=== PATIENT | female | born 1940 | race Caucasian/White ===

== ENCOUNTER 2017-02-07 13:08 | Inpatient (IN) | payer MEDICARE, OTHER ==
[~2017-02-07] VITALS: Ht 152.4 cm; Wt 85.4 kg
[2017-02-07] VITALS (7 sets, daily range): BP systolic 104–148; BP diastolic 60–86; PULSE 58–61; RESP 17–18; TEMP 96.9–98; O2SAT 98–100
[~2017-02-07 13:08] MED LIST: ABIL5TAB6 PO; ALPR.25 PO; BENZ100C4 PO; CARB25TA PO; CARV12.5 PO; CYMB60CA PO; FOLITAB6 PO; FURO1TAB93 PO; LAMO200T PO; MECL25 PO; MEMA10 PO; PHEN100 PO; POTA25TA2 PO; PREG75 PO; PROT40TA PO; RIVA9.5T TD; ROSU10 PO; TEMA15 PO; ZOFR8TAB PO
[2017-02-07] MEDS ORDERED: SODIUM CHLOR 0.9% 1000 ML INJ 1,000 ML IV ONE (13:19)
--- NOTE | 2017-02-07 13:38 | PD ---
HPI Chief Complaint: stroke alert Time Seen by Provider: 13:18 Travel History International Travel<30 days: No Contact w/Intl Traveler<30days: No Traveled to known affect area: No History of Present Illness HPI This patient is brought in as a stroke alert declared by paramedics in the field. Symptom onset 1245. This patient was in the bathroom and had a syncopal episode. Woke up ground and was having some speech slurring and subtle facial droop and some left arm weakness. Duration 45 minutes. Symptoms severity is moderate. No alleviating factors. She denies presyncopal symptoms. She's had a history of multiple TIAs but no residual neurologic deficit. PFSH Past Medical History Arthritis: Yes Asthma: Yes Bipolar Disorder: Yes Anxiety: Yes Depression: Yes Cancer: No Cardiovascular Problems: Yes (HTN/ AAA) High Cholesterol: Yes Congestive Heart Failure: Yes COPD: Yes Cerebrovascular Accident: Yes Coronary Artery Disease: Yes Dementia: Yes Diabetes: No Diminished Hearing: No Endocrine: No Gastrointestinal Disorders: Yes GERD: Yes Genitourinary: No Hypertension: Yes Immune Disorder: No Implanted Vascular Access Dvce: Yes Musculoskeletal: Yes Neurologic: Yes (parkinson) Parkinson's Disease: Yes Psychiatric: Yes (BIPOLAR) Reproductive: No Respiratory: No Seizures: Yes Past Surgical History Abdominal Aneurysm Repair: Yes Abdominal Surgery: Yes (HERNIA REPAIR x 4; AAA REPAIR; CHOLECYSTECTOMY; APPENDECTOMY) Appendectomy: Yes Cholecystectomy: Yes Gynecologic Surgery: Yes (HYSTERECTOMY) Hysterectomy: Yes (PARTIAL) Joint Replacement: Yes (LEFT HIP REPLACEMENT WITH REVISION) Oral Surgery: Yes (TONSILLECTOMY) Pacemaker: No Tonsillectomy: Yes Other Surgery: Yes Social History Alcohol Use: No Tobacco Use: No Substance Use: No Allergies-Medications (Allergen,Severity, Reaction): Coded Allergies: Paxil (Verified Allergy, Severe, CAN NOT REMEMBER , 02/21/16) Lactose (Verified Allergy, Unknown, GI UPSET, 02/21/16) Reported Meds & Prescriptions Reported Meds & Active Scripts Active Reported Cymbalta DR (Duloxetine HCl) 60 Mg Capdr 60 Mg PO DAILY Abilify (Aripiprazole) 2 Mg Tab 2 Mg PO HS Sinemet (Carbidopa-Levodopa) 25-100 Mg Tab 1 Tab PO QID Carvedilol 12.5 Mg Tab 12.5 Mg PO BID Folate (Folic Acid) 1 Mg Tab 2 Mg PO DAILY Lamictal (Lamotrigine) 200 Mg Tab 200 Mg PO HS Meclizine 25 (Meclizine HCl) 25 Mg Tab 25 Mg PO Q8HR PRN Lasix (Furosemide) 20 Mg Tab 20 Mg PO DAILY Namenda (Memantine) 10 Mg Tab 10 Mg PO BID Zofran (Ondansetron HCl) 4 Mg Tab 4 Mg PO DAILY PRN Pantoprazole (Pantoprazole Sodium) 40 Mg Tab 40 Mg PO DAILY Klor-Con M20 (Potassium Chloride Microencaps) 20 Meq Tab 20 Meq PO DAILY Lyrica (Pregabalin) 100 Mg Cap 100 Mg PO TID Exelon Patch (Rivastigmine) 9.5 mg/24 hr Patch 1 Patch T-DERMAL DAILY Advair Diskus Inh (Fluticasone-Salmeterol Inh) 250-50 Mcg/Blist Aer 1 Puff INH BID Rinse mouth after use. Crestor (Rosuvastatin Calcium) 10 Mg Tab 10 Mg PO HS Rozerem (Ramelteon) 8 Mg Tab 8 Mg PO HS Amitiza (Lubiprostone) 8 Mcg Cap 8 Mg PO BID Plavix (Clopidogrel Bisulfate) 75 Mg Tab 75 Mg PO DAILY Alprazolam 0.25 Mg Tab 0.25 Mg PO DAILY PRN Alprazolam 0.25 Mg Tab 0.25 Mg PO BID Review of Systems General / Constitutional: No: Fever Eyes: No: Visual changes HENT: No: Headaches Cardiovascular: No: Chest Pain or Discomfort Respiratory: No: Shortness of Breath Gastrointestinal: No: Abdominal Pain Genitourinary: No: Dysuria Musculoskeletal: Positive: Weakness, No: Pain Skin: No Rash Neurologic: Positive: Weakness, Slurred Speech Psychiatric: No: Depression Endocrine: No: Polydipsia Hematologic/Lymphatic: No: Easy Bruising Physical Exam Narrative GENERAL: Well-nourished, well-developed patient in no apparent distress. SKIN: Focused skin assessment reveals no rash and nodules. Skin is Warm and dry. HEAD: Atraumatic. Normocephalic. EYES: Pupils equal and round. No scleral icterus. No injection or drainage. ENT: No nasal bleeding or discharge. Mucous membranes pink and moist. NECK: Trachea midline. No JVD. No midline tenderness CARDIOVASCULAR: Regular rate and rhythm. No murmur appreciated. RESPIRATORY: No accessory muscle use. Clear to auscultation. Breath sounds equal bilaterally. GASTROINTESTINAL: Abdomen soft, non-tender, nondistended. Hepatic and splenic margins not palpable. MUSCULOSKELETAL: No obvious deformities. No clubbing. No cyanosis. No edema. NEUROLOGICAL: Awake and alert. Has a slight and subtle right sided facial droop. Motor exam reveals that there is some mild left hand and arm weakness compared to the right. Slight slurring of speech. Sensation seems intact throughout. Awake and alert and oriented. PSYCHIATRIC: Appropriate mood and affect; insight and judgment reasonable Data Data Last Documented VS Vital Signs Date Time Temp Pulse Resp B/P Pulse Ox O2 Delivery O2 Flow Rate FiO2 02/07/17 13:10 98.0 60 18 104/86 98 Nasal Cannula 2 Orders Diet Npo (02/07/17 Lunch) Activity Bed Rest (02/07/17 ) Electrocardiogram (02/07/17 ) I-Stat Creatinine (02/07/17 13:19) I-Stat Profile (02/07/17 13:19) Prothrombin Time / Inr (Pt) (02/07/17 13:19) Act Partial Throm Time (Ptt) (02/07/17 13:19) Complete Blood Count With Diff (02/07/17 13:19) Fibrinogen (02/07/17 13:19) Ct Brain W/O Iv Contrast(Rout) (02/07/17 ) Consult Neurology (02/07/17 ) Ecg Monitoring (02/07/17 13:19) Neuro Checks Q2HX12,Q4H (02/07/17 13:19) Nursing Bedside Swallow Assess .ONCE (02/07/17 13:19) Iv Access Insert/Monitor (02/07/17 13:19) NPO (02/07/17 13:19) Oximetry (02/07/17 13:19) Oxygen Administration (02/07/17 13:19) Sodium Chlor 0.9% 1000 Ml Inj (Ns 1000 M (02/07/17 13:19) Resp Oxygen Rui C Titrat 1-4 L (02/07/17 13:19) (Hub Use Only)Inp Phy Cons/Ref (02/07/17 ) Aspirin (Aspirin) (02/07/17 14:15) Admit Order (Ed Use Only) (02/07/17 15:54) Labs Laboratory Tests Test 02/07/17 13:36 White Blood Count 4.3 TH/MM3 Red Blood Count 4.39 MIL/MM3 Hemoglobin 12.5 GM/DL Bedside Hemoglobin 12.2 G/DL Hematocrit 38.0 % Bedside Hematocrit 36.0 % Mean Corpuscular Volume 86.5 FL Mean Corpuscular Hemoglobin 28.5 PG Mean Corpuscular Hemoglobin 32.9 % Concent Red Cell Distribution Width 14.1 % Platelet Count 66 TH/MM3 Mean Platelet Volume 11.7 FL Neutrophils (%) (Auto) 54.8 % Lymphocytes (%) (Auto) 31.3 % Monocytes (%) (Auto) 9.5 % Eosinophils (%) (Auto) 3.8 % Basophils (%) (Auto) 0.6 % Neutrophils # (Auto) 2.4 TH/MM3 Lymphocytes # (Auto) 1.3 TH/MM3 Monocytes # (Auto) 0.4 TH/MM3 Eosinophils # (Auto) 0.2 TH/MM3 Basophils # (Auto) 0.0 TH/MM3 CBC Comment AUTO DIFF Differential Comment AUTO DIFF CONFIRMED Platelet Estimate Platelet Morphology Comment ENLARGED Prothrombin Time 11.0 SEC Prothromb Time International 1.0 RATIO Ratio Activated Partial 25.7 SEC Thromboplast Time Fibrinogen 332 mg/dL Bedside Sodium 144 MMOL/L Bedside Potassium 4.4 MMOL/L Bedside Chloride 104 MMOL/L Bedside Blood Urea Nitrogen 33 MG/DL Bedside Creatinine 1.2 MG/DL Bedside Glucose 92 MG/DL [facility] Medical Screen Exam Complete: Yes Emergency Medical Condition: Yes Medical Record Reviewed: Yes Differential Diagnosis Ischemic CVA, hemorrhagic CVA, TIA Narrative Course I have reviewed the patient's electronic medical record. Patient arrives critically ill with acute stroke alert. Does have some deficits that would be consistent with acute stroke. Stroke alert protocol has been activated. I called his cellphone out of her personal neurologist Dr. Draper but he did not warp picker and so we have contacted the on-call neurologist given we cannot wait. I reviewed in detail with Dr. Vega. Patient has been sent to the CT scanner CT scan of the brain I reviewed with the radiologist. There is no hemorrhage. Shows an old CVA. CBC shows thrombocytopenia Metabolic profile is reasonably normal Coagulation studies are normal The patient came back from the scanner is in mentation. She has some deficits but they are fairly minor and neurologist does not recommend TPA based on the deficits being mild and I concur. We don't feel it is worth the risk of hemorrhage. I reviewed this in detail with the daughter. Patient will be admitted to the hospitalist and I have discussed with him Critical Care Narrative Aggregate critical care time was 40 minutes. Time to perform other separately billable procedures was not included in the critical care time. My time did not include minutes spent treating any other patients simultaneously or on activities that did not directly contribute to the patient's treatment. The services I provided to this patient were to treat and/or prevent clinically significant deterioration that could result in: Permanent neurologic deficit, intracranial hemorrhage, brain stem herniation I provided critical care services requiring my management, as noted below: Chart data review, documentation time, medication orders and management, vital sign assessments/reviewing monitor data, ordering and reviewing lab tests, ordering and interpreting/reviewing x-rays and diagnostic studies, care of the patient and discussion of the patient with the admitting physicians. Stroke Alert NIHSS NIH Stroke Scale Result: 3 NIHSS Time Completed: 13:25 Thrombolytic Contraindications Contraindications Comment: Deficits are mild and not worth the risk of bleeding Diagnosis Diagnosis: Primary Impression: Acute ischemic right MCA stroke Admitting Physician Requests: Admit Jersey Giraldo MD Feb 07, 2017 13:38
[2017-02-07 13:55] LABS: AUTOMATED NEUTROPHIL # 2.4 TH/MM3 (1.8-7.7); BASOPHIL % 0.6 % (0.0-2.0); EOSINOPHIL # 0.2 TH/MM3 (0-0.4); EOSINOPHIL % 3.8 % (0.0-4.0); I-STAT POTASSIUM 4.4 MMOL/L (3.5-4.9); LYMPH % 31.3 % (9.0-44.0); LYMPHOCYTE # 1.3 TH/MM3 (1.0-4.8); MEAN CELL VOLUME 86.5 FL (80.0-100.0); MEAN CORPUSCULAR HEMOGLOBIN 28.5 PG (27.0-34.0); MEAN CORPUSCULAR HGB CONC 32.9 % (32.0-36.0); MONO % 9.5 % (0.0-8.0); NEUT % 54.8 % (16.0-70.0); PLATELET COUNT 66 TH/MM3 (150-450); RED BLOOD COUNT 4.39 MIL/MM3 (4.00-5.30); RED CELL DISTRIBUTION WIDTH 14.1 % (11.6-17.2); WHITE BLOOD COUNT 4.3 TH/MM3 (4.0-11.0)
[2017-02-07 14:05] LABS: APTT (PATIENT) 25.7 SEC (24.3-30.1)
[2017-02-07 14:07] LABS: HEMO FLAGS AUTO DIFF
--- NOTE | 2017-02-07 14:10 | RADRPT ---
EXAM DATE/TIME: 02/07/2017 13:24 [facility] COMPARISON: MRI BRAIN W/O CONTRAST, July 17, 2016, 11:27. CT BRAIN W/O CONTRAST, July 16, 2016, 22:36. INDICATIONS : Left arm weakness, slurred speech RADIATION DOSE: 38.09 CTDIvol (mGy) This report was called by Gloria to Maximus at 1404 MEDICAL HISTORY : Hypertension. Dementia. SURGICAL HISTORY : None. ENCOUNTER: Initial ACUITY: 1 day PAIN SCALE: Non-responsive LOCATION: cranial TECHNIQUE: Multiple contiguous axial images were obtained of the head. Using automated exposure control and adj ustment of the mA and/or kV according to patient size, radiation dose was kept as low as reasonably a chievable to obtain optimal diagnostic quality images. FINDINGS: There is mild symmetric cortical atrophic change. Patchy mild diminished attenuation deep white matte r, likely microvascular ischemic in etiology there is no evidence of hemorrhage or mass. There is not john to suggest acute infarction. The extracranial structures are benign and intact. CONCLUSION: No acute intracranial findings. Study reviewed with Dr. Vega and report called to Dr. Stroud as abo ve. Sivakumar Castro MD on February 07, 2017 at 14:04 Board Certified Radiologist. This report was verified electronically.
[2017-02-07] MEDS ORDERED: ASPIRIN 325 MG TAB PO ONE (14:15)
[2017-02-07 14:25] LABS: PLATELET MORPHOLOGY ENLARGED (NORMAL); SCAN/DIFF AUTO DIFF CONFIRMED
[2017-02-07] MEDS ORDERED: ALPR0.25 PO ×2 (15:50)
[2017-02-07] MEDS ORDERED: ROZE8TAB8 PO (15:50)
[2017-02-07] MEDS ORDERED: PANT40TA3 PO (15:50)
[2017-02-07] MEDS ORDERED: AMIT8CAP6 PO (15:50)
[2017-02-07] MEDS ORDERED: FURO1TAB62 PO (15:50)
[2017-02-07] MEDS ORDERED: ROSU10 PO (15:50)
[2017-02-07] MEDS ORDERED: RIVA9.5T T-DERMAL (15:50)
[2017-02-07] MEDS ORDERED: PLAV75TA29 PO (15:50)
[2017-02-07] MEDS ORDERED: LYRI100C PO (15:50)
[2017-02-07] MEDS ORDERED: MECL1TAB42 PO (15:50)
[2017-02-07] MEDS ORDERED: NAME10TA PO (15:50)
[2017-02-07] MEDS ORDERED: ADVA250A INH (15:50)
[2017-02-07] MEDS ORDERED: POTA-245 PO (15:50)
[2017-02-07] MEDS ORDERED: ZOFR4TAB PO (15:50)
[2017-02-07] MEDS ORDERED: FOLI1TAB4 PO (15:51)
[2017-02-07] MEDS ORDERED: LAMI200T PO (15:51)
[2017-02-07] MEDS ORDERED: SINE25TA PO (15:51)
[2017-02-07] MEDS ORDERED: CARV12.52 PO (15:51)
[2017-02-07] MEDS ORDERED: ABIL2TAB2 PO (15:51)
[2017-02-07] MEDS ORDERED: CYMB60CA PO (15:59)
[2017-02-07] MEDS ORDERED: SODIUM CHLOR 0.9% 1000 ML INJ 1,000 ML IV SCH (17:19)
[2017-02-07] MEDS ORDERED: ENALAPRILAT 1.25 MG/ML VIAL IV PRN (17:30)
[2017-02-07] MEDS ORDERED: GLUCAGON 1 MG/ML VIAL IM/SQ PRN (17:30)
[2017-02-07] MEDS ORDERED: LABETALOL HCL 100 MG/20 ML VIAL IV PRN (17:30)
[2017-02-07] MEDS ORDERED: DEXTROSE 50% IN WATER 50 ML VIAL(D50) IV PUSH PRN (17:30)
[2017-02-07] MEDS ORDERED: MECLIZINE HCL 25 MG TAB PO PRN (18:45)
--- NOTE | 2017-02-07 18:46 | HHI.HP ---
[facility] Service [place] [facility] Primary Care Physician Khadijah Levin MD Admission Diagnosis acute ischemic CVA Diagnoses: Travel History International Travel<30 Days: No Contact w/Intl Traveler <30 Da: No Traveled to Known Affected Are: No History of Present Illness 76 years old female with history of asthma bipolar disease anxiety depression hypertension seizure abdominal aortic aneurysm dyslipidemia CHF COPD and TIA in the past and dementia, presented to the ED today by the manager [employer] as a stroke alert at 1245 patient fail down in the bathroom but it wasn't sure if it was syncopal episode with losing consciousness since the weakness was her who already has advanced dementia as I was told by the daughter. Neurology was consulted in ED Dr. Zapata assess the patient he decided no need for TPA since the symptoms are very minimal. He placed her on aspirin on top of the Plavix, patient recently had an MRI so decision on doing another MRI was deferred to neurology. I saw the patient in her room with her daughter was at the bedside. She is pleasant resting comfortably in bed she told me she failed dizzy prior to filling down, she stated she hit the edge of the bathtub Denied short of breath, chest pain, blurry vision prior to the episode she wasn' t sure if she lost consciousness she does feel weakness in her left arm and leg she don't remember if she had problem with speech or jerking movement. No abdominal pain diarrhea or constipation no dysuria urgency or frequency. CT scan of the brain in ED did not showed hemorrhage or all CVA, CBC showed thrombocytopenia, coag panel was within normal limits Patient told me she follow up with her net c developer who wanted to adjust her anticoagulation and she has implanted loop recorder Past Family Social History Past Medical History bipolar disorder Anxiety depression hypertension Abdominal aortic aneurysm dyslipidemia Congestive heart failure COPD Seizures CVA Dementia GERD Past Surgical History Abdominal aortic aneurysm repair and a cholecystectomy Appendectomy Hysterectomy Left hip replacement next and tonsillectomy Allergies: Coded Allergies: Paxil (Verified Allergy, Severe, CAN NOT REMEMBER , 02/21/16) Lactose (Verified Allergy, Unknown, GI UPSET, 02/21/16) Family History Reviewed with the patient and her daughter, positive history of CVA in her family Social History Denied tobacco alcohol or illicit drug abuse Physical Exam Vital Signs Vital Signs Date Time Temp Pulse Resp B/P Pulse Ox O2 Delivery O2 Flow Rate FiO2 02/07/17 16:00 60 18 148/70 98 Nasal Cannula 2 02/07/17 15:00 60 18 136/60 99 Nasal Cannula 2 02/07/17 14:00 60 18 130/63 99 Nasal Cannula 2 02/07/17 13:30 61 18 129/69 99 Nasal Cannula 2 02/07/17 13:10 98.0 60 18 104/86 98 Nasal Cannula 2 02/07/17 13:10 98.0 60 18 104/86 98 02/07/17 13:10 98 Nasal Cannula 2.00 02/07/17 13:10 98 Nasal Cannula 2 02/07/17 13:10 98 2.00 02/07/17 13:10 98 Nasal Cannula 2 02/07/17 13:10 60 18 98 Nasal Cannula 2 Physical Exam GENERAL: This is a well-nourished, elderly 76 years old female well-developed patient, in no apparent distress. SKIN: No rashes, warm and dry HEAD: Atraumatic. Normocephalic. EYES: Pupils equal round and reactive. Extraocular motions intact. No scleral icterus. ENT: Nose without bleeding, or drainage, Airway patent. NECK: Trachea midline. Supple CARDIOVASCULAR: Regular rate and rhythm without murmurs, gallops, or rubs. RESPIRATORY: Fair air entry bilaterally. No wheezes, rales, or rhonchi. GASTROINTESTINAL: Abdomen soft, non-tender, nondistended. Positive bowel sounds MUSCULOSKELETAL: Extremities without clubbing, cyanosis, or edema. Pedal pulses appreciated NEUROLOGICAL: Awake and alert. Cranial nerves II-12 intact, LUE 3 out of 5 minimal drift against gravity, RUE 4 out of 5, lower extremity LLE 3 out of 5, RLE 4 out of 5, Normal speech. Laboratory Laboratory Tests Test 02/07/17 13:36 White Blood Count 4.3 Red Blood Count 4.39 Hemoglobin 12.5 Bedside Hemoglobin 12.2 Hematocrit 38.0 Bedside Hematocrit 36.0 Mean Corpuscular Volume 86.5 Mean Corpuscular Hemoglobin 28.5 Mean Corpuscular Hemoglobin 32.9 Concent Red Cell Distribution Width 14.1 Platelet Count 66 Mean Platelet Volume 11.7 Neutrophils (%) (Auto) 54.8 Lymphocytes (%) (Auto) 31.3 Monocytes (%) (Auto) 9.5 Eosinophils (%) (Auto) 3.8 Basophils (%) (Auto) 0.6 Neutrophils # (Auto) 2.4 Lymphocytes # (Auto) 1.3 Monocytes # (Auto) 0.4 Eosinophils # (Auto) 0.2 Basophils # (Auto) 0.0 CBC Comment AUTO DIFF Differential Comment AUTO DIFF CONFIRMED Platelet Estimate Platelet Morphology Comment ENLARGED Prothrombin Time 11.0 Prothromb Time International 1.0 Ratio Activated Partial 25.7 Thromboplast Time Fibrinogen 332 Bedside Sodium 144 Bedside Potassium 4.4 Bedside Chloride 104 Bedside Blood Urea Nitrogen 33 Bedside Creatinine 1.2 Bedside Glucose 92 Result Diagram: 02/07/17 1336 Imaging Last Impressions Head CT 02/07/17 0000 Signed Impressions: Service Date/Time: Tuesday, February 07, 2017 13:24 - CONCLUSION: No acute intracranial findings. Study reviewed with Dr. Vega and report called to Dr. Stroud as above. Sivakumar Castro MD Assessment and Plan Assessment and Plan 76 years old female with extensive past medical history presented with neuro symptom with Stroke alert, sudden fall and left upper and lower extremity weakness CT head reviewed personally by me no hemorrhage or old stroke Neurology consulted and recommended against TPA due to minimal neuro symptom , recommended aspirin with Plavix Will apply stroke protocol with flat bed, permissive hypertension Enalapril labetalol with a stroke parameter as needed SCD and heparin for DVT prophylaxis Nothing by mouth until doing swallow eval Check lipid profile Check A1c Mild azotemia with BUN/creatinine over creatinine 33 over 1.2 Monitor BMP Will give 1 L of normal saline iv fluid cautiously Thrombocytopenia chronic Count at 66, monitor CBC, no signs of bleeding History of CHF: We'll check 2-D echo part of the workup, assess EF, recent 2-D echo in 2011 showed 55-60% H/O COPD O2, DuoNeb as needed History of seizure: EEG deferred for neurology Rest of the medical problem >> will resume her home medication per med rec Anxiety depression and bipolar disorder Hypertension History of abdominal aortic aneurysm Hyperlipidemia History of TIA History of dementia Discussed Condition With Patient, ED physician and patient's daughter Physician Certification 2 Midnight Certification Type: Admission for Inpatient Services Order for Inpatient Services The services are ordered in accordance with Medicare regulations or non- Medicare payer requirements, as applicable. In the case of services not specified as inpatient-only, they are appropriately provided as inpatient services in accordance with the 2-midnight benchmark. Estimated LOS (days): 2 days is the estimated time the patient will need to remain in the hospital, assuming treatment plan goals are met and no additional complications. Post-Hospital Plan: Not yet determined Munir Fenton MD Feb 07, 2017 18:46
[2017-02-07] MEDS ORDERED: BUDESONIDE-FORMOTEROL 160/4.5 MCG INHALER INH SCH (21:00)
[2017-02-07 22:05] LABS: HEMOGLOBIN A1b 1.7 %; HEMOGLOBIN Ao 84.4 %; HEMOGLOBIN LA1C 2.1 %
[2017-02-07] MEDS: INSULIN ASPART SUPPLEMENTAL SCALE SQ SCH (22:30)
[2017-02-07] MEDS: lamoTRIgine 100 MG TAB PO SCH (22:33)
[2017-02-07] MEDS: HEPARIN SODIUM - SQ 10,000 UNITS/ML VIAL SQ SCH (22:33)
[2017-02-07] MEDS: PATIENT OWN MEDICATION PO SCH (22:33)
[2017-02-07] MEDS: LUBIPROSTONE 8 MG PO SCH (22:33)
[2017-02-07] MEDS: CARVEDILOL 12.5 MG TAB PO SCH (22:34)
[2017-02-07] MEDS: MEMANTINE HCL 10 MG TAB PO SCH (22:34)
[2017-02-07] MEDS: ATORVASTATIN 20 MG TAB PO SCH (22:34)
[2017-02-07] MEDS: ATORVASTATIN 10 MG TAB PO SCH (22:34)
[2017-02-07] MEDS: CARBIDOPA/LEVODOPA 25 MG/100 MG TAB PO SCH (22:34)
[2017-02-07] MEDS: ARIPiprazole 2 MG TAB PO SCH (22:35)
[2017-02-08] VITALS (9 sets, daily range): BP systolic 96–127; BP diastolic 50–77; PULSE 54–138; RESP 16–20; TEMP 95.9–98.1; O2SAT 98–100
[2017-02-08] MEDS: INSULIN ASPART SUPPLEMENTAL SCALE SQ SCH ×4 (05:55→21:47)
[2017-02-08] MEDS: HEPARIN SODIUM - SQ 10,000 UNITS/ML VIAL SQ SCH ×3 (06:29→21:37)
--- NOTE | 2017-02-08 06:44 | MB ---
cc: MAXX PERDOMO M.D. DATE OF CONSULTATION 02/07/2017 REASON FOR CONSULTATION This is a 76-year-old woman seen in neurological consultation. She came in as a stroke alert. This was at about 12:45 when she was noted to have the onset of symptoms. Apparently she fell in the bathroom, may have had a syncopal episode, although not quite clear. She was noted to have some left-sided weakness. She has a history of multiple medical problems taking multiple medications including antidepressants, Sinemet, antihypertensive medications, Namenda, Lamictal, Lyrica, Exelon, Crestor, Plavix, etc. She has had TIAs in the past and apparently recovered well from them. Currently the patient appears to have a loop recorder to Dr. Vogel because of her recurrent TIAs. I spoke to the daughter at bedside. The patient was awake, but not back herself mentally. The patient followed commands, was responding appropriately to simple matters, recognizing environment. She has a slight left facial weakness and there is some very subtle left hemiparesis. She raised the arms and raises the leg, but on there is some difficulty doing these using the left sided limbs. The sports equipment racker is slightly weaker on the left. The reflexes were diminished throughout. Plantar responses probably flexor bilaterally. ASSESSMENT Left hemiparetic syndrome with an NIHSS of 3. I initially considered the possibility of tPA and discussed this with the daughter, although considering the patient's findings being rather minor and the risks, the daughter was not encouraged about this. I saw the CT scan which was negative. So we decided not to proceed with tPA and as I looked in more details, the platelet count is also initially 66 which is another contraindication for tPA therefore she would not have been a candidate for this anyway. I understand she has had some MRI studies which were negative a few months ago. She follows with my associate Dr. Draper. We will monitor the neurological course, IV fluids and supportive medical care. Continue her antiplatelet agent, cardiac monitoring. Aspirin was added and I discussed this with Dr. Giraldo in the emergency room. Statin. We will check lipid profile. She already has what appears to be a loop recorder looking for underlying atrial fibrillation which might determine the need for anticoagulation. Thrombocytopenia. Medical evaluation/care. I will follow the neurological course. Thank you for asking us to assist in her care. MD HONORIO Moreno/MYRON /5:56 PM /6:33 AM
[2017-02-08 08:26] LABS: BASOPHIL % 0.8 % (0.0-2.0); EOSINOPHIL # 0.2 TH/MM3 (0-0.4); EOSINOPHIL % 4.2 % (0.0-4.0); HEMATOCRIT 35.2 % (35.0-46.0); LYMPH % 41.7 % (9.0-44.0); LYMPHOCYTE # 1.9 TH/MM3 (1.0-4.8); MEAN CELL VOLUME 86.3 FL (80.0-100.0); MEAN CORPUSCULAR HEMOGLOBIN 28.8 PG (27.0-34.0); MEAN CORPUSCULAR HGB CONC 33.4 % (32.0-36.0); NEUT % 43.3 % (16.0-70.0); PLATELET COUNT 63 TH/MM3 (150-450); RED BLOOD COUNT 4.07 MIL/MM3 (4.00-5.30); RED CELL DISTRIBUTION WIDTH 14.3 % (11.6-17.2); WHITE BLOOD COUNT 4.5 TH/MM3 (4.0-11.0)
[2017-02-08 08:39] LABS: HEMO FLAGS AUTO DIFF
[2017-02-08 08:42] LABS: BICARBONATE 27.4 MEQ/L (21.0-32.0)
[2017-02-08 08:44] LABS: HDL CHOLESTEROL 60.8 MG/DL (40.0-60.0)
[2017-02-08] MEDS: LUBIPROSTONE 8 MG PO SCH (09:00)
[2017-02-08] MEDS: RIVASTIGMINE 9.5 MG/24 HOUR PATCH T-DERMAL SCH (09:00)
--- NOTE | 2017-02-08 09:16 | HHI.PR ---
Review/Management Daily Summary 02/08 looks better this am, more alert and responsive silght left facial weakness eeg pt for gait mri brain, carotid us Subjective Subjective Comments No acute events reported No headache No chest pain No dyspnea Active Medications Current Medications Medications (Trade) Dose Ordered Sig/Dolores Route Start Time Stop Time Status Last Admin (Vasotec Inj) 1.25 mg Q4H PRN IV 02/07/17 17:30 (Trandate Inj) 10 mg Q2H PRN IV 02/07/17 17:30 (Aspirin) 325 mg DAILY PO 02/08/17 09:00 (Lipitor) 10 mg HS PO 02/07/17 21:00 02/07/17 22:34 (Plavix) 75 mg DAILY PO 02/08/17 09:00 (D50w (Vial) Inj) 25 ml UNSCH PRN IV PUSH 02/07/17 17:30 (Glucagon Inj) 1 mg UNSCH PRN IM/SQ 02/07/17 17:30 (Heparin Inj) 5,000 units Q8H SQ 02/07/17 22:00 02/08/17 06:29 (Abilify) 2 mg HS PO 02/07/17 21:00 02/07/17 22:35 (Sinemet 25-100 Mg) 1 tab QID PO 02/07/17 21:00 02/07/17 22:34 (Coreg) 12.5 mg BID PO 02/07/17 21:00 02/07/17 22:34 (Cymbalta Dr) 60 mg DAILY PO 02/08/17 09:00 (Folate) 2 mg DAILY PO 02/08/17 09:00 (LaMICtal) 200 mg HS PO 02/07/17 21:00 02/07/17 22:33 (Antivert) 25 mg Q8HR PRN PO 02/07/17 18:45 (Namenda) 10 mg BID PO 02/07/17 21:00 02/07/17 22:34 (Protonix) 40 mg DAILY PO 02/08/17 09:00 (Lyrica) 100 mg TID PO 02/08/17 09:00 (Exelon 9.5 Mg Patch.24hr) 1 patch DAILY T-DERMAL 02/08/17 09:00 (Symbicort 160-4.5 Inh) 2 puff BID INH 02/07/17 21:00 Patient Own Medication PT OWN MED: Lubiprostone (Amitiza... BID PO 02/07/17 21:00 Patient Own Medication 8 ea HS PO 02/07/17 21:00 (Lipitor) 20 mg HS PO 02/07/17 21:00 02/07/17 22:34 Allergies Allergies Coded Allergies Paxil (Verified Allergy, Severe, CAN NOT REMEMBER , 02/21/16) Lactose (Verified Allergy, Unknown, GI UPSET, 02/21/16) Exam I&O / VS 02/07/17 02/07/17 02/08/17 15:00 23:00 07:00 Output Total 20 ml Balance -20 ml Output Urine Total 20 ml # Bowel Movements 0 Vital Signs Date Time Temp Pulse Resp B/P Pulse Ox O2 Delivery O2 Flow Rate FiO2 02/08/17 08:00 98.1 138 16 105/56 100 02/08/17 05:30 96.5 62 18 108/56 98 02/08/17 01:51 96.3 58 20 96/50 98 02/07/17 20:53 96.9 58 17 147/80 100 02/07/17 19:01 60 18 134/86 98 Nasal Cannula 2 02/07/17 16:00 60 18 148/70 98 Nasal Cannula 2 02/07/17 15:00 60 18 136/60 99 Nasal Cannula 2 02/07/17 14:00 60 18 130/63 99 Nasal Cannula 2 02/07/17 13:30 61 18 129/69 99 Nasal Cannula 2 02/07/17 13:10 98.0 60 18 104/86 98 Nasal Cannula 2 02/07/17 13:10 98.0 60 18 104/86 98 02/07/17 13:10 98 Nasal Cannula 2.00 02/07/17 13:10 98 Nasal Cannula 2 02/07/17 13:10 98 2.00 02/07/17 13:10 98 Nasal Cannula 2 02/07/17 13:10 60 18 98 Nasal Cannula 2 Objective Radiology Results Last [address] 02/07/17 0000 Signed Impressions: Service Date/Time: Tuesday, February 07, 2017 13:24 - CONCLUSION: No acute intracranial findings. Study reviewed with Dr. Vega and report called to Dr. Stroud as above. Sivakumar Castro MD Micro and Labs Laboratory Tests Test 02/07/17 02/08/17 13:36 07:52 White Blood Count 4.3 4.5 Red Blood Count 4.39 4.07 Hemoglobin 12.5 11.7 Bedside Hemoglobin 12.2 Hematocrit 38.0 35.2 Bedside Hematocrit 36.0 Mean Corpuscular Volume 86.5 86.3 Mean Corpuscular Hemoglobin 28.5 28.8 Mean Corpuscular Hemoglobin 32.9 33.4 Concent Red Cell Distribution Width 14.1 14.3 Platelet Count 66 63 Mean Platelet Volume 11.7 12.1 Neutrophils (%) (Auto) 54.8 43.3 Lymphocytes (%) (Auto) 31.3 41.7 Monocytes (%) (Auto) 9.5 10.0 Eosinophils (%) (Auto) 3.8 4.2 Basophils (%) (Auto) 0.6 0.8 Neutrophils # (Auto) 2.4 2.0 Lymphocytes # (Auto) 1.3 1.9 Monocytes # (Auto) 0.4 0.5 Eosinophils # (Auto) 0.2 0.2 Basophils # (Auto) 0.0 0.0 CBC Comment AUTO DIFF AUTO DIFF Differential Comment AUTO DIFF CONFIRMED Platelet Estimate Platelet Morphology Comment ENLARGED Prothrombin Time 11.0 Prothromb Time International 1.0 Ratio Activated Partial 25.7 Thromboplast Time Fibrinogen 332 Bedside Sodium 144 Bedside Potassium 4.4 Bedside Chloride 104 Bedside Blood Urea Nitrogen 33 Bedside Creatinine 1.2 Bedside Glucose 92 Hemoglobin A1c 5.8 Hematology Comments Sodium Level 144 Potassium Level 4.0 Chloride Level 109 Carbon Dioxide Level 27.4 Anion Gap 8 Blood Urea Nitrogen 24 Creatinine 1.04 Estimat Glomerular Filtration 51 Rate Random Glucose 85 Calcium Level 7.9 Triglycerides Level 74 Cholesterol Level 117 LDL Cholesterol 41 HDL Cholesterol 60.8 Cholesterol/HDL Ratio 1.92 Roe Vega MD Feb 08, 2017 09:16
[2017-02-08 09:17] LABS: PLATELET MORPHOLOGY ENLARGED (NORMAL); SCAN/DIFF AUTO DIFF CONFIRMED
[2017-02-08] MEDS: ASPIRIN 325 MG TAB PO SCH ×2 (10:00→12:35)
[2017-02-08] MEDS: PREGABALIN 100 MG CAP PO SCH ×3 (10:00→17:33)
[2017-02-08] MEDS: CLOPIDOGREL 75 MG TAB PO SCH (10:00)
[2017-02-08] MEDS: PANTOPRAZOLE SOD 40 MG DELAYED RELEASE TAB PO SCH (10:00)
[2017-02-08] MEDS: CARBIDOPA/LEVODOPA 25 MG/100 MG TAB PO SCH ×4 (10:01→21:37)
[2017-02-08] MEDS: FOLIC ACID 1 MG TAB PO SCH (10:01)
[2017-02-08] MEDS: MEMANTINE HCL 10 MG TAB PO SCH ×2 (10:01→21:37)
[2017-02-08] MEDS: CARVEDILOL 12.5 MG TAB PO SCH ×2 (10:01→21:38)
[2017-02-08] MEDS: DULoxetine HCl DR 60 MG CAP PO SCH (10:01)
--- NOTE | 2017-02-08 10:19 | RADRPT ---
EXAM DATE/TIME: 02/08/2017 09:19 [facility] COMPARISON: No previous studies available for comparison. EXTERNAL COMPARISON : [facility], US CAROTID ARTERIES April 08, 2016 INDICATIONS : Transient ischemic attack. MEDICAL HISTORY : Hypercholesterolemia. Congestive heart failure. Chronic obstructive pulmonary disease. Parkinson. Cer ebrovascular accident. Dementia. Seizures. Abdominal aortic aneurysm. Coronary aortic diesase. Hypert ension. Anticoagulant therapy. Asthma. GERD. Bipolar. SURGICAL HISTORY : Tonsillectomy. Appendectomy. Cholecystectomy. Hernia repair. Hysterectomy. Total left hip replacement . Right ankle surgery. ENCOUNTER: Subsequent ACUITY: 1 day PAIN SCORE: 0/10 LOCATION: Bilateral neck PEAK SYSTOLIC VELOCITIES (cm/sec): ICA/CCA RATIO: Right: 1.0 Left: 1.2 ICA: Right: 77 Left: 91 CCA: Right: 76 Left: 76 ECA: Right: 92 Left: 65 VERTEBRAL: Right: 65 antegrade Left: 85 antegrade Elevated flow velocities and ICA/CCA ratios have been found to correlate with increased degrees of vessel stenosis, calculated as percentage of diameter relative to a normal segment of distal ICA/CCA FINDINGS: RIGHT CAROTID: No significant stenosis is visualized. The waveforms are within normal limits. LEFT CAROTID: No significant stenosis is visualized. The waveforms are within normal limits. VERTEBRAL ARTERIES: Antegrade flow is seen in both vertebral arteries. MISCELLANEOUS: None. CONCLUSION: No evidence of flow-limiting carotid stenosis. Sivakumar Castro MD on February 08, 2017 at 10:16 Board Certified Radiologist. This report was verified electronically.
--- NOTE | 2017-02-08 10:49 | EKG ---
Date Performed: 02/07/2017 Time Performed: 13:42:57 PTAGE: 76 years EKG: SINUS BRADYCARDIA BORDERLINE ECG Compared to prior tracing no significant change PREVIOUS TRACING DOCTOR: Devika Coley Interpretating Date/Time 02/08/2017 10:41:41
--- NOTE | 2017-02-08 11:43 | EC ---
Study Study Date:02/08/2017 STUDY CONCLUSIONS SUMMARY - Left ventricle: The cavity size was normal. Wall thickness was normal. Systolic function was normal. The estimated ejection fraction was in the range of 55% to 60%. Wall motion was normal; there were no regional wall motion abnormalities. - Aortic valve: Valve area: 2.53cm^2 (Vmax). - Mitral valve: Mild regurgitation. If LV function is below 40, please consider prescribing an ACEI or ARB or document rationale for non-use. PROCEDURE DATA STUDY STATUS: Elective. Procedure: Transthoracic echocardiography. Image quality was good. Scanning was performed from the parasternal, apical, and subcostal acoustic windows. Study completion: The patient tolerated the procedure well. Transthoracic echocardiography. M-mode, complete 2D, complete spectral Doppler, and color Doppler. Height: Height: 60in. Weight: Weight: 181.6lb. Body mass index: BMI: 35.5kg/m^2. Body surface area: BSA: 1.79m^2. Patient status: Inpatient. CARDIAC ANATOMY LEFT VENTRICLE: The cavity size was normal. Wall thickness was normal. Systolic function was normal. The estimated ejection fraction was in the range of 55% to 60%. Wall motion was normal; there were no regional wall motion abnormalities. AORTIC VALVE: Trileaflet; normal thickness leaflets. Doppler: Transvalvular velocity was within the normal range. There was no stenosis. No regurgitation. Valve area: 2.53cm^2 (Vmax). Indexed valve area: 1.41cm^2/m^2 (Vmax). AORTA: Aortic root: The aortic root was normal in size. MITRAL VALVE: Structurally normal valve. Doppler: Transvalvular velocity was within the normal range. There was no evidence for stenosis. Mild regurgitation. Peak gradient: 4mm Hg (D). LEFT ATRIUM: The atrium was normal in size. RIGHT VENTRICLE: The cavity size was normal. Wall thickness was normal. PULMONIC VALVE: Doppler: Transvalvular velocity was within the normal range. There was no evidence for stenosis. No regurgitation. TRICUSPID VALVE: Structurally normal valve. Doppler: Transvalvular velocity was within the normal range. No regurgitation. PULMONARY ARTERY: The main pulmonary artery was normal-sized. Systolic pressure was within the normal range. RIGHT ATRIUM: The atrium was normal in size. PERICARDIUM: There was no pericardial effusion. SYSTEMIC VEINS: Inferior vena cava: The vessel was normal in size. Patient weight: 181.6lb _Ejection fraction:_ 65-75% _Fractional shortening:_ 32% up to 5Kg 5-11.5Kg 11.6-22.9Kg 23-45Kg 45-57Kg Aortic Root 7-13 <17 13-22 17-27 17-27 LA diam 6-13 <23 24-38 33-47 37-40 RVID 10-17 7-15 7-15 7-18 8-17 LVIDd 12-22 <32 24-38 33-47 37-40 LVPW 2-4 3-6 5-7 6-8 7-8 IVS 2-4 3-6 5-7 6-8 7-8 BASIC MEASUREMENTS ADULT NORMAL Left ventricle LV internal dimension, ED, chordal *39.6 mm 43-52 level, PLAX LV internal dimension, ES, chordal 29.1 mm 23-38 level, PLAX Fractional shortening, chordal level, *27 % >29 PLAX LV posterior wall thickness, ED 7.83 mm IVS/LVPW ratio, ED 1.01 <1.3 Ventricular septum Septal thickness, ED 7.9 mm Aortic valve Leaflet separation 16 mm 15-26 Right ventricle RV internal dimension, ED, PLAX 21.1 mm 19-38 BASIC MEASUREMENTS ADULT NORMAL Aortic valve Leaflet separation 16 mm 15-26 Aorta Root diameter, ED 26 mm 20-37 Left atrium Anterior-posterior dimension, ES 29 mm 19-40 Anterior-posterior dimension index, ES 1.62 cm/m^2 <2.2 LA/aortic root ratio 1.12 DOPPLER MEASUREMENTS ADULT NORMAL Main pulmonary artery Pressure, S 29 mm Hg =30 Aortic valve Peak velocity, S 145 cm/s Valve area, Vmax 2.53 cm^2 Valve area index, Vmax 1.41 cm^2/m^2 Mitral valve Peak E-wave velocity 96.3 cm/s Peak A-wave velocity 100 cm/s Deceleration time *232 ms 150-230 Peak gradient, D 4 mm Hg Peak E/A ratio 1 Maximal regurgitant velocity 384 cm/s Tricuspid valve Regurgitant peak velocity 248 cm/s Peak RV-RA gradient, S 25 mm Hg Maximal regurgitant velocity 248 cm/s Systemic veins Estimated CVP 10 mm Hg Right ventricle RV pressure, S *35 mm Hg <30 Pulmonic valve Peak velocity, S 121 cm/s LEGEND: Mean values are shown as u=mean value. Asterisk (*) richard values outside specified normal range. Prepared and signed by Eric Brothers [id number]
--- NOTE | 2017-02-08 12:42 | HHI.PR ---
Subjective Remarks Patient sitting on the chair, she did not really remember seeing me yesterday, little confused, I can see a little more of the very mild left facial droop, and left upper extremity weakness No headache or blurry vision but in general she's poor historian Seen by neurology plan for ultrasound of the carotid and MRI of the brain Objective Vitals Vital Signs Date Time Temp Pulse Resp B/P Pulse Ox O2 Delivery O2 Flow Rate FiO2 02/08/17 12:00 97.9 108 18 96/64 99 02/08/17 08:00 98.1 138 16 105/56 100 02/08/17 05:30 96.5 62 18 108/56 98 02/08/17 01:51 96.3 58 20 96/50 98 02/07/17 20:53 96.9 58 17 147/80 100 02/07/17 19:01 60 18 134/86 98 Nasal Cannula 2 02/07/17 16:00 60 18 148/70 98 Nasal Cannula 2 02/07/17 15:00 60 18 136/60 99 Nasal Cannula 2 02/07/17 14:00 60 18 130/63 99 Nasal Cannula 2 02/07/17 13:30 61 18 129/69 99 Nasal Cannula 2 02/07/17 13:10 98.0 60 18 104/86 98 Nasal Cannula 2 02/07/17 13:10 98.0 60 18 104/86 98 02/07/17 13:10 98 Nasal Cannula 2.00 02/07/17 13:10 98 Nasal Cannula 2 02/07/17 13:10 98 2.00 02/07/17 13:10 98 Nasal Cannula 2 02/07/17 13:10 60 18 98 Nasal Cannula 2 I/O 02/07/17 02/07/17 02/07/17 02/08/17 02/08/17 02/08/17 07:00 15:00 23:00 07:00 15:00 23:00 Output Total 20 ml Balance -20 ml Output Urine Total 20 ml # Bowel Movements 0 Result Diagram: 02/08/17 0752 02/08/17 0752 Imaging Last Impressions Carotid Artery Ultrasound 02/08/17 0000 Signed Impressions: Service Date/Time: Wednesday, February 08, 2017 09:19 - CONCLUSION: No evidence of flow-limiting carotid stenosis. Sivakumar Castro MD Head CT 02/07/17 0000 Signed Impressions: Service Date/Time: Tuesday, February 07, 2017 13:24 - CONCLUSION: No acute intracranial findings. Study reviewed with Dr. Vega and report called to Dr. Stroud as above. Sivakumar Castro MD Objective Remarks GENERAL: This is a well-nourished, elderly 76 years old female well-developed patient, in no apparent distress. SKIN: No rashes, warm and dry HEAD: Atraumatic. Normocephalic. EYES: Pupils equal round and reactive. Extraocular motions intact. No scleral icterus. ENT: Nose without bleeding, or drainage, Airway patent. NECK: Trachea midline. Supple CARDIOVASCULAR: Regular rate and rhythm without murmurs, gallops, or rubs. RESPIRATORY: Fair air entry bilaterally. No wheezes, rales, or rhonchi. GASTROINTESTINAL: Abdomen soft, non-tender, nondistended. Positive bowel sounds MUSCULOSKELETAL: Extremities without clubbing, cyanosis, or edema. Pedal pulses appreciated NEUROLOGICAL: Awake and alert. Cranial nerves II-12 intact, LUE 3 out of 5 minimal drift against gravity, RUE 4 out of 5, lower extremity LLE 3 out of 5, RLE 4 out of 5, Normal speech. A/P Assessment and Plan 76 years old female with extensive past medical history presented with neuro symptom with Stroke alert, sudden fall and left upper and lower extremity weakness CT head reviewed personally by me no hemorrhage or old stroke Neurology consulted and recommended against TPA due to minimal neuro symptom , recommended aspirin with Plavix Applied stroke protocol with flat bed, permissive hypertension Enalapril labetalol with a stroke parameter as needed SCD and heparin for DVT prophylaxis Nothing by mouth until doing swallow eval lipid profile personally reviewed by me>Cholesterol 117 LDL 41 HDL 60.8 A1c 5.8 Neurology ordered an MRI of the brain, and a Doppler of the carotid which came back negative Mild azotemia with BUN/creatinine over creatinine 33 over 1.2 improved Status post 1 L of normal saline iv fluid cautiously Monitor BMP cr 1.2-1.04 Thrombocytopenia chronic 66>63, monitor CBC, no signs of bleeding History of CHF: We'll check 2-D echo part of the workup, assess EF, recent 2-D echo in 2011 showed 55-60% H/O COPD O2, DuoNeb as needed History of seizure: EEG deferred for neurology Rest of the medical problem >> will resume her home medication per med rec Anxiety depression and bipolar disorder Hypertension History of abdominal aortic aneurysm Hyperlipidemia History of TIA History of dementia Munir Fenton MD Feb 08, 2017 12:42
[2017-02-08] MEDS ORDERED: ALPRAZolam 0.25 MG TAB PO PRN (13:30)
[2017-02-08] MEDS ORDERED: GADODIAMIDE PF 287 MG/ML 20 ML VIAL (for RAD MRI) IV ONE (19:40)
--- NOTE | 2017-02-08 20:53 | RADRPT ---
EXAM DATE/TIME: 02/08/2017 19:23 [facility] COMPARISON: MRI BRAIN W & W/O CONTRAST, November 15, 2015, 10:51. INDICATIONS : Dizziness. Frequent falls. CONTRAST: 16 cc Omniscan (gadodiamide) IV MEDICAL HISTORY : Hypertension. Congestive heart failure. Gastroesophageal reflux disease. TIA. Seizures. SURGICAL HISTORY : Cholecystectomy. Appendectomy. Hysterectomy. Tonsillectomy. AAA repair. Left hip replacement. ENCOUNTER: Subsequent ACUITY: 2 day PAIN SCORE: 0/10 LOCATION: head. TECHNIQUE: Multiplanar, multisequence MRI of the brain was performed both prior to and following the administrat ion of paramagnetic contrast. FINDINGS: CEREBRUM: The ventricles, sulci, and basal cisterns are prominent, characteristic of on its severity central co rtical atrophy. The degree of atrophy is similar in severity compared to November 2015.. No evidence of midline shift, mass lesion, hemorrhage or acute infarction. No extraaxial fluid collections are seen. The pituitary gland and suprasellar cistern are normal in configuration. WHITE MATTER: Scattered and partially confluent areas of T2 prolongation in the supratentorial white matter is yina lar in appearance to prior MR November 2015. POSTERIOR FOSSA: The cerebellum and brainstem are intact. The 4th ventricle is midline. The cerebellopontine angle is unremarkable. The cerebellar tonsils are normal in position. DIFFUSION IMAGING: No focal areas of restricted diffusion are seen. No evidence of acute infarction. EXTRACRANIAL: The visualized portions of the orbits and paranasal sinuses are unremarkable. POST-CONTRAST: No abnormal areas of parenchymal or dural enhancement. No evidence of blood-brain barrier breakdown. CONCLUSION: Chronic moderately severe atrophy. No acute findings. John Lam MD on February 08, 2017 at 20:44 Board Certified Radiologist. This report was verified electronically.
[2017-02-08] MEDS: PATIENT OWN MEDICATION PO SCH (21:00)
[2017-02-08] MEDS: ARIPiprazole 2 MG TAB PO SCH (21:37)
[2017-02-08] MEDS: ATORVASTATIN 20 MG TAB PO SCH (21:38)
[2017-02-08] MEDS: ATORVASTATIN 10 MG TAB PO SCH (21:40)
[2017-02-08] MEDS: lamoTRIgine 100 MG TAB PO SCH (21:41)
[2017-02-09] VITALS: BP 115/60; PULSE 55; RESP 18; TEMP 96; O2SAT 100
[2017-02-09 04:00] VITALS: BP 110/60; PULSE 60; RESP 18; TEMP 96.7; O2SAT 100
[2017-02-09] MEDS: HEPARIN SODIUM - SQ 10,000 UNITS/ML VIAL SQ SCH ×2 (05:12→15:34)
[2017-02-09] MEDS: INSULIN ASPART SUPPLEMENTAL SCALE SQ SCH ×2 (05:12→10:56)
[2017-02-09] MEDS: PREGABALIN 100 MG CAP PO SCH ×2 (08:21→13:17)
[2017-02-09] MEDS: DULoxetine HCl DR 60 MG CAP PO SCH (08:21)
[2017-02-09] MEDS: CLOPIDOGREL 75 MG TAB PO SCH (08:22)
[2017-02-09] MEDS: MEMANTINE HCL 10 MG TAB PO SCH (08:22)
[2017-02-09] MEDS: CARBIDOPA/LEVODOPA 25 MG/100 MG TAB PO SCH ×2 (08:23→13:17)
[2017-02-09] MEDS: FOLIC ACID 1 MG TAB PO SCH (08:23)
[2017-02-09] MEDS: CARVEDILOL 12.5 MG TAB PO SCH (08:23)
[2017-02-09] MEDS: PANTOPRAZOLE SOD 40 MG DELAYED RELEASE TAB PO SCH (08:24)
[2017-02-09] MEDS: RIVASTIGMINE 9.5 MG/24 HOUR PATCH T-DERMAL SCH (08:32)
[2017-02-09 08:33] LABS: AUTOMATED NEUTROPHIL # 2.4 TH/MM3 (1.8-7.7); BASOPHIL % 0.4 % (0.0-2.0); EOSINOPHIL # 0.1 TH/MM3 (0-0.4); HEMATOCRIT 32.2 % (35.0-46.0); LYMPH % 35.6 % (9.0-44.0); LYMPHOCYTE # 1.6 TH/MM3 (1.0-4.8); MEAN CELL VOLUME 87.1 FL (80.0-100.0); MEAN CORPUSCULAR HEMOGLOBIN 28.8 PG (27.0-34.0); MEAN CORPUSCULAR HGB CONC 33.1 % (32.0-36.0); PLATELET COUNT 58 TH/MM3 (150-450); RED BLOOD COUNT 3.69 MIL/MM3 (4.00-5.30); RED CELL DISTRIBUTION WIDTH 14.4 % (11.6-17.2); WHITE BLOOD COUNT 4.5 TH/MM3 (4.0-11.0)
[2017-02-09] MEDS: LUBIPROSTONE 8 MG PO SCH (08:33)
[2017-02-09 08:35] LABS: HEMO FLAGS AUTO DIFF
[2017-02-09 08:44] VITALS: O2SAT 94
[2017-02-09 08:52] VITALS: BP 121/62; PULSE 58; RESP 12; TEMP 96.2; O2SAT 100
[2017-02-09 09:06] LABS: PLATELET ESTIMATE SMEAR LOW (NORMAL); PLATELET MORPHOLOGY ENLARGED (NORMAL); SCAN/DIFF AUTO DIFF CONFIRMED
[2017-02-09] MEDS ORDERED: ASPI325T PO (10:13)
--- NOTE | 2017-02-09 10:21 | HHI.DS ---
Discharge Summary Admission Date Feb 07, 2017 at 15:57 Discharge Date: Feb 09, 2017 Admitting Diagnosis acute ischemic CVA (1) Neurological symptoms ICD Code: R29.90 (2) TIA (transient ischemic attack) ICD Code: G45.9 Procedures none Brief History - From Admission 76 years old female with history of asthma bipolar disease anxiety depression hypertension seizure abdominal aortic aneurysm dyslipidemia CHF COPD and TIA in the past and dementia, presented to the ED today by the [place]an[place] support worker as a stroke alert at 1245 patient fail down in the bathroom but it wasn't sure if it was syncopal episode with losing consciousness since the weakness was her who already has advanced dementia as I was told by the daughter. Neurology was consulted in ED Dr. Zapata assess the patient he decided no need for TPA since the symptoms are very minimal. He placed her on aspirin on top of the Plavix, patient recently had an MRI so decision on doing another MRI was deferred to neurology. I saw the patient in her room with her daughter was at the bedside. She is pleasant resting comfortably in bed she told me she failed dizzy prior to filling down, she stated she hit the edge of the bathtub Denied short of breath, chest pain, blurry vision prior to the episode she wasn' t sure if she lost consciousness she does feel weakness in her left arm and leg she don't remember if she had problem with speech or jerking movement. No abdominal pain diarrhea or constipation no dysuria urgency or frequency. CT scan of the brain in ED did not showed hemorrhage or all CVA, CBC showed thrombocytopenia, coag panel was within normal limits Patient told me she follow up with her manager culinary who wanted to adjust her anticoagulation and she has implanted loop recorder CBC/BMP: 02/09/17 0759 02/08/17 0752 Significant Findings Laboratory Tests Test 02/07/17 02/08/17 02/09/17 13:36 07:52 07:59 Bedside Hematocrit 36.0 % (38.0-51.0) Platelet Count 66 TH/MM3 63 TH/MM3 58 TH/MM3 (150-450) (150-450) (150-450) Mean Platelet Volume 11.7 FL 12.1 FL 13.1 FL (7.0-11.0) (7.0-11.0) (7.0-11.0) Monocytes (%) (Auto) 9.5 % (0.0-8.0) 10.0 % 10.0 % (0.0-8.0) (0.0-8.0) Platelet Morphology Comment ENLARGED ENLARGED ENLARGED (NORMAL) (NORMAL) (NORMAL) Bedside Blood Urea Nitrogen 33 MG/DL (8-26) Bedside Creatinine 1.2 MG/DL (0.6-1.0) Eosinophils (%) (Auto) 4.2 % (0.0-4.0) Chloride Level 109 MEQ/L (98-107) Blood Urea Nitrogen 24 MG/DL (7-18) Creatinine 1.04 MG/DL (0.50-1.00) Estimat Glomerular Filtration 51 ML/MIN (>89) Rate Calcium Level 7.9 MG/DL (8.5-10.1) Cholesterol Level 117 MG/DL (120-200) HDL Cholesterol 60.8 MG/DL (40.0-60.0) Red Blood Count 3.69 MIL/MM3 (4.00-5.30) Hemoglobin 10.6 GM/DL (11.6-15.3) Hematocrit 32.2 % (35.0-46.0) Platelet Estimate LOW (NORMAL) PE at Discharge GENERAL: This is a well-nourished, elderly 76 years old female well-developed patient, in no apparent distress. SKIN: No rashes, warm and dry HEAD: Atraumatic. Normocephalic. EYES: Pupils equal round and reactive. Extraocular motions intact. No scleral icterus. ENT: Nose without bleeding, or drainage, Airway patent. NECK: Trachea midline. Supple CARDIOVASCULAR: Regular rate and rhythm without murmurs, gallops, or rubs. RESPIRATORY: Fair air entry bilaterally. No wheezes, rales, or rhonchi. GASTROINTESTINAL: Abdomen soft, non-tender, nondistended. Positive bowel sounds MUSCULOSKELETAL: Extremities without clubbing, cyanosis, or edema. Pedal pulses appreciated NEUROLOGICAL: Awake and alert. Cranial nerves II-12 intact, LUE 3 out of 5 minimal drift against gravity, RUE 4 out of 5, lower extremity LLE 3 out of 5, RLE 4 out of 5, Normal speech. Hospital Course 76 years old female with extensive past medical history presented with neuro symptom as above brought by evac with Stroke alert, sudden fall and left upper and lower extremity weakness, CT head reviewed personally by me no hemorrhage or old stroke Neurology consulted and recommended against TPA due to minimal neuro symptom , recommended aspirin with Plavix,Applied stroke protocol with flat bed, permissive hypertension Enalapril labetalol with a stroke parameter as needed,SCD and heparin for DVT prophylaxis,lipid profile personally reviewed by me>Cholesterol 117 LDL 41 HDL 60.8,A1c 5.8 Neurology ordered an MRI of the brain, and a Doppler of the carotid which came back negative, PT recommended rehabilitation, human services case manager consulted for placement. I discussed with the physical therapist and with the rehabilitation medicine nurse from [place] who came and assessed the patient they recommend eligibility for short-term acute rehabilitation to help the patient improve functionality while following up with neurology on her weakness. [id number] encounter performed with the patient on discharge day, as well as physical exam, summary of hospitalization course and postdischarge plan has been D/W the patient. D/W nurse D/W human services case manager. Discussed with PT D/W rehabilitation medicine nurse from [place] Discharge medications reviewed and printed and signed, post discharge follow up visit with PCP and other specialist as well as Brief hospital course and discharge summary has been placed. Pt Condition on Discharge: Fair Discharge Disposition: Rehab Inpatient Discharge Time: > 30 minutes Discharge Instructions DIET: Follow Instructions for: Heart Healthy Diet, Diabetic Diet Activities you can perform: See Additionl Instruction Other Activity Instructions: Per PT recommendation Follow up Referrals: Neurology - 1 Week with Roe Vega MD New Medications: Aspirin (Aspirin) 325 Mg Tab 325 MG PO DAILY tia proph #30 TAB Continued Medications: Alprazolam (Alprazolam) 0.25 Mg Tab 0.25 MG PO DAILY PRN ANXIETY Ref 0 TAB Aripiprazole (Abilify) 2 Mg Tab 2 MG PO HS #30 Ref 0 TAB Carbidopa-Levodopa (Sinemet) 25-100 Mg Tab 1 TAB PO QID Parkinson Disease Mgmt #90 Ref 0 TAB Carvedilol (Carvedilol) 12.5 Mg Tab 12.5 MG PO BID #60 Ref 0 TAB Clopidogrel (Plavix) 75 Mg Tab 75 MG PO DAILY Blood Clot Prevention #[address] Ref [address] (Cymbalta DR) 60 Mg Capdr 60 MG PO DAILY #30 Ref 0 CAP Fluticasone-Salmeterol Inh (Advair Diskus Inh) 250-50 Mcg/Blist Aer 1 PUFF INH BID Rinse mouth after use. #1 Ref 0 INHALER Folic Acid (Folate) 1 Mg Tab 2 MG PO DAILY Nutritional Supplement Ref 0 TAB Furosemide (Lasix) 20 Mg Tab 20 MG PO DAILY #30 Ref 0 TAB Lamotrigine (Lamictal) 200 Mg Tab 200 MG PO HS Control Seizures #60 Ref 0 TAB Lubiprostone (Amitiza) 8 Mcg Cap 8 MG PO BID Constipation Ref 0 CAP Meclizine HCl (Meclizine 25) 25 Mg Tab 25 MG PO Q8HR PRN DIZZINESS Memantine (Namenda) 10 Mg Tab 10 MG PO BID Alzheimer Disease #30 Ref 0 TAB Ondansetron (Zofran) 4 Mg Tab 4 MG PO DAILY PRN NAUSEA OR VOMITING Ref 0 TAB Pantoprazole (Pantoprazole) 40 Mg Tab 40 MG PO DAILY Reflux #30 Ref 0 TAB Potassium Chloride Microencaps (Klor-Con M20) 20 Meq Tab 20 MEQ PO DAILY Electrolyte Replacement #30 Ref 0 TAB Pregabalin (Lyrica) 100 Mg Cap 100 MG PO TID #90 Ref 0 CAP Ramelteon (Rozerem) 8 Mg Tab 8 MG PO HS TAB Rivastigmine Patch (Exelon Patch) 9.5 mg/24 hr Patch 1 PATCH T-DERMAL DAILY Dementia #30 Ref 0 PATCH Rosuvastatin (Crestor) 10 Mg Tab 10 MG PO HS Cholesterol Management #30 Ref 0 TAB Munir Fenton MD Feb 09, 2017 10:21
--- NOTE | 2017-02-09 10:22 | HHI.PR ---
Subjective Remarks doing well issue stable for discharge Objective Vitals Vital Signs Date Time Temp Pulse Resp B/P Pulse Ox O2 Delivery O2 Flow Rate FiO2 02/09/17 08:52 96.2 58 12 121/62 100 02/09/17 08:44 94 21 02/09/17 04:00 96.7 60 18 110/60 100 02/09/17 00:00 96.0 55 18 115/60 100 02/08/17 21:00 57 02/08/17 20:00 95.9 62 18 119/61 100 02/08/17 18:22 Nasal Cannula 2.00 02/08/17 18:17 Nasal Cannula 2.00 02/08/17 16:00 97.1 54 16 127/77 100 02/08/17 12:00 97.9 108 18 96/64 99 I/O 02/08/17 02/08/17 02/08/17 02/09/17 02/09/17 02/09/17 07:00 15:00 23:00 07:00 15:00 23:00 Intake Total 300 ml 200 ml Balance 300 ml 200 ml Intake Oral 300 ml 200 ml # Voids 1 4 # Bowel Movements 1 3 Result Diagram: 02/09/17 0759 02/08/17 0752 Objective Remarks GENERAL: This is a well-nourished, elderly 76 years old female well-developed patient, in no apparent distress. SKIN: No rashes, warm and dry HEAD: Atraumatic. Normocephalic. EYES: Pupils equal round and reactive. Extraocular motions intact. No scleral icterus. ENT: Nose without bleeding, or drainage, Airway patent. NECK: Trachea midline. Supple CARDIOVASCULAR: Regular rate and rhythm without murmurs, gallops, or rubs. RESPIRATORY: Fair air entry bilaterally. No wheezes, rales, or rhonchi. GASTROINTESTINAL: Abdomen soft, non-tender, nondistended. Positive bowel sounds MUSCULOSKELETAL: Extremities without clubbing, cyanosis, or edema. Pedal pulses appreciated NEUROLOGICAL: Awake and alert. Cranial nerves II-12 intact, LUE 3 out of 5 minimal drift against gravity, RUE 4 out of 5, lower extremity LLE 3 out of 5, RLE 4 out of 5, Normal speech. Procedures none A/P Problem List: (1) Neurological symptoms ICD Code: R29.90 Status: Acute (2) TIA (transient ischemic attack) ICD Code: G45.9 Status: Acute Assessment and Plan 76 years old female with extensive past medical history presented with neuro symptom with Stroke alert, sudden fall and left upper and lower extremity weakness CT head reviewed personally by me no hemorrhage or old stroke Neurology consulted and recommended against TPA due to minimal neuro symptom , recommended aspirin with Plavix Applied stroke protocol with flat bed, permissive hypertension Enalapril labetalol with a stroke parameter as needed SCD and heparin for DVT prophylaxis Nothing by mouth until doing swallow eval lipid profile personally reviewed by me>Cholesterol 117 LDL 41 HDL 60.8 A1c 5.8 Neurology ordered an MRI of the brain, and a Doppler of the carotid which came back negative, further recommendation per neurology discharge when cleared Mild azotemia with BUN/creatinine over creatinine 33 over 1.2 improved Status post 1 L of normal saline iv fluid cautiously Monitor BMP cr 1.2-1.04 Thrombocytopenia chronic 66>63, monitor CBC, no signs of bleeding History of CHF: We'll check 2-D echo part of the workup, assess EF, recent 2-D echo in 2011 showed 55-60% H/O COPD O2, DuoNeb as needed History of seizure: EEG deferred for neurology Rest of the medical problem >> will resume her home medication per med rec Anxiety depression and bipolar disorder Hypertension History of abdominal aortic aneurysm Hyperlipidemia History of TIA History of dementia Discharge Planning Discharge when cleared by neurology Munir Fenton MD Feb 09, 2017 10:22
--- NOTE | 2017-02-10 08:59 | MG ---
cc: JORJE COLON M.D. Lab No: [id number] Date: 02/10/2017 Age: 76 Sex: F Race: __ REFERRING PHYSICIAN Dr. Vega DATE OF 1940 TECHNIQUE Photic stimulation and awake. EEG 11/17/2015 normal. MRI shows chronic moderate severe atrophy, no acute findings. INDICATIONS A 76-year-old woman as a stroke alert, fell and hit her head, possible syncope, left-sided weakness, history of Parkinson's disease, stroke in the past, dementia, seizures, headaches, hyperlipidemia on anticoagulation therapy, history of COPD. MEDICATIONS 1. Aspirins 2. Plavix 3. Cymbalta 4. Rivastigmine 5. Sinemet 6. Coreg 7. Namenda 8. Lyrica DESCRIPTION OF RECORD There is some mild slowing 6 Hz, 20-40 microvolts seen. Subtle eye movement, talking and muscle artifact. EKG actually is difficult to interpret for a sinus rhythm. There is some mouth movement felt to be due to tremor. No findings to suggest any seizure focus. Hyperventilation was not performed. Photic stimulation does elicit a driving response. IMPRESSION Mild background slowing consistent with what appears to be a mild encephalopathic process without any epileptiform features. Clinical correlation. MD LUAN Pack/MYRON 8:40 AM 8:52 AM
[2017-02-21] MEDS ORDERED: GETGO ROLLING W1 MI1 (06:50)
[2017-02-24] MEDS ORDERED: VITA100018 PO (08:30)
[2017-02-24] MEDS ORDERED: ASPI325T PO (08:30)
[2017-02-24] MEDS ORDERED: NAME10TA PO (08:30)
[2017-02-24] MEDS ORDERED: SINE25TA PO (08:30)
[2017-02-24] MEDS ORDERED: ABIL2TAB2 PO (08:30)
[2017-02-24] MEDS ORDERED: RIVA9.5T T-DERMAL (08:30)
[2017-02-24] MEDS ORDERED: PLAV75TA29 PO (08:30)
[2017-02-24] MEDS ORDERED: ADVA250A INH (08:30)
[2017-02-24] MEDS ORDERED: MUCI600T PO (08:30)
[2017-02-24] MEDS ORDERED: FOLI1TAB4 PO (08:30)
[2017-02-24] MEDS ORDERED: CALC500C16 CHEW (08:30)
[2017-02-24] MEDS ORDERED: OYST500T11 PO (08:30)
[2017-02-24] MEDS ORDERED: CARV12.52 PO (08:30)
[2017-02-24] MEDS ORDERED: CYMB60CA PO (08:30)
[2017-02-24] MEDS ORDERED: ROSU10 PO (08:30)
[2017-02-24] MEDS ORDERED: LAMI200T PO (08:30)
[2017-02-24] MEDS ORDERED: ROZE8TAB8 PO (08:30)
[2017-02-24] MEDS ORDERED: SENN1TAB PO (08:30)
[2017-02-24] MEDS ORDERED: PANT40TA3 PO (08:30)
[2017-02-24] MEDS ORDERED: LYRI100C PO ×2 (08:30→09:11)
[2017-02-24] MEDS ORDERED: AMIT8CAP6 PO (08:30)
[2017-02-24] MEDS ORDERED: ALPR.25 PO (09:11)
[2017-02-24] MEDS ORDERED: HYDR-3516 PO (09:11)
[2017-04-08] MEDS ORDERED: ALPR.25 PO (17:31)
[2017-04-08] MEDS ORDERED: FURO1TAB62 PO (17:31)
[2017-04-08] MEDS ORDERED: POTA-163 PO (17:31)
== END 2017-02-09 15:49 | DRG 65 ==
LOC: NEPA 13:08 → NEDA 15:57 → N05A 20:32
PROVIDERS: ADMIT Hospitalist; ATTEND Hospitalist
DX: I63.511 Cerebral infarction due to unspecified occlusion or stenosis of right middle cerebral artery (principal); I69.354 Hemiplegia and hemiparesis following cerebral infarction affecting left non-dominant side; D69.6 Thrombocytopenia, unspecified; I50.9 Heart failure, unspecified; I11.0 Hypertensive heart disease with heart failure; F03.90 Unspecified dementia, unspecified severity, without behavioral disturbance, psychotic disturbance, mood disturbance, and anxiety; G20 Parkinson's disease; R29.703 NIHSS score 3; J44.9 Chronic obstructive pulmonary disease, unspecified; W19.XXXA Unspecified fall, initial encounter; E78.00 Pure hypercholesterolemia, unspecified; J45.909 Unspecified asthma, uncomplicated; E78.5 Hyperlipidemia, unspecified; Y92.002 Bathroom of unspecified non-institutional (private) residence as the place of occurrence of the external cause; K21.9 Gastro-esophageal reflux disease without esophagitis; I25.10 Atherosclerotic heart disease of native coronary artery without angina pectoris; F41.8 Other specified anxiety disorders; Z96.642 Presence of left artificial hip joint; Z86.79 Personal history of other diseases of the circulatory system; I71.4 Abdominal aortic aneurysm, without rupture; R56.9 Unspecified convulsions; F31.9 Bipolar disorder, unspecified
CPT/HCPCS: 70450; 70553; 80048; 80061; 82435; 82565; 82947; 82948; 83036; 84132; 84295; 84520; 85025; 85384; 85610; 85730; 93005; 93306; 93880; 95819; 96360; 96361; A9579; J1644; J7030

== ENCOUNTER 2017-07-28 13:25 | Observation (INO) | payer MEDICARE, OTHER ==
[2017-07-28] VITALS (9 sets, daily range): BP systolic 97–156; BP diastolic 54–70; PULSE 54–78; RESP 12–17; TEMP 97.6–98.2; O2SAT 94–100
[~2017-07-28] VITALS: Ht 152.4 cm; Wt 91.0 kg
[~2017-07-28 13:25] MED LIST changes: +ABIL2TAB2 PO; -ABIL5TAB6 PO; +ADVA250A INH; +AMIT8CAP6 PO; +ASPI325T PO; -BENZ100C4 PO; +CALC500C16 CHEW; -CARB25TA PO; -CARV12.5 PO; +CARV12.52 PO; +FOLI1TAB4 PO; -FOLITAB6 PO; +FURO1TAB62 PO; -FURO1TAB93 PO; +GETGO ROLLING W1 MI1; +LAMI200T PO; -LAMO200T PO; +LYRI100C PO; -MECL25 PO; -MEMA10 PO; +NAME10TA PO; +PANT40TA3 PO; -PHEN100 PO; +PLAV75TA29 PO; +POTA-163 PO; -POTA25TA2 PO; -PREG75 PO; -PROT40TA PO; +RIVA9.5T T-DERMAL; -RIVA9.5T TD; +ROZE8TAB8 PO; +SENN1TAB PO; +SINE25TA PO; -TEMA15 PO; +VITA100018 PO; -ZOFR8TAB PO
[2017-07-28] MEDS ORDERED: SODIUM CHLOR 0.9% 1000 ML INJ 1,000 ML IV ONE (13:29)
[2017-07-28 13:47] LABS: AUTOMATED NEUTROPHIL # 3.4 TH/MM3 (1.8-7.7); BASOPHIL % 0.7 % (0.0-2.0); EOSINOPHIL # 0.2 TH/MM3 (0-0.4); EOSINOPHIL % 3.7 % (0.0-4.0); HEMATOCRIT 34.2 % (35.0-46.0); LYMPH % 25.2 % (9.0-44.0); LYMPHOCYTE # 1.4 TH/MM3 (1.0-4.8); MEAN CELL VOLUME 86.3 FL (80.0-100.0); MEAN CORPUSCULAR HEMOGLOBIN 27.6 PG (27.0-34.0); MONO % 10.4 % (0.0-8.0); PLATELET COUNT 75 TH/MM3 (150-450); RED BLOOD COUNT 3.97 MIL/MM3 (4.00-5.30); WHITE BLOOD COUNT 5.7 TH/MM3 (4.0-11.0)
[2017-07-28 13:48] LABS: I-STAT POTASSIUM 3.8 MMOL/L (3.5-4.9); I-STAT SODIUM 143 MMOL/L (138-146)
[2017-07-28 13:51] LABS: HEMO FLAGS AUTO DIFF
[2017-07-28] MEDS ORDERED: IOHEXOL 350 MG/ML 10 ML VIAL (for RAD DIAG) IVCONTRAST ONE (13:53)
--- NOTE | 2017-07-28 13:54 | RADRPT ---
EXAM DATE/TIME: 07/28/2017 13:32 [facility] COMPARISON: CT BRAIN W/O CONTRAST, February 07, 2017, 13:24. INDICATIONS : Stroke alert, left sided weakness RADIATION DOSE: 56.35 CTDIvol (mGy) MEDICAL HISTORY : Non-responsive. SURGICAL HISTORY : Non-responsive. ENCOUNTER: Initial ACUITY: 1 day PAIN SCALE: Non-responsive LOCATION: cranial TECHNIQUE: Multiple contiguous axial images were obtained of the head. Using automated exposure control and adj ustment of the mA and/or kV according to patient size, radiation dose was kept as low as reasonably a chievable to obtain optimal diagnostic quality images. DICOM format image data is available electro nically for review and comparison. FINDINGS: CEREBRUM: The ventricles are mildly dilated. There is cortical atrophy. There is mild microvascular ischemic de myelinative change. No acute intracranial hemorrhage is seen. No mass lesion is identified. The exam is stable compared to previous dated 02/07/17. POSTERIOR FOSSA: The cerebellum and brainstem are intact. The 4th ventricle is midline. The cerebellopontine angle i s unremarkable. EXTRACRANIAL: The visualized portion of the orbits is intact. SKULL: The calvaria is intact. No evidence of skull fracture. CONCLUSION: 1. Cortical atrophy and microvascular ischemic demyelinative change. No acute abnormality. 2. Results called to ED at 1340 Joe Wilcox MD on July 28, 2017 at 13:48 Board Certified Radiologist. This report was verified electronically.
[2017-07-28 13:58] LABS: INTERNATIONAL NORMALIZED RATIO 1.1 RATIO; PROTHROMBIN TIME - PATIENT 11.9 SEC (9.8-11.6)
--- NOTE | 2017-07-28 14:21 | RADRPT ---
EXAM DATE/TIME: 07/28/2017 13:32 [facility] COMPARISON: CT BRAIN W/O CONTRAST, February 07, 2017, 13:24. INDICATIONS : Stroke alert, left sided weakness IV CONTRAST: 75 cc Omnipaque 350 (iohexol) IV RADIATION DOSE: 16.49 CTDIvol (mGy) MEDICAL HISTORY : Non-responsive. SURGICAL HISTORY : Non-responsive. ENCOUNTER: Initial ACUITY: 1 day PAIN SCALE: Non-responsive LOCATION: cranial TECHNIQUE: Volumetric scanning was performed using a multi-row detector CT scanner. The data was post processed with a variety of visualization algorithms including full volume maximum intensity projection, multi -planar sliding thin slab reformation, curved planar reformation, and surface rendering techniques. Using automated exposure control and adjustment of the mA and/or kV according to patient size, radiat ion dose was kept as low as reasonably achievable to obtain optimal diagnostic quality images. DICO M format image data is available electronically for review and comparison. FINDINGS: There is excellent visualization of the major intracranial arteries out to the second-order branch ve ssels. There is no evidence for aneurysm, vessel truncation or stenosis, and no evidence for vascula r malformation. CONCLUSION: 1. No large or central vessel occlusion identified. No aneurysm seen. Results were called directly to the knee. Joe Wilcox MD on July 28, 2017 at 14:12 Board Certified Radiologist. This report was verified electronically.
[2017-07-28 14:27] LABS: BETA HCG QUANT 8 MIU/ML (0-5); CREATINE KINASE 50 U/L (26-192)
[2017-07-28 14:34] LABS: BLOOD, URINE NEG (NEG); GLUCOSE,URINE NEG (NEG); HYALINE CAST, URINE 3 /lpf (RARE); KETONE, URINE NEG (NEG); MUCUS URINE FEW /lpf (OCC); NITRITE,URINE NEG (NEG); URINE COLOR YELLOW (YELLW/STRAW)
--- NOTE | 2017-07-28 14:37 | PD ---
HPI Chief Complaint: Stroke Alert Time Seen by Provider: 13:29 Travel History International Travel<30 days: No Contact w/Intl Traveler<30days: No Traveled to known affect area: No History of Present Illness HPI 77-year-old female came to the emergency room brought by EMS as a stroke alert. Upon arrival patient was slurred speech and altered mental status and was not in a condition to give meaningful history. History was mostly obtained from EMS. As per them patient noticed that she had slurred speech at midnight today she called 911 for this in the morning. When they arrived patient was sitting at the doorstep. She lives with her who has significant dementia. Patient gave her own history and was acting appropriately and moving all 4 extremities as per EMS when they took her into the ambulance. However en route they noticed that she suddenly developed left sided significant deficits with a left facial droop, left upper arm and lower extremity weakness. Based on this they called stroke alert. When patient arrived here she was confused and not giving a good history. She did have a significant facial droop and some weakness of her upper and lower extremity on the left side. Vital signs were stable. As per EMS her blood sugar was 76 and she was normal sinus rhythm. She said that she is on a blood thinner but patient doesn't know which one. [facility] Past Medical History Narrative Medical List of her past medical, surgical, social and family history is reviewed from the nursing note. Hx Anticoagulant Therapy: Yes (PLAVIX) AAA: Yes Arthritis: Yes Asthma: Yes Bipolar Disorder: Yes Anxiety: Yes Depression: Yes Heart Rhythm Problems: No Cancer: No Cardiovascular Problems: Yes (HTN/ AAA) High Cholesterol: Yes Chemotherapy: No Congestive Heart Failure: Yes COPD: Yes Cerebrovascular Accident: Yes Coronary Artery Disease: Yes Dementia: Yes Diabetes: No Diminished Hearing: No Endocrine: No Gastrointestinal Disorders: Yes (dilatation) GERD: Yes Genitourinary: No Headaches: Yes Hiatal Hernia: No Hypertension: Yes Immune Disorder: No Implanted Vascular Access Dvce: Yes Kidney Stones: No Musculoskeletal: Yes Neurologic: Yes (parkinsons) Parkinson's Disease: Yes Psychiatric: Yes (BIPOLAR) Reproductive: No Respiratory: No Migraines: Yes Radiation Therapy: No Renal Failure: No Seizures: No Sickle Cell Disease: No Sleep Apnea: Yes Ulcer: No ?: Unknown Past Surgical History Surgical History: Unable to Obtain Abdominal Aneurysm Repair: Yes Abdominal Surgery: Yes (HERNIA REPAIR) AICD: No Appendectomy: Yes Arteriovenous Shunt: No Cardiac Surgery: No Cholecystectomy: Yes Ear Surgery: No Eye Surgery: Yes (cataracts) Genitourinary Surgery: No Gynecologic Surgery: Yes (HYSTERECTOMY) Hysterectomy: Yes Insulin Pump: No Joint Replacement: Yes (LEFT HIP REPLACEMENT WITH REVISION) Oral Surgery: Yes (TONSILLECTOMY) Pacemaker: No Thoracic Surgery: Yes (triple A repair) Tonsillectomy: Yes Other Surgery: Yes (tonsilectomy, appendectomy, triple A repair.) Social History Alcohol Use: No Tobacco Use: No Substance Use: No Allergies-Medications (Allergen,Severity, Reaction): Coded Allergies: paroxetine (Unverified Allergy, Severe, CAN NOT REMEMBER , 06/22/17) lactose (Unverified Allergy, Unknown, GI UPSET, 06/22/17) Comments List of her allergies reviewed from the nursing note. Reported Meds & Prescriptions Reported Meds & Active Scripts Active Lyrica (Pregabalin) 100 Mg Cap 100 Mg PO Q8HR Cymbalta DR (Duloxetine HCl) 60 Mg Capdr 60 Mg PO DAILY Sinemet (Carbidopa-Levodopa) 25-100 Mg Tab 1 Tab PO QID Carvedilol 12.5 Mg Tab 12.5 Mg PO BID Lamictal (Lamotrigine) 200 Mg Tab 200 Mg PO HS Namenda (Memantine) 10 Mg Tab 10 Mg PO BID Pantoprazole (Pantoprazole Sodium) 40 Mg Tab 40 Mg PO DAILY Exelon Patch (Rivastigmine) 9.5 mg/24 hr Patch 1 Patch T-DERMAL DAILY Advair Diskus Inh (Fluticasone-Salmeterol Inh) 250-50 Mcg/Blist Aer 1 Puff INH BID Rinse mouth after use. Crestor (Rosuvastatin Calcium) 10 Mg Tab 10 Mg PO HS Amitiza (Lubiprostone) 8 Mcg Cap 8 Mg PO BID 30 Days Reported Carafate (Sucralfate) 1 Gram Tab 1 Gm PO TID 30 MINUTES BEFORE MEALS Folic Acid 1 Mg Tablet 2 Mg PO DAILY Calcium 600+D3 (Calcium Carbonate-Cholecalciferol) 600-200 Mg-Unit Tab 1 Tab PO DAILY Potassium Chloride ER (Potassium Chloride) 20 Meq Tab 20 Meq PO DAILY Lasix (Furosemide) 20 Mg Tab 20 Mg PO DAILY Narrative Medication List of her home medications reviewed from the nursing note. Review of Systems Except as stated in HPI: all other systems reviewed are Neg Physical Exam Narrative GENERAL: Altered mental status, elderly, frail, confused, slurred speech SKIN: Focused skin assessment warm/dry. HEAD: Atraumatic. Normocephalic. EYES: Pupils equal and round. No scleral icterus. No injection or drainage. ENT: No nasal bleeding or discharge. Mucous membranes pink and moist. Left facial droop NECK: Trachea midline. No JVD. CARDIOVASCULAR: Regular rate and rhythm. No murmur appreciated. RESPIRATORY: No accessory muscle use. Clear to auscultation. Breath sounds equal bilaterally. GASTROINTESTINAL: Abdomen soft, non-tender, nondistended. Hepatic and splenic margins not palpable. MUSCULOSKELETAL: No obvious deformities. No clubbing. No cyanosis. No edema. NEUROLOGICAL: Confused, GCS of 13. Left facial droop. Left upper extremity strength was 3 out of 5 and lower extremity was 2 out of 5. Slurred speech. PSYCHIATRIC: Appropriate mood and affect; insight and judgment normal. Data Data Last Documented VS Vital Signs Date Time Temp Pulse Resp B/P (MAP) Pulse Ox O2 Delivery O2 Flow Rate FiO2 07/28/17 14:20 62 17 139/66 (90) 100 Nasal Cannula 2.00 07/28/17 13:25 97.6 Orders Orders Diet Npo (07/28/17 Lunch) Activity Bed Rest (07/28/17 ) Electrocardiogram (07/28/17 ) I-Stat Creatinine (07/28/17 13:29) I-Stat Profile (07/28/17 13:29) Prothrombin Time / Inr (Pt) (07/28/17 13:29) Act Partial Throm Time (Ptt) (07/28/17 13:29) Complete Blood Count With Diff (07/28/17 13:29) Fibrinogen (07/28/17 13:29) Creatine Kinase (Cpk) (07/28/17 13:29) Troponin I (07/28/17 13:29) Ua Includes Microscopic (07/28/17 13:29) Drug Screen, Random Urine (07/28/17 13:29) Type And Screen (07/28/17 13:29) Ct Brain W/O Iv Contrast(Rout) (07/28/17 ) Beta Hcg (Quant/Titer) (07/28/17 13:29) Consult Neurology (07/28/17 ) Blood Glucose (07/28/17 13:29) Ecg Monitoring (07/28/17 13:29) Neuro Checks Q2HX12,Q4H (07/28/17 13:29) Nursing Bedside Swallow Assess .ONCE (07/28/17 13:29) Iv Access Insert/Monitor (07/28/17 13:29) NPO (07/28/17 13:29) Oximetry (07/28/17 13:29) Oxygen Administration (07/28/17 13:29) Sodium Chlor 0.9% 1000 Ml Inj (Ns 1000 M (07/28/17 13:29) Resp Oxygen Rui C Titrat 1-4 L (07/28/17 13:29) Cath For Specimen (07/28/17 13:29) Cta Brain W Iv Contrast W 3d (07/28/17 ) Cta Neck W Iv Contrast W 3d (07/28/17 ) Iohexol 350 Inj (Omnipaque 350 Inj) (07/28/17 13:53) (Hub Use Only)Inp Phy Cons/Ref (07/28/17 14:08) Westergren Sedimentation Rate (07/28/17 14:41) Rapid Plasma Regin (Rpr) W Ttr (07/28/17 14:41) Kellen Screen (07/28/17 14:41) Thyroid Stimulating Hormone (07/28/17 14:41) Vitamin B1 (Thiamine) (07/28/17 14:41) Vitamin B12 (07/28/17 14:41) Vitamin B6 (07/28/17 14:41) C-Reactive Protein (Crp) (07/28/17 14:41) Mri Brain W&W/O Contrast (07/28/17 14:41) Eeg Study (07/28/17 14:41) Holter Monitor Recording (07/28/17 14:41) Licensed Insurance Agent / Telemetry APOLLO.Q8H (07/28/17 14:41) ^ Seizure Precautions (07/28/17 14:41) Sodium Chlor 0.9% 1000 Ml Inj (Ns 1000 M (07/28/17 17:00) Orthostatic Blood Pressure (07/28/17 14:41) Folate, Serum (07/28/17 14:41) Consult Pt Eval & Treat (07/28/17 14:41) Arterial Blood Gas (Abg) (07/28/17 14:41) Scd&Teds Bilateral/Knee High APOLLO.QSHIFT (07/28/17 14:41) Activity Oob With Assistance (07/28/17 14:41) Warfarin (Coumadin) (07/28/17 17:00) Prothrombin Time / Inr (Pt) (07/29/17 05:00) Prothrombin Time / Inr (Pt) (07/30/17 05:00) Heparin Inj (Heparin Inj) (07/28/17 17:00) Admit Order (Ed Use Only) (07/28/17 15:23) Labs Laboratory Tests Test 07/28/17 13:30 07/28/17 14:14 07/28/17 15:10 White Blood Count 5.7 TH/MM3 Red Blood Count 3.97 MIL/MM3 Hemoglobin 11.0 GM/DL Bedside Hemoglobin 11.2 G/DL Hematocrit 34.2 % Bedside Hematocrit 33.0 % Mean Corpuscular Volume 86.3 FL Mean Corpuscular Hemoglobin 27.6 PG Mean Corpuscular Hemoglobin Concent 32.0 % Red Cell Distribution Width 14.0 % Platelet Count 75 TH/MM3 Mean Platelet Volume 12.1 FL Neutrophils (%) (Auto) 60.0 % Lymphocytes (%) (Auto) 25.2 % Monocytes (%) (Auto) 10.4 % Eosinophils (%) (Auto) 3.7 % Basophils (%) (Auto) 0.7 % Neutrophils # (Auto) 3.4 TH/MM3 Lymphocytes # (Auto) 1.4 TH/MM3 Monocytes # (Auto) 0.6 TH/MM3 Eosinophils # (Auto) 0.2 TH/MM3 Basophils # (Auto) 0.0 TH/MM3 CBC Comment AUTO DIFF Differential Comment AUTO DIFF CONFIRMED Platelet Estimate LOW Platelet Morphology Comment ENLARGED Prothrombin Time 11.9 SEC Prothromb Time International Ratio 1.1 RATIO Activated Partial Thromboplast Time 26.0 SEC Fibrinogen 402 mg/dL Bedside Sodium 143 MMOL/L Bedside Potassium 3.8 MMOL/L Bedside Chloride 102 MMOL/L Bedside Blood Urea Nitrogen 16 MG/DL Bedside Creatinine 1.5 MG/DL Bedside Glucose 99 MG/DL Total Creatine Kinase 50 U/L Troponin I LESS THAN 0.02 NG/ML C-Reactive Protein 0.33 MG/DL Vitamin B12 Level 456 PG/ML Folate GREATER THAN 20.0 NG/ML Thyroid Stimulating Hormone 3rd Gen 2.260 uIU/ML Human Chorionic Gonadotropin, Quant 8 MIU/ML Urine Color YELLOW Urine Turbidity CLEAR Urine pH 7.0 Urine Specific Hannah GREATER THAN 1.050 Urine Protein TRACE mg/dL Urine Glucose (UA) NEG mg/dL Urine Ketones NEG mg/dL Urine Occult Blood NEG Urine Nitrite NEG Urine Bilirubin NEG Urine Urobilinogen LESS THAN 2.0 MG/DL Urine Leukocyte Esterase NEG Urine RBC 3 /hpf Urine WBC 2 /hpf Urine Hyaline Casts 3 /lpf Urine Mucus FEW /lpf Urine Opiates Screen NEG Urine Barbiturates Screen NEG Urine Amphetamines Screen NEG Urine Benzodiazepines Screen POS Urine Cocaine Screen NEG Urine Cannabinoids Screen NEG Blood Gas Puncture Site LT RADIAL Blood Gas Patient Temperature 98.6 Blood Gas HCO3 29 mmol/L Blood Gas Base Excess 3.9 mmol/L Blood Gas Oxygen Saturation 97 % Arterial Blood pH 7.38 Arterial Blood Partial Pressure CO2 50 mmHg Arterial Blood Partial Pressure O2 107 mmHG Arterial Blood Oxygen Content 14.7 Vol % Arterial Blood Carboxyhemoglobin 1.0 % Arterial Blood Methemoglobin 0.5 % Blood Gas Hemoglobin 10.6 G/DL Blood Gas Liter Flow 2 L/M MDM Medical Decision Making Medical Screen Exam Complete: Yes Emergency Medical Condition: Yes Medical Record Reviewed: Yes Interpretation(s) Twelve-lead EKG was reviewed by me. Normal sinus rhythm, normal axis, nonspecific ST-T wave changes. Heart rate of 62 bpm. Differential Diagnosis CVA, intracranial bleed, TIA Narrative Course 2:[address] scan was negative for any intracranial bleed. CT angiogram of the brain was negative for blockage. Discussed the case with Dr. Luna given the stroke alert. The agreement was not to give the patient TPA since the window sounded longer than 4.5 hours. He is here to see the patient currently. Patient's symptoms have completely improved. She has been given IV fluids 300 cc bolus and the head end of the bed is flat. Patient will need to be admitted at least for observation for TIA currently. Procedures EKG Prior to Arrival: Yes Physician Communication Physician Communication Dr. Luna, Dr. Wilcox Diagnosis Primary Impression: TIA (transient ischemic attack) Qualified Codes: G45.9 - Transient cerebral ischemic attack, unspecified Admitting Information Admitting Physician Requests: Observation Scripts Warfarin (Coumadin) 3 Mg Tab 3 MG PO DAILY for Prevent Blood Clot, #30 TAB 0 Refills Hold dose 07/30.Start Coumadin 07/31.Hold and discuss with neurology if platelet count drops below 50. Prov: Shakir Interiano DO 07/30/17 Aripiprazole (Abilify) 2 Mg Tab 1 MG PO HS for Mood, #30 TAB Prov: Shakir Interiano DO 07/30/17 Alexandria Garland MD Jul 28, 2017 14:37
[2017-07-28 14:41] LABS: PLATELET ESTIMATE SMEAR LOW (NORMAL); PLATELET MORPHOLOGY ENLARGED (NORMAL); SCAN/DIFF AUTO DIFF CONFIRMED
[2017-07-28] MEDS ORDERED: CARA1TAB6 PO (14:47)
[2017-07-28] MEDS ORDERED: CALC-197 PO (14:47)
[2017-07-28] MEDS ORDERED: FOLI1TAB6 PO (14:47)
--- NOTE | 2017-07-28 15:01 | RADRPT ---
EXAM DATE/TIME: 07/28/2017 13:44 [facility] COMPARISON: No previous studies available for comparison. INDICATIONS : Stroke alert, left sided weakness IV CONTRAST: 75 cc Omnipaque 350 (iohexol) IV RADIATION DOSE: 16.49 CTDIvol (mGy) MEDICAL HISTORY : Non-responsive. SURGICAL HISTORY : Non-responsive. ENCOUNTER: Initial ACUITY: 1 day PAIN SCALE: Non-responsive LOCATION: cranial Elevated flow velocities and ICA/CCA ratios have been found to correlate with increased degrees of vessel stenosis, calculated as percentage of diameter relative to a normal segment of distal ICA/CCA. TECHNIQUE: Volumetric scanning was performed using a multirow detector CT scanner. The data was post processed with a variety of visualization algorithms including full-volume maximum intensity projection, multip lanar sliding thin-slab reformation, curved-planar reformation, and surface-rendering techniques. Us ing automated exposure control and adjustment of the mA and/or kV according to patient size, radiatio n dose was kept as low as reasonably achievable to obtain optimal diagnostic quality images. DICOM f ormat image data is available electronically for review and comparison. FINDINGS: AORTIC ARCH: Bovine arch. Arch vessels are patent. The aortic arch subjacent to the left subclavian is aneurysmal at 3.4 cm a. RIGHT CAROTID: Right carotid system is quite tortuous. The common carotid artery is intact. The carotid bulb has a n ormal configuration without ulceration or narrowing. The internal carotid artery lumen is smooth with out stenosis. The internal does swing medially in the upper cervical spine and is positioned directly behind the oropharynx. The external carotid artery is intact. LEFT CAROTID: Left carotid system is quite tortuous. The common carotid artery is intact. The carotid bulb has a n ormal configuration without ulceration or narrowing. The internal carotid artery lumen is smooth wit hout stenosis. The external carotid artery is intact. VERTEBRALS: Patient is right vertebral dominant. Both vertebrals are patent. CONCLUSION: 1. Bovine arch. The distal arch subjacent to the left subclavian artery is aneurysmal at 3.4 cm. 2. Both carotids are patent but quite tortuous. The right internal carotid swings far medially in the upper cervical spine passing directly posteriorly to the oropharynx. 3. Vertebrals are patent. Patient is right vertebral dominant. Baron Calle MD on July 28, 2017 at 14:52 Board Certified Radiologist. This report was verified electronically.
[2017-07-28 15:21] LABS: BLOOD GAS BASE EXCESS 3.9 mmol/L (-2-2); BLOOD GAS HCO3 29 mmol/L (22-26); BLOOD GAS METHEMOGLOBIN 0.5 % (0-2); BLOOD GAS O2 HGB SATURATION 97 % (90-100); BLOOD GAS OXYGEN CONTENT 14.7 Vol % (12.0-20.0); BLOOD GAS PCO2 50 mmHg (38-42); BLOOD GAS PO2 107 mmHG (61-120); BLOOD GAS TOTAL HGB 10.6 G/DL (12.0-16.0); CRITICAL VALUE NO; DRAW SITE LT RADIAL; LITER FLOW 2 L/M; NUMBER OF ARTERIAL PUNCTURES 1; STAT YES; TEMP CORR TO 98.6
[2017-07-28] MEDS ORDERED: GADOBENATE DIM PF 529 MG/ML 20ML VIAL (for RAD MRI) IV ONE (15:25)
--- NOTE | 2017-07-28 15:45 | MB ---
cc: KARLIE FAIR DATE OF CONSULTATION: 07/28/2017 DATE OF : 1940 HISTORY: The patient is a 75-year-old woman with a history of hypertension, hypercholesterolemia, abdominal aortic aneurysm repair, bipolar, Parkinson's disease, sees Dr. Draper. She was actually seen by Dr. Weber in November of this year, brought in as a code blue with asthma, shortness of breath, cyanotic was not breathing, was intubated. At that time she was on Namenda, Lyrica, Lamictal, Sinemet, , Exelon, Cymbalta, carvedilol. She had a history of asthma, bipolar dementia, anxiety, heart disease, reflux, hypertension, according to her note and Parkinson's disease for which she follows Dr. Draper. She was seen by Dr. Vega in February of this year came as a stroke alert, fell in the bathroom, possible syncope was noted to have some left-sided weakness but at that time she had a slight left facial weakness very subtle left hemiparesis according to Dr. Vega, maybe some difficulty on the left slightly weak on the left with decreased lead assistant manager. She did not get TPA as a result. An MRI of the brain in February did not show any acute stroke, a carotid ultrasound then was normal. She had a neck MRA in July 2016 which was normal by report, an MRA of the [place] was normal at that time. She also had a brain MRI at that time showed atrophy but no acute stroke. She was seen in the emergency room at that time and not by neurologist for dizziness for 1 week, room spinning. She was on Dilantin then, folic acid. She was on Plavix evidently when she saw Dr. Vega and he recommended adding an aspirin a day. Which she is taking now Plavix and aspirin. I talked with her daughter and she was seen to sit down at home as if she was weak all over she did not appear to be weak on the left side more so, she was a little pale but not greatly. The ship design teacher came and the patient had been saying that she was not talking right since midnight last night. She thus came into the emergency room, she was noted by the emergency room physician to be a little bit weak on the left. A CTA of the neck and [place] preliminary negative as was CT of the brain. She was initially called a stroke alert but considering her symptoms had been going on since midnight and it was recommended that she not get TPA by my myself, at least IV TPA and most over something seen with a clot occluded with artery occlusion that could consider extracting it, interventionally but nothing was seen. Nevertheless, the patient has recovered fully and his NIH stroke scale of zero at this time except I could not tell if she could feel pinprick is she did not feel at all over her body. She was noted to be in sinus rhythm in ER. REVIEW OF SYSTEMS According to her daughter. No diabetes, SC, stent angioplasty A fib, Coumadin coronary artery bypass graft, renal panel pulmonary disease, thyroid disease lupus, ulcer cancer seizure. SOCIAL HISTORY Not a smoker or drinker lives with her who has some dementia also. FAMILY HISTORY Negative for cancer, seizure or stroke. MEDICATIONS Current meds only do not have her list of meds home which 1. She is taking aspirin. 2. Plavix 3. In February of this year she was on Cymbalta 60 a day. 4. Abilify. 5. Sinemet 25/100, one q.i.d. 6. Carvedilol. 7. Folate. 8. Lamictal 200 at bedtime. 9. Meclizine. 10. Lasix. 11. Namenda. 12. Zofran. 13. Lyrica 100 t.i.d. 14. Exelon patch 15. Crestor 16. . 17. Ami tease. 18. Plavix. 19. Xanax several times a day. PHYSICAL EXAMINATION: VITAL SIGNS: On exam afebrile 68, 16, 122/57. NECK: There are no carotid bruits. HEART: Regular rhythm I did not detect a murmur. She is somewhat obese. HEAD, EYES, EARS, NOSE, AND THROAT: The pupils are equal. Visual simmons are full. Extraocular intact without nystagmus. Face is symmetric. Tongue was midline. NEUROLOGIC: She moved all her extremities symmetrically and normal strength in bilateral upper and lower extremities. Toes are downgoing bilaterally. DTRs are slightly hyperreflexic on the right knee compared to the left pinprick and could not really tell throughout. She said that did not feel sharp anywhere including bilateral face and arms and legs. She is not ataxic. She gave a fair history. She could name my glasses well. She is not aphasic. LABORATORY DATA Her hematocrits 34, platelet counts only 75, and she has had a low platelet count since February 2016. Urine drug screen is pending. She had Dilantin level in 2015 of 29. Urinalysis is pending. Basic metabolic profile creatinine 1.5. She was 1.2 in February, BUN 16, CPK and troponin pending. LDL cholesterol was 41 in February. TSH was normal at that time. Troponin was negative, then albumin was 3.3. LFTs were normal then. UA in February was negative. Coags normal here. CT of the brain shows diffuse atrophy. CTA results are pending. Echocardiogram was done in February which was normal, left atrial size was normal. Mitral valve was normal. She had an EEG done in February, mild slowing only. Electroencephalogram done in November 2015 that was normal. IMPRESSION Possible TIA. We checked some orthostatic blood pressures. I will check an MRI. She has been on aspirin and Plavix now on the surface of it, if she did have weakness on the left side it has resolved this is the second time this has been noticed in the last several months and what we could do is switch her to Coumadin. I have a feeling however, she is on a lot of medications, she has a history of Parkinson's disease and some of this may be a general deconditioning and possibly some hypotension. Consideration should be preparing her medications back To her. She has been not thriving well at home according to the daughter and the daughter feels that she needs to go into rehabilitation. I will be following with you in the hospital but her symptoms have resolved at this point. A atypical seizure could also be considered with a and see any seizure activity. We will do Holter monitor. MD JAS Mckeon/chuck /2:24 PM /3:07 PM
--- NOTE | 2017-07-28 16:28 | HHI.HP ---
HPI Service [facility] Primary Care Physician Khadijah Levin MD Admission Diagnosis TIA Diagnoses: Chief Complaint: slurred speech with left sided weakness Travel History International Travel<30 Days: No Contact w/Intl Traveler <30 Da: No Traveled to Known Affected Are: No History of Present Illness Written by Emily Aaron, acting as scribe for Dr. Interiano on 07/28/17 at 16:13. This is a 77 years old female with history of asthma bipolar, anxiety, depression, hypertension, seizure, abdominal aortic aneurysm, dyslipidemia, CHF , COPD, TIA and Parkinson's dementia. Patient seen with daughter present at bedside. Patient is a poor historian able to give limited information reports she is tired. Patient's daughter picked her up today to take her to a outpatient appointment with Dr. Hughes. Patient's daughter noted slurring of words and left sided weakness causing inability to walk. EMS was called. Patient also reports left sided chest pain which feels "like a bunch of tomatoes are hitting me". Unable to elaborate on length of time this pain has been present, exacerbated or relieving factors. Patient endorses constipation and poor appetite. Per the patient's daughter, the patient has been very inactive of late. She states that the patient would do better to go to a rehabilitation facility prior to going home. Review of Systems Except as stated in HPI: all other systems reviewed are Neg Past Family Social History Past Medical History bipolar disorder Anxiety depression hypertension Abdominal aortic aneurysm dyslipidemia Congestive heart failure COPD Seizures CVA Dementia GERD Past Surgical History Abdominal aortic aneurysm repair and a cholecystectomy Appendectomy Hysterectomy Left hip replacement next and tonsillectomy Reported Medications Lyrica (Pregabalin) 100 Mg Cap 100 Mg PO Q8HR Aspirin 325 Mg Tab 325 Mg PO DAILY Cymbalta DR (Duloxetine HCl) 60 Mg Capdr 60 Mg PO DAILY Abilify (Aripiprazole) 2 Mg Tab 2 Mg PO HS Sinemet (Carbidopa-Levodopa) 25-100 Mg Tab 1 Tab PO QID Carvedilol 12.5 Mg Tab 12.5 Mg PO BID Lamictal (Lamotrigine) 200 Mg Tab 200 Mg PO HS Namenda (Memantine) 10 Mg Tab 10 Mg PO BID Pantoprazole (Pantoprazole Sodium) 40 Mg Tab 40 Mg PO DAILY Exelon Patch (Rivastigmine) 9.5 mg/24 hr Patch 1 Patch T-DERMAL DAILY Advair Diskus Inh (Fluticasone-Salmeterol Inh) 250-50 Mcg/Blist Aer 1 Puff INH BID Rinse mouth after use. Crestor (Rosuvastatin Calcium) 10 Mg Tab 10 Mg PO HS Amitiza (Lubiprostone) 8 Mcg Cap 8 Mg PO BID 30 Days Plavix (Clopidogrel Bisulfate) 75 Mg Tab 75 Mg PO DAILY Carafate (Sucralfate) 1 Gram Tab 1 Gm PO TID 30 MINUTES BEFORE MEALS Folic Acid 1 Mg Tablet 2 Mg PO DAILY Calcium 600+D3 (Calcium Carbonate-Cholecalciferol) 600-200 Mg-Unit Tab 1 Tab PO DAILY Potassium Chloride ER (Potassium Chloride) 20 Meq Tab 20 Meq PO DAILY Lasix (Furosemide) 20 Mg Tab 20 Mg PO DAILY Allergies: Coded Allergies: paroxetine (Unverified Allergy, Severe, CAN NOT REMEMBER , 06/22/17) lactose (Unverified Allergy, Unknown, GI UPSET, 06/22/17) Active Ordered Medications Current Medications Medications (Trade) Dose Ordered Sig/Dolores Route Start Time Stop Time Status Last Admin Sodium Chloride 1,000 ml @ 70 mls/hr [id number] ONCE IV 07/28/17 13:29 07/29/17 03:46 07/28/17 14:20 Sodium Chloride 1,000 ml @ 75 mls/hr [id number] IV 07/28/17 14:41 UNV (Coumadin) 5 mg DAILY@1600 PO 07/28/17 16:00 UNV (Heparin Inj) 5,000 units Q12HR SQ 07/28/17 15:00 UNV Family History father had heart disease also brothers had heart disease Social History Denied tobacco alcohol or illicit drug abuse Physical Exam Vital Signs Vital Signs Date Time Temp Pulse Resp B/P (MAP) Pulse Ox O2 Delivery O2 Flow Rate FiO2 07/28/17 15:30 60 12 143/59 (87) 99 Room Air 07/28/17 14:20 62 17 139/66 (90) 100 Nasal Cannula 2.00 07/28/17 13:25 100 Room Air 07/28/17 13:25 100 Nasal Cannula 2.00 07/28/17 13:25 16 95 Room Air 07/28/17 13:25 97.6 68 16 122/57 (78) 95 Physical Exam GENERAL: This is a well-nourished, well-developed patient, appears fatigued and slow to respond SKIN: No rashes, ecchymoses or lesions. Cool and dry. HEAD: Atraumatic. Normocephalic. No temporal or scalp tenderness. EYES: Extraocular motions intact. No scleral icterus. No injection or drainage. CARDIOVASCULAR: Bradycardic RESPIRATORY: Clear to auscultation. Breath sounds equal bilaterally. No wheezes , rales, or rhonchi. GASTROINTESTINAL: Abdomen soft, non-tender, nondistended. No hepato-splenomegaly , or palpable masses. No guarding. MUSCULOSKELETAL: Extremities without clubbing, cyanosis, or edema. No joint tenderness, effusion, or edema noted. No calf tenderness. Negative Homans sign bilaterally. Distal lower extremities 3/5 left. RLE 4/5. LUE extremity 3/5, RUE 4/5 NEUROLOGICAL: Awake and alert. Difficult to follow directions. Motor and sensory grossly within normal limits. Distal lower extremities 3/5 left. RLE 4/ 5. LUE extremity 3/5, RUE 4/5. Left sided facial droop. Slow to respond verbally. PSYCH: Calm. Laboratory Laboratory Tests Test 07/28/17 13:30 07/28/17 14:14 07/28/17 15:10 White Blood Count 5.7 Red Blood Count 3.97 Hemoglobin 11.0 Bedside Hemoglobin 11.2 Hematocrit 34.2 Bedside Hematocrit 33.0 Mean Corpuscular Volume 86.3 Mean Corpuscular Hemoglobin 27.6 Mean Corpuscular Hemoglobin Concent 32.0 Red Cell Distribution Width 14.0 Platelet Count 75 Mean Platelet Volume 12.1 Neutrophils (%) (Auto) 60.0 Lymphocytes (%) (Auto) 25.2 Monocytes (%) (Auto) 10.4 Eosinophils (%) (Auto) 3.7 Basophils (%) (Auto) 0.7 Neutrophils # (Auto) 3.4 Lymphocytes # (Auto) 1.4 Monocytes # (Auto) 0.6 Eosinophils # (Auto) 0.2 Basophils # (Auto) 0.0 CBC Comment AUTO DIFF Differential Comment AUTO DIFF CONFIRMED Platelet Estimate LOW Platelet Morphology Comment ENLARGED Prothrombin Time 11.9 Prothromb Time International Ratio 1.1 Activated Partial Thromboplast Time 26.0 Fibrinogen 402 Bedside Sodium 143 Bedside Potassium 3.8 Bedside Chloride 102 Bedside Blood Urea Nitrogen 16 Bedside Creatinine 1.5 Bedside Glucose 99 Total Creatine Kinase 50 Troponin I LESS THAN 0.02 Human Chorionic Gonadotropin, Quant 8 Urine Color YELLOW Urine Turbidity CLEAR Urine pH 7.0 Urine Specific [place] GREATER THAN 1.050 Urine Protein TRACE Urine Glucose (UA) NEG Urine Ketones NEG Urine Occult Blood NEG Urine Nitrite NEG Urine Bilirubin NEG Urine Urobilinogen LESS THAN 2.0 Urine Leukocyte Esterase NEG Urine RBC 3 Urine WBC 2 Urine Hyaline Casts 3 Urine Mucus FEW Urine Opiates Screen NEG Urine Barbiturates Screen NEG Urine Amphetamines Screen NEG Urine Benzodiazepines Screen POS Urine Cocaine Screen NEG Urine Cannabinoids Screen NEG Blood Gas Puncture Site LT RADIAL Blood Gas Patient Temperature 98.6 Blood Gas HCO3 29 Blood Gas Base Excess 3.9 Blood Gas Oxygen Saturation 97 Arterial Blood pH 7.38 Arterial Blood Partial Pressure CO2 50 Arterial Blood Partial Pressure O2 107 Arterial Blood Oxygen Content 14.7 Arterial Blood Carboxyhemoglobin 1.0 Arterial Blood Methemoglobin 0.5 Blood Gas Hemoglobin 10.6 Blood Gas Liter Flow 2 Result Diagram: 07/28/17 1330 Imaging Last Impressions Neck CTA 07/28/17 0000 Signed Impressions: Service Date/Time: July 13:44 - CONCLUSION: 1. Bovine arch. The distal arch subjacent to the left subclavian artery is aneurysmal at 3.4 cm. 2. Both carotids are patent but quite tortuous. The right internal carotid swings far medially in the upper cervical spine passing directly posteriorly to the oropharynx. 3. Vertebrals are patent. Patient is right vertebral dominant. Baron Calle MD Head CTA 07/28/17 0000 Signed Impressions: Service Date/Time: July 13:32 - CONCLUSION: 1. No large or central vessel occlusion identified. No aneurysm seen. Results were called directly to the knee. Joe Wilcox MD Head CT 07/28/17 0000 Signed Impressions: Service Date/Time: July 13:32 - CONCLUSION: 1. Cortical atrophy and microvascular ischemic demyelinative change. No acute abnormality. 2. Results called to ED at 1340 Joe T. Miles, MD Caprini VTE Risk Assessment Caprini VTE Risk Assessment: Mod/High Risk (score >= 2) Caprini Risk Assessment Model Point Value = 1 Point Value = 2 Point Value = 3 Point Value = 5 Age 41-60 Minor surgery BMI > 25 kg/m2 Swollen legs Varicose veins or History of unexplained or recurrent spontaneous Oral contraceptives or hormone replacement Sepsis (< 1 month) Serious lung disease, including pneumonia (< 1 month) Abnormal pulmonary function Acute myocardial infarction Congestive heart failure (< 1 month) History of inflammatory bowel disease Medical patient at bed rest Age 61-74 Arthroscopic surgery Major open surgery (> 45 min) Laparoscopic surgery (> 45 min) Malignancy Confined to bed (> 72 hours) Immobilizing plaster cast Central venous access Age >= 75 History of VTE Family history of VTE Factor V Leiden Prothrombin [id number] Lupus anticoagulant Anticardiolipin antibodies Elevated serum homocysteine Heparin-induced thrombocytopenia Other congenital or acquired thrombophilia Stroke (< 1 month) Elective arthroplasty Hip, pelvis, or leg fracture Acute spinal cord injury (< 1 month) Prophylaxis Regimen Total Risk Factor Score Risk Level Prophylaxis Regimen 0-1 Low Early ambulation 2 Moderate Order ONE of the following: *Sequential Compression Device (SCD) *Heparin 5000 units SQ BID 3-4 Higher Order ONE of the following medications: *Heparin 5000 units SQ TID *Enoxaparin/Lovenox 40 mg SQ daily (WT < 150 kg, CrCl > 30 mL/min) *Enoxaparin/Lovenox 30 mg SQ daily (WT < 150 kg, CrCl > 10-29 mL/min) *Enoxaparin/Lovenox 30 mg SQ BID (WT < 150 kg, CrCl > 30 mL/min) AND/OR *Sequential Compression Device (SCD) 5 or more Highest Order ONE of the following medications: *Heparin 5000 units SQ TID (Preferred with Epidurals) *Enoxaparin/Lovenox 40 mg SQ daily (WT < 150 kg, CrCl > 30 mL/min) *Enoxaparin/Lovenox 30 mg SQ daily (WT < 150 kg, CrCl > 10-29 mL/min) *Enoxaparin/Lovenox 30 mg SQ BID (WT < 150 kg, CrCl > 30 mL/min) AND *Sequential Compression Device (SCD) Assessment and Plan Assessment and Plan 77 year old female with a past medical history which includes asthma bipolar, anxiety, depression, hypertension, seizure, abdominal aortic aneurysm, dyslipidemia, CHF, COPD, TIA and Parkinson's dementia who presents to the ER today for evaluation of slurred speech and left sided weakness TIA vs CVS Neurology consult appreciated. Currently taking aspirin 325 mg by mouth daily and Plavix 75 mg by mouth daily as well as Crestor 10 mg by mouth daily at bedtime HOB flat CT reviewed and reviewed and reveals cortical atrophy and microvascular ischemic demyelination changes. No acute abnormality. Head CTA reviewed and reveals: No large or central vessel occlusion identified. No aneurysm seen Neck CTA bovine arch. The distal arch subjacent to the left subclavicular artery is aneurysm at 3.4 cm. Both carotids are patent but quite tortuous. MRI ordered Follow up with neurology Chest pain- reproducible with palpation Patient currently on aspirin 325 mg daily by mouth, Plavix 75 mg by mouth daily and Rosuvastatin 10 mg daily - trend troponins and EKGs. - telemetry. Acute kidney injury- current in 1.5 on admission baseline creatinine 1.1 IV hydration and recheck in a.m. - hold Lasix. Bipolar Continue home medications Seizure disorder Continue home medications Parkinson's dementia Continue home medications Asthma/COPD does not seem to be in acute exacerbation DVT prophylaxis heparin SQ and SCDs Code Status DNR Discussed Condition With Pt, pt's daughter, Dr. Garland Attending Statement This note was transcribed by govind Aaron. I, Dr. Shakir Interiano personally performed the history, physical exam, and medical decision making; and confirmed the accuracy of the information in the transcribed note. Authenticated by Dr. Shakir Interiano on 07/28/17 at 18:02. Emily Aaron Jul 28, 2017 16:28 Shakir Interiano DO Jul 28, 2017 18:02
[2017-07-28] MEDS ORDERED: SODIUM CHLORIDE 0.9% FLUSH 10 ML FLUSH IV FLUSH PRN (16:45)
[2017-07-28] MEDS ORDERED: ACETAMINOPHEN 325 MG TAB PO PRN ×2 (16:45)
[2017-07-28] MEDS ORDERED: NALOXONE HCL 0.4 MG/ML AMP IV PUSH PRN (16:45)
[2017-07-28] MEDS: SODIUM CHLOR 0.9% 1000 ML INJ 1,000 ML IV SCH (17:00)
--- NOTE | 2017-07-28 17:37 | RADRPT ---
EXAM DATE/TIME: 07/28/2017 16:47 [facility] COMPARISON: MRI BRAIN W & W/O CONTRAST, February 08, 2017, 19:23. INDICATIONS : CVA. Slurred speech and weakness on left side. CONTRAST: 18 cc Multihance (gadobenate) IV MEDICAL HISTORY : Hypertension. Parkinson's. Aneurysm, abdominal. SURGICAL HISTORY : Hysterectomy. Cholecystectomy. Abdominal aortic aneurysm repair. Loop recorder. ENCOUNTER: Initial ACUITY: 1 day PAIN SCORE: 0/10 LOCATION: Head. TECHNIQUE: Multiplanar, multisequence MRI of the brain was performed both prior to and following the administrat ion of paramagnetic contrast. FINDINGS: Moderate white matter ischemic changes relatively stable since February. Cortical volume loss. No mass, hemorrhage or shift. No hydrocephalus. No recent infarction. No abnormal enhancing lesions postcontra st. CONCLUSION: 1. No acute findings. Moderate white matter ischemic changes and cortical volume loss, stable. Gregory Ayala MD on July 28, 2017 at 17:29 Board Certified Radiologist. This report was verified electronically.
[2017-07-28] MEDS: SUCRALFATE 1 GM TAB PO SCH (18:00)
[2017-07-28] MEDS: WARFARIN SOD 5 MG TAB PO SCH (18:51)
[2017-07-28] MEDS: CARBIDOPA/LEVODOPA 25 MG/100 MG TAB PO SCH ×2 (18:51→21:39)
[2017-07-28] MEDS: HEPARIN SODIUM - SQ 10,000 UNITS/ML VIAL SQ SCH (18:51)
--- NOTE | 2017-07-28 19:05 | MG ---
cc: MAXX VEGA MD Lab No: Date: 07/28/17 Age: 77 Sex: F Race: REQUESTING PHYSICIAN Dr. Luna EEG was obtained on this 77-year-old patient being evaluated as a stroke alert. MEDICATIONS Xanax Lyrica Lamictal. Namenda Abilitete Rosaren Plavix. Crestor. The EEG shows a lot of artifact. There are some intermixed mixture of rhythms. There appears to be brain origin beta activity posteriorly and there are theta and delta rhythms. Overall, there is a lack of alpha rhythms. Photic stimulation disclosed no significant change. INTERPRETATION Limited EEG study although showing significant abnormality characterized by bilateral slowing, lack of alpha rhythms. There was a lot of artifact. Overall the findings suggest a diffuse disturbance of cerebral function, probably moderately severe. No paroxysmal/epileptiform discharges could be distinguished, although the study is limited because of the excessive artifact. Maxx Vega MD [facility]/[place] /6:23 PM /6:52 PM
[2017-07-28] MEDS ORDERED: [UNRECOGNIZED DRUG - OTHER] PO SCH (21:00)
[2017-07-28] MEDS ORDERED: LUBIPROSTONE PO SCH (21:00)
[2017-07-28] MEDS: CARVEDILOL 12.5 MG TAB PO SCH (21:00)
[2017-07-28] MEDS ORDERED: ARIPiprazole 2 MG TAB PO SCH (21:00)
[2017-07-28] MEDS: lamoTRIgine 100 MG TAB PO SCH (21:38)
[2017-07-28] MEDS: MEMANTINE HCL 10 MG TAB PO SCH (21:38)
[2017-07-28] MEDS: PREGABALIN 100 MG CAP PO SCH (21:38)
[2017-07-28] MEDS: DOCUSATE SODIUM 50 MG/SENNA 8.6 MG TAB PO SCH (21:39)
[2017-07-28] MEDS: ATORVASTATIN 20 MG TAB PO SCH (21:39)
[2017-07-28] MEDS: SODIUM CHLORIDE 0.9% FLUSH 10 ML FLUSH IV FLUSH SCH (21:39)
[2017-07-28] MEDS: BUDESONIDE-FORMOTEROL 160/4.5 MCG INHALER INH SCH (21:39)
[2017-07-29] VITALS (11 sets, daily range): BP systolic 105–162; BP diastolic 56–98; PULSE 54–66; RESP 16–18; TEMP 97–98.4; O2SAT 94–100
[2017-07-29 04:15] LABS: AUTOMATED NEUTROPHIL # 2.9 TH/MM3 (1.8-7.7); BASOPHIL % 0.8 % (0.0-2.0); EOSINOPHIL # 0.2 TH/MM3 (0-0.4); EOSINOPHIL % 3.6 % (0.0-4.0); HEMATOCRIT 35.9 % (35.0-46.0); LYMPH % 31.1 % (9.0-44.0); LYMPHOCYTE # 1.7 TH/MM3 (1.0-4.8); MEAN CELL VOLUME 86.5 FL (80.0-100.0); MEAN CORPUSCULAR HEMOGLOBIN 27.6 PG (27.0-34.0); MEAN CORPUSCULAR HGB CONC 31.9 % (32.0-36.0); NEUT % 54.5 % (16.0-70.0); PLATELET COUNT 105 TH/MM3 (150-450); RED BLOOD COUNT 4.14 MIL/MM3 (4.00-5.30); RED CELL DISTRIBUTION WIDTH 14.2 % (11.6-17.2); WHITE BLOOD COUNT 5.4 TH/MM3 (4.0-11.0)
[2017-07-29 04:16] LABS: HEMO FLAGS AUTO DIFF
[2017-07-29 04:25] LABS: ALT (GPT) LESS THAN 6 U/L (10-53); ANION GAP 8 MEQ/L (5-15); AST (GOT) 17 U/L (15-37); BICARBONATE 26.8 MEQ/L (21.0-32.0); CHLORIDE 105 MEQ/L (98-107); GLOMERULAR FILTRATION RATE 37 ML/MIN (>89); SODIUM (NA) 140 MEQ/L (136-145)
[2017-07-29 04:28] LABS: ALKALINE PHOSPHATASE 89 U/L (45-117); TOTAL BILIRUBIN ADULT 0.5 MG/DL (0.2-1.0)
[2017-07-29 04:31] LABS: BLOOD UREA NITROGEN 17 MG/DL (7-18)
[2017-07-29 04:50] LABS: PLATELET ESTIMATE SMEAR LOW (NORMAL); PLATELET MORPHOLOGY ENLARGED (NORMAL); SCAN/DIFF AUTO DIFF CONFIRMED
[2017-07-29] MEDS: HEPARIN SODIUM - SQ 10,000 UNITS/ML VIAL SQ SCH ×2 (05:20→17:06)
[2017-07-29] MEDS: PREGABALIN 100 MG CAP PO SCH ×3 (05:20→21:29)
[2017-07-29] MEDS: SODIUM CHLOR 0.9% 1000 ML INJ 1,000 ML IV SCH ×2 (05:20→19:40)
[2017-07-29 05:33] LABS: INTERNATIONAL NORMALIZED RATIO 1.1 RATIO
--- NOTE | 2017-07-29 07:41 | HHI.PR ---
Subjective Remarks sr Objective Vital Signs Date Time Temp Pulse Resp B/P (MAP) Pulse Ox O2 Delivery O2 Flow Rate FiO2 07/29/17 07:18 97.0 61 18 115/60 (78) 99 137/85 (102) 162/98 (119) 07/29/17 06:30 18 07/29/17 04:06 97.5 56 18 105/58 (74) 100 07/29/17 03:57 66 07/29/17 01:01 98.4 58 18 137/68 (91) 100 07/29/17 00:07 54 07/28/17 21:55 56 07/28/17 21:30 54 120/64 (82) 07/28/17 19:50 97 Nasal Cannula 3.00 07/28/17 19:49 97.8 78 16 97/54 (68) 94 07/28/17 17:50 98 Nasal Cannula 3.00 07/28/17 17:32 98.2 61 15 156/70 (98) 100 07/28/17 17:17 07/28/17 15:30 60 12 143/59 (87) 99 Room Air 07/28/17 14:20 62 17 139/66 (90) 100 Nasal Cannula 2.00 07/28/17 13:25 100 Room Air 07/28/17 13:25 100 Nasal Cannula 2.00 07/28/17 13:25 16 95 Room Air 07/28/17 13:25 97.6 68 16 122/57 (78) 95 I/O 07/28/17 07/28/17 07/28/17 07/29/17 07/29/17 07/29/17 07:00 15:00 23:00 07:00 15:00 23:00 Intake Total 1000 ml Output Total 50 ml Balance 950 ml Intake IV Total 1000 ml Output Urine Total 50 ml Result Diagram: 07/29/1734107/29/17341 Objective Remarks awake alert b4 meds tremor and very bradykinetic a little worse on left and her cogwheel bilat mild left droop Assessment and Plan Assessment and Plan imp mri neg and ctax2 nl labs ok so far eeg neg bp standing ok too high actually ok to rx bp to 120-140 i started her on coumadin and should get loop recorder done at some point i have a suspicion however that these are not tia just decompensated PD spells but cannot say for sure so coumadin for now and ok to dc to rehab check holter 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
[2017-07-29] MEDS: CARVEDILOL 12.5 MG TAB PO SCH ×3 (09:00→21:31)
[2017-07-29] MEDS: DOCUSATE SODIUM 50 MG/SENNA 8.6 MG TAB PO SCH ×2 (09:00→21:29)
[2017-07-29] MEDS ORDERED: ASPIRIN 325 MG TAB PO SCH (09:00)
[2017-07-29] MEDS ORDERED: CLOPIDOGREL 75 MG TAB PO SCH (09:00)
[2017-07-29] MEDS ORDERED: PILL SPLITTER OTHER PRN (09:15)
[2017-07-29] MEDS: MEMANTINE HCL 10 MG TAB PO SCH ×2 (09:27→21:28)
[2017-07-29] MEDS: DULoxetine HCl DR 60 MG CAP PO SCH (09:27)
[2017-07-29] MEDS: BUDESONIDE-FORMOTEROL 160/4.5 MCG INHALER INH SCH ×2 (09:27→21:32)
[2017-07-29] MEDS: PANTOPRAZOLE SOD 40 MG DELAYED RELEASE TAB PO SCH (09:28)
[2017-07-29] MEDS: SUCRALFATE 1 GM TAB PO SCH ×3 (09:28→17:06)
[2017-07-29] MEDS: CARBIDOPA/LEVODOPA 25 MG/100 MG TAB PO SCH ×4 (09:28→21:31)
[2017-07-29] MEDS: SODIUM CHLORIDE 0.9% FLUSH 10 ML FLUSH IV FLUSH SCH ×2 (09:30→21:00)
--- NOTE | 2017-07-29 09:59 | HHI.PR ---
Subjective Remarks The patient was sitting up in a chair and trying to eat breakfast. She said she was no longer hungry. She said that she does not want to go to rehabilitation and would like to go home after the hospital. She had no acute complaints. Discussed with nursing. Objective Vitals Vital Signs Date Time Temp Pulse Resp B/P (MAP) Pulse Ox O2 Delivery O2 Flow Rate FiO2 07/29/17 07:18 97.0 61 18 115/60 (78) 99 137/85 (102) 162/98 (119) 07/29/17 06:30 18 07/29/17 04:06 97.5 56 18 105/58 (74) 100 07/29/17 03:57 66 07/29/17 01:01 98.4 58 18 137/68 (91) 100 07/29/17 00:07 54 07/28/17 21:55 56 07/28/17 21:30 54 120/64 (82) 07/28/17 19:50 97 Nasal Cannula 3.00 07/28/17 19:49 97.8 78 16 97/54 (68) 94 07/28/17 17:50 98 Nasal Cannula 3.00 07/28/17 17:32 98.2 61 15 156/70 (98) 100 07/28/17 17:17 07/28/17 15:30 60 12 143/59 (87) 99 Room Air 07/28/17 14:20 62 17 139/66 (90) 100 Nasal Cannula 2.00 07/28/17 13:25 100 Room Air 07/28/17 13:25 100 Nasal Cannula 2.00 07/28/17 13:25 16 95 Room Air 07/28/17 13:25 97.6 68 16 122/57 (78) 95 I/O 07/28/17 07/28/17 07/28/17 07/29/17 07/29/17 07/29/17 07:00 15:00 23:00 07:00 15:00 23:00 Intake Total 1000 ml Output Total 50 ml Balance 950 ml Intake IV Total 1000 ml Output Urine Total 50 ml Result Diagram: 07/29/17 0342 07/29/17 0342 Imaging Last Impressions Brain MRI 07/28/17 1441 Signed Impressions: Service Date/Time: July 16:47 - CONCLUSION: 1. No acute findings. Moderate white matter ischemic changes and cortical volume loss , stable. Gregory Ayala MD Neck CTA 07/28/17 0000 Signed Impressions: Service Date/Time: July 13:44 - CONCLUSION: 1. Bovine arch. The distal arch subjacent to the left subclavian artery is aneurysmal at 3.4 cm. 2. Both carotids are patent but quite tortuous. The right internal carotid swings far medially in the upper cervical spine passing directly posteriorly to the oropharynx. 3. Vertebrals are patent. Patient is right vertebral dominant. Baron Calle MD Head CTA 07/28/17 0000 Signed Impressions: Service Date/Time: , July 28, 2017 13:32 - CONCLUSION: 1. No large or central vessel occlusion identified. No aneurysm seen. Results were called directly to the knee. Joe Wilcox MD Head CT 07/28/17 0000 Signed Impressions: Service Date/Time: July 13:32 - CONCLUSION: 1. Cortical atrophy and microvascular ischemic demyelinative change. No acute abnormality. 2. Results called to ED at 1340 Joe Wilcox MD Objective Remarks GENERAL: This is a well-nourished, well-developed patient, in no apparent distress. SKIN: No rashes, ecchymoses or lesions. Cool and dry. HEAD: Atraumatic. Normocephalic. No temporal or scalp tenderness. EYES: Extraocular motions intact. No scleral icterus. No injection or drainage. CARDIOVASCULAR: Bradycardic. No murmur appreciated. RESPIRATORY: Clear to auscultation. Breath sounds equal bilaterally. No wheezes , rales, or rhonchi. GASTROINTESTINAL: Abdomen soft, non-tender, nondistended. No hepato-splenomegaly , or palpable masses. No guarding. MUSCULOSKELETAL: Extremities without clubbing, cyanosis, or edema. No joint tenderness, effusion, or edema noted. NEUROLOGICAL: Awake and alert. Distal lower extremities 3/5 left. RLE 4/5. LUE extremity 3/5, RUE 4/5. Left sided facial droop seems to be resolved. PSYCH: Mood and affect appropriate. Medications and IVs Current Medications Medications (Trade) Dose Ordered Sig/Dolores Route Start Time Stop Time Status Last Admin Sodium Chloride 1,000 ml @ 75 mls/hr [id number] IV 07/28/17 17:00 07/29/17 05:20 (Coumadin) 5 mg DAILY@1600 PO 07/28/17 17:00 07/28/17 18:51 (Heparin Inj) 5,000 units Q12H SQ 07/28/17 17:00 07/29/17 05:20 (Sinemet 25-100 Mg) 1 tab QID PO 07/28/17 18:00 07/29/17 09:28 (Coreg) 12.5 mg BID PO 07/28/17 21:00 07/29/17 09:30 (Cymbalta Dr) 60 mg DAILY PO 07/29/17 09:00 07/29/17 09:27 (LaMICtal) 200 mg HS PO 07/28/17 21:00 07/28/17 21:38 (Namenda) 10 mg BID PO 07/28/17 21:00 07/29/17 09:27 (Protonix) 40 mg DAILY PO 07/29/17 09:00 07/29/17 09:28 (Lyrica) 100 mg Q8HR PO 07/28/17 22:00 07/29/17 05:20 (Carafate) 1 gm TID PO 07/28/17 18:00 07/29/17 09:28 (Symbicort 160-4.5 Inh) 2 puff BID INH 07/28/17 21:00 07/29/17 09:27 Patient Own Medication PT OWN MED: AMITIZA (LUBIPROSTO... BID PO 07/28/17 21:00 Future Hold (Lipitor) 20 mg HS PO 07/28/17 21:00 07/28/17 21:39 (NS Flush) 2 ml UNSCH PRN IV FLUSH 07/28/17 16:45 (NS Flush) 2 ml BID IV FLUSH 07/28/17 21:00 07/29/17 09:30 (Tylenol) 650 mg Q4H PRN PO 07/28/17 16:45 (Tylenol) 650 mg Q6H PRN PO 07/28/17 16:45 07/29/17 09:28 (Narcan Inj) 0.4 mg UNSCH PRN IV PUSH 07/28/17 16:45 (Светлана-Colace) 1 tab BID PO 07/28/17 21:00 07/29/17 09:00 Pharmacy Profile Note 0 ml @ 0 mls/hr UNSCH OTHER 07/29/17 09:00 (Abilify) 1 mg HS PO 07/29/17 21:00 (Pill Splitter) 1 ea UNSCH PRN OTHER 07/29/17 09:15 A/P Assessment and Plan 77 year old female with a past medical history which includes asthma bipolar, anxiety, depression, hypertension, seizure, abdominal aortic aneurysm, dyslipidemia, CHF, COPD, TIA and Parkinson's dementia who presents to the ER today for evaluation of slurred speech and left sided weakness TIA Neurology consult appreciated. CT reviewed and reviewed and reveals cortical atrophy and microvascular ischemic demyelination changes. No acute abnormality. MRI with no acute process. - Currently taking aspirin 325 mg by mouth daily and Plavix 75 mg by mouth daily as well as Crestor 10 mg by mouth daily at bedtime. - HOB flat. - PT/ OT/ ST. - Coumadin per neurology. Chest pain Reproducible with palpation. Trops negative. - Patient currently on aspirin 325 mg daily by mouth, Plavix 75 mg by mouth daily and Rosuvastatin 10 mg daily - telemetry. Acute kidney injury Creatinine 1.5 on admission. Improved with IVFs. - IV hydration. - hold Lasix. - follow BMP. Bipolar/ Seizure disorder On multiple medications. - wean Abilify and continue home regimen. Parkinson's dementia On multiple medications. - Continue home medications. DVT prophylaxis heparin SQ and SCDs Discharge Planning Would benefit from SNF but currently under observation. Follow up with case management for disposition Shakir Interiano DO Jul 29, 2017 09:59
[2017-07-29] MEDS: REMOVE OLD PATCH T-DERMAL SCH (10:00)
[2017-07-29] MEDS: RIVASTIGMINE 9.5 MG/24 HOUR PATCH T-DERMAL SCH (12:01)
[2017-07-29 13:39] LABS: ANA SCREEN NEG (NEG)
[2017-07-29] MEDS: WARFARIN SOD 5 MG TAB PO SCH (15:34)
--- NOTE | 2017-07-29 16:30 | EKG ---
Date Performed: 07/29/2017 Time Performed: 00:58:26 PTAGE: 77 years EKG: SINUS BRADYCARDIA WITH SINUS ARRHYTHMIA BORDERLINE ECG Since PREVIOUS TRACING , no significant change noted PREVIOUS TRACIN07/28/2017 18.44 DOCTOR: Devika Coley Interpretating Date/Time 07/29/2017 16:30:16
--- NOTE | 2017-07-29 16:36 | EKG ---
Date Performed: 07/28/2017 Time Performed: 18:44:03 PTAGE: 77 years EKG: Sinus rhythm NORMAL ECG Since PREVIOUS TRACING , no significant change noted PREVIOUS TRACIN07/28/2017 14.17 DOCTOR: Devika Coley Interpretating Date/Time 07/29/2017 16:36:07
--- NOTE | 2017-07-29 16:59 | EKG ---
Date Performed: 07/28/2017 Time Performed: 14:17:23 PTAGE: 77 years EKG: Sinus rhythm NORMAL ECG Since PREVIOUS TRACING , no significant change noted PREVIOUS TRACIN02/07/2017 13.42 DOCTOR: Devika Coley Interpretating Date/Time 07/29/2017 16:58:56
--- NOTE | 2017-07-29 17:49 | HHI.PR ---
Subjective Remarks SOME AORTIC ARCH DILATION DEFER TO MED TEAM Objective Vital Signs Date Time Temp Pulse Resp B/P (MAP) Pulse Ox O2 Delivery O2 Flow Rate FiO2 07/29/17 17:00 16 07/29/17 15:55 97.6 65 16 116/57 (76) 97 07/29/17 13:43 94 07/29/17 11:43 97.5 62 16 117/56 (76) 98 07/29/17 10:45 19 07/29/17 07:18 97.0 61 18 115/60 (78) 99 137/85 (102) 162/98 (119) 07/29/17 04:06 97.5 56 18 105/58 (74) 100 07/29/17 03:57 66 07/29/17 01:01 98.4 58 18 137/68 (91) 100 07/29/17 00:07 54 07/28/17 21:55 56 07/28/17 21:30 54 120/64 (82) 07/28/17 19:50 97 Nasal Cannula 3.00 07/28/17 19:49 97.8 78 16 97/54 (68) 94 07/28/17 17:50 98 Nasal Cannula 3.00 I/O 07/28/17 07/28/17 07/28/17 07/29/17 07/29/17 07/29/17 07:00 15:00 23:00 07:00 15:00 23:00 Intake Total 1000 ml Output Total 50 ml Balance 950 ml Intake IV Total 1000 ml Output Urine Total 50 ml Result Diagram: 07/29/1734107/29/17 034 Objective Remarks awake alert b4 meds tremor and very bradykinetic a little worse on left and her cogwheel bilat mild left droop Assessment and Plan Assessment and Plan imp mri neg and ctax2 nl labs ok so far eeg neg bp standing ok too high actually ok to rx bp to 120-140 i started her on coumadin and should get loop recorder done at some point i have a suspicion however that these are not tia just decompensated PD spells but cannot say for sure so coumadin for now and ok to dc to rehab check holter 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
[2017-07-29] MEDS ORDERED: ARIPiprazole 2 MG TAB PO SCH (21:00)
[2017-07-29] MEDS: ATORVASTATIN 20 MG TAB PO SCH (21:28)
[2017-07-29] MEDS: lamoTRIgine 100 MG TAB PO SCH (21:30)
[2017-07-30 03:31] VITALS: BP_SYST 106; BP_SYST 110; BP_DIAS 53; PULSE 63; RESP 16; TEMP 98; TEMP 98.9; O2SAT 94
[2017-07-30] MEDS: PREGABALIN 100 MG CAP PO SCH (05:55)
[2017-07-30] MEDS: HEPARIN SODIUM - SQ 10,000 UNITS/ML VIAL SQ SCH (05:55)
[2017-07-30 07:23] VITALS: O2SAT 93
[2017-07-30 07:37] VITALS: PULSE 64
[2017-07-30 08:20] LABS: HEMATOCRIT 31.5 % (35.0-46.0); MEAN CORPUSCULAR HEMOGLOBIN 27.9 PG (27.0-34.0); MEAN CORPUSCULAR HGB CONC 32.1 % (32.0-36.0); PLATELET COUNT 61 TH/MM3 (150-450); RED BLOOD COUNT 3.62 MIL/MM3 (4.00-5.30); RED CELL DISTRIBUTION WIDTH 14.3 % (11.6-17.2); WHITE BLOOD COUNT 4.7 TH/MM3 (4.0-11.0)
[2017-07-30 08:26] LABS: INTERNATIONAL NORMALIZED RATIO 1.7 RATIO; PROTHROMBIN TIME - PATIENT 18.7 SEC (9.8-11.6)
[2017-07-30 08:31] VITALS: BP 120/60; PULSE 62; RESP 18; TEMP 97.9; O2SAT 97
[2017-07-30 08:44] LABS: BICARBONATE 29.5 MEQ/L (21.0-32.0); MAGNESIUM 2.3 MG/DL (1.5-2.5); POTASSIUM 4.3 MEQ/L (3.5-5.1)
[2017-07-30 08:58] LABS: REVIEW FLAG AUTO DIFF
[2017-07-30] MEDS: RIVASTIGMINE 9.5 MG/24 HOUR PATCH T-DERMAL SCH (09:00)
[2017-07-30] MEDS: BUDESONIDE-FORMOTEROL 160/4.5 MCG INHALER INH SCH (09:00)
[2017-07-30] MEDS: MEMANTINE HCL 10 MG TAB PO SCH (09:20)
[2017-07-30] MEDS: CARBIDOPA/LEVODOPA 25 MG/100 MG TAB PO SCH (09:20)
[2017-07-30] MEDS: DOCUSATE SODIUM 50 MG/SENNA 8.6 MG TAB PO SCH (09:20)
[2017-07-30] MEDS: DULoxetine HCl DR 60 MG CAP PO SCH (09:20)
[2017-07-30] MEDS: SODIUM CHLORIDE 0.9% FLUSH 10 ML FLUSH IV FLUSH SCH (09:20)
[2017-07-30] MEDS: SUCRALFATE 1 GM TAB PO SCH (09:20)
[2017-07-30] MEDS: CARVEDILOL 12.5 MG TAB PO SCH (09:20)
[2017-07-30] MEDS: PANTOPRAZOLE SOD 40 MG DELAYED RELEASE TAB PO SCH (09:20)
[2017-07-30] MEDS: SODIUM CHLOR 0.9% 1000 ML INJ 1,000 ML IV SCH (09:22)
[2017-07-30] MEDS: REMOVE OLD PATCH T-DERMAL SCH (09:22)
[2017-07-30] MEDS ORDERED: ABIL2TAB2 PO (09:36)
--- NOTE | 2017-07-30 09:37 | HHI.DCPOC ---
Discharge Care Plan Diagnosis: (1) TIA (transient ischemic attack) (2) Impaired mobility and activities of daily living (3) Parkinsonism (4) Neurological symptoms Goals to Promote Your Health * To prevent worsening of your condition and complications * To maintain your health at the optimal level Directions to Meet Your Goals Take your medications as prescribed Follow your dietary instruction Follow activity as directed Keep your appointments as scheduled Take your immunizations and boosters as scheduled If your symptoms worsen call your PCP, if no PCP go to Urgent Care Center or Emergency Room Smoking is Dangerous to Your Health. Avoid second hand smoke Call the 24-hour hour crisis hotline for domestic abuse at Shakir Interiano DO Jul 30, 2017 09:37
--- NOTE | 2017-07-30 09:50 | HHI.PR ---
Subjective Remarks The patient was resting comfortably in bed. She said that she was feeling like a 6 out of 10. She said that she was looking forward to going to rehabilitation. She said yesterday evening she was told by the nurses that her face was red. She denied any symptoms. Discussed with nursing at the bedside. Objective Vitals Vital Signs Date Time Temp Pulse Resp B/P (MAP) Pulse Ox O2 Delivery O2 Flow Rate FiO2 07/30/17 08:31 97.9 62 18 120/60 (80) 97 07/30/17 07:23 93 21 07/30/17 07:10 16 07/30/17 03:31 98.9 63 16 110/53 (72) 94 07/29/17 23:50 95 07/29/17 23:27 97.9 63 18 115/56 (75) 95 07/29/17 20:36 98.1 64 18 118/59 (78) 94 141/69 (93) 115/60 (78) 07/29/17 15:55 97.6 65 16 116/57 (76) 97 07/29/17 13:43 94 07/29/17 11:43 97.5 62 16 117/56 (76) 98 07/29/17 10:45 19 I/O 07/29/17 07/29/17 07/29/17 07/30/17 07/30/17 07/30/17 07:00 15:00 23:00 07:00 15:00 23:00 Output Total 1 ml Balance -1 ml Output Urine Total 1 ml Result Diagram: 07/30/17 0720 07/30/17 0720 Imaging Last Impressions Brain MRI 07/28/17 1441 Signed Impressions: Service Date/Time: July 16:47 - CONCLUSION: 1. No acute findings. Moderate white matter ischemic changes and cortical volume loss , stable. Gregory Ayala MD Neck CTA 07/28/17 0000 Signed Impressions: Service Date/Time: July 13:44 - CONCLUSION: 1. Bovine arch. The distal arch subjacent to the left subclavian artery is aneurysmal at 3.4 cm. 2. Both carotids are patent but quite tortuous. The right internal carotid swings far medially in the upper cervical spine passing directly posteriorly to the oropharynx. 3. Vertebrals are patent. Patient is right vertebral dominant. Baron Calle MD Head CTA 07/28/17 0000 Signed Impressions: Service Date/Time: July 13:32 - CONCLUSION: 1. No large or central vessel occlusion identified. No aneurysm seen. Results were called directly to the knee. Joe Wilcox MD Head CT 07/28/17 0000 Signed Impressions: Service Date/Time: July 13:32 - CONCLUSION: 1. Cortical atrophy and microvascular ischemic demyelinative change. No acute abnormality. 2. Results called to ED at 1340 Joe Wilcox MD Objective Remarks GENERAL: This is a well-nourished, well-developed patient, in no apparent distress. SKIN: No rashes, ecchymoses or lesions. Cool and dry. HEAD: Atraumatic. Normocephalic. No temporal or scalp tenderness. EYES: Extraocular motions intact. No scleral icterus. No injection or drainage. CARDIOVASCULAR: Bradycardic. No murmur appreciated. RESPIRATORY: Clear to auscultation. Breath sounds equal bilaterally. No wheezes , rales, or rhonchi. GASTROINTESTINAL: Abdomen soft, non-tender, nondistended. No hepato-splenomegaly , or palpable masses. No guarding. MUSCULOSKELETAL: Extremities without clubbing, cyanosis, or edema. No joint tenderness, effusion, or edema noted. NEUROLOGICAL: Awake and alert. Distal lower extremities 3/5 left. RLE 4/5. LUE extremity 3/5, RUE 4/5. Left sided facial droop seems to be resolved. PSYCH: Mood and affect appropriate. Medications and IVs Current Medications Medications (Trade) Dose Ordered Sig/Dolores Route Start Time Stop Time Status Last Admin Sodium Chloride 1,000 ml @ 75 mls/hr [id number] IV 07/28/17 17:00 07/30/17 09:22 (Coumadin) 5 mg DAILY@1600 PO 07/28/17 17:00 07/29/17 15:34 (Heparin Inj) 5,000 units Q12H SQ 07/28/17 17:00 07/30/17 05:55 (Sinemet 25-100 Mg) 1 tab QID PO 07/28/17 18:00 07/30/17 09:20 (Coreg) 12.5 mg BID PO 07/28/17 21:00 07/30/17 09:20 (Cymbalta Dr) 60 mg DAILY PO 07/29/17 09:00 07/30/17 09:20 (LaMICtal) 200 mg HS PO 07/28/17 21:00 07/29/17 21:30 (Namenda) 10 mg BID PO 07/28/17 21:00 07/30/17 09:20 (Protonix) 40 mg DAILY PO 07/29/17 09:00 07/30/17 09:20 (Lyrica) 100 mg Q8HR PO 07/28/17 22:00 07/30/17 05:55 (Carafate) 1 gm TID PO 07/28/17 18:00 07/30/17 09:20 (Symbicort 160-4.5 Inh) 2 puff BID INH 07/28/17 21:00 07/30/17 09:00 Patient Own Medication PT OWN MED: AMITIZA (LUBIPROSTO... BID PO 07/28/17 21:00 Future Hold (Lipitor) 20 mg HS PO 07/28/17 21:00 07/29/17 21:28 (NS Flush) 2 ml UNSCH PRN IV FLUSH 07/28/17 16:45 (NS Flush) 2 ml BID IV FLUSH 07/28/17 21:00 07/30/17 09:20 (Tylenol) 650 mg Q4H PRN PO 07/28/17 16:45 (Tylenol) 650 mg Q6H PRN PO 07/28/17 16:45 07/29/17 09:28 (Narcan Inj) 0.4 mg UNSCH PRN IV PUSH 07/28/17 16:45 (Светлана-Colace) 1 tab BID PO 07/28/17 21:00 07/30/17 09:20 Pharmacy Profile Note 0 ml @ 0 mls/hr UNSCH OTHER 07/29/17 09:00 (Abilify) 1 mg HS PO 07/29/17 21:00 07/29/17 21:31 (Pill Splitter) 1 ea UNSCH PRN OTHER 07/29/17 09:15 (Exelon 9.5 Mg Patch.24hr) 1 patch DAILY T-DERMAL 07/29/17 11:00 07/30/17 09:00 Miscellaneous Information 1 Q24H T-DERMAL 07/29/17 10:00 07/30/17 09:22 A/P Assessment and Plan 77 year old female with a past medical history which includes asthma bipolar, anxiety, depression, hypertension, seizure, abdominal aortic aneurysm, dyslipidemia, CHF, COPD, TIA and Parkinson's dementia who presents to the ER today for evaluation of slurred speech and left sided weakness TIA Neurology consult appreciated. CT reviewed and reviewed and reveals cortical atrophy and microvascular ischemic demyelination changes. No acute abnormality. MRI with no acute process. - PT/ OT/ ST. - ASA and Plavix switched to Coumadin per neurology. Will decrease dose to 3 mg daily. Will need to follow daily INRs and adjust Coumadin dose accordingly while at rehab. If platelet count continues to decrease will need to d/c Coumadin and discuss alternatives with neurology. - continue statin. Chest pain Reproducible with palpation. Trops negative. Seems resolved. - telemetry. - continue statin. Acute kidney injury Creatinine 1.5 on admission. Improved with IVFs. - IV hydration. - resume Lasix as pt does have lower extremity edema. - follow BMP. Bipolar/ Seizure disorder On multiple medications. - reduce Abilify and continue home regimen. Parkinson's dementia On multiple medications. - Continue home medications. - follow up with neurology. May need to increase dose of Sinemet as an outpt. Thrombocytopenia Chronic. - Continue to monitor CBC while on Coumadin. If platelet count continues to decrease will need to discuss alternatives with neurology. DVT prophylaxis heparin SQ and Coumadin Discharge Planning D/c to rehab Shakir Interiano DO Jul 30, 2017 09:50
[2017-07-30] MEDS ORDERED: COUM3TAB PO (10:08)
[2017-07-30 12:13] VITALS: BP 106/60; PULSE 67; RESP 18; TEMP 97.8; O2SAT 93
--- NOTE | 2017-07-31 14:12 | HM ---
Date Performed: 07/29/2017 Time Performed: 11:38:00 HOOKUP DATE: 07/29/17 11:38:00 AM Fri ANALYSIS START TIME: 07/29/2017 11:43:00 AM ANALYSIS END TIME: 07/30/2017 11:47:00 AM PATIENT AGE: 77 PATIENT HEIGHT PATIENT WEIGHT DRUG LIST PATIENT DIAGNOSIS TEST NARRATIVE: The patient's average heart rate was 64 BPM. No episodes of tachycardia wer e noted. No episodes of bradycardia were noted. No pauses exceeding 2.0 seconds were noted. No ventricular ectopics were noted. 20 supraventricular ectopics, which represented < 1% of the t otal beat count, were noted. The highest supraventricular ectopic frequency occurred from 11:00 PM t o 12:00 AM Sat. During this time 6 SVE(s) occurred. No episodes of ST depression (defined as -1. 0 mm or more) were noted in channel 1. No episodes of ST depression (defined as -1.0 mm or more) wer e noted in channel 2. No episodes of ST depression (defined as -1.0 mm or more) were noted in channe l 3. NO SYMPTOMS REPORTED IN THE PATIENT DIARY. TEST INTERPRETATION: There are rare episodes of 3-4 beats of PACs, generally with a HR of 110-12 0 that all self-terminate. 3 episodes are seen and there are very rare couplets of PACs as well. No p rolonged pauses or heart block is seen. No ventricular arrhythmia is seen. No patient diary informati on. Overall, a rather benign appearing holter monitor with only rare PACs with some are couplets and triplets. Signed by : Mayank black
[2017-08-05 17:51] LABS: VITAMIN B6 LESS THAN 2.0 ng/mL (2.1-21.7)
[2017-08-12] MEDS ORDERED: RIVA9.5T T-DERMAL (10:33)
[2017-08-12] MEDS ORDERED: AMLO5 PO (10:34)
[2017-08-12] MEDS ORDERED: DULO1CAP2 PO (10:34)
[2017-08-12] MEDS ORDERED: NAME10TA PO (10:34)
[2017-08-12] MEDS ORDERED: CARV12.5 PO (10:34)
[2017-08-12] MEDS ORDERED: APIX5TAB PO (10:34)
[2017-08-12] MEDS ORDERED: ATOR20TA15 PO (10:34)
[2017-08-12] MEDS ORDERED: FOLI1TAB6 PO (10:34)
[2017-08-12] MEDS ORDERED: CALC250 PO (10:34)
[2017-08-12] MEDS ORDERED: ACET1TAB86 PO (10:34)
[2017-08-12] MEDS ORDERED: CARA1TAB6 PO (10:34)
[2017-08-12] MEDS ORDERED: CARB25TA9 PO (10:34)
[2017-08-12] MEDS ORDERED: PANT40TA3 PO (10:34)
[2017-08-12] MEDS ORDERED: LAMO100 PO (10:34)
[2017-08-12] MEDS ORDERED: SYMB160A INH (10:34)
[2017-08-12] MEDS ORDERED: LYRI100C PO (13:51)
[2017-08-12] MEDS ORDERED: CLON.5 PO (13:51)
== END 2017-07-30 13:37 ==
LOC: NEPE 13:25 → NEDA 15:24 → NEPGCP 16:55
PROVIDERS: ADMIT Hospitalist; ATTEND Hospitalist
DX: G45.9 Transient cerebral ischemic attack, unspecified (principal); R41.82 Altered mental status, unspecified; R26.9 Unspecified abnormalities of gait and mobility; G20 Parkinson's disease; I10 Essential (primary) hypertension; J45.909 Unspecified asthma, uncomplicated; R53.1 Weakness; N17.9 Acute kidney failure, unspecified; G40.909 Epilepsy, unspecified, not intractable, without status epilepticus; F02.80 Dementia in other diseases classified elsewhere, unspecified severity, without behavioral disturbance, psychotic disturbance, mood disturbance, and anxiety; I11.0 Hypertensive heart disease with heart failure; D69.6 Thrombocytopenia, unspecified; I50.9 Heart failure, unspecified; E78.00 Pure hypercholesterolemia, unspecified; J44.9 Chronic obstructive pulmonary disease, unspecified; K21.9 Gastro-esophageal reflux disease without esophagitis; I25.10 Atherosclerotic heart disease of native coronary artery without angina pectoris; G43.909 Migraine, unspecified, not intractable, without status migrainosus; G47.30 Sleep apnea, unspecified; K59.00 Constipation, unspecified; R63.0 Anorexia; E78.5 Hyperlipidemia, unspecified; R94.31 Abnormal electrocardiogram [ECG] [EKG]; Z96.642 Presence of left artificial hip joint; Z79.899 Other long term (current) drug therapy; Z79.82 Long term (current) use of aspirin
CPT/HCPCS: 36600; 70450; 70496; 70498; 70553; 80307; 81001; 82435; 82550; 82565; 82607; 82746; 82805; 82947; 82948; 84132; 84207; 84295; 84425; 84443; 84484; 84520; 84702; 85025; 85384; 85610; 85652; 85730; 86038; 86140; 86592; 86850; 86900; 86901; 93005; 93225; 93226; 95819; 96360; 96361; 96372; 99285; A9577; G0378; J1644; J7030; P9612; Q9967; 80048; 80053; 83735; 83921; 85027; G8987-GO; G8987-GP; G8988-GO; G8988-GP; G8996-GN; G8997-GN; G8998-GN

== ENCOUNTER 2017-10-26 09:35 | Emergency (ER) | payer MEDICARE, OTHER ==
[~2017-10-26] VITALS: Ht 152.4 cm; Wt 87.0 kg
[~2017-10-26 09:35] MED LIST changes: -ABIL2TAB2 PO; +ACET325T15 PO; -ALPR.25 PO; +AMLO5 PO; +APIX5TAB PO; -ASPI325T PO; +ATOR20TA15 PO; +CALC-197 PO; +CALC250 PO; -CALC500C16 CHEW; +CARA1TAB6 PO; +CARB25TA9 PO; +CARV12.5 PO; -CARV12.52 PO; +CLON.5 PO; -FOLI1TAB4 PO; +FOLI1TAB6 PO; -GETGO ROLLING W1 MI1; -LAMI200T PO; +LAMO100 PO; -PLAV75TA29 PO; -ROZE8TAB8 PO; -SENN1TAB PO; -SINE25TA PO; +SYMB160A INH; -VITA100018 PO
[2017-10-26 09:39] VITALS: BP 140/68; PULSE 61; RESP 16; TEMP 98; O2SAT 96
--- NOTE | 2017-10-26 09:57 | PD ---
HPI Chief Complaint: Fall Time Seen by Provider: 09:49 Travel History International Travel<30 days: No Contact w/Intl Traveler<30days: No Traveled to known affect area: No History of Present Illness HPI 77-year-old female complains of headache, left upper arm pain, right knee pain. Patient felt this morning. Patient states that she had a moment of loss of consciousness. Patient complains of severe headache on the back of the head. Patient states that she had nausea and vomiting after the fall. Patient denies any visual change. Patient denies any neck pain. Patient denies any chest pain or shortness of breath. Patient denies abdominal pain. Patient denies any focal weakness or numbness of extremity. Patient complained of sharp pain localized to left upper arm and the right knee. Patient denies any pain radiation. On a scale of 1-10 the pain is a 9. Patient has history of CVA and on blood thinner. Patient does not know the name of the blood thinner. Patient has history of hypertension, CVA, abdominal aortic aneurysm, anxiety, COPD, bipolar disorder, CAD, dementia, GERD, CHF, Parkinson disease, sleep apnea. Patient on Eliquis PFSH Past Medical History Hx Anticoagulant Therapy: Yes (PLAVIX) AAA: Yes Arthritis: Yes Asthma: Yes Autoimmune Disease: No Bipolar Disorder: Yes Anxiety: Yes Depression: Yes Heart Rhythm Problems: No Cancer: No Cardiovascular Problems: Yes (HTN/ AAA) High Cholesterol: Yes Chemotherapy: No Chest Pain: No Congestive Heart Failure: Yes COPD: Yes Cerebrovascular Accident: Yes Coronary Artery Disease: Yes Dementia: Yes Diabetes: No Patient Takes Glucophage: No Diminished Hearing: No Endocrine: No Gastrointestinal Disorders: Yes (dilatation) GERD: Yes Genitourinary: No Headaches: Yes Hiatal Hernia: No Heparin Induced Thrombocytopen: No Hypertension: Yes Immune Disorder: No Implanted Vascular Access Dvce: Yes Kidney Stones: No Musculoskeletal: Yes Neurologic: Yes (parkinsons) Parkinson's Disease: Yes Psychiatric: Yes (BIPOLAR) Reproductive: No Respiratory: No Migraines: Yes Radiation Therapy: No Renal Failure: No Seizures: No Sickle Cell Disease: No Sleep Apnea: Yes Ulcer: No Tetanus Vaccination: Unknown ?: Not Past Surgical History Abdominal Aneurysm Repair: Yes Abdominal Surgery: Yes (HERNIA REPAIR) AICD: No Appendectomy: Yes Arteriovenous Shunt: No Cardiac Surgery: No Cholecystectomy: Yes Ear Surgery: No Eye Surgery: Yes (cataracts) Genitourinary Surgery: No Gynecologic Surgery: Yes (HYSTERECTOMY) Hysterectomy: Yes Insulin Pump: No Joint Replacement: Yes (LEFT HIP REPLACEMENT WITH REVISION) Oral Surgery: Yes (TONSILLECTOMY) Pacemaker: No Thoracic Surgery: Yes (triple A repair) Tonsillectomy: Yes Other Surgery: Yes (tonsilectomy, appendectomy, triple A repair. GALLBADDER ) Social History Alcohol Use: No Tobacco Use: No Substance Use: No Allergies-Medications (Allergen,Severity, Reaction): Coded Allergies: paroxetine (Unverified Allergy, Severe, CAN NOT REMEMBER , 10/26/17) lactose (Unverified Allergy, Unknown, GI UPSET, 10/26/17) Reported Meds & Prescriptions Reported Meds & Active Scripts Active Klonopin (Clonazepam) 0.5 Mg Tab 0.25 Mg PO Q12HR Eliquis (Apixaban) 5 Mg Tab 5 Mg PO BID 30 Days Lyrica (Pregabalin) 100 Mg Cap 100 Mg PO Q8HR Pantoprazole (Pantoprazole Sodium) 40 Mg Tab 40 Mg PO DAILY 30 Days Symbicort Inh (Budesonide/Formoterol Fumarate) 160-4.5 Mcg/Act Aero 2 Puff INH BID 30 Days Oyster Shell 250 mg + Vit D Tb (Calcium/Vitamin D) 250 Mg Calcium (625 Mg)-125 Unit Tablet 500 Mg PO DAILY 30 Days Namenda (Memantine) 10 Mg Tab 10 Mg PO BID 30 Days Carbidopa-Levodopa 25-100 Mg Tab 1.5 Tab PO QID 30 Days Lamictal (Lamotrigine) 100 Mg Tab 200 Mg PO HS 30 Days Eq Acetaminophen (Acetaminophen) 325 Mg Tab 650 Mg PO Q4H PRN 30 Days Coreg (Carvedilol) 12.5 Mg Tab 12.5 Mg PO BID 30 Days Exelon Patch (Rivastigmine) 9.5 mg/24 hr Patch 1 Patch T-DERMAL DAILY [address] (Duloxetine HCl) 60 Mg Capdr 60 Mg PO DAILY Advair Diskus Inh (Fluticasone-Salmeterol Inh) 250-50 Mcg/Blist Aer 1 Puff INH BID Rinse mouth after use. Crestor (Rosuvastatin Calcium) 10 Mg Tab 10 Mg PO HS Amitiza (Lubiprostone) 8 Mcg Cap 8 Mg PO BID 30 Days Reported Carafate (Sucralfate) 1 Gram Tab 1 Gm PO TID 30 MINUTES BEFORE MEALS Folic Acid 1 Mg Tablet 2 Mg PO DAILY Calcium 600+D3 (Calcium Carbonate-Cholecalciferol) 600-200 Mg-Unit Tab 1 Tab PO DAILY Potassium Chloride ER (Potassium Chloride) 20 Meq Tab 20 Meq PO DAILY Lasix (Furosemide) 20 Mg Tab 20 Mg PO DAILY Review of Systems General / Constitutional: No: Fever Eyes: No: Visual changes HENT: Positive: Headaches Cardiovascular: No: Chest Pain or Discomfort Respiratory: No: Shortness of Breath Gastrointestinal: No: Abdominal Pain Genitourinary: No: Dysuria Musculoskeletal: Positive: Pain Skin: No Rash Neurologic: No: Weakness Psychiatric: No: Depression Endocrine: No: Polydipsia Hematologic/Lymphatic: No: Easy Bruising Physical Exam Narrative GENERAL: Well-nourished, well-developed patient. SKIN: Focused skin assessment warm/dry. HEAD: Normocephalic. Soft tissue swelling tenderness occipital area of the scalp. EYES: No scleral icterus. No injection or drainage. Pupils 1 mm equal reactive. NECK: Supple, trachea midline. No JVD or lymphadenopathy. CARDIOVASCULAR: Regular rate and rhythm without murmurs, gallops, or rubs. RESPIRATORY: Breath sounds equal bilaterally. No accessory muscle use. GASTROINTESTINAL: Abdomen soft, non-tender, nondistended. MUSCULOSKELETAL: No cyanosis, or edema. BACK: Nontender without obvious deformity. No CVA tenderness. Mild tenderness on palpation left upper arm. Full range of motion of the shoulder and the elbow. Mild diffuse tenderness over the right knee joint. Full range of motion the right knee joint. The joints stable. No effusion noted. Neurologic exam: Patient's awake and alert oriented 3. Patient moves all extremities well. No obvious focal neurological deficit. Data Data Last Documented VS Vital Signs Date Time Temp Pulse Resp B/P (MAP) Pulse Ox O2 Delivery O2 Flow Rate FiO2 10/26/17 09:44 16 96 Room Air 10/26/17 09:39 98.0 61 140/68 (92) Orders Orders Ct Brain W/O Iv Contrast(Rout) (10/26/17 09:50) Ct Cerv Spine W/O Contrast (10/26/17 09:50) Humerus (Min 2vws) (10/26/17 09:50) Knee, Ltd (1 Or 2vws) (10/26/17 09:50) Ed Discharge Order (10/26/17 11:18) Acetaminophen (Tylenol) (10/26/17 11:30) MDM Medical Decision Making Medical Screen Exam Complete: Yes Emergency Medical Condition: Yes Interpretation(s) Last Impressions Knee X-Ray 10/26/17949 Signed Impressions: Service Date/Time: Thursday, October 26, 2017 10:00 - CONCLUSION: Degenerative changes, negative for fracture. Clayton Wilcox MD FACR Humerus X-Ray 10/26/17949 Signed Impressions: Service Date/Time: Tuesday, October 26, 2017 10:00 - CONCLUSION: Negative for fracture or dislocation. Follow up in 7-10 days is suggested if symptoms persist.. Clayton Wilcox MD FACR Head CT 10/26/17949 Signed Impressions: Service Date/Time: Tuesday, October 26, 2017 10:28 - CONCLUSION: Atrophy otherwise negative Clayton Wilcox MD FACR Differential Diagnosis Differential diagnosis including head injury, extremity injury. Narrative Course 77-year-old female with head injury, left upper arm injury, right knee injury. Status post fall this morning. Diagnosis Primary Impression: Closed head injury Qualified Codes: S09.90XA - Unspecified injury of head, initial encounter Additional Impressions: Contusion of left arm Qualified Codes: S40.022A - Contusion of left upper arm, initial encounter Contusion of right knee Qualified Codes: S80.01XA - Contusion of right knee, initial encounter Patient Instructions: General Instructions Additional Instructions: Tylenol for headache and pain. Continue all other medications. Follow-up with personal physician. Return if worse. Head trauma instructions given. Med/Other Pt SpecificInfo: No Change to Meds Disposition: 01 DISCHARGE HOME Condition: Stable Kirt Levy MD Oct 26, 2017 09:57
--- NOTE | 2017-10-26 10:35 | RADRPT ---
EXAM DATE/TIME: 10/26/2017 10:00 [facility] COMPARISON: KNEE RIGHT LTD (1 OR 2 VWS), May 02, 2015, 13:20. INDICATIONS : Right knee pain post fall. MEDICAL HISTORY : Hypertension. Parkinson's. Aneurysm, abdominal. SURGICAL HISTORY : Hysterectomy. Cholecystectomy. Abdominal aortic aneurysm repair. Loop recorder. ENCOUNTER: Initial ACUITY: 1 day PAIN SCORE: 6/10 LOCATION: Right knee FINDINGS: There are degenerative changes in the patellofemoral compartment in both the mediolateral compartment s. There is no joint effusion. Patella intact. CONCLUSION: Degenerative changes, negative for fracture. Clayton Wilcox MD FACR on October 26, 2017 at 10:31 Board Certified Radiologist. This report was verified electronically.
--- NOTE | 2017-10-26 10:43 | RADRPT ---
EXAM DATE/TIME: 10/26/2017 10:00 [facility] COMPARISON: No previous studies available for comparison. INDICATIONS : Left humerus. MEDICAL HISTORY : Venous insufficiency. Hypertension. Parkinson's. Aneurysm, abdominal. SURGICAL HISTORY : Hysterectomy. Cholecystectomy. Abdominal aortic aneurysm repair. Loop recorder. ENCOUNTER: Initial ACUITY: 1 day PAIN SCORE: 6/10 LOCATION: Left humerus FINDINGS: Two view examination of the left humerus demonstrates no evidence of fracture or dislocation. Bony m ineralization is normal. The soft tissue structures are intact. The degenerative changes about the elbow. CONCLUSION: Negative for fracture or dislocation. Follow up in 7-10 days is suggested if symptoms persist.. Clayton Wilcox MD FACR on October 26, 2017 at 10:40 Board Certified Radiologist. This report was verified electronically.
--- NOTE | 2017-10-26 10:54 | RADRPT ---
EXAM DATE/TIME: 10/26/2017 10:28 [facility] COMPARISON: CT BRAIN W/O CONTRAST, July 28, 2017, 13:32. INDICATIONS : Trauma. Fell and hit back of head. Head and right neck pain. RADIATION DOSE: 61.24 CTDIvol (mGy) MEDICAL HISTORY : Chronic obstructive pulmonary disease. Cerebrovascular disease. Congestive heart failure.Parkinsons. Dementia. Hypertension. SURGICAL HISTORY : Abdominal aortic aneurysm repair. Cholecystectomy.Appendectomy.Hysterectomy. ENCOUNTER: Initial ACUITY: 1 day PAIN SCALE: 8/10 LOCATION: cranial TECHNIQUE: Multiple contiguous axial images were obtained of the head. Using automated exposure control and adj ustment of the mA and/or kV according to patient size, radiation dose was kept as low as reasonably a chievable to obtain optimal diagnostic quality images. DICOM format image data is available electro nically for review and comparison. FINDINGS: There is marked central and cortical atrophy with dilatation of ventricular and sulcal spaces. There is no parenchymal hemorrhage, acute infarction or mass lesion identified. There are no extra-a xial fluid collections appreciated. The posterior fossa is unremarkable with midline fourth ventricl e. The portion of the orbits and paranasal sinuses visualized are unremarkable. CONCLUSION: Atrophy otherwise negative Clayton Wilcox MD FACR on October 26, 2017 at 10:44 Board Certified Radiologist. This report was verified electronically.
--- NOTE | 2017-10-26 11:13 | RADRPT ---
EXAM DATE/TIME: 10/26/2017 10:28 [facility] COMPARISON: CT CERVICAL SPINE W/O CONTRAST, May 02, 2015, 13:43. INDICATIONS : Trauma. Fell and hit back of head. Head and right neck pain. RADIATION DOSE: 26.19 CTDIvol (mGy) MEDICAL HISTORY : Chronic obstructive pulmonary disease. Cerebrovascular disease. Congestive heart failure.Hypertensio n. Parkinsons. Dementia. SURGICAL HISTORY : Abdominal aortic aneurysm repair. Appendectomy.Cholecystectomy.Hysterectomy. ENCOUNTER: Initial ACUITY: 1 day PAIN SCALE: 7/10 LOCATION: Right neck TECHNIQUE: Volumetric scanning of the cervical spine was performed. Multiplanar reconstructions in the sagittal, coronal and oblique axial planes were performed. Using automated exposure control and adjustment o f the mA and/or kV according to patient size, radiation dose was kept as low as reasonably achievable to obtain optimal diagnostic quality images. DICOM format image data is available electronically f or review and comparison. FINDINGS: There is reversal of the normal cervical lordosis with extensive degenerative changes evident. \ C2-C3: The bony spinal canal is normal in size. No evidence of disc bulge or herniation. The neural forami na are bilaterally patent. C3-C4: Moderate facet disease evident. Minimal bilateral neural foramina encroachment. Minimal anterolisth esis of C3 on C4 by 4 mm. C4-C5: Moderate uncinate ridging with bilateral neural foramina encroachment and mild spinal stenosis. C5-C6: Moderate uncinate ridging is present bilateral neural foramen encroachment. C6-C7: The bony spinal canal is normal in size. No evidence of disc bulge or herniation. The neural forami na are bilaterally patent. C7-T1: The bony spinal canal is normal in size. No evidence of disc bulge or herniation. The neural forami na are bilaterally patent. CONCLUSION: Extensive degenerative changes as described above with reversal of normal cervical or doses. There i s no radiographically significant spinal stenosis. Fracture not appreciated. There is moderate bilat eral neural foramen encroachment. Stable from comparison study. Controlled flexion extension films could be used to ensure stability. Clayton Wilcox MD FACR on October 26, 2017 at 11:09 Board Certified Radiologist. This report was verified electronically.
[2017-10-26] MEDS ORDERED: ACETAMINOPHEN 325 MG TAB PO ONE (11:30)
[2017-10-26 11:34] VITALS: BP 158/78
== END 2017-10-26 11:50 | disposition home or self-care (01) ==
LOC: PHEFT 09:35
DX: S09.90XA Unspecified injury of head, initial encounter (principal); S40.022A Contusion of left upper arm, initial encounter; S80.01XA Contusion of right knee, initial encounter; I71.4 Abdominal aortic aneurysm, without rupture; I11.0 Hypertensive heart disease with heart failure; I50.9 Heart failure, unspecified; E78.00 Pure hypercholesterolemia, unspecified; J44.9 Chronic obstructive pulmonary disease, unspecified; I25.10 Atherosclerotic heart disease of native coronary artery without angina pectoris; F31.9 Bipolar disorder, unspecified; G20 Parkinson's disease; W19.XXXA Unspecified fall, initial encounter; Z79.01 Long term (current) use of anticoagulants; Z86.73 Personal history of transient ischemic attack (TIA), and cerebral infarction without residual deficits
CPT/HCPCS: 70450; 72125; 73060; 73560

== ENCOUNTER 2017-10-28 21:02 | Inpatient (IN) | payer MEDICARE, OTHER ==
[~2017-10-28] VITALS: Ht 152.4 cm; Wt 81.0 kg
[~2017-10-28 21:02] MED LIST changes: -AMLO5 PO; -ATOR20TA15 PO
[2017-10-28 21:07] VITALS: BP 187/93; PULSE 66; RESP 16; TEMP 97.6; O2SAT 97
[2017-10-28] MEDS ORDERED: ACETAMINOPHEN 500 MG CPLT PO ONE (22:00)
[2017-10-28 22:30] VITALS: BP 160/74; PULSE 61; RESP 16; O2SAT 98
--- NOTE | 2017-10-28 22:45 | PD ---
HPI Chief Complaint: Fall Time Seen by Provider: 21:24 Travel History International Travel<30 days: No Contact w/Intl Traveler<30days: No Traveled to known affect area: No History of Present Illness HPI 77-year-old female with PMH of AAA, asthma, depression, bipolar, HLD, CHF, COPD , CVA, CAD, dementia, or concerns on Plavix presents to the ED for evaluation of hip and back pain after fall today. Pain is rated 8/10, described as constant, exacerbated by certain movements. No alleviating factors reported. The patient states that she's been dizzy for the last 3 days. She suffered 2 falls in that time. She was evaluated at [facility] for her previous fall. Today she states that she got up to go to the bathroom, lost her balance and fell to the ground. She denies hitting her head or loss of consciousness. She has not been ambulatory since the accident. She endorses frontal headache that radiates into the back of her head. She endorses mild nausea. She denies vision changes, chest pain, shortness of breath, cough, abdominal pain, dysuria , weakness of the extremities. She states that she is normally ambulatory with a walker. Daughter is at bedside and helps to provide the history. PFSH Past Medical History Hx Anticoagulant Therapy: Yes (PLAVIX) AAA: Yes Arthritis: Yes Asthma: Yes Autoimmune Disease: No Bipolar Disorder: Yes Anxiety: Yes Depression: Yes Heart Rhythm Problems: No Cancer: No Cardiovascular Problems: Yes (HTN/ AAA) High Cholesterol: Yes Chemotherapy: No Chest Pain: No Congestive Heart Failure: Yes COPD: Yes Cerebrovascular Accident: Yes Coronary Artery Disease: Yes Dementia: Yes Diabetes: No Diminished Hearing: No Endocrine: No Gastrointestinal Disorders: Yes (dilatation) GERD: Yes Genitourinary: No Headaches: Yes Hiatal Hernia: No Heparin Induced Thrombocytopen: No Hypertension: Yes Immune Disorder: No Implanted Vascular Access Dvce: Yes Kidney Stones: No Musculoskeletal: Yes Neurologic: Yes (parkinsons) Parkinson's Disease: Yes Psychiatric: Yes (BIPOLAR) Reproductive: No Respiratory: No Migraines: Yes Radiation Therapy: No Renal Failure: No Seizures: No Sickle Cell Disease: No Sleep Apnea: Yes Ulcer: No Past Surgical History Abdominal Aneurysm Repair: Yes Abdominal Surgery: Yes (HERNIA REPAIR) AICD: No Appendectomy: Yes Arteriovenous Shunt: No Cardiac Surgery: No Cholecystectomy: Yes Ear Surgery: No Eye Surgery: Yes (cataracts) Genitourinary Surgery: No Gynecologic Surgery: Yes (HYSTERECTOMY) Hysterectomy: Yes Insulin Pump: No Joint Replacement: Yes (LEFT HIP REPLACEMENT WITH REVISION) Oral Surgery: Yes (TONSILLECTOMY) Pacemaker: No Thoracic Surgery: Yes (triple A repair) Tonsillectomy: Yes Other Surgery: Yes (tonsilectomy, appendectomy, triple A repair. GALLBADDER ) Social History Alcohol Use: No Tobacco Use: No Substance Use: No Allergies-Medications (Allergen,Severity, Reaction): Coded Allergies: paroxetine (Unverified Allergy, Severe, CAN NOT REMEMBER , 10/28/17) lactose (Unverified Allergy, Unknown, GI UPSET, 10/26/17) Reported Meds & Prescriptions Reported Meds & Active Scripts Active Klonopin (Clonazepam) 0.5 Mg Tab 0.25 Mg PO Q12HR Eliquis (Apixaban) 5 Mg Tab 5 Mg PO BID 30 Days Lyrica (Pregabalin) 100 Mg Cap 100 Mg PO Q8HR Pantoprazole (Pantoprazole Sodium) 40 Mg Tab 40 Mg PO DAILY 30 Days Symbicort Inh (Budesonide/Formoterol Fumarate) 160-4.5 Mcg/Act Aero 2 Puff INH BID 30 Days Oyster Shell 250 mg + Vit D Tb (Calcium/Vitamin D) 250 Mg Calcium (625 Mg)-125 Unit Tablet 500 Mg PO DAILY 30 Days Namenda (Memantine) 10 Mg Tab 10 Mg PO BID 30 Days Carbidopa-Levodopa 25-100 Mg Tab 1.5 Tab PO QID 30 Days Lamictal (Lamotrigine) 100 Mg Tab 200 Mg PO HS 30 Days Eq Acetaminophen (Acetaminophen) 325 Mg Tab 650 Mg PO Q4H PRN 30 Days Coreg (Carvedilol) 12.5 Mg Tab 12.5 Mg PO BID 30 Days Exelon Patch (Rivastigmine) 9.5 mg/24 hr Patch 1 Patch T-DERMAL DAILY [address] (Duloxetine HCl) 60 Mg Capdr 60 Mg PO DAILY Advair Diskus Inh (Fluticasone-Salmeterol Inh) 250-50 Mcg/Blist Aer 1 Puff INH BID Rinse mouth after use. Crestor (Rosuvastatin Calcium) 10 Mg Tab 10 Mg PO HS Amitiza (Lubiprostone) 8 Mcg Cap 8 Mg PO BID 30 Days Reported Carafate (Sucralfate) 1 Gram Tab 1 Gm PO TID 30 MINUTES BEFORE MEALS Folic Acid 1 Mg Tablet 2 Mg PO DAILY Calcium 600+D3 (Calcium Carbonate-Cholecalciferol) 600-200 Mg-Unit Tab 1 Tab PO DAILY Potassium Chloride ER (Potassium Chloride) 20 Meq Tab 20 Meq PO DAILY Lasix (Furosemide) 20 Mg Tab 20 Mg PO DAILY Review of Systems Except as stated in HPI: all other systems reviewed are Neg Physical Exam Narrative GENERAL: Well-nourished, well-developed female in no acute distress.. SKIN: Warm and dry. Patient has a ecchymosis on the posterior scalp. Thorough evaluation reveals no edema, ecchymosis, abrasion, or laceration of the skin. HEAD: Normocephalic. Atraumatic. No raccoon eyes or bang sign. No tenderness to palpation of the skull. No bony step-offs. No malocclusion of the teeth. EYES: No scleral icterus. No injection or drainage. PERRLA. EOMI. ENT: Pearly kearney tympanic membranes bilaterally. Nasal mucosa is moist. Oropharynx without erythema, edema or exudate. NECK: Supple, trachea midline. No JVD or lymphadenopathy. No midline tenderness to palpation. Patient retains full, active, painless range of motion of the neck. CARDIOVASCULAR: Regular rate and rhythm without murmurs, gallops, or rubs. 2+ DP and radial pulses bilaterally. RESPIRATORY: Breath sounds clear and equal bilaterally. No accessory muscle use. GASTROINTESTINAL: Abdomen soft, non-tender, nondistended. + Bowel sounds MUSCULOSKELETAL: No cyanosis, or edema. No pain elicited with pelvic rocking. Tender to palpation of the anterior aspect of the right knee. No tenderness to palpation or limitations to range of motion of the joints of the upper and lower extremities bilaterally. NEUROLOGICAL: Awake and alert. Cranial nerves II through XII intact. Motor and sensory grossly within normal limits. 5/5 muscle strength in all muscle groups. Normal speech. BACK: No obvious deformity. No CVA tenderness. + midline tenderness in the lumbar spine. Data Data Last Documented VS Vital Signs Date Time Temp Pulse Resp B/P (MAP) Pulse Ox O2 Delivery O2 Flow Rate FiO2 10/28/17 21:13 66 16 96 Room Air 10/28/17 21:07 97.6 187/93 (124) Orders Orders Iv Access Insert/Monitor (10/28/17 21:50) Complete Blood Count With Diff (10/28/17 21:50) Comprehensive Metabolic Panel (10/28/17 21:50) Urinalysis - C+S If Indicated (10/28/17 21:50) Cath For Specimen (10/28/17 21:50) Acetaminophen (Tylenol) (10/28/17 22:00) Knee, Complete (4vws) (10/28/17 22:19) Ice/Cold Pack (10/28/17 22:19) Ct Lumb Spine W/O Contrast (10/28/17 22:20) Electrocardiogram (10/28/17 ) Urine Culture (10/28/17 22:04) Labs Laboratory Tests Test 10/28/17 22:04 Urine Color YELLOW Urine Turbidity CLEAR Urine pH 5.5 Urine Specific [place] 1.012 Urine Protein NEG mg/dL Urine Glucose (UA) NEG mg/dL Urine Ketones NEG mg/dL Urine Occult Blood NEG Urine Nitrite NEG Urine Bilirubin NEG Urine Urobilinogen LESS THAN 2.0 MG/DL Urine Leukocyte Esterase MOD Urine RBC 1 /hpf Urine WBC 9 /hpf Urine Bacteria RARE /hpf Microscopic Urinalysis Comment CULTURE INDICATED MDM Medical Decision Making Medical Screen Exam Complete: Yes Emergency Medical Condition: Yes Differential Diagnosis Musculoskeletal pain versus fracture versus dislocation versus subluxation versus UTI versus electrolyte abnormality versus other Narrative Course 77-year-old female with PMH of AAA, asthma, depression, bipolar, HLD, CHF, COPD , CVA, CAD, dementia, or concerns on Plavix presents to the ED for evaluation of hip and back pain after fall today. Patient endorses dizziness for the last 3 days. She fell 2 days ago and was evaluated H&H by mouth at that time. Today she states that she got up to go to the bathroom, lost her balance and fell to the ground striking her head or losing consciousness.She endorses frontal headache that radiates into the back of her head. She endorses mild nausea. She is normally ambulatory with a walker. Vitals reviewed. Physical exam reveals an alert female in no acute distress. There is a ecchymosis on the posterior aspect of the scalp which the patient's daughter states is from her previous fall. She has some tenderness to palpation of the right knee and midline tenderness in the lumbar area of the back but the exam is otherwise reassuring. She was administered 500 mg Tylenol by mouth. EKG, lab work, radiological studies ordered and pending at this time. The patient signed out to Dr. Sousa at end of shift. Please see her note for disposition. Jade Vega Oct 28, 2017 22:45
[2017-10-28 22:46] LABS: BACTERIA, URINE RARE /hpf; BILIRUBIN, URINE NEG (NEG); BLOOD, URINE NEG (NEG); GLUCOSE,URINE NEG (NEG); KETONE, URINE NEG (NEG); NITRITE,URINE NEG (NEG); PH, URINE 5.5 (5.0-8.5); URINE COLOR YELLOW (YELLW/STRAW); URINE LEUKOCYTE ESTERASE MOD (NEG)
--- NOTE | 2017-10-28 22:52 | RADRPT ---
EXAM DATE/TIME: 10/28/2017 22:36 [facility] COMPARISON: No previous studies available for comparison. INDICATIONS : Pain from fall. MEDICAL HISTORY : None. SURGICAL HISTORY : None. ENCOUNTER: Initial ACUITY: 1 day PAIN SCORE: 5/10 LOCATION: Right knee. FINDINGS: 4 view examination of the knee demonstrates diffuse osteopenia. There is some mild flattening of the medial tibial plateau without discernible fracture. Small osteophyte present. No significant joint space narrowing in the medial or lateral compartment. There is a oval ossification adjacent to the superior patella measuring 8 mm. Suprapatellar soft tissues are normal in thickness. No distention of the suprapatellar bursa. Vascular calcification in the posterior thigh. CONCLUSION: No evidence of recent bony injury. Oval ossification adjacent to the superior patella is of uncertai n significance and could represent an intra-articular loose body. John Lam MD on October 28, 2017 at 22:49 Board Certified Radiologist. This report was verified electronically.
[2017-10-28 22:58] LABS: ALBUMIN 3.3 GM/DL (3.4-5.0); ALT (GPT) 7 U/L (10-53); AST (GOT) 14 U/L (15-37); BICARBONATE 28.3 MEQ/L (21.0-32.0); BLOOD UREA NITROGEN 23 MG/DL (7-18); CALCIUM 8.6 MG/DL (8.5-10.1); CHLORIDE 103 MEQ/L (98-107); CREATININE 1.47 MG/DL (0.50-1.00); GLOMERULAR FILTRATION RATE 34 ML/MIN (>89); GLUCOSE,RANDOM 90 MG/DL (74-106); SODIUM (NA) 139 MEQ/L (136-145)
[2017-10-28 23:00] LABS: ALKALINE PHOSPHATASE 102 U/L (45-117); AUTOMATED NEUTROPHIL # 2.9 TH/MM3 (1.8-7.7); BASOPHIL % 0.7 % (0.0-2.0); EOSINOPHIL # 0.2 TH/MM3 (0-0.4); HEMATOCRIT 33.6 % (35.0-46.0); HEMOGLOBIN 10.7 GM/DL (11.6-15.3); LYMPH % 35.2 % (9.0-44.0); MEAN CELL VOLUME 83.3 FL (80.0-100.0); MEAN CORPUSCULAR HEMOGLOBIN 26.4 PG (27.0-34.0); MEAN CORPUSCULAR HGB CONC 31.7 % (32.0-36.0); MEAN PLATELET VOLUME 12.6 FL (7.0-11.0); MONO % 10.1 % (0.0-8.0); MONOCYTE # 0.6 TH/MM3 (0-0.9); PLATELET COUNT 71 TH/MM3 (150-450); RED BLOOD COUNT 4.04 MIL/MM3 (4.00-5.30); RED CELL DISTRIBUTION WIDTH 15.8 % (11.6-17.2); TOTAL BILIRUBIN ADULT 0.3 MG/DL (0.2-1.0); TOTAL PROTEIN 7.1 GM/DL (6.4-8.2); WHITE BLOOD COUNT 5.6 TH/MM3 (4.0-11.0)
[2017-10-29] VITALS (10 sets, daily range): BP systolic 105–164; BP diastolic 57–94; PULSE 61–78; RESP 16–20; TEMP 96–98.5; O2SAT 91–98
--- NOTE | 2017-10-29 01:28 | PD ---
Physical Exam Narrative I, Dr. Sousa, have reviewed the advance practice practitioner's documentation and am in agreement, met with the patient face to face, made the diagnosis, and the medical decision making was done by me. *My assessment and Findings: Fracture vs. contusion 77yo F here with knee and back pain s/p fall today. Denies any head trauma or LOC. Labs reviewed, no leukocytosis. H/H low at 10.7/33.6 but is at baseline. BUN/creatine mildly elevated which is at baseline. UA showed moderate leukocyte. WBC 9. Culture indicated. Pt given ceftriaxone 1gm IV. Pt given acetaminophen for pain but still with pain so toradol given. Pt evaluated at bedside and said she did hit her head and also has been having a few days of abdominal pain and abdomen is mildly tender. CT brain negative. CT a/p negative. Pt given morphine for pain. Pt reevaluated at bedside and still cannot ambulate. Nurse attempted to ambulate but she is not able to. Discussed with Dr. Rich and accepted to her service. Data Data Last Documented VS Vital Signs Date Time Temp Pulse Resp B/P (MAP) Pulse Ox O2 Delivery O2 Flow Rate FiO2 10/29/17 04:30 64 16 158/94 (115) 98 Room Air 10/28/17 21:07 97.6 Orders Orders Iv Access Insert/Monitor (10/28/17 21:50) Complete Blood Count With Diff (10/28/17 21:50) Comprehensive Metabolic Panel (10/28/17 21:50) Urinalysis - C+S If Indicated (10/28/17 21:50) Cath For Specimen (10/28/17 21:50) Acetaminophen (Tylenol) (10/28/17 22:00) Knee, Complete (4vws) (10/28/17 22:19) Ice/Cold Pack (10/28/17 22:19) Ct Lumb Spine W/O Contrast (10/28/17 22:20) Electrocardiogram (10/28/17 ) Urine Culture (10/28/17 22:04) Ketorolac Inj (Toradol Inj) (10/29/17 01:30) Ct Brain W/O Iv Contrast(Rout) (10/29/17 ) Ceftriaxone Inj (Rocephin Inj) (10/29/17 01:45) Ct Abd/Pel W/O Iv Contrast (10/29/17 ) Morphine Inj (Morphine Inj) (10/29/17 02:30) Admit Order (Ed Use Only) (10/29/17 04:53) Labs Laboratory Tests Test 10/28/17 22:04 White Blood Count 5.6 TH/MM3 Red Blood Count 4.04 MIL/MM3 Hemoglobin 10.7 GM/DL Hematocrit 33.6 % Mean Corpuscular Volume 83.3 FL Mean Corpuscular Hemoglobin 26.4 PG Mean Corpuscular Hemoglobin Concent 31.7 % Red Cell Distribution Width 15.8 % Platelet Count 71 TH/MM3 Mean Platelet Volume 12.6 FL Neutrophils (%) (Auto) 51.0 % Lymphocytes (%) (Auto) 35.2 % Monocytes (%) (Auto) 10.1 % Eosinophils (%) (Auto) 3.0 % Basophils (%) (Auto) 0.7 % Neutrophils # (Auto) 2.9 TH/MM3 Lymphocytes # (Auto) 2.0 TH/MM3 Monocytes # (Auto) 0.6 TH/MM3 Eosinophils # (Auto) 0.2 TH/MM3 Basophils # (Auto) 0.0 TH/MM3 CBC Comment AUTO DIFF Differential Comment AUTO DIFF CONFIRMED Platelet Estimate LOW Platelet Morphology Comment ENLARGED Urine Color YELLOW Urine Turbidity CLEAR Urine pH 5.5 Urine Specific [place] 1.012 Urine Protein NEG mg/dL Urine Glucose (UA) NEG mg/dL Urine Ketones NEG mg/dL Urine Occult Blood NEG Urine Nitrite NEG Urine Bilirubin NEG Urine Urobilinogen LESS THAN 2.0 MG/DL Urine Leukocyte Esterase MOD Urine RBC 1 /hpf Urine WBC 9 /hpf Urine Bacteria RARE /hpf Microscopic Urinalysis Comment CULTURE INDICATED Blood Urea Nitrogen 23 MG/DL Creatinine 1.47 MG/DL Random Glucose 90 MG/DL Total Protein 7.1 GM/DL Albumin 3.3 GM/DL Calcium Level 8.6 MG/DL Alkaline Phosphatase 102 U/L Aspartate Amino Transf (AST/SGOT) 14 U/L Alanine Aminotransferase (ALT/SGPT) 7 U/L Total Bilirubin 0.3 MG/DL Sodium Level 139 MEQ/L Potassium Level 4.0 MEQ/L Chloride Level 103 MEQ/L Carbon Dioxide Level 28.3 MEQ/L Anion Gap 8 MEQ/L Estimat Glomerular Filtration Rate 34 ML/MIN [facility] Supervised Visit with KIYA: Yes Interpretation(s) EKG: Sinus bradycardia at 59bpm. Normal axis. No ST segment elevation or depression. Diagnosis Primary Impression: UTI (urinary tract infection) Qualified Codes: N39.0 - Urinary tract infection, site not specified Admitting Information Admitting Physician Requests: Yoko Carranza DO Oct 29, 2017 01:28
[2017-10-29] MEDS ORDERED: KETOROLAC TROMETHAMINE 30 MG/ML (IVP) VIAL IV PUSH ONE (01:30)
[2017-10-29] MEDS ORDERED: cefTRIAXone INJ 1,000 MG in SODIUM CHLORIDE 0.9% INJ 100 ML IV ONE (01:45)
--- NOTE | 2017-10-29 01:59 | RADRPT ---
EXAM DATE/TIME: 10/28/2017 22:54 [facility] COMPARISON: CT LUMBAR SPINE W/O CONTRAST W 3D RECON, November 02, 2012, 10:27. SPINE LUMBAR LTD (AP & LAT), Apri l 2016, 13:33. INDICATIONS : Trauma; fall. Low back pain. RADIATION DOSE: 35.86 CTDIvol (mGy) MEDICAL HISTORY : Cardiovascular disease. SURGICAL HISTORY : Abdominal aortic aneurysm repair. ENCOUNTER: Initial ACUITY: 1 day PAIN SCALE: 7/10 LOCATION: lower back TECHNIQUE: Volumetric scanning of the lumbar spine was performed. Multiplanar reconstructions in the sagittal, coronal and oblique axial planes were performed. Using automated exposure control and adjustment of the mA and/or kV according to patient size, radiation dose was kept as low as reasonably achievable t o obtain optimal diagnostic quality images. DICOM format image data is available electronically for review and comparison. FINDINGS: Alignment is stable. No spondylolisthesis. There are compressive injuries at multiple levels, most se verely effecting L3, however also present in the superior endplate region of L1, the inferior endplat e region of L4 and the superior endplate region of L5. These injuries were all present previously. Th ere is no evidence of bony retropulsion. There is degenerative change with significant concentric can al stenosis at L4-5 which appears to progressed slightly from the previous examination. There is teddy re posterior facet arthropathy most significantly at L4-5 and L5-S1. There is no evidence of paraspin al hematoma. CONCLUSION: No acute process in the lumbosacral spine. Sivakumar Castro MD on October 29, 2017 at 1:52 Board Certified Radiologist. This report was verified electronically.
[2017-10-29] MEDS ORDERED: MORPHINE SULFATE 2 MG/ML INJ IV PUSH ONE (02:30)
--- NOTE | 2017-10-29 04:10 | RADRPT ---
EXAM DATE/TIME: 10/29/2017 03:52 [facility] COMPARISON: CT BRAIN W/O CONTRAST, October 26, 2017, 10:28. INDICATIONS : Trauma, multiple falls. RADIATION DOSE: 46.65 CTDIvol (mGy) ; Tabletop CT Head MEDICAL HISTORY : None SURGICAL HISTORY : None. ENCOUNTER: Initial ACUITY: 2 days PAIN SCALE: 5/10 LOCATION: cranial TECHNIQUE: Multiple contiguous axial images were obtained of the head. Using automated exposure control and adj ustment of the mA and/or kV according to patient size, radiation dose was kept as low as reasonably a chievable to obtain optimal diagnostic quality images. DICOM format image data is available electro nically for review and comparison. FINDINGS: There is symmetric cortical atrophy. No evidence of mass or hemorrhage. Nothing to suggest acute infa rction. Scalp swelling in the right paramedian occipital region. No underlying skull fracture. Extrac ranial structures grossly benign and intact. CONCLUSION: Stable brain appearance with no acute findings. Sivakumar Castro MD on October 29, 2017 at 4:05 Board Certified Radiologist. This report was verified electronically.
--- NOTE | 2017-10-29 04:13 | RADRPT ---
EXAM DATE/TIME: 10/29/2017 03:55 [facility] COMPARISON: No previous studies available for comparison. INDICATIONS : Trauma, multiple falls. Abdomen pain. ORAL CONTRAST: No oral contrast ingested. RADIATION DOSE: 16.12 CTDIvol (mGy) MEDICAL HISTORY : Aneurysm, abdominal. SURGICAL HISTORY : Abdominal aortic aneurysm repair. Left hip replacement ENCOUNTER: Initial ACUITY: 2 days PAIN SCALE: 4/10 LOCATION: abdomen TECHNIQUE: Volumetric scanning of the abdomen and pelvis was performed. Using automated exposure control and ad justment of the mA and/or kV according to patient size, radiation dose was kept as low as reasonably achievable to obtain optimal diagnostic quality images. DICOM format image data is available electro nically for review and comparison. FINDINGS: LOWER LUNGS: The visualized lower lungs are clear. LIVER: Homogeneous density without lesion. There is no dilation of the biliary tree. Gallbladder surgically absent.. SPLEEN: Normal size without lesion. PANCREAS: Within normal limits. KIDNEYS: Normal in size and shape. There is no mass, stone, or hydronephrosis. ADRENAL GLANDS: Within normal limits. VASCULAR: Previous aortic graft repair BOWEL/MESENTERY: Distal colonic diverticulosis. No abnormal dilatation, wall thickening or focal inflammatory changes. ABDOMINAL WALL: Previous ventral mesh hernia repair RETROPERITONEUM: There is no lymphadenopathy. BLADDER: No wall thickening or mass. REPRODUCTIVE: Uterus surgically absent. No evidence of pelvic mass or free fluid. INGUINAL: There is no lymphadenopathy or hernia. MUSCULOSKELETAL: Left total hip arthroplasty. Prominent degenerative changes in the spine. Buttock granulomas. CONCLUSION: No acute traumatic injury in the abdomen or pelvis. No acute findings. Sivakumar Castro MD on October 29, 2017 at 4:07 Board Certified Radiologist. This report was verified electronically.
[2017-10-29] MEDS ORDERED: SODIUM CHLORIDE 0.9% FLUSH 10 ML FLUSH IV FLUSH PRN (05:00)
[2017-10-29] MEDS ORDERED: LACTULOSE SYRUP 20 GM/30 ML CUP PO PRN (05:00)
[2017-10-29] MEDS ORDERED: ONDANSETRON HCL 4 MG/2 ML VIAL IVP PRN (05:00)
[2017-10-29] MEDS ORDERED: BISACODYL 10 MG SUPP RECTAL PRN (05:00)
[2017-10-29] MEDS ORDERED: MAGNESIUM HYDROXIDE SUSP 30 ML CUP PO PRN (05:00)
[2017-10-29] MEDS ORDERED: ACETAMINOPHEN 325 MG TAB PO PRN (05:00)
[2017-10-29] MEDS ORDERED: SENNOSIDES 8.6 MG TAB PO PRN (05:00)
[2017-10-29] MEDS ORDERED: MORPHINE SULFATE 2 MG/ML INJ IV PUSH PRN (05:00)
[2017-10-29] MEDS ORDERED: methylPREDNISolone SOD SUCC 125 MG/2 ML VIAL IV PUSH ONE (05:15)
[2017-10-29] MEDS ORDERED: DIAZEPAM 5 MG TAB PO ONE (05:15)
[2017-10-29] MEDS ORDERED: DIAZEPAM 5 MG TAB PO PRN (05:15)
--- NOTE | 2017-10-29 05:26 | HHI.HP ---
HPI Service [facility] Hospitalists Primary Care Physician Khadijah Levin MD Admission Diagnosis UTI, intractable back pain Diagnoses: (1) Fall Diagnosis: Principal (2) Intractable pain Diagnosis: Principal (3) Dizziness Diagnosis: Principal (4) UTI (urinary tract infection) Diagnosis: Principal (5) Thrombocytopenia Diagnosis: Principal (6) Parkinson disease Diagnosis: Principal Travel History International Travel<30 Days: No Contact w/Intl Traveler <30 Da: No Traveled to Known Affected Are: No History of Present Illness This is a 77-year-old female with a PMH of HTN, Hyperlipidemia, AAA, Anxiety, Depression, Bipolar Disorder, COPD, CAD on Eliquis, CVA, Depression and CHF ( Echo 02/08/17 w/ EF 55-60%) who was brought to the ER by EMS secondary to fall. Per Daughter, pt had fall few days ago on 10/26/17, was seen at [facility] at that time, imaging unremarkable and pt d/c'd home. Today, pt had recurrent fall , no reported LOC, Daughter reports +head trauma. On arrival, BP 187/93, HR 66 , O2 sat 97% on RA, Afebrile. CBC essentially baseline. Platelets 71, previously 94 on 08/11/17. Creatinine 1.47, previously 1.36 on 08/11/17. UA positive for UTI. Knee X-ray negative. CT L-spine negative. CT Head with no acute findings. CT Abd/Pelvis negative. S/p analgesics in ER, however pt w/ persistent complaints of severe pain in addition to dizziness, unsafe d/c home. Review of Systems Except as stated in HPI: all other systems reviewed are Neg ROS: 14 point review of systems otherwise negative. Past Family Social History Past Medical History PMH: HTN, Hyperlipidemia, AAA, Anxiety, Depression, Bipolar Disorder, COPD, CAD on Eliquis, CVA, Depression and CHF (Echo 02/08/17 w/ EF 55-60%) Past Surgical History PAST SURGICAL HISTORY: Hernia Repair, AAA Repair, Appendectomy, Cholecystectomy , Cataract Surgery, Hysterectomy, Left Hip Replacement, Tonsillectomy Allergies: Coded Allergies: paroxetine (Unverified Allergy, Severe, CAN NOT REMEMBER , 10/28/17) lactose (Unverified Allergy, Unknown, GI UPSET, 10/26/17) Family History PAST FAMILY HISTORY: Reviewed. No h/o DM or CAD Social History PAST SOCIAL HISTORY: Negative for alcohol, tobacco or drugs. Physical Exam Vital Signs Vital Signs Date Time Temp Pulse Resp B/P (MAP) Pulse Ox O2 Delivery O2 Flow Rate FiO2 10/29/17 03:00 63 16 145/70 (95) 96 Room Air 10/29/17 01:19 70 16 164/73 (103) 97 Room Air 10/29/17 00:19 64 16 150/69 (96) 96 Room Air 10/28/17 22:30 61 16 160/74 (102) 98 Room Air 10/28/17 21:13 66 16 96 Room Air 10/28/17 21:07 97.6 66 16 187/93 (124) 97 Physical Exam PE: GENERAL: Extremely pleasant elderly female in no acute distress. Daughter at bedside. HEENT: PERRLA, EOMI. No scleral icterus or conjunctival pallor. No lid lag or facial droop. CARDIOVASCULAR: Regular rate and rhythm. No obvious murmurs to auscultation. No chest tenderness to palpation. RESPIRATORY: No obvious rhonchi or wheezing. Clear to auscultation. Breath sounds equal bilaterally. GASTROINTESTINAL: Abdomen soft, non-tender, nondistended. BS normal. MUSCULOSKELETAL: Extremities without clubbing, cyanosis, or edema. No obvious deformities. NEUROLOGICAL: Awake, alert and oriented x4. No focal neurologic deficits. Moving both upper and lower extremities spontaneously. Laboratory Laboratory Tests Test 10/28/17 22:04 White Blood Count 5.6 Red Blood Count 4.04 Hemoglobin 10.7 Hematocrit 33.6 Mean Corpuscular Volume 83.3 Mean Corpuscular Hemoglobin 26.4 Mean Corpuscular Hemoglobin Concent 31.7 Red Cell Distribution Width 15.8 Platelet Count 71 Mean Platelet Volume 12.6 Neutrophils (%) (Auto) 51.0 Lymphocytes (%) (Auto) 35.2 Monocytes (%) (Auto) 10.1 Eosinophils (%) (Auto) 3.0 Basophils (%) (Auto) 0.7 Neutrophils # (Auto) 2.9 Lymphocytes # (Auto) 2.0 Monocytes # (Auto) 0.6 Eosinophils # (Auto) 0.2 Basophils # (Auto) 0.0 CBC Comment AUTO DIFF Differential Comment AUTO DIFF CONFIRMED Platelet Estimate LOW Platelet Morphology Comment ENLARGED Urine Color YELLOW Urine Turbidity CLEAR Urine pH 5.5 Urine Specific [place] 1.012 Urine Protein NEG Urine Glucose (UA) NEG Urine Ketones NEG Urine Occult Blood NEG Urine Nitrite NEG Urine Bilirubin NEG Urine Urobilinogen LESS THAN 2.0 Urine Leukocyte Esterase MOD Urine RBC 1 Urine WBC 9 Urine Bacteria RARE Microscopic Urinalysis Comment CULTURE INDICATED Blood Urea Nitrogen 23 Creatinine 1.47 Random Glucose 90 Total Protein 7.1 Albumin 3.3 Calcium Level 8.6 Alkaline Phosphatase 102 Aspartate Amino Transf (AST/SGOT) 14 Alanine Aminotransferase (ALT/SGPT) 7 Total Bilirubin 0.3 Sodium Level 139 Potassium Level 4.0 Chloride Level 103 Carbon Dioxide Level 28.3 Anion Gap 8 Estimat Glomerular Filtration Rate 34 Date/Time Source Procedure Growth Status 10/28/17 22:04 Urine Clean Catch Urine Culture Pending Received Result Diagram: 10/28/17220310/28/172203 Caprini VTE Risk Assessment Caprini VTE Risk Assessment: Mod/High Risk (score >= 2) Caprini Risk Assessment Model Point Value = 1 Point Value = 2 Point Value = 3 Point Value = 5 Age 41-60 Minor surgery BMI > 25 kg/m2 Swollen legs Varicose veins or History of unexplained or recurrent spontaneous Oral contraceptives or hormone replacement Sepsis (< 1 month) Serious lung disease, including pneumonia (< 1 month) Abnormal pulmonary function Acute myocardial infarction Congestive heart failure (< 1 month) History of inflammatory bowel disease Medical patient at bed rest Age 61-74 Arthroscopic surgery Major open surgery (> 45 min) Laparoscopic surgery (> 45 min) Malignancy Confined to bed (> 72 hours) Immobilizing plaster cast Central venous access Age >= 75 History of VTE Family history of VTE Factor V Leiden Prothrombin [id number] Lupus anticoagulant Anticardiolipin antibodies Elevated serum homocysteine Heparin-induced thrombocytopenia Other congenital or acquired thrombophilia Stroke (< 1 month) Elective arthroplasty Hip, pelvis, or leg fracture Acute spinal cord injury (< 1 month) Prophylaxis Regimen Total Risk Factor Score Risk Level Prophylaxis Regimen 0-1 Low Early ambulation 2 Moderate Order ONE of the following: *Sequential Compression Device (SCD) *Heparin 5000 units SQ BID 3-4 Higher Order ONE of the following medications: *Heparin 5000 units SQ TID *Enoxaparin/Lovenox 40 mg SQ daily (WT < 150 kg, CrCl > 30 mL/min) *Enoxaparin/Lovenox 30 mg SQ daily (WT < 150 kg, CrCl > 10-29 mL/min) *Enoxaparin/Lovenox 30 mg SQ BID (WT < 150 kg, CrCl > 30 mL/min) AND/OR *Sequential Compression Device (SCD) 5 or more Highest Order ONE of the following medications: *Heparin 5000 units SQ TID (Preferred with Epidurals) *Enoxaparin/Lovenox 40 mg SQ daily (WT < 150 kg, CrCl > 30 mL/min) *Enoxaparin/Lovenox 30 mg SQ daily (WT < 150 kg, CrCl > 10-29 mL/min) *Enoxaparin/Lovenox 30 mg SQ BID (WT < 150 kg, CrCl > 30 mL/min) AND *Sequential Compression Device (SCD) Assessment and Plan Problem List: (1) Fall ICD Code: W19.XXXA - Unspecified fall, initial encounter (2) UTI (urinary tract infection) ICD Code: N39.0 - Urinary tract infection, site not specified Status: Acute (3) Intractable pain ICD Code: R52 - Pain, unspecified (4) Dizziness ICD Code: R42 - Dizziness and giddiness (5) Parkinson disease ICD Code: G20 - Parkinson's disease Status: Chronic (6) Thrombocytopenia ICD Code: D69.6 - Thrombocytopenia, unspecified Assessment and Plan A/P: 1. Fall: Recurrent, s/p mechanical slip and fall 10/26/17, seen at [facility] w/ negative imaging, now w/ recurrent fall at home, +head trauma, no LOC. CT Head w/ no acute findings, CT L-Spine negative, Knee X-ray also negative, images reviewed by me. Reports fall triggered by dizziness/gait instability. IVF for hydration, PT for eval/tx. 2. Intractable Pain: secondary to multiple falls, imaging negative for acute fractures. Analgesics as needed, Valium prn for muscle spasm, Solu-Medrol x1 for inflammation. PT for eval/tx as above. 3. UTI: U/a w/ UTI, s/p Rocephin IV in ER, continue w/ IV Abx, follow up urine cultures. 4. Dizziness: likely secondary to UTI/dehydration, unable to obtain orthostatics secondary to significant symptoms. IVF for hydration. CT Head negative for infarct. 5. Thrombocytopenia: Platelets 71, previously 94 on 08/11/17, monitor closely in light of head trauma and anticoagulation w/ Eliquis. CT Head negative for bleed as above. 6. Parkinson's Disease: Stable. Resume home medications-medication list provided by pt's Daughter, in chart. 7. DVT Prophylaxis: on Eliquis 8. Social work for d/c planning as needed. 9. Case discussed w/ ER physician at length. Problem Qualifiers (1) UTI (urinary tract infection): Qualified Codes: N39.0 - Urinary tract infection, site not specified Anjana Rich MD Oct 29, 2017 05:26
[2017-10-29] MEDS ORDERED: PILL SPLITTER OTHER PRN (05:30)
[2017-10-29] MEDS: SODIUM CHLOR 0.9% 1000 ML INJ 1,000 ML IV SCH ×2 (05:36→14:56)
[2017-10-29] MEDS: PREGABALIN 100 MG CAP PO SCH ×3 (06:00→21:29)
[2017-10-29] MEDS ORDERED: LUBIPROSTONE 8 MG PO SCH (09:00)
[2017-10-29] MEDS ORDERED: BUDESONIDE-FORMOTEROL 160/4.5 MCG INHALER INH SCH (09:00)
[2017-10-29] MEDS: SODIUM CHLORIDE 0.9% FLUSH 10 ML FLUSH IV FLUSH SCH ×2 (09:00→21:28)
[2017-10-29] MEDS: APIXABAN 5 MG TABLET PO SCH ×2 (10:21→21:29)
[2017-10-29] MEDS: SUCRALFATE 1 GM TAB PO SCH ×3 (10:21→17:02)
[2017-10-29] MEDS: DOCUSATE SODIUM 50 MG/SENNA 8.6 MG TAB PO SCH ×2 (10:22→21:30)
[2017-10-29] MEDS: FOLIC ACID 1 MG TAB PO SCH (10:22)
[2017-10-29] MEDS: CARBIDOPA/LEVODOPA 25 MG/100 MG TAB PO SCH ×4 (10:22→21:30)
[2017-10-29] MEDS: MEMANTINE HCL 10 MG TAB PO SCH ×2 (10:22→21:29)
[2017-10-29] MEDS: PANTOPRAZOLE SOD 40 MG DELAYED RELEASE TAB PO SCH (10:22)
[2017-10-29] MEDS: clonazePAM 0.5 MG TAB PO SCH ×2 (10:22→21:40)
[2017-10-29] MEDS: DULoxetine HCl DR 60 MG CAP PO SCH (10:23)
[2017-10-29] MEDS: CARVEDILOL 12.5 MG TAB PO SCH ×2 (10:23→21:30)
[2017-10-29] MEDS: BUDESONIDE-FORMOTEROL 160/4.5 MCG INHALER INH SCH ×2 (10:25→21:00)
[2017-10-29] MEDS: RIVASTIGMINE 9.5 MG/24 HOUR PATCH T-DERMAL SCH (10:25)
[2017-10-29] MEDS: ACETAMINOPHEN/HYDROcodone 325 MG/5 MG TAB PO PRN ×2 (10:37→21:29)
--- NOTE | 2017-10-29 10:53 | HHI.PR ---
Subjective Remarks Follow-up for multiple falls secondary to dizziness and UTI Patient stated that she has dysuria. She stated that dizziness is more like the room is spinning. She stated that this is her first episode of recurrence thus started a couple of weeks ago. She does have associated nausea with the symptoms. Denies chest pain or shortness of breathing. Objective Vitals Vital Signs Date Time Temp Pulse Resp B/P (MAP) Pulse Ox O2 Delivery O2 Flow Rate FiO2 10/29/17 08:00 97.0 61 20 105/57 (73) 94 10/29/17 06:34 10/29/17 06:31 67 16 117/67 (84) 95 10/29/17 05:41 16 10/29/17 04:30 64 16 158/94 (115) 98 Room Air 10/29/17 03:00 63 16 145/70 (95) 96 Room Air 10/29/17 01:19 70 16 164/73 (103) 97 Room Air 10/29/17 00:19 64 16 150/69 (96) 96 Room Air 10/28/17 22:30 61 16 160/74 (102) 98 Room Air 10/28/17 21:13 66 16 96 Room Air 10/28/17 21:07 97.6 66 16 187/93 (124) 97 I/O 10/28/17 10/28/17 10/28/17 10/29/17 10/29/17 10/29/17 07:00 15:00 23:00 07:00 15:00 23:00 Intake Total 100 ml Balance 100 ml Intake IV Total 100 ml Result Diagram: 10/28/17220310/28/172203 Imaging Last Impressions Head CT 10/29/17 0000 Signed Impressions: Service Date/Time: Sunday, October 29, 2017 03:52 - CONCLUSION: Stable brain appearance with no acute findings. Sivakumar Castro MD Abdomen/Pelvis CT 10/29/17 0000 Signed Impressions: Service Date/Time: Sunday, October 29, 2017 03:55 - CONCLUSION: No acute traumatic injury in the abdomen or pelvis. No acute findings. Sivakumar Castro MD Lumbar Spine CT 10/28/170 Signed Impressions: Service Date/Time: Saturday, October 28, 2017 22:54 - CONCLUSION: No acute process in the lumbosacral spine. Sivakumar Castro MD Knee X-Ray 10/28/178 Signed Impressions: Service Date/Time: Saturday, October 28, 2017 22:36 - CONCLUSION: No evidence of recent bony injury. Oval ossification adjacent to the superior patella is of uncertain significance and could represent an intra-articular loose body. John Lam MD Objective Remarks GENERAL: in NAD SKIN: Warm and dry. HEAD: Normocephalic. EYES: No scleral icterus. No injection or drainage. NECK: Supple, trachea midline. No JVD or lymphadenopathy. CARDIOVASCULAR: Regular rate and rhythm without murmurs, gallops, or rubs. RESPIRATORY: Breath sounds equal bilaterally. No accessory muscle use. GASTROINTESTINAL: Abdomen soft, non-tender, nondistended. NEURO: AAO X 4. CN 2-12 intact. Sensation and strength grossly intact. Medications and IVs Current Medications Acetaminophen (Tylenol) 500 mg ONCE ONCE PO Last administered on 10/28/17 22 :08; Start 10/28/17 at 22:00; Stop 10/28/17 at 22:01; Status DC Ketorolac Tromethamine (Toradol Inj) 30 mg ONCE ONCE IV PUSH ; Start 10/29/17 at 01:30; Stop 10/29/17 at 01:39; Status DC Ceftriaxone Sodium 1000 mg/ Sodium Chloride 100 ml @ 200 mls/hr ONCE ONCE IV Last administered on 10/29/17 01:58; Start 10/29/17 at 01:45; Stop 10/29/17 at 02:14; Status DC Morphine Sulfate (Morphine Inj) 2 mg ONCE ONCE IV PUSH Last administered on 02:47; Start 10/29/17 at 02:30; Stop 10/29/17 at 02:31; Status DC Ceftriaxone Sodium 1000 mg/ Sodium Chloride 100 ml @ 200 mls/hr Q24H IV ; Start 10/30/17 at 06:00 Sodium Chloride 1,000 ml @ 100 mls/hr Q10H IV Last administered on 10/29/17 05:36; Start 10/29/17 at 04:56 Sodium Chloride (NS Flush) 2 ml UNSCH PRN IV FLUSH FLUSH AFTER USING IV ACCESS ; Start 10/29/17 at 05:00 Sodium Chloride (NS Flush) 2 ml BID IV FLUSH ; Start 10/29/17 at 09:00 Ondansetron HCl (Zofran Inj) 4 mg Q6H PRN IVP NAUSEA OR VOMITING; Start at 05:00 Acetaminophen (Tylenol) 650 mg Q6H PRN PO FEVER/PAIN SCALE 1 TO 2; Start 10/29 at 05:00 Acetaminophen/ Hydrocodone Bitart (Harrison 5-325 Mg) 1 tab Q4H PRN PO PAIN SCALE 3 TO 5 Last administered on 10/29/17 10:37; Start 10/29/17 at 05:00 Morphine Sulfate (Morphine Inj) 2 mg Q3H PRN IV PUSH Pain 6-10 Last administered on 10/29/17 05:36; Start 10/29/17 at 05:00 Senna/Docusate Sodium (Светлана-Colace) 1 tab BID PO Last administered on 10:22; Start 10/29/17 at 09:00 Magnesium Hydroxide (Milk Of Magnesia Liq) 30 ml Q12H PRN PO Mild constipation ; Start 10/29/17 at 05:00 Sennosides (Senokot) 17.2 mg Q12H PRN PO Moderate constipation; Start at 05:00 Bisacodyl (Dulcolax Supp) 10 mg DAILY PRN RECTAL SEVERE CONSITIPATION/ IF NPO; Start 10/29/17 at 05:00 Lactulose (Lactulose Liq) 30 ml DAILY PRN PO SEVERE CONSITIPATION/ IF PO; Start 10/29/17 at 05:00 Diazepam (Valium) 5 mg ONCE ONCE PO Last administered on 10/29/17 05:49; Start 10/29/17 at 05:15; Stop 10/29/17 at 05:22; Status DC Diazepam (Valium) 5 mg Q8H PRN PO MUSCLE SPASM; Start 10/29/17 at 05:15 Methylprednisolone Sodium Succinate (SoluMEDROL INJ) 125 mg ONCE ONCE IV PUSH Last administered on 10/29/17 05:49; Start 10/29/17 at 05:15; Stop 10/29/17 at 05:22; Status DC Apixaban (Eliquis) 5 mg BID PO Last administered on 10/29/17 10:21; Start at 09:00 Budesonide/ Formoterol Fumarate (Symbicort 160-4.5 Mcg Inh) 2 puff BID INH Last administered on 10/29/17 10:25; Start 10/29/17 at 09:00 Carbidopa/Levodopa (Sinemet 25-100 Mg) 1.5 tab QID PO Last administered on 10:22; Start 10/29/17 at 09:00 Carvedilol (Coreg) 12.5 mg BID PO Last administered on 10/29/17 10:23; Start 10/29/17 at 09:00 Clonazepam (KlonoPIN) 0.25 mg Q12HR PO Last administered on 10/29/17 10:22; Start 10/29/17 at 09:00 Duloxetine HCl (Cymbalta Dr) 60 mg DAILY PO Last administered on 10/29/17 10: 23; Start 10/29/17 at 09:00 Folic Acid (Folate) 2 mg DAILY PO Last administered on 10/29/17 10:22; Start 10/29/17 at 09:00 Lamotrigine (LaMICtal) 200 mg HS PO ; Start 10/29/17 at 21:00 Memantine (Namenda) 10 mg BID PO Last administered on 10/29/17 10:22; Start 10/29/17 at 09:00 Pantoprazole Sodium (Protonix) 40 mg DAILY PO Last administered on 10/29/17 10:22; Start 10/29/17 at 09:00 Pregabalin (Lyrica) 100 mg Q8HR PO ; Start 10/29/17 at 06:00 Rivastigmine (Exelon 9.5 Mg Patch.24hr) 1 patch DAILY T-DERMAL Last administered on 10/29/17 10:25; Start 10/29/17 at 09:00 Sucralfate (Carafate) 1 gm TID PO Last administered on 10/29/17 10:21; Start 10/29/17 at 09:00 Budesonide/ Formoterol Fumarate (Symbicort 160-4.5 Mcg Inh) 2 puff BID INH ; Start 10/29/17 at 09:00; Stop 10/29/17 at 09:56; Status DC Patient Own Medication PT OWN MED: LUBIPROSTONE (AMITI... BID PO ; Start at 09:00; Status Future Hold Atorvastatin Calcium (Lipitor) 20 mg HS PO ; Start 10/29/17 at 21:00 Miscellaneous (Pill Splitter) 1 ea UNSCH PRN OTHER SEE LABEL COMMENTS; Start 10/29/17 at 05:30 Meclizine HCl (Antivert) 25 mg Q8HR PO ; Start 10/29/17 at 14:00; Status UNV A/P Problem List: (1) Fall ICD Code: W19.XXXA - Unspecified fall, initial encounter (2) UTI (urinary tract infection) ICD Code: N39.0 - Urinary tract infection, site not specified Status: Acute (3) Intractable pain ICD Code: R52 - Pain, unspecified (4) Dizziness ICD Code: R42 - Dizziness and giddiness (5) Parkinson disease ICD Code: G20 - Parkinson's disease Status: Chronic (6) Thrombocytopenia ICD Code: D69.6 - Thrombocytopenia, unspecified Assessment and Plan This is a 69-year-old female presented with increased fall secondary to dizziness Dizziness -History this sounds more like vertigo. CT can of the brain negative for any acute process. -We'll get an MRI but unlikely CVA since patient is well anticoagulated. -We'll try meclizine. PT also consulted pending recommendations. Chronic anticoagulation -Patient is on Eliquis. Educated patient extensively on the risks benefits and side effects of Eliquis. Also educator her on increase risks of bleeding since she is having multiple falls. Despite knowing that this can increase her risk of bleeding especially intracranial bleeding if there is head trauma patient wants to continue with medication. Will continue with Eliquis. Hopefully once dizziness improves she will not have any more falls. Fall: -Seems to be secondary to vertigo. See treatment as above. intractable Pain -Resolved. Patient did not complain of any pain. UTI: - U/a w/ UTI -Continue Rocephin pending urine cultures. Thrombocytopenia: Platelets 71 -Patient has no signs of active bleeding. I reviewed patient's trend and this is her baseline. -Continue to monitor. Parkinson's Disease: Stable. -Continue home medication. DVT Prophylaxis: on Eliquis Problem Qualifiers (1) UTI (urinary tract infection): Qualified Codes: N39.0 - Urinary tract infection, site not specified Kimi Butt MD Oct 29, 2017 10:53
--- NOTE | 2017-10-29 13:03 | RADRPT ---
EXAM DATE/TIME: 10/29/2017 11:29 [facility] COMPARISON: MRI BRAIN W/O CONTRAST, July 17, 2016, 11:27. INDICATIONS : Dizziness. MEDICAL HISTORY : Hypertension. Parkinson's. CVA. SURGICAL HISTORY : Hysterectomy. Cholecystectomy. Loop recorder. ENCOUNTER: Initial ACUITY: 1 day PAIN SCORE: 0/10 LOCATION: cranial TECHNIQUE: Multiplanar, multisequence MRI of the brain was performed without contrast. FINDINGS: Marked periventricular white matter changes stable in the interval. Old infarct right occipital giovanna on. Negative for restricted diffusion Ventricle size appropriate There are no extra-axial fluid collections appreciated Minimal empty sella There is no parenchymal hemorrhage Posterior fossa is normal CONCLUSION: Stable periventricular white matter changes negative for acute process. Clayton Wilcox MD FACR on October 29, 2017 at 12:59 Board Certified Radiologist. This report was verified electronically.
[2017-10-29] MEDS: MECLIZINE HCL 25 MG TAB PO SCH ×2 (13:37→21:29)
[2017-10-29] MEDS: lamoTRIgine 100 MG TAB PO SCH (21:28)
[2017-10-29] MEDS: ATORVASTATIN 20 MG TAB PO SCH (21:30)
[2017-10-30] MEDS: SODIUM CHLOR 0.9% 1000 ML INJ 1,000 ML IV SCH ×3 (00:56→10:32)
[2017-10-30 04:53] VITALS: BP 152/76; PULSE 67; RESP 17; TEMP 98; O2SAT 98
[2017-10-30] MEDS: PREGABALIN 100 MG CAP PO SCH (05:39)
[2017-10-30] MEDS: MECLIZINE HCL 25 MG TAB PO SCH ×3 (05:39→21:40)
[2017-10-30 05:44] LABS: HEMOGLOBIN 9.5 GM/DL (11.6-15.3); LYMPHOCYTE # 0.8 TH/MM3 (1.0-4.8); MEAN CORPUSCULAR HEMOGLOBIN 26.7 PG (27.0-34.0); MEAN CORPUSCULAR HGB CONC 31.8 % (32.0-36.0); MEAN PLATELET VOLUME 11.8 FL (7.0-11.0); MONO % 5.9 % (0.0-8.0); MONOCYTE # 0.4 TH/MM3 (0-0.9); NEUT % 83.1 % (16.0-70.0); PLATELET COUNT 67 TH/MM3 (150-450); RED BLOOD COUNT 3.57 MIL/MM3 (4.00-5.30); RED CELL DISTRIBUTION WIDTH 15.4 % (11.6-17.2); WHITE BLOOD COUNT 7.2 TH/MM3 (4.0-11.0)
[2017-10-30 05:50] LABS: AST (GOT) 19 U/L (15-37); BLOOD UREA NITROGEN 25 MG/DL (7-18); CALCIUM 8.4 MG/DL (8.5-10.1); CHLORIDE 106 MEQ/L (98-107); CREATININE 1.29 MG/DL (0.50-1.00); GLOMERULAR FILTRATION RATE 40 ML/MIN (>89); GLUCOSE,RANDOM 121 MG/DL (74-106); SODIUM (NA) 140 MEQ/L (136-145)
[2017-10-30 05:52] LABS: ALT (GPT) 9 U/L (10-53)
[2017-10-30 05:54] LABS: ALKALINE PHOSPHATASE 173 U/L (45-117); TOTAL BILIRUBIN ADULT 0.3 MG/DL (0.2-1.0); TOTAL PROTEIN 6.8 GM/DL (6.4-8.2)
[2017-10-30] MEDS ORDERED: cefTRIAXone INJ 1,000 MG in SODIUM CHLORIDE 0.9% INJ 100 ML IV SCH (06:00)
[2017-10-30 08:00] VITALS: BP 122/69; PULSE 66; RESP 20; TEMP 96.6; O2SAT 99
[2017-10-30] MEDS: SODIUM CHLORIDE 0.9% FLUSH 10 ML FLUSH IV FLUSH SCH ×2 (09:00→21:39)
[2017-10-30] MEDS: BUDESONIDE-FORMOTEROL 160/4.5 MCG INHALER INH SCH ×2 (09:46→22:59)
[2017-10-30] MEDS: RIVASTIGMINE 9.5 MG/24 HOUR PATCH T-DERMAL SCH (09:47)
[2017-10-30] MEDS: FOLIC ACID 1 MG TAB PO SCH (09:47)
[2017-10-30] MEDS: clonazePAM 0.5 MG TAB PO SCH ×2 (09:47→21:58)
[2017-10-30] MEDS: APIXABAN 5 MG TABLET PO SCH ×2 (09:47→21:41)
[2017-10-30] MEDS: PANTOPRAZOLE SOD 40 MG DELAYED RELEASE TAB PO SCH (09:47)
[2017-10-30] MEDS: CARVEDILOL 12.5 MG TAB PO SCH (09:47)
[2017-10-30] MEDS: CARBIDOPA/LEVODOPA 25 MG/100 MG TAB PO SCH ×4 (09:47→22:00)
[2017-10-30] MEDS: SUCRALFATE 1 GM TAB PO SCH ×3 (09:48→17:38)
[2017-10-30] MEDS: DULoxetine HCl DR 60 MG CAP PO SCH (09:48)
[2017-10-30] MEDS: DOCUSATE SODIUM 50 MG/SENNA 8.6 MG TAB PO SCH ×2 (09:48→21:40)
[2017-10-30] MEDS: MEMANTINE HCL 10 MG TAB PO SCH ×2 (09:48→23:00)
[2017-10-30] MEDS: ACETAMINOPHEN/HYDROcodone 325 MG/5 MG TAB PO PRN ×2 (10:22→13:58)
[2017-10-30 12:00] VITALS: BP 134/60; PULSE 63; RESP 20; TEMP 97.7; O2SAT 95
--- NOTE | 2017-10-30 12:56 | HHI.PR ---
Subjective Remarks Patient reports she continues to have dizziness upon standing or walking. It is slightly better today. Discussed condition with her daughter at length. Objective Vitals Vital Signs Date Time Temp Pulse Resp B/P (MAP) Pulse Ox O2 Delivery O2 Flow Rate FiO2 10/30/17 08:00 96.6 66 20 122/69 (86) 99 10/30/17 04:53 98.0 67 17 152/76 (101) 98 10/29/17 23:27 98.2 78 17 140/70 (93) 95 10/29/17 20:35 98.5 76 17 156/72 (100) 95 10/29/17 15:45 96.0 62 20 130/70 (90) 91 I/O 10/29/17 10/29/17 10/29/17 10/30/17 10/30/17 10/30/17 07:00 15:00 23:00 07:00 15:00 23:00 Intake Total 100 ml 240 ml Balance 100 ml 240 ml Intake Oral 240 ml IV Total 100 ml # Voids 1 Result Diagram: 10/30/17 0510/30/17 0520 Objective Remarks GENERAL: Obese female in no apparent distress. CARDIOVASCULAR: Normal rate and regular rhythm without murmurs, gallops, or rubs. RESPIRATORY: Good respiratory efforts. Breath sounds equal and clear to auscultation bilaterally. GASTROINTESTINAL: Abdomen soft, non-tender, non-distended. Normal active bowel sounds MUSCULOSKELETAL: Extremities without cyanosis, or edema. NEURO: Alert & Oriented to self and place. Moves all ext x4 but generally weak. Normal speech PSYCH: Appropriate mood and affect. A/P Problem List: (1) Fall ICD Code: W19.XXXA - Unspecified fall, initial encounter (2) UTI (urinary tract infection) ICD Code: N39.0 - Urinary tract infection, site not specified Status: Acute (3) Intractable pain ICD Code: R52 - Pain, unspecified (4) Dizziness ICD Code: R42 - Dizziness and giddiness (5) Parkinson disease ICD Code: G20 - Parkinson's disease Status: Chronic (6) Thrombocytopenia ICD Code: D69.6 - Thrombocytopenia, unspecified Assessment and Plan 69-year-old female presented with increased fall secondary to dizziness Dizziness: Worse when she gets out of bed.? Vertigo versus medication side effects. Orthostatic hypertension also in the differential - Consult neurology for assistance. Unclear if Parkinson's medications may be contributing. - CT can of the brain negative for any acute process. MRI of the brain did not show any acute changes. - Continue meclizine. PT following. History of TIA, Chronic anticoagulation with Eliquis -Discussed with the patient and her daughter regarding the risk and benefits of Eliquis. Also discussed with them regarding the increase risks of bleeding since she is having multiple falls. They opted to continue Eliquis for now. We 'll continue workup for dizziness. Hopefully that will improve. Fall: -Seems to be secondary to vertigo. See treatment as above. - Likely need rehabilitation for debility Intractable Pain -Resolved. Patient did not complain of any pain. Abnormal urinalysis: Urine culture shows mixed sanju. - Discontinue IV Rocephin Thrombocytopenia: Chronic -Patient has no signs of active bleeding. -Continue to monitor. Parkinson's Disease: -Continue home medication. - Neurology consulted as above DVT Prophylaxis: on Eliquis Discharge Planning Patient will need rehabilitation. Case management consulted for Edd to evaluate versus SNF. Problem Qualifiers (1) UTI (urinary tract infection): Qualified Codes: N39.0 - Urinary tract infection, site not specified Harjit Whitaker MD Oct 30, 2017 12:56
[2017-10-30] MEDS: PREGABALIN 25 MG CAP PO SCH ×2 (13:30→21:57)
[2017-10-30 14:00] VITALS: BP_SYST 111; BP_SYST 114; BP_SYST 125; BP_DIAS 59; BP_DIAS 65; BP_DIAS 67; PULSE 59
[2017-10-30 16:00] VITALS: BP 112/56; PULSE 67; RESP 20; TEMP 96.4; O2SAT 96
--- NOTE | 2017-10-30 16:31 | RADRPT ---
EXAM DATE/TIME: 10/30/2017 15:11 [facility] COMPARISON: US CAROTID ARTERIES, February 08, 2017, 9:19. INDICATIONS : Syncope. MEDICAL HISTORY : Hypertension. Hypercholesterolemia. Cerebrovascular accident. Dementia. Parkinson's disease. aaa . congestive heart failure. coronary artery disease. SURGICAL HISTORY : Tonsillectomy. Cholecystectomy. Cataract surgery. AAA repair. Left hip replacement. Right ankle fr acture repair. ENCOUNTER: Initial ACUITY: 1 day PAIN SCORE: 0/10 LOCATION: Bilateral neck PEAK SYSTOLIC VELOCITIES (cm/sec): ICA/CCA RATIO: Right: 1.1 Left: 1.6 ICA: Right: 71.3 Left: 85.2 CCA: Right: 65.8 Left: 52.6 ECA: Right: 66.9 Left: 73.4 VERTEBRAL: Right: 69.4 antegrade Left: 59.2 antegrade Elevated flow velocities and ICA/CCA ratios have been found to correlate with increased degrees of vessel stenosis, calculated as percentage of diameter relative to a normal segment of distal ICA/CCA FINDINGS: RIGHT CAROTID: No significant stenosis is visualized. The waveforms are within normal limits. LEFT CAROTID: No significant stenosis is visualized. The waveforms are within normal limits. VERTEBRAL ARTERIES: Antegrade flow is seen in both vertebral arteries. MISCELLANEOUS: None. CONCLUSION: No evidence of hemodynamically significant carotid stenosis. Cain Damon MD on October 30, 2017 at 16:28 Board Certified Radiologist. This report was verified electronically.
[2017-10-30 19:31] VITALS: BP 140/65; PULSE 57; RESP 16; TEMP 97.6; O2SAT 94
[2017-10-30] MEDS: CARVEDILOL 6.25 MG TAB PO SCH (21:40)
[2017-10-30] MEDS: ATORVASTATIN 20 MG TAB PO SCH (21:41)
[2017-10-30] MEDS: lamoTRIgine 100 MG TAB PO SCH (21:41)
[2017-10-31 00:20] VITALS: BP 132/66; PULSE 64; RESP 16; TEMP 97.8; O2SAT 96
[2017-10-31 03:24] VITALS: BP_SYST 122; BP_SYST 139; BP_SYST 145; BP_DIAS 59; BP_DIAS 62; BP_DIAS 64; PULSE 65; TEMP 97.7; O2SAT 96
[2017-10-31] MEDS: ACETAMINOPHEN/HYDROcodone 325 MG/5 MG TAB PO PRN ×2 (04:08→13:07)
[2017-10-31] MEDS: PREGABALIN 25 MG CAP PO SCH ×3 (06:33→19:56)
[2017-10-31] MEDS: MECLIZINE HCL 25 MG TAB PO SCH ×3 (06:33→19:57)
[2017-10-31 08:08] VITALS: BP_SYST 135; BP_SYST 145; BP_DIAS 64; BP_DIAS 68; BP_DIAS 69; PULSE 64; RESP 18; TEMP 97.7; O2SAT 94
--- NOTE | 2017-10-31 09:37 | EKG ---
Date Performed: 10/28/2017 Time Performed: 23:16:14 PTAGE: 77 years EKG: SINUS BRADYCARDIA BORDERLINE ECG PREVIOUS TRACING : 07/29/2017 00.58 Compared to prior tracing no significant change DOCTOR: Katarina Pavon Interpretating Date/Time 10/31/2017 09:36:18
[2017-10-31] MEDS: DOCUSATE SODIUM 50 MG/SENNA 8.6 MG TAB PO SCH ×2 (09:56→19:57)
[2017-10-31] MEDS: SODIUM CHLORIDE 0.9% FLUSH 10 ML FLUSH IV FLUSH SCH ×2 (09:56→19:56)
[2017-10-31] MEDS: BUDESONIDE-FORMOTEROL 160/4.5 MCG INHALER INH SCH ×2 (09:56→19:56)
[2017-10-31] MEDS: DULoxetine HCl DR 60 MG CAP PO SCH (09:57)
[2017-10-31] MEDS: CARBIDOPA/LEVODOPA 25 MG/100 MG TAB PO SCH ×4 (09:57→19:57)
[2017-10-31] MEDS: MEMANTINE HCL 10 MG TAB PO SCH ×2 (09:57→19:57)
[2017-10-31] MEDS: clonazePAM 0.5 MG TAB PO SCH ×2 (09:57→19:58)
[2017-10-31] MEDS: PANTOPRAZOLE SOD 40 MG DELAYED RELEASE TAB PO SCH (09:57)
[2017-10-31] MEDS: APIXABAN 5 MG TABLET PO SCH ×2 (09:57→19:57)
[2017-10-31] MEDS: FOLIC ACID 1 MG TAB PO SCH (09:57)
[2017-10-31] MEDS: SUCRALFATE 1 GM TAB PO SCH ×3 (09:58→18:13)
[2017-10-31] MEDS: CARVEDILOL 6.25 MG TAB PO SCH ×2 (09:58→19:57)
[2017-10-31] MEDS: RIVASTIGMINE 9.5 MG/24 HOUR PATCH T-DERMAL SCH (09:58)
[2017-10-31 12:00] VITALS: BP 128/63; PULSE 60; RESP 18; TEMP 97.5; O2SAT 96
--- NOTE | 2017-10-31 12:08 | PD.CONS ---
History of Present Illness Service Neurology Consult Requested By medical Reason for Consult dizziness Primary Care Physician Khadijah Levin MD History of Present Illness 77 y/o f with pd with cognitive impairment, uses a walker to get around admitted for dizziness, recurrent falls. hx of falls, poor balance. had fall and had recurrence of dizziness. describes it as the room spinning worse with standing and turning her head quickly. feels better sitting still. no vision loss, no focal weakness. has mild renal failure and anemia. on oac, lamictal, sinemet. was at [facility] for decompensated pd since 2016, has had 5 mri brain- none with any acute change/infarct. mra brain/ carotids nml 10/29/2017 mri brain nml Review of Systems Except as stated in HPI: all other systems reviewed are Neg ROS: 14 point review of systems otherwise negative. Past Family Social History Past Medical History PMH: HTN, Hyperlipidemia, AAA, Anxiety, Depression, Bipolar Disorder, COPD, CAD on Eliquis, CVA, Depression and CHF (Echo 02/08/17 w/ EF 55-60%) Past Surgical History PAST SURGICAL HISTORY: Hernia Repair, AAA Repair, Appendectomy, Cholecystectomy , Cataract Surgery, Hysterectomy, Left Hip Replacement, Tonsillectomy Allergies: Coded Allergies: paroxetine (Unverified Allergy, Severe, CAN NOT REMEMBER , 10/28/17) lactose (Unverified Allergy, Unknown, GI UPSET, 10/26/17) Family History PAST FAMILY HISTORY: Reviewed. No h/o DM or CAD Social History PAST SOCIAL HISTORY: Negative for alcohol, tobacco or drugs. Review of Systems All other ROS: ROS reviewed as documented in chart Past Family Social History Allergies: Coded Allergies: paroxetine (Unverified Allergy, Severe, CAN NOT REMEMBER , 10/28/17) lactose (Unverified Allergy, Unknown, GI UPSET, 10/26/17) Active Ordered Medications Current Medications Medications (Trade) Dose Ordered Sig/Dolores Route Start Time Stop Time Status Last Admin (NS Flush) 2 ml UNSCH PRN IV FLUSH 10/29/17 05:00 (NS Flush) 2 ml BID IV FLUSH 10/29/17 09:00 10/31/17 09:56 (Zofran Inj) 4 mg Q6H PRN IVP 10/29/17 05:00 (Tylenol) 650 mg Q6H PRN PO 10/29/17 05:00 (Enid 5-325 Mg) 1 tab Q4H PRN PO 10/29/17 05:00 10/31/17 04:08 (Morphine Inj) 2 mg Q3H PRN IV PUSH 10/29/17 05:00 10/29/17 05:36 (Светлана-Colace) 1 tab BID PO 10/29/17 09:00 10/31/17 09:56 (Milk Of Magnesia Liq) 30 ml Q12H PRN PO 10/29/17 05:00 (Senokot) 17.2 mg Q12H PRN PO 10/29/17 05:00 (Dulcolax Supp) 10 mg DAILY PRN RECTAL 10/29/17 05:00 (Lactulose Liq) 30 ml DAILY PRN PO 10/29/17 05:00 (Valium) 5 mg Q8H PRN PO 10/29/17 05:15 (Eliquis) 5 mg BID PO 10/29/17 09:00 10/31/17 09:57 (Symbicort 160-4.5 Mcg Inh) 2 puff BID INH 10/29/17 09:00 10/31/17 09:56 (Sinemet 25-100 Mg) 1.5 tab QID PO 10/29/17 09:00 10/31/17 09:57 (KlonoPIN) 0.25 mg Q12HR PO 10/29/17 09:00 10/31/17 09:57 (Cymbalta Dr) 60 mg DAILY PO 10/29/17 09:00 10/31/17 09:57 (Folate) 2 mg DAILY PO 10/29/17 09:00 10/31/17 09:57 (LaMICtal) 200 mg HS PO 10/29/17 21:00 10/30/17 21:41 (Namenda) 10 mg BID PO 10/29/17 09:00 10/31/17 09:57 (Protonix) 40 mg DAILY PO 10/29/17 09:00 10/31/17 09:57 (Exelon 9.5 Mg Patch.24hr) 1 patch DAILY T-DERMAL 10/29/17 09:00 10/31/17 09:58 (Carafate) 1 gm TID PO 10/29/17 09:00 10/31/17 09:58 Patient Own Medication PT OWN MED: LUBIPROSTONE (AMITI... BID PO 10/29/17 09:00 Future Hold (Lipitor) 20 mg HS PO 10/29/17 21:00 10/30/17 21:41 (Pill Splitter) 1 ea UNSCH PRN OTHER 10/29/17 05:30 (Antivert) 25 mg Q8HR PO 10/29/17 14:00 10/31/17 06:33 (Coreg) 6.25 mg BID PO 10/30/17 21:00 10/31/17 09:58 (Lyrica) 50 mg Q8HR PO 10/30/17 14:00 10/31/17 06:33 Exam I&O / VS 10/31/17 10/31/17 11/01/17 15:00 23:00 07:00 # Voids 1 Vital Signs Date Time Temp Pulse Resp B/P (MAP) Pulse Ox O2 Delivery O2 Flow Rate FiO2 10/31/17 08:08 97.7 64 18 135/64 (87) 94 145/68 (93) 135/69 (91) 10/31/17 03:24 97.7 65 122/59 (80) 96 145/62 (89) 139/64 (89) 10/31/17 00:20 97.8 64 16 132/66 (88) 96 10/30/17 23:00 21 10/30/17 19:31 97.6 57 16 140/65 (90) 94 10/30/17 16:00 96.4 67 20 112/56 (74) 96 10/30/17 14:00 59 125/65 (85) 111/67 (82) 114/59 (77) 10/30/17 12:00 97.7 63 20 134/60 (84) 95 General: Alert and Oriented, No acute distress Respiratory: Lungs CTA, Non-labored respirations, BS equal Cardiology: Normal rate, Regular Rhythm Neurologic: Alert, Oriented Psychiatric: Cooperative, Appropriate mood & affect Exam Comments sitting up, ox 2-3, follows, slow speech, facial hypomimia, dysphonic speech, slow eomi with mild end gaze nystagmus, face sym, vff, hare to gravity with mild asymmetric left sided rigidity, no tremors, gait not assessed 2/2 fall risk Review/Management Diagnosis/Plan: (1) Dizziness ICD Codes: R42 - Dizziness and giddiness Status: Acute Plan: acute on chronic suspect 2/2 post-traumatic bpv precipitated by fall recs meclizine prn hydration outpatient vestibular therapy optimize tx of anemia no driving d/c planning (2) Parkinson disease ICD Codes: G20 - Parkinson's disease Status: Chronic Plan: sinemet (3) Anxiety and depression ICD Codes: F41.9 - Anxiety disorder, unspecified; F32.9 - Major depressive disorder, single episode, unspecified Status: Chronic Plan: psychotropic agents (4) Dementia ICD Codes: F03.90 - Unspecified dementia without behavioral disturbance Status: Chronic Plan: namenda/rivastigmine Baldemar Hidalgo MD Oct 31, 2017 12:08
--- NOTE | 2017-10-31 12:40 | HHI.PR ---
Subjective Remarks Patient is improving. She is requiring less assistance. Ambulating to the bathroom. Still have episodes of dizziness. Discussed with the patient's family at length. They do not feel comfortable with the patient going home. Her is also frail and will not be able to assist her. This is recurrent hospital visit for fall secondary to her dizziness. Objective Vitals Vital Signs Date Time Temp Pulse Resp B/P (MAP) Pulse Ox O2 Delivery O2 Flow Rate FiO2 10/31/17 12:00 97.5 60 18 128/63 (84) 96 10/31/17 08:08 97.7 64 18 135/64 (87) 94 145/68 (93) 135/69 (91) 10/31/17 03:24 97.7 65 122/59 (80) 96 145/62 (89) 139/64 (89) 10/31/17 00:20 97.8 64 16 132/66 (88) 96 10/30/17 23:00 21 10/30/17 19:31 97.6 57 16 140/65 (90) 94 10/30/17 16:00 96.4 67 20 112/56 (74) 96 10/30/17 14:00 59 125/65 (85) 111/67 (82) 114/59 (77) I/O 10/30/17 10/30/17 10/30/17 10/31/17 10/31/17 10/31/17 06:59 14:59 22:59 06:59 14:59 22:59 Intake Total 1100 ml Balance 1100 ml IV Total 1100 ml # Voids 5 2 1 # Bowel Movements 0 Result Diagram: 10/30/1751910/30/1720 Objective Remarks GENERAL: Obese female in no apparent distress. CARDIOVASCULAR: Normal rate and regular rhythm without murmurs, gallops, or rubs. RESPIRATORY: Good respiratory efforts. Breath sounds equal and clear to auscultation bilaterally. GASTROINTESTINAL: Abdomen soft, non-tender, non-distended. Normal active bowel sounds MUSCULOSKELETAL: Extremities without cyanosis, or edema. NEURO: Alert & Oriented to self and place. Moves all ext x4 but generally weak. Normal speech PSYCH: Appropriate mood and affect. A/P Problem List: (1) Fall ICD Code: W19.XXXA - Unspecified fall, initial encounter (2) UTI (urinary tract infection) ICD Code: N39.0 - Urinary tract infection, site not specified Status: Acute (3) Intractable pain ICD Code: R52 - Pain, unspecified (4) Dizziness ICD Code: R42 - Dizziness and giddiness Status: Acute (5) Parkinson disease ICD Code: G20 - Parkinson's disease Status: Chronic (6) Thrombocytopenia ICD Code: D69.6 - Thrombocytopenia, unspecified Assessment and Plan 69-year-old female presented with increased fall secondary to dizziness. Dizziness: Worse when she gets out of bed. Neurology on board. Probable BPV. Vestibular rehab advised - Continue Meclizine PRN - CT scan of the brain negative for any acute process. MRI of the brain did not show any acute changes. - PT following. History of TIA, Chronic anticoagulation with Eliquis -Discussed with the patient and her daughter regarding the risk and benefits of Eliquis. Also discussed with them regarding the increase risks of bleeding since she is having multiple falls. They opted to continue Eliquis for now. Fall: -Patient has Parkinson's. Vertigo contributing. See treatment as above. - Likely need rehabilitation for debility vs [facility] Chronic anemia: This has been stable. Monitor as needed. Acute on chronic back pain -Pain is controlled on oral medications. Abnormal urinalysis: Urine culture shows mixed sanju. - Discontinue IV Rocephin Thrombocytopenia: Chronic -Patient has no signs of active bleeding. -Continue to monitor as needed. Parkinson's Disease: -Continue home medication. DVT Prophylaxis: on Eliquis Discharge Planning Case discussed with the patient's family at length. They do not feel comfortable with the patient going home today, especially the is not able to care for her. They would like the patient to go to [place]. If not possible, they will need time to find an agency for [facility] care. The patient normally follows with Dr. Hughes. Advised the family that we will contact Dr. Hughes in the morning to determine if the patient can go to [place]. Problem Qualifiers (1) UTI (urinary tract infection): Qualified Codes: N39.0 - Urinary tract infection, site not specified Harjit Whitaker MD Oct 31, 2017 12:40
[2017-10-31] MEDS ORDERED: CARV6.252 PO (12:43)
[2017-10-31] MEDS ORDERED: HYDR-3516 PO (12:43)
[2017-10-31] MEDS ORDERED: LYRI50CA PO (12:43)
[2017-10-31 15:49] VITALS: BP 131/66; PULSE 63; RESP 16; TEMP 97.4; O2SAT 95
[2017-10-31] MEDS: ATORVASTATIN 20 MG TAB PO SCH (19:57)
[2017-10-31] MEDS: lamoTRIgine 100 MG TAB PO SCH (19:58)
[2017-10-31 20:20] VITALS: BP_SYST 102; BP_SYST 90; BP_SYST 96; BP_DIAS 53; BP_DIAS 55; PULSE 75; RESP 18; TEMP 97.5; O2SAT 94
[2017-11-01 00:26] VITALS: BP 113/56; PULSE 75; RESP 18; TEMP 97.7; O2SAT 94
[2017-11-01] MEDS: ACETAMINOPHEN/HYDROcodone 325 MG/5 MG TAB PO PRN (01:46)
[2017-11-01 04:30] VITALS: BP 111/51; PULSE 70; RESP 18; TEMP 97.7; O2SAT 95
[2017-11-01] MEDS: PREGABALIN 25 MG CAP PO SCH ×2 (06:31→14:29)
[2017-11-01] MEDS: MECLIZINE HCL 25 MG TAB PO SCH ×2 (06:32→14:29)
--- NOTE | 2017-11-01 07:28 | HHI.PR ---
Review/Management Diagnosis/Plan: (1) Dizziness ICD Codes: R42 - Dizziness and giddiness Status: Acute Plan: acute on chronic suspect 2/2 post-traumatic bpv precipitated by fall recs meclizine prn hydration outpatient vestibular therapy optimize tx of anemia no driving d/c planning from neurology outpatient f/u with Dr. Draper (2) Parkinson disease ICD Codes: G20 - Parkinson's disease Status: Chronic Plan: sinemet (3) Anxiety and depression ICD Codes: F41.9 - Anxiety disorder, unspecified; F32.9 - Major depressive disorder, single episode, unspecified Status: Chronic Plan: psychotropic agents (4) Dementia ICD Codes: F03.90 - Unspecified dementia without behavioral disturbance Status: Chronic Plan: namenda/rivastigmine Subjective Subjective Comments No acute events reported No headache; less dizziness No chest pain No dyspnea Active Medications Current Medications Medications (Trade) Dose Ordered Sig/Dolores Route Start Time Stop Time Status Last Admin (NS Flush) 2 ml UNSCH PRN IV FLUSH 10/29/17 05:00 (NS Flush) 2 ml BID IV FLUSH 10/29/17 09:00 10/31/17 19:56 (Zofran Inj) 4 mg Q6H PRN IVP 10/29/17 05:00 (Tylenol) 650 mg Q6H PRN PO 10/29/17 05:00 ([place] 5-325 Mg) 1 tab Q4H PRN PO 10/29/17 05:00 11/01/17 01:46 (Morphine Inj) 2 mg Q3H PRN IV PUSH 10/29/17 05:00 10/29/17 05:36 (Светлана-Colace) 1 tab BID PO 10/29/17 09:00 10/31/17 19:57 (Milk Of Magnesia Liq) 30 ml Q12H PRN PO 10/29/17 05:00 (Senokot) 17.2 mg Q12H PRN PO 10/29/17 05:00 (Dulcolax Supp) 10 mg DAILY PRN RECTAL 10/29/17 05:00 (Lactulose Liq) 30 ml DAILY PRN PO 10/29/17 05:00 (Valium) 5 mg Q8H PRN PO 10/29/17 05:15 (Eliquis) 5 mg BID PO 10/29/17 09:00 10/31/17 19:57 (Symbicort 160-4.5 Mcg Inh) 2 puff BID INH 10/29/17 09:00 10/31/17 19:56 (Sinemet 25-100 Mg) 1.5 tab QID PO 10/29/17 09:00 10/31/17 19:57 (KlonoPIN) 0.25 mg Q12HR PO 10/29/17 09:00 10/31/17 19:58 (Cymbalta Dr) 60 mg DAILY PO 10/29/17 09:00 10/31/17 09:57 (Folate) 2 mg DAILY PO 10/29/17 09:00 10/31/17 09:57 (LaMICtal) 200 mg HS PO 10/29/17 21:00 10/31/17 19:58 (Namenda) 10 mg BID PO 10/29/17 09:00 10/31/17 19:57 (Protonix) 40 mg DAILY PO 10/29/17 09:00 10/31/17 09:57 (Exelon 9.5 Mg Patch.24hr) 1 patch DAILY T-DERMAL 10/29/17 09:00 10/31/17 09:58 (Carafate) 1 gm TID PO 10/29/17 09:00 10/31/17 18:13 Patient Own Medication PT OWN MED: LUBIPROSTONE (AMITI... BID PO 10/29/17 09:00 Future Hold (Lipitor) 20 mg HS PO 10/29/17 21:00 10/31/17 19:57 (Pill Splitter) 1 ea UNSCH PRN OTHER 10/29/17 05:30 (Antivert) 25 mg Q8HR PO 10/29/17 14:00 11/01/17 06:32 (Coreg) 6.25 mg BID PO 10/30/17 21:00 10/31/17 19:57 (Lyrica) 50 mg Q8HR PO 10/30/17 14:00 11/01/17 06:31 Allergies Allergies Coded Allergies paroxetine (Unverified Allergy, Severe, CAN NOT REMEMBER , 10/28/17) lactose (Unverified Allergy, Unknown, GI UPSET, 10/26/17) Review of Systems All other ROS: ROS reviewed as documented in chart Exam I&O / VS Vital Signs Date Time Temp Pulse Resp B/P (MAP) Pulse Ox O2 Delivery O2 Flow Rate FiO2 11/01/17 04:30 97.7 70 18 111/51 (71) 95 11/01/17 02:46 18 11/01/17 00:26 97.7 75 18 113/56 (75) 94 10/31/17 20:56 16 10/31/17 20:20 97.5 75 18 102/55 (71) 94 96/53 (67) 90/53 (65) 10/31/17 15:49 97.4 63 16 131/66 (87) 95 10/31/17 12:00 97.5 60 18 128/63 (84) 96 10/31/17 08:08 97.7 64 18 135/64 (87) 94 145/68 (93) 135/69 (91) General: Alert and Oriented, No acute distress Respiratory: Lungs CTA, Non-labored respirations, BS equal Cardiology: Normal rate, Regular Rhythm Neurologic: Alert, Oriented Psychiatric: Cooperative, Appropriate mood & affect Exam Comments sitting up, ox 3, follows, speech more fluent, facial hypomimia, dysphonic speech, slow eomi with mild end gaze nystagmus, face sym, vff, hare to gravity with mild asymmetric left sided rigidity, no tremors, gait not assessed 2/2 fall risk Objective Micro and Labs Date/Time Source Procedure Growth Status 10/28/17 22:04 Urine Clean Catch Urine Culture - Final 10-50,000 CFU/ML MIXED GRAM POSITIVE ... Complete Baldemar Hidalgo MD Nov 01, 2017 07:28
[2017-11-01 08:10] VITALS: BP 103/54; PULSE 66; RESP 10; TEMP 96.8; O2SAT 95
[2017-11-01] MEDS: CARBIDOPA/LEVODOPA 25 MG/100 MG TAB PO SCH ×2 (08:20→14:28)
[2017-11-01] MEDS: clonazePAM 0.5 MG TAB PO SCH (08:21)
[2017-11-01] MEDS: SUCRALFATE 1 GM TAB PO SCH ×2 (08:23→14:30)
[2017-11-01] MEDS: DOCUSATE SODIUM 50 MG/SENNA 8.6 MG TAB PO SCH (08:24)
[2017-11-01] MEDS: RIVASTIGMINE 9.5 MG/24 HOUR PATCH T-DERMAL SCH (08:25)
[2017-11-01] MEDS: PANTOPRAZOLE SOD 40 MG DELAYED RELEASE TAB PO SCH (08:26)
[2017-11-01] MEDS: CARVEDILOL 6.25 MG TAB PO SCH (08:26)
[2017-11-01] MEDS: DULoxetine HCl DR 60 MG CAP PO SCH (08:26)
[2017-11-01] MEDS: FOLIC ACID 1 MG TAB PO SCH (08:26)
[2017-11-01] MEDS: MEMANTINE HCL 10 MG TAB PO SCH (08:26)
[2017-11-01] MEDS: APIXABAN 5 MG TABLET PO SCH (08:26)
[2017-11-01] MEDS: BUDESONIDE-FORMOTEROL 160/4.5 MCG INHALER INH SCH (08:27)
[2017-11-01] MEDS: SODIUM CHLORIDE 0.9% FLUSH 10 ML FLUSH IV FLUSH SCH (08:27)
[2017-11-01 08:39] VITALS: BP 124/60; PULSE 62
--- NOTE | 2017-11-01 10:08 | HHI.FF ---
Face to Face Verification Diagnosis: (1) Parkinson disease (2) Dizziness (3) Fall (4) Intractable pain (5) Dementia (6) Anxiety and depression Physical Therapy Order: Evaluate and Treat, Improve ambulation, Strength and gait training Occupational Therapy Order: Evaluate and Treat, Improve ADL, Gross motor coordination, Fine motor coordination Home Health Nursing Order: Medical education Signs/symptoms of disease process Nursing assessment with vital signs Home Health Aide Order: To Assist In: Bathing and personal care, health underwriter and meal prep I have seen patient Deana Sims on 11/01/17. My clinical findings support the need for the requested home health care services because: Ltd mobility - disease progression Deconditioned w/ increased weakness Limited ability to care for self Impaired cognition/judgement High risk of falls I certify that my clinical findings support that this patient is homebound because: Impaired cognitive ability/safety Unsteady gait/balance Unsafe to leave home unassisted Unable to use public transportation Annabella Koch PA-C Nov 01, 2017 10:07 am
--- NOTE | 2017-11-01 10:34 | HHI.DS ---
Discharge Summary Admission Date Oct 28, 2017 at 21:02 pm Discharge Date: Nov 01, 2017 Admitting Diagnosis UTI, intractable back pain (1) Dizziness ICD Code: R42 - Dizziness and giddiness Diagnosis: Principal Status: Acute (2) Fall ICD Code: W19.XXXA - Unspecified fall, initial encounter Diagnosis: Principal (3) Parkinson disease ICD Code: G20 - Parkinson's disease Diagnosis: Principal Status: Chronic (4) UTI (urinary tract infection) ICD Code: N39.0 - Urinary tract infection, site not specified Diagnosis: Secondary Status: Acute (5) Intractable pain ICD Code: R52 - Pain, unspecified Diagnosis: Secondary (6) Thrombocytopenia ICD Code: D69.6 - Thrombocytopenia, unspecified Diagnosis: Secondary Procedures None. Brief History - From Admission This is a 77-year-old female with a PMH of HTN, Hyperlipidemia, AAA, Anxiety, Depression, Bipolar Disorder, COPD, CAD on Eliquis, CVA, Depression and CHF ( Echo 02/08/17 w/ EF 55-60%) who was brought to the ER by EMS secondary to fall. Per Daughter, pt had fall few days ago on 10/26/17, was seen at [facility] at that time, imaging unremarkable and pt d/c'd home. Today, pt had recurrent fall , no reported LOC, Daughter reports +head trauma. On arrival, BP 187/93, HR 66 , O2 sat 97% on RA, Afebrile. CBC essentially baseline. Platelets 71, previously 94 on 08/11/17. Creatinine 1.47, previously 1.36 on 08/11/17. UA positive for UTI. Knee X-ray negative. CT L-spine negative. CT Head with no acute findings. CT Abd/Pelvis negative. S/p analgesics in ER, however pt w/ persistent complaints of severe pain in addition to dizziness, unsafe d/c home. CBC/BMP: 10/30/17 0520 10/30/17 0520 Significant Findings Laboratory Tests Test 10/30/17 05:20 Red Blood Count 3.57 MIL/MM3 (4.00-5.30) Hemoglobin 9.5 GM/DL (11.6-15.3) Hematocrit 30.0 % (35.0-46.0) Mean Corpuscular Hemoglobin 26.7 PG (27.0-34.0) Mean Corpuscular Hemoglobin Concent 31.8 % (32.0-36.0) Platelet Count 67 TH/MM3 (150-450) Mean Platelet Volume 11.8 FL (7.0-11.0) Neutrophils (%) (Auto) 83.1 % (16.0-70.0) Lymphocytes # (Auto) 0.8 TH/MM3 (1.0-4.8) Blood Urea Nitrogen 25 MG/DL (7-18) Creatinine 1.29 MG/DL (0.50-1.00) Random Glucose 121 MG/DL (74-106) Albumin 3.0 GM/DL (3.4-5.0) Calcium Level 8.4 MG/DL (8.5-10.1) Alkaline Phosphatase 173 U/L (45-117) Alanine Aminotransferase (ALT/SGPT) 9 U/L (10-53) Estimat Glomerular Filtration Rate 40 ML/MIN (>89) Imaging Last Impressions Carotid Artery Ultrasound 10/30/17 0000 Signed Impressions: Service Date/Time: Monday, October 30, 2017 15:11 - CONCLUSION: No evidence of hemodynamically significant carotid stenosis. Cain Damon MD Head CT 10/29/17 0000 Signed Impressions: Service Date/Time: Sunday, October 29, 2017 03:52 - CONCLUSION: Stable brain appearance with no acute findings. Sivakumar Castro MD Brain MRI 10/29/17 0000 Signed Impressions: Service Date/Time: Sunday, October 29, 2017 11:29 - CONCLUSION: Stable periventricular white matter changes negative for acute process. Clayton Wilcox MD FACR Abdomen/Pelvis CT 10/29/17 0000 Signed Impressions: Service Date/Time: Sunday, October 29, 2017 03:55 - CONCLUSION: No acute traumatic injury in the abdomen or pelvis. No acute findings. Sivakumar Castro MD Lumbar Spine CT 10/28/172219 Signed Impressions: Service Date/Time: Saturday, October 28, 2017 22:54 - CONCLUSION: No acute process in the lumbosacral spine. Sivakumar Castro MD Knee X-Ray 10/28/17 3413 Signed Impressions: Service Date/Time: Saturday, October 28, 2017 22:36 - CONCLUSION: No evidence of recent bony injury. Oval ossification adjacent to the superior patella is of uncertain significance and could represent an intra-articular loose body. John Lam MD PE at Discharge GENERAL: Well-nourished, well-developed obese female patient in [facility]. SKIN: Warm and dry. No rash. HEENT: Normocephalic. Atraumatic. Pupils equal and round. Mucous membranes pink and moist. CARDIOVASCULAR: Regular rate and rhythm. S1, S2 noted. No murmur appreciated. RESPIRATORY: No accessory muscle use. Clear to auscultation. Breath sounds equal bilaterally. GASTROINTESTINAL: Abdomen soft, non-tender, nondistended. Normoactive bowel sounds x4. MUSCULOSKELETAL: No obvious deformities. Extremities without clubbing, cyanosis , or edema. NEUROLOGICAL: Awake and alert. Moves all extremities spontaneously, generally weak. Normal speech. PSYCHIATRIC: Appropriate mood and affect. Pt update on day of discharge Follow up for dizziness. The patient reports feeling slightly better today, dizziness slightly improved. She has no new medical complaints including no headache, lightheadedness, chest pain, shortness of breath, abdominal or urinary complaints. Hospital Course 77-year-old female presented with increased fall secondary to dizziness. Dizziness/BPV: Worse when she gets out of bed. CT brain was negative for any acute process. MRI of the brain did not show any acute changes. Neurology consulted, seen by Dr. Hidalgo, suspects secondary to post traumatic BPV precipitated by fall. Given meclizine prn dizziness. Vestibular rehab advised. Family requesting placement into [facility] however patient did not qualify. Case management, physician, and [facility] coordinator discussed extensively with the patient's family who agrees to take patient home with [facility]. Symptoms improved at time of discharge however counseled on using walker at all times, slow transitions, and needs vestibular therapy with [facility]. History of TIA, Chronic anticoagulation with Eliquis. discussed with the patient and her daughter regarding the risk and benefits of Eliquis. Also discussed with them regarding the increase risks of bleeding since she is having multiple falls. They opted to continue Eliquis for now. Fall: Patient has Parkinson's. Vertigo contributing. See treatment as above. Will receive [facility] PT after discharge. Chronic anemia: This has been stable. Monitor as needed. Acute on chronic back pain. Pain is controlled on oral medications. Abnormal urinalysis: Urine culture shows mixed sanju. Discontinue IV Rocephin Thrombocytopenia: Chronic. Patient has no signs of active bleeding. Continue to monitor as needed. Parkinson's Disease: Continue home medication. DVT Prophylaxis: on Eliquis Pt Condition on Discharge: Good Discharge Disposition: Disch w/ Home Health Serv Discharge Time: > 30 minutes Discharge Instructions DIET: Follow Instructions for: As Tolerated, No Restrictions Activities you can perform: Regular-No Restrictions, See Additionl Instruction Other Activity Instructions: Use your walker at all times. Follow up Referrals: Neurology - 1 Week with Renny Draper PhD, MD PCP Follow-up - 1 Week with Khadijah Levin MD New Medications: Hydrocodone/Acetaminophen (Hydrocodone-Acetamin 5-325 mg) 5 Mg-325 Mg Tablet 1 TAB PO Q4H PRN for PAIN GREATER THAN 5, #20 Changed Medications: Carvedilol (Carvedilol) 6.25 Mg Tab 6.25 MG PO BID, #60 TAB 0 Refills (Changed from: Carvedilol (Coreg) 12.5 Mg Tab 12.5 Mg PO BID Blood Pressure Management 30 Days TAB Ref 1) Pregabalin (Lyrica) 50 Mg Cap 50 MG PO BID, #60 CAP 0 Refills (Changed from: Pregabalin (Lyrica) 100 Mg Cap 100 Mg PO Q8HR #90 CAP Ref 2) Continued Medications: Apixaban (Eliquis) 5 Mg Tab 5 MG PO BID for Blood Clot Prevention for 30 Days, #60 TAB 1 Refill Budesonide-Formoterol Inh (Symbicort Inh) 160-4.5 Mcg/Act Aero 2 PUFF INH BID for Asthma Management for 30 Days, INHALER Calcium Carbonate-Cholecalciferol (Calcium 600+D3) 600-200 Mg-Unit Tab 1 TAB PO DAILY for Nutritional Supplement, TAB Calcium/Vitamin D (Oyster Shell 250 mg + Vit D Tb) 250 Mg Calcium (625 Mg)-125 Unit Tablet 500 MG PO DAILY for Nutritional Supplement for 30 Days Carbidopa-Levodopa (Carbidopa-Levodopa) 25-100 Mg Tab 1.5 TAB PO QID for Parkinsons for 30 Days, TAB 1 Refill Clonazepam (Klonopin) 0.5 Mg Tab 0.25 MG PO Q12HR, #60 TAB [address] (Cymbalta DR) 60 Mg Capdr 60 MG PO DAILY, #30 CAP 1 Refill Fluticasone-Salmeterol Inh (Advair Diskus Inh) 250-50 Mcg/Blist Aer 1 PUFF INH BID for Broncospasm, #1 INHALER 0 Refills Rinse mouth after use. Folic Acid (Folic Acid) 1 Mg Tablet 2 MG PO DAILY Furosemide (Lasix) 20 Mg Tab 20 MG PO DAILY, #30 TAB 0 Refills Lamotrigine (Lamictal) 100 Mg Tab 200 MG PO HS for 30 Days, TAB 1 Refill Lubiprostone (Amitiza) 8 Mcg Cap 8 MG PO BID for Constipation for 30 Days, CAP 0 Refills Memantine (Namenda) 10 Mg Tab 10 MG PO BID for 30 Days, TAB 1 Refill Pantoprazole (Pantoprazole) 40 Mg Tab 40 MG PO DAILY for Heartburn Management for 30 Days, TAB 1 Refill Potassium Chloride ER (Potassium Chloride ER) 20 Meq Tab 20 MEQ PO DAILY for Electrolyte Replacement, #30 TAB 0 Refills Rivastigmine Patch (Exelon Patch) 9.5 mg/24 hr Patch 1 PATCH T-DERMAL DAILY for 30 Days, 1 Refill Rosuvastatin (Crestor) 10 Mg Tab 10 MG PO HS for Cholesterol Management, #30 TAB 1 Refill Sucralfate (Carafate) 1 Gram Tab 1 GM PO TID for Ulcer Prevention, #90 TAB 0 Refills 30 MINUTES BEFORE MEALS Discontinued Medications: Acetaminophen (Eq Acetaminophen) 325 Mg Tab 650 MG PO Q4H PRN for pain for 30 Days, #360 TAB Annabella Koch PA-C Nov 01, 2017 10:34
[2017-11-01 12:10] VITALS: BP_SYST 125; BP_SYST 136; BP_SYST 162; BP_DIAS 58; BP_DIAS 72; BP_DIAS 74; PULSE 62; RESP 16; TEMP 96.1; O2SAT 96
[2017-11-01 15:40] VITALS: BP 132/70; PULSE 67; RESP 15; TEMP 96; O2SAT 96
[2017-11-01] MEDS ORDERED: MECL1TAB42 PO (16:41)
[2017-11-01] MEDS ORDERED: LYRI50CA PO (16:42)
[2017-11-01] MEDS ORDERED: CARV6.252 PO (16:42)
== END 2017-11-01 17:54 | disposition home health service (06) | DRG 149 ==
LOC: NEPE 21:02 → NEDA 10-29 04:54 → NEPFCDU 10-29 06:24 → OBSVTOIN 11-01 09:10
PROVIDERS: ADMIT Hospitalist; ATTEND Hospitalist
DX: H81.10 Benign paroxysmal vertigo, unspecified ear (principal); G20 Parkinson's disease; D69.6 Thrombocytopenia, unspecified; N19 Unspecified kidney failure; I50.9 Heart failure, unspecified; I11.0 Hypertensive heart disease with heart failure; S09.90XA Unspecified injury of head, initial encounter; R00.1 Bradycardia, unspecified; N39.0 Urinary tract infection, site not specified; E86.0 Dehydration; J44.9 Chronic obstructive pulmonary disease, unspecified; Z86.73 Personal history of transient ischemic attack (TIA), and cerebral infarction without residual deficits; I25.10 Atherosclerotic heart disease of native coronary artery without angina pectoris; E78.5 Hyperlipidemia, unspecified; K21.9 Gastro-esophageal reflux disease without esophagitis; G47.30 Sleep apnea, unspecified; R29.6 Repeated falls; D64.9 Anemia, unspecified; R49.0 Dysphonia; E66.9 Obesity, unspecified; M19.90 Unspecified osteoarthritis, unspecified site; F02.80 Dementia in other diseases classified elsewhere, unspecified severity, without behavioral disturbance, psychotic disturbance, mood disturbance, and anxiety; F31.9 Bipolar disorder, unspecified; F41.9 Anxiety disorder, unspecified; W01.0XXA Fall on same level from slipping, tripping and stumbling without subsequent striking against object, initial encounter; Y92.009 Unspecified place in unspecified non-institutional (private) residence as the place of occurrence of the external cause; Z68.34 Body mass index [BMI] 34.0-34.9, adult; Z79.01 Long term (current) use of anticoagulants; Z96.642 Presence of left artificial hip joint
CPT/HCPCS: 70450; 70551; 72131; 73564; 74176; 80053; 81001; 85025; 87086; 93005; 93880; 96361; 96365; 96375; 96376; G0378; G8987-GP; G8988-GP; J0696; J2270; J2930; J7030

== ENCOUNTER 2017-11-08 16:39 | Inpatient (IN) | payer MEDICARE, OTHER ==
[~2017-11-08] VITALS: Ht 152.4 cm; Wt 82.8 kg
[~2017-11-08 16:39] MED LIST changes: -ACET325T15 PO; -CARV12.5 PO; +CARV6.252 PO; +HYDR-3516 PO; -LYRI100C PO; +LYRI50CA PO; +MECL1TAB42 PO
[2017-11-08 16:50] VITALS: BP 165/78; PULSE 77; RESP 18; TEMP 98.2; O2SAT 95
[2017-11-08 16:55] VITALS: O2SAT 97
--- NOTE | 2017-11-08 17:04 | PD ---
HPI Chief Complaint: Pain: Acute or Chronic Time Seen by Provider: 16:58 Travel History International Travel<30 days: No Contact w/Intl Traveler<30days: No Traveled to known affect area: No History of Present Illness HPI 77-year-old [place] female with history of Parkinson's, is brought in by her daughter for ongoing back pain, decreased appetite, decreased fluid intake, decreased urine output, abdominal pain, worsening low back pain status post fall, and constipation. Patient fell on October 28, 2017, and was seen and evaluated here with CT scan of the lower lumbar spine. Patient was admitted to observations and then transferred home with home health care and physical therapy. The patient's daughter brought her in today as she is having intractable pain, no movement of her bowels in 4 days, she is concerned about dehydration, and her decreased food intake. Patient had episode of vomiting 2 last evening. Patient has no chest pain or shortness of breath. Pain is localized to the lumbar spine and abdomen is crampy. Patient denies urinary symptoms but has decreased urinary output according to the daughter. Patient is allergic to lactose and paroxetine. PFSH Past Medical History Hx Anticoagulant Therapy: Yes (PLAVIX) AAA: Yes Arthritis: Yes Asthma: Yes Autoimmune Disease: No Bipolar Disorder: Yes Anxiety: Yes Depression: Yes Heart Rhythm Problems: No Cancer: No Cardiovascular Problems: Yes (HTN/ AAA) High Cholesterol: Yes Chemotherapy: No Chest Pain: No Congestive Heart Failure: Yes COPD: No Cerebrovascular Accident: Yes Coronary Artery Disease: Yes Dementia: Yes Diabetes: No Diminished Hearing: No Endocrine: No Gastrointestinal Disorders: Yes (constipation ) GERD: Yes Headaches: Yes Hiatal Hernia: No Heparin Induced Thrombocytopen: No Hypertension: Yes Immune Disorder: No Implanted Vascular Access Dvce: Yes Kidney Stones: No Musculoskeletal: Yes (Arthritis ) Neurologic: Yes (Parkinsons, TIA (jul 2017)) Parkinson's Disease: Yes Psychiatric: Yes (bipolar ) Reproductive: No Respiratory: No Migraines: Yes Radiation Therapy: No Renal Failure: No Seizures: No Sickle Cell Disease: No Sleep Apnea: No Thyroid Disease: No Ulcer: No Past Surgical History Abdominal Aneurysm Repair: Yes Abdominal Surgery: Yes (HERNIA REPAIR X 4) AICD: No Appendectomy: Yes Arteriovenous Shunt: No Body Medical Devices: hip replacement, screws in ankle, subcutaneous heart chip Cardiac Surgery: No Cholecystectomy: Yes Ear Surgery: No Eye Surgery: Yes (BILATERAL CATARACT) Genitourinary Surgery: No Gynecologic Surgery: Yes (HYSTERECTOMY) Hysterectomy: Yes (PARTIAL) Insulin Pump: No Joint Replacement: Yes (LEFT HIP REPLACEMENT WITH REVISION) Oral Surgery: Yes (TONSILLECTOMY) Pacemaker: No Thoracic Surgery: Yes (triple A repair) Tonsillectomy: Yes Other Surgery: Yes (tonsilectomy, appendectomy, triple A repair. GALLBADDER ) Social History Alcohol Use: No Tobacco Use: No Substance Use: No Allergies-Medications (Allergen,Severity, Reaction): Coded Allergies: paroxetine (Unverified Allergy, Severe, CAN NOT REMEMBER , 11/08/17) lactose (Unverified Allergy, Unknown, GI UPSET, 11/08/17) Reported Meds & Prescriptions Reported Meds & Active Scripts Active Lyrica (Pregabalin) 50 Mg Cap 50 Mg PO BID Carvedilol 6.25 Mg Tab 6.25 Mg PO BID Meclizine 25 (Meclizine HCl) 25 Mg Tab 25 Mg PO Q8HR PRN Hydrocodone-Acetamin 5-325 mg (Hydrocodone/Acetaminophen) 5 Mg-325 Mg Tablet 1 Tab PO Q4H PRN Klonopin (Clonazepam) 0.5 Mg Tab 0.25 Mg PO Q12HR Eliquis (Apixaban) 5 Mg Tab 5 Mg PO BID 30 Days Pantoprazole (Pantoprazole Sodium) 40 Mg Tab 40 Mg PO DAILY 30 Days Symbicort Inh (Budesonide/Formoterol Fumarate) 160-4.5 Mcg/Act Aero 2 Puff INH BID 30 Days Oyster Shell 250 mg + Vit D Tb (Calcium/Vitamin D) 250 Mg Calcium (625 Mg)-125 Unit Tablet 500 Mg PO DAILY 30 Days Namenda (Memantine) 10 Mg Tab 10 Mg PO BID 30 Days Carbidopa-Levodopa 25-100 Mg Tab 1.5 Tab PO QID 30 Days Lamictal (Lamotrigine) 100 Mg Tab 200 Mg PO HS 30 Days Exelon Patch (Rivastigmine) 9.5 mg/24 hr Patch 1 Patch T-DERMAL DAILY [address] (Duloxetine HCl) 60 Mg Capdr 60 Mg PO DAILY Advair Diskus Inh (Fluticasone-Salmeterol Inh) 250-50 Mcg/Blist Aer 1 Puff INH BID Rinse mouth after use. Crestor (Rosuvastatin Calcium) 10 Mg Tab 10 Mg PO HS Amitiza (Lubiprostone) 8 Mcg Cap 8 Mg PO BID 30 Days Reported Carafate (Sucralfate) 1 Gram Tab 1 Gm PO TID 30 MINUTES BEFORE MEALS Folic Acid 1 Mg Tablet 2 Mg PO DAILY Calcium 600+D3 (Calcium Carbonate-Cholecalciferol) 600-200 Mg-Unit Tab 1 Tab PO DAILY Potassium Chloride ER (Potassium Chloride) 20 Meq Tab 20 Meq PO DAILY Lasix (Furosemide) 20 Mg Tab 20 Mg PO DAILY Review of Systems Except as stated in HPI: all other systems reviewed are Neg General / Constitutional: No: Fever, Chills Eyes: No: Visual changes HENT: No: Headaches Cardiovascular: No: Chest Pain or Discomfort Respiratory: No: Cough, Shortness of Breath, Wheezing Gastrointestinal: Positive: Nausea, Vomiting, Abdominal Pain, Constipation, Loss of Appetite, No: Diarrhea Genitourinary: Positive: Decreased Urinary Output, No: Dysuria Musculoskeletal: Positive: Myalgias, Arthralgias, Pain Skin: No Rash Neurologic: No: Weakness Psychiatric: No: Depression Endocrine: No: Polydipsia Hematologic/Lymphatic: No: Easy Bruising Physical Exam Narrative GENERAL: Patient appears pale and uncomfortable. SKIN: Warm and dry. Decreased pallor, decreased turgor with obvious tenting. HEAD: Atraumatic. Normocephalic. EYES: Pupils equal and round. No scleral icterus. No injection or drainage. ENT: No nasal bleeding or discharge. Mucous membranes pink and dry. Pharynx is clear. Airway is patent. NECK: Trachea midline. Supple and nontender. CARDIOVASCULAR: Regular rate and rhythm. RESPIRATORY: No accessory muscle use. Clear to auscultation. Breath sounds equal bilaterally. GASTROINTESTINAL: Abdomen soft, mildly diffusely tender, nondistended. Hepatic and splenic margins not palpable. MUSCULOSKELETAL: Extremities without clubbing, cyanosis, or edema. No obvious deformities. Patient complains of generalized low back pain without specific point tenderness. She has negative straight leg raise pain bilaterally. Range of motion is limited secondary to pain. NEUROLOGICAL: Awake and alert. No obvious cranial nerve deficits. Motor grossly within normal limits. Five out of 5 muscle strength in the arms and legs. Normal speech. PSYCHIATRIC: Appropriate mood and affect; insight and judgment normal. Data Data Last Documented VS Vital Signs Date Time Temp Pulse Resp B/P (MAP) Pulse Ox O2 Delivery O2 Flow Rate FiO2 11/08/17 16:58 72 18 11/08/17 16:55 97 Room Air 11/08/17 16:50 98.2 165/78 (107) Orders Orders Complete Blood Count With Diff (11/08/17 17:26) Comprehensive Metabolic Panel (11/08/17 17:26) Lipase (11/08/17 17:26) Prothrombin Time / Inr (Pt) (11/08/17 17:) Urinalysis - C+S If Indicated (11/08/17 17:26) Abdomen, Flat & Upright (11/08/17 ) Iv Access Insert/Monitor (11/08/17 17:) Ecg Monitoring (11/08/17:) Oximetry (11/08/17:) Ondansetron Inj (Zofran Inj) (11/08/17 17:30) Sodium Chloride 0.9% Flush (Ns Flush) (11/08/17 17:30) Lactic Acid (11/08/17 17:) Sodium Chlorid 0.9% 500 Ml Inj (Ns 500 M (11/08/17 17:30) MDM Medical Decision Making Medical Screen Exam Complete: Yes Emergency Medical Condition: Yes Medical Record Reviewed: Yes Differential Diagnosis Intractable low back pain. Constipation. Dehydration. History of anemia. Abdominal discomfort. Possible ileus. Failure to outpatient therapy. History of Parkinson's. Narrative Course Patient is medically stable at time of exam. Labs ordered including CBC, CMP, lactic acid, lipase, PT PTT and INR, and urinalysis. IV access is obtained patient is given 500 mL bolus of normal saline. Patient is given 4 mg Zofran IV. Abdominal flat and upright x-rays are ordered. X-ray showed no acute obstruction with nonspecific gas pattern. 1900 hrs. The patient is turned [facility] to [facility]. Final disposition will be determined by him. Condition: Stable Alexandro Ruiz Nov 08, 2017 17:04
[2017-11-08] MEDS ORDERED: SODIUM CHLORIDE 0.9% FLUSH 10 ML FLUSH IV FLUSH PRN ×2 (17:30→23:00)
[2017-11-08] MEDS ORDERED: ONDANSETRON HCL 4 MG/2 ML VIAL IVP ONE (17:30)
[2017-11-08] MEDS ORDERED: SODIUM CHLORID 0.9% 500 ML INJ 500 ML IV ONE (17:30)
--- NOTE | 2017-11-08 18:05 | RADRPT ---
EXAM DATE/TIME: 11/08/2017 17:45 [place] COMPARISON: ABDOMEN KUB ONLY, February 21, 2017, 15:09. INDICATIONS : Abdominal pain, back pain. MEDICAL HISTORY : None. SURGICAL HISTORY : None. ENCOUNTER: Initial ACUITY: 1 day PAIN SCORE: 0/10 LOCATION: Bilateral abdomen FINDINGS: The bowel gas is nonspecific. There are no signs of obstruction or free air for technique. No defini te calcified stones are identified for technique. CONCLUSION: Nonspecific abdomen. Katia Rebolledo MD on November 08, 2017 at 18:01 Board Certified Radiologist. This report was verified electronically.
[2017-11-08 19:11] LABS: AUTOMATED NEUTROPHIL # 4.8 TH/MM3 (1.8-7.7); BASOPHIL % 0.4 % (0.0-2.0); EOSINOPHIL # 0.1 TH/MM3 (0-0.4); HEMATOCRIT 33.2 % (35.0-46.0); LYMPH % 19.4 % (9.0-44.0); LYMPHOCYTE # 1.3 TH/MM3 (1.0-4.8); MEAN CELL VOLUME 83.9 FL (80.0-100.0); MEAN CORPUSCULAR HEMOGLOBIN 27.7 PG (27.0-34.0); MONO % 9.2 % (0.0-8.0); MONOCYTE # 0.6 TH/MM3 (0-0.9); PLATELET COUNT 134 TH/MM3 (150-450); RED BLOOD COUNT 3.96 MIL/MM3 (4.00-5.30); RED CELL DISTRIBUTION WIDTH 16.4 % (11.6-17.2); WHITE BLOOD COUNT 6.9 TH/MM3 (4.0-11.0)
[2017-11-08 19:23] LABS: ALT (GPT) 6 U/L (10-53)
[2017-11-08 19:25] LABS: ALKALINE PHOSPHATASE 134 U/L (45-117); TOTAL BILIRUBIN ADULT 0.5 MG/DL (0.2-1.0); TOTAL PROTEIN 7.1 GM/DL (6.4-8.2)
[2017-11-08 19:27] LABS: ALBUMIN 3.1 GM/DL (3.4-5.0); AST (GOT) 19 U/L (15-37); BICARBONATE 25.1 MEQ/L (21.0-32.0); BLOOD UREA NITROGEN 15 MG/DL (7-18); CALCIUM 8.6 MG/DL (8.5-10.1); CHLORIDE 103 MEQ/L (98-107); CREATININE 1.25 MG/DL (0.50-1.00); GLOMERULAR FILTRATION RATE 41 ML/MIN (>89); GLUCOSE,RANDOM 95 MG/DL (74-106); LIPASE 122 U/L (73-393); SODIUM (NA) 136 MEQ/L (136-145)
[2017-11-08 20:50] LABS: AMORPHOUS SEDIMENT, URINE RARE; BILIRUBIN, URINE NEG (NEG); BLOOD, URINE NEG (NEG); GLUCOSE,URINE NEG (NEG); HYALINE CAST, URINE 9 /lpf (RARE); KETONE, URINE TRACE mg/dL (NEG); MUCUS URINE FEW /lpf (OCC); NITRITE,URINE NEG (NEG); SQUAMOUS EPITHELIAL CELL URINE <1 /hpf (0-5); URINE COLOR YELLOW (YELLW/STRAW); URINE LEUKOCYTE ESTERASE MOD (NEG)
--- NOTE | 2017-11-08 22:41 | PD ---
Physical Exam Date Seen by Provider: Nov 08, 2017 Time Seen by Provider: 22:38 Data Data Last Documented VS Vital Signs Date Time Temp Pulse Resp B/P (MAP) Pulse Ox O2 Delivery O2 Flow Rate FiO2 11/08/17 16:58 72 18 11/08/17 16:55 97 Room Air 11/08/17 16:50 98.2 165/78 (107) Orders Orders Complete Blood Count With Diff (11/08/17 17:26) Comprehensive Metabolic Panel (11/08/17 17:26) Lipase (11/08/17 17:26) Prothrombin Time / Inr (Pt) (11/08/17 17:26) Urinalysis - C+S If Indicated (11/08/17 17:26) Abdomen, Flat & Upright (11/08/17 ) Iv Access Insert/Monitor (11/08/17 17:26) Ecg Monitoring (11/08/17 17:26) Oximetry (11/08/17 17:26) Ondansetron Inj (Zofran Inj) (11/08/17 17:30) Sodium Chloride 0.9% Flush (Ns Flush) (11/08/17 17:30) Lactic Acid (11/08/17 17:26) Sodium Chlorid 0.9% 500 Ml Inj (Ns 500 M (11/08/17 17:30) Fentanyl Inj (Fentanyl Inj) (11/08/17 21:15) Fentanyl Inj (Fentanyl Inj) (11/08/17 21:30) Admit Order (Ed Use Only) (11/08/17 ) Vital Signs (Adult) Q4H (11/08/17 22:36) Diet Heart Healthy (11/09/17 Breakfast) Activity Oob With Assistance (11/08/17 22:36) Notify Dr: Other (11/08/17 22:36) Labs Laboratory Tests Test 11/08/17 18:39 11/08/17 20:15 White Blood Count 6.9 TH/MM3 Red Blood Count 3.96 MIL/MM3 Hemoglobin 11.0 GM/DL Hematocrit 33.2 % Mean Corpuscular Volume 83.9 FL Mean Corpuscular Hemoglobin 27.7 PG Mean Corpuscular Hemoglobin Concent 33.0 % Red Cell Distribution Width 16.4 % Platelet Count 134 TH/MM3 Mean Platelet Volume 11.0 FL Neutrophils (%) (Auto) 70.0 % Lymphocytes (%) (Auto) 19.4 % Monocytes (%) (Auto) 9.2 % Eosinophils (%) (Auto) 1.0 % Basophils (%) (Auto) 0.4 % Neutrophils # (Auto) 4.8 TH/MM3 Lymphocytes # (Auto) 1.3 TH/MM3 Monocytes # (Auto) 0.6 TH/MM3 Eosinophils # (Auto) 0.1 TH/MM3 Basophils # (Auto) 0.0 TH/MM3 CBC Comment AUTO DIFF Differential Comment AUTO DIFF CONFIRMED Platelet Estimate LOW Platelet Morphology Comment ENLARGED Blood Urea Nitrogen 15 MG/DL Creatinine 1.25 MG/DL Random Glucose 95 MG/DL Total Protein 7.1 GM/DL Albumin 3.1 GM/DL Calcium Level 8.6 MG/DL Alkaline Phosphatase 134 U/L Aspartate Amino Transf (AST/SGOT) 19 U/L Alanine Aminotransferase (ALT/SGPT) 6 U/L Total Bilirubin 0.5 MG/DL Sodium Level 136 MEQ/L Potassium Level 4.8 MEQ/L Chloride Level 103 MEQ/L Carbon Dioxide Level 25.1 MEQ/L Anion Gap 8 MEQ/L Estimat Glomerular Filtration Rate 41 ML/MIN Lactic Acid Level 0.7 mmol/L Lipase 122 U/L Urine Color YELLOW Urine Turbidity CLEAR Urine pH 6.0 Urine Specific [place] 1.007 Urine Protein NEG mg/dL Urine Glucose (UA) NEG mg/dL Urine Ketones TRACE mg/dL Urine Occult Blood NEG Urine Nitrite NEG Urine Bilirubin NEG Urine Urobilinogen LESS THAN 2.0 MG/DL Urine Leukocyte Esterase MOD Urine RBC 1 /hpf Urine WBC 6 /hpf Urine Squamous Epithelial Cells <1 /hpf Urine Amorphous Sediment RARE Urine Hyaline Casts 9 /lpf Urine Mucus FEW /lpf Microscopic Urinalysis Comment CULT NOT INDICATED [facility] [place] Medical Record Reviewed: Yes Supervised Visit with KIYA: No (No) Interpretation(s) Laboratory Tests Test 11/08/17 18:39 11/08/17 20:15 White Blood Count 6.9 TH/MM3 Red Blood Count 3.96 MIL/MM3 Hemoglobin 11.0 GM/DL Hematocrit 33.2 % Mean Corpuscular Volume 83.9 FL Mean Corpuscular Hemoglobin 27.7 PG Mean Corpuscular Hemoglobin Concent 33.0 % Red Cell Distribution Width 16.4 % Platelet Count 134 TH/MM3 Mean Platelet Volume 11.0 FL Neutrophils (%) (Auto) 70.0 % Lymphocytes (%) (Auto) 19.4 % Monocytes (%) (Auto) 9.2 % Eosinophils (%) (Auto) 1.0 % Basophils (%) (Auto) 0.4 % Neutrophils # (Auto) 4.8 TH/MM3 Lymphocytes # (Auto) 1.3 TH/MM3 Monocytes # (Auto) 0.6 TH/MM3 Eosinophils # (Auto) 0.1 TH/MM3 Basophils # (Auto) 0.0 TH/MM3 CBC Comment AUTO DIFF Differential Comment AUTO DIFF CONFIRMED Platelet Estimate LOW Platelet Morphology Comment ENLARGED Blood Urea Nitrogen 15 MG/DL Creatinine 1.25 MG/DL Random Glucose 95 MG/DL Total Protein 7.1 GM/DL Albumin 3.1 GM/DL Calcium Level 8.6 MG/DL Alkaline Phosphatase 134 U/L Aspartate Amino Transf (AST/SGOT) 19 U/L Alanine Aminotransferase (ALT/SGPT) 6 U/L Total Bilirubin 0.5 MG/DL Sodium Level 136 MEQ/L Potassium Level 4.8 MEQ/L Chloride Level 103 MEQ/L Carbon Dioxide Level 25.1 MEQ/L Anion Gap 8 MEQ/L Estimat Glomerular Filtration Rate 41 ML/MIN Lactic Acid Level 0.7 mmol/L Lipase 122 U/L Urine Color YELLOW Urine Turbidity CLEAR Urine pH 6.0 Urine Specific [place] 1.007 Urine Protein NEG mg/dL Urine Glucose (UA) NEG mg/dL Urine Ketones TRACE mg/dL Urine Occult Blood NEG Urine Nitrite NEG Urine Bilirubin NEG Urine Urobilinogen LESS THAN 2.0 MG/DL Urine Leukocyte Esterase MOD Urine RBC 1 /hpf Urine WBC 6 /hpf Urine Squamous Epithelial Cells <1 /hpf Urine Amorphous Sediment RARE Urine Hyaline Casts 9 /lpf Urine Mucus FEW /lpf Microscopic Urinalysis Comment CULT NOT INDICATED Last 24 hours Impressions Abdomen X-Ray 11/08/17 0000 Signed Impressions: Service Date/Time: Wednesday, November 08, 2017 17:45 - CONCLUSION: Nonspecific abdomen. K. Santi Rebolledo MD Differential Diagnosis . Narrative Course This is a [place] who [place] The concern was the patient was dehydrated, weak and having intractable back pain. It was felt the patient would require admission. I review the patient's laboratory testing. She does not have an obvious urinary tract infection. Patient was given fentanyl 25 g IM. The patient's had very limited mobility. She is complaining of significant pain with any type of movement. Patient has not been able to ambulate. I discussed the case with Dr. Pacheoc. She has agreed to admit the patient for observation. Family members have been made aware that she does not meet admission criteria and that she will most likely be discharged tomorrow. He also understand that she does not meet criteria to be admitted to [place] rehabilitation. Diagnosis Primary Impression: Intractable pain Additional Impression: weakness Admitting Information Admitting Physician Requests: Observation Condition: Stable Gregory Miles Nov 08, 2017 22:41
[2017-11-08] MEDS ORDERED: MORPHINE SULFATE 2 MG/ML INJ IV PUSH PRN (23:00)
[2017-11-08] MEDS ORDERED: SENNOSIDES 8.6 MG TAB PO PRN (23:00)
[2017-11-08] MEDS ORDERED: MAGNESIUM HYDROXIDE SUSP 30 ML CUP PO PRN (23:00)
[2017-11-08] MEDS ORDERED: ACETAMINOPHEN 325 MG TAB PO PRN (23:00)
[2017-11-08] MEDS ORDERED: NALOXONE HCL 0.4 MG/ML AMP IV PUSH PRN (23:00)
[2017-11-08] MEDS ORDERED: BISACODYL 10 MG SUPP RECTAL PRN (23:00)
[2017-11-08] MEDS ORDERED: LACTULOSE SYRUP 20 GM/30 ML CUP PO PRN (23:00)
--- NOTE | 2017-11-08 23:48 | HHI.HP ---
HPI Service [facility] Hospitalists Primary Care Physician Khadijah Levin MD Admission Diagnosis intractable pain, weakness Diagnoses: Chief Complaint: low back pain, weakness, abdominal pain, vomiting Travel History International Travel<30 Days: No Contact w/Intl Traveler <30 Da: No Traveled to Known Affected Are: No History of Present Illness 77-year-old female with history of Parkinson's disease, hypertension, hyperlipidemia, AAA s/p repair, COPD, CAD, TIAs on Eliquis, CHF (last echo EF 55 -60% on 02/08/17), vertigo, anxiety/depression, presents with complaints of back pain, abdominal pain, and vomiting. The patient is recently admitted to [facility] 10/28-11/01 for intractable dizziness, weakness, inability to ambulate. She was seen by neurology during that admission, suspected symptoms secondary to vertigo. PT recommended rehabilitation placement however this was unable to be arranged due to patient's observation status and insurance. She was also denied to [facility]. She was discharged home with home health care nursing and physical therapy. She states initially for a few days she was doing better however recently she has had worsening low back pain over the past three days. She locates the pain to the mid lumbar region with radiation to bilateral lower back and slightly into the buttocks, described as a constant severe 10/10 pain. Denies any distal lower extremity paresthesias but she feels weak secondary to the pain. She has been taking a half tablet of [place] with minimal relief. She states yesterday and today she was hardly able to get up to use the restroom. She also reports diffuse periumbilical crampy abdominal pain that started yesterday with associated nausea and 3 episodes of vomiting last night. She has not had a BM in 3-4 days. She reports subjective chills but no fevers. Denies dysuria or increased urinary frequency/urgency. She states she was seen by her [facility] nurse and PT who urged her to come to the hospital. She otherwise denies any other medical complaints including no chest pain, palpitations, shortness of breath, or urinary complaints. Review of Systems Except as stated in HPI: all other systems reviewed are Neg Past Family Social History Past Medical History Parkinson's disease hypertension hyperlipidemia AAA s/p repair COPD CAD TIAs on Eliquis CHF (last echo EF 55-60% on 02/08/17) vertigo anxiety/depression Past Surgical History Hernia repair AAA repair Appendectomy Cholecystectomy Cardiac removal Hysterectomy Left total hip arthroplasty Tonsillectomy Reported Medications Lyrica (Pregabalin) 50 Mg Cap 50 Mg PO BID Carvedilol 6.25 Mg Tab 6.25 Mg PO BID Meclizine 25 (Meclizine HCl) 25 Mg Tab 25 Mg PO Q8HR PRN Hydrocodone-Acetamin 5-325 mg (Hydrocodone/Acetaminophen) 5 Mg-325 Mg Tablet 1 Tab PO Q4H PRN Klonopin (Clonazepam) 0.5 Mg Tab 0.25 Mg PO Q12HR Eliquis (Apixaban) 5 Mg Tab 5 Mg PO BID 30 Days Pantoprazole (Pantoprazole Sodium) 40 Mg Tab 40 Mg PO DAILY 30 Days Symbicort Inh (Budesonide/Formoterol Fumarate) 160-4.5 Mcg/Act Aero 2 Puff INH BID 30 Days Oyster Shell 250 mg + Vit D Tb (Calcium/Vitamin D) 250 Mg Calcium (625 Mg)-125 Unit Tablet 500 Mg PO DAILY 30 Days Namenda (Memantine) 10 Mg Tab 10 Mg PO BID 30 Days Carbidopa-Levodopa 25-100 Mg Tab 1.5 Tab PO QID 30 Days Lamictal (Lamotrigine) 100 Mg Tab 200 Mg PO HS 30 Days Exelon Patch (Rivastigmine) 9.5 mg/24 hr Patch 1 Patch T-DERMAL DAILY [address] (Duloxetine HCl) 60 Mg Capdr 60 Mg PO DAILY Advair Diskus Inh (Fluticasone-Salmeterol Inh) 250-50 Mcg/Blist Aer 1 Puff INH BID Rinse mouth after use. Crestor (Rosuvastatin Calcium) 10 Mg Tab 10 Mg PO HS Amitiza (Lubiprostone) 8 Mcg Cap 8 Mg PO BID 30 Days Carafate (Sucralfate) 1 Gram Tab 1 Gm PO TID 30 MINUTES BEFORE MEALS Folic Acid 1 Mg Tablet 2 Mg PO DAILY Calcium 600+D3 (Calcium Carbonate-Cholecalciferol) 600-200 Mg-Unit Tab 1 Tab PO DAILY Potassium Chloride ER (Potassium Chloride) 20 Meq Tab 20 Meq PO DAILY Lasix (Furosemide) 20 Mg Tab 20 Mg PO DAILY Allergies: Coded Allergies: paroxetine (Unverified Allergy, Severe, CAN NOT REMEMBER , 11/08/17) lactose (Unverified Allergy, Unknown, GI UPSET, 11/08/17) Active Ordered Medications Current Medications Medications (Trade) Dose Ordered Sig/Dolores Route Start Time Stop Time Status Last Admin (NS Flush) 2 ml UNSCH PRN IV FLUSH 11/08/17 17:30 (Morphine Inj) 2 mg Q3H PRN IV PUSH 11/08/17 23:00 11/08/17 23:45 (NS Flush) 2 ml UNSCH PRN IV FLUSH 11/08/17 23:00 (NS Flush) 2 ml BID IV FLUSH 11/09/17 09:00 (Tylenol) 650 mg Q4H PRN PO 11/08/17 23:00 (Zofran Inj) 4 mg Q6H PRN IVP 11/08/17 23:00 (Narcan Inj) 0.4 mg UNSCH PRN IV PUSH 11/08/17 23:00 (Светлана-Colace) 1 tab BID PO 11/09/17 09:00 (Milk Of Magnesia Liq) 30 ml Q12H PRN PO 11/08/17 23:00 (Senokot) 17.2 mg Q12H PRN PO 11/08/17 23:00 (Dulcolax Supp) 10 mg DAILY PRN RECTAL 11/08/17 23:00 (Lactulose Liq) 30 ml DAILY PRN PO 11/08/17 23:00 (Eliquis) 5 mg BID PO 11/09/17 09:00 (Sinemet 25-100 Mg) 1.5 tab QID PO 11/09/17 09:00 (Coreg) 6.25 mg BID PO 11/09/17 09:00 (Cymbalta Dr) 60 mg DAILY PO 11/09/17 09:00 (Lasix) 20 mg DAILY PO 11/09/17 09:00 (LaMICtal) 200 mg HS PO 11/09/17 21:00 (Namenda) 10 mg BID PO 11/09/17 09:00 (Protonix) 40 mg DAILY PO 11/09/17 09:00 (Lyrica) 50 mg BID PO 11/09/17 09:00 (Lipitor) 20 mg HS PO 11/09/17 21:00 Family History Father and brothers with heart disease Mother with cancer, possibly kidney cancer Social History Denies any tobacco, alcohol, or illicit drug use. Physical Exam Vital Signs Vital Signs Date Time Temp Pulse Resp B/P (MAP) Pulse Ox O2 Delivery O2 Flow Rate FiO2 11/08/17 16:58 72 18 11/08/17 16:55 97 Room Air 11/08/17 16:50 98.2 77 18 165/78 (107) 95 Physical Exam GENERAL: Well-nourished, well-developed pleasant elderly female patient in [facility]. SKIN: Warm and dry. No rash. HEAD: Normocephalic. Atraumatic. EYES: Pupils equal and round. No scleral icterus. No injection or drainage. ENT: No nasal bleeding or discharge. Mucous membranes pink and moist. NECK: Supple. Trachea midline. CARDIOVASCULAR: Regular rate and rhythm. S1, S2 noted. No murmur appreciated. RESPIRATORY: No accessory muscle use. Clear to auscultation. Breath sounds equal bilaterally. GASTROINTESTINAL: Abdomen soft, nondistended, diffuse periumbilical TTP. Normoactive bowel sounds x4. MUSCULOSKELETAL: No obvious deformities. Extremities without clubbing, cyanosis , or edema. NEUROLOGICAL: Awake and alert. No obvious cranial nerve deficits. Motor grossly within normal limits. 5/5 muscle strength in bilateral upper extremities , 5/5 strength with bilateral plantar/dorsiflexion, 3/5 strength with bilateral hip flexion suspect limited by pain. Normal speech. PSYCHIATRIC: Appropriate mood and affect; insight and judgment normal. Laboratory Laboratory Tests Test 11/08/17 18:39 11/08/17 20:15 White Blood Count 6.9 Red Blood Count 3.96 Hemoglobin 11.0 Hematocrit 33.2 Mean Corpuscular Volume 83.9 Mean Corpuscular Hemoglobin 27.7 Mean Corpuscular Hemoglobin Concent 33.0 Red Cell Distribution Width 16.4 Platelet Count 134 Mean Platelet Volume 11.0 Neutrophils (%) (Auto) 70.0 Lymphocytes (%) (Auto) 19.4 Monocytes (%) (Auto) 9.2 Eosinophils (%) (Auto) 1.0 Basophils (%) (Auto) 0.4 Neutrophils # (Auto) 4.8 Lymphocytes # (Auto) 1.3 Monocytes # (Auto) 0.6 Eosinophils # (Auto) 0.1 Basophils # (Auto) 0.0 CBC Comment AUTO DIFF Differential Comment AUTO DIFF CONFIRMED Platelet Estimate LOW Platelet Morphology Comment ENLARGED Blood Urea Nitrogen 15 Creatinine 1.25 Random Glucose 95 Total Protein 7.1 Albumin 3.1 Calcium Level 8.6 Alkaline Phosphatase 134 Aspartate Amino Transf (AST/SGOT) 19 Alanine Aminotransferase (ALT/SGPT) 6 Total Bilirubin 0.5 Sodium Level 136 Potassium Level 4.8 Chloride Level 103 Carbon Dioxide Level 25.1 Anion Gap 8 Estimat Glomerular Filtration Rate 41 Lactic Acid Level 0.7 Lipase 122 Urine Color YELLOW Urine Turbidity CLEAR Urine pH 6.0 Urine Specific [place] 1.007 Urine Protein NEG Urine Glucose (UA) NEG Urine Ketones TRACE Urine Occult Blood NEG Urine Nitrite NEG Urine Bilirubin NEG Urine Urobilinogen LESS THAN 2.0 Urine Leukocyte Esterase MOD Urine RBC 1 Urine WBC 6 Urine Squamous Epithelial Cells <1 Urine Amorphous Sediment RARE Urine Hyaline Casts 9 Urine Mucus FEW Microscopic Urinalysis Comment CULT NOT INDICATED Result Diagram: 11/08/17 1839 11/08/17 1839 Imaging Last Impressions Abdomen X-Ray 11/08/17 0000 Signed Impressions: Service Date/Time: Wednesday, November 08, 2017 17:45 - CONCLUSION: Nonspecific abdomen. K. Santi Rebolledo MD Caprini VTE Risk Assessment Caprini VTE Risk Assessment: Mod/High Risk (score >= 2) Caprini Risk Assessment Model Point Value = 1 Point Value = 2 Point Value = 3 Point Value = 5 Age 41-60 Minor surgery BMI > 25 kg/m2 Swollen legs Varicose veins or History of unexplained or recurrent spontaneous Oral contraceptives or hormone replacement Sepsis (< 1 month) Serious lung disease, including pneumonia (< 1 month) Abnormal pulmonary function Acute myocardial infarction Congestive heart failure (< 1 month) History of inflammatory bowel disease Medical patient at bed rest Age 61-74 Arthroscopic surgery Major open surgery (> 45 min) Laparoscopic surgery (> 45 min) Malignancy Confined to bed (> 72 hours) Immobilizing plaster cast Central venous access Age >= 75 History of VTE Family history of VTE Factor V Leiden Prothrombin [id number] Lupus anticoagulant Anticardiolipin antibodies Elevated serum homocysteine Heparin-induced thrombocytopenia Other congenital or acquired thrombophilia Stroke (< 1 month) Elective arthroplasty Hip, pelvis, or leg fracture Acute spinal cord injury (< 1 month) Prophylaxis Regimen Total Risk Factor Score Risk Level Prophylaxis Regimen 0-1 Low Early ambulation 2 Moderate Order ONE of the following: *Sequential Compression Device (SCD) *Heparin 5000 units SQ BID 3-4 Higher Order ONE of the following medications: *Heparin 5000 units SQ TID *Enoxaparin/Lovenox 40 mg SQ daily (WT < 150 kg, CrCl > 30 mL/min) *Enoxaparin/Lovenox 30 mg SQ daily (WT < 150 kg, CrCl > 10-29 mL/min) *Enoxaparin/Lovenox 30 mg SQ BID (WT < 150 kg, CrCl > 30 mL/min) AND/OR *Sequential Compression Device (SCD) 5 or more Highest Order ONE of the following medications: *Heparin 5000 units SQ TID (Preferred with Epidurals) *Enoxaparin/Lovenox 40 mg SQ daily (WT < 150 kg, CrCl > 30 mL/min) *Enoxaparin/Lovenox 30 mg SQ daily (WT < 150 kg, CrCl > 10-29 mL/min) *Enoxaparin/Lovenox 30 mg SQ BID (WT < 150 kg, CrCl > 30 mL/min) AND *Sequential Compression Device (SCD) Assessment and Plan Problem List: (1) Abdominal pain ICD Code: R10.9 - Unspecified abdominal pain (2) Nausea & vomiting ICD Code: R11.2 - Nausea with vomiting, unspecified (3) Constipation ICD Code: K59.00 - Constipation, unspecified (4) Intractable pain ICD Code: R52 - Pain, unspecified Assessment and Plan 77-year-old female with history of Parkinson's disease, hypertension, hyperlipidemia, AAA s/p repair, COPD, CAD, TIAs on Eliquis, CHF (last echo EF 55 -60% on 02/08/17), vertigo, anxiety/depression, presents with complaints of back pain, abdominal pain, and vomiting. Intractable low back pain/radiculopathy with Inability to Ambulate: EMR reviewed , lumbar spine CT done on 10/28/17 images reviewed, no acute findings. No recent fall or injury since prior imaging done. -S/p fentanyl IM in the ED with minimal relief of pain -Continue pain control with [place] prn and IV morphine prn breakthrough pain -K thermia -Consult PT -Consider lumbar spine MRI in am if no improvement -Case management to assist with discharge planning, SNF vs [facility] Abdominal Pain/Nausea/Vomiting: suspect secondary to opioid induced constipation. UA unremarkable. EMR reviewed, recent abdominal CT 10/29 with no acute findings. -Abdominal xray images reviewed, show nonspecific bowel gas pattern. -Give Miralax x1 now -Started светлана-colace bid and constipation protocol medications -Monitor for BM Parkinson's Disease: chronic -continue patient's home meds including Sinemet Dementia: chronic -continue patient's Namenda Hx of TIA: chronic, anticoagulated on Eliquis -continue patient's Eliquis CAD/CHF/HTN/HLD: chronic, stable, no signs of fluid overload. BP fairly well controlled. -continue patient's home meds including coreg, statin, lasix -monitor BP, adjust antihypertensives as needed COPD: chronic, does not appear to be in exacerbation, O2 sat stable on room air -continue patient's Symbicort DVT Prophylaxis: on Eliquis All other medical conditions stable, continue home medications as appropriate. Discussed Condition With Patient, RN Annabella Koch PA-C Nov 08, 2017 23:48
[2017-11-09] VITALS: BP 127/63; PULSE 77; RESP 17; TEMP 97.9; O2SAT 95
[2017-11-09] MEDS ORDERED: MORPHINE SULFATE 2 MG/ML INJ IV PUSH PRN (02:15)
[2017-11-09] MEDS ORDERED: ACETAMINOPHEN 325 MG TAB PO PRN (02:15)
[2017-11-09] MEDS ORDERED: POLYETHYLENE GLYCOL 17 GM PKG PO ONE (02:15)
[2017-11-09] MEDS ORDERED: ACETAMINOPHEN/HYDROcodone 325 MG/5 MG TAB PO PRN (02:15)
[2017-11-09 02:27] LABS: AUTOMATED NEUTROPHIL # 4.1 TH/MM3 (1.8-7.7); BASOPHIL # 0.1 TH/MM3 (0-0.2); BASOPHIL % 1.4 % (0.0-2.0); EOSINOPHIL # 0.1 TH/MM3 (0-0.4); HEMATOCRIT 37.4 % (35.0-46.0); HEMOGLOBIN 11.7 GM/DL (11.6-15.3); LYMPH % 21.2 % (9.0-44.0); LYMPHOCYTE # 1.3 TH/MM3 (1.0-4.8); MEAN CELL VOLUME 84.6 FL (80.0-100.0); MEAN CORPUSCULAR HEMOGLOBIN 26.5 PG (27.0-34.0); MEAN CORPUSCULAR HGB CONC 31.3 % (32.0-36.0); MONO % 9.7 % (0.0-8.0); MONOCYTE # 0.6 TH/MM3 (0-0.9); NEUT % 65.7 % (16.0-70.0); PLATELET COUNT 109 TH/MM3 (150-450); RED BLOOD COUNT 4.42 MIL/MM3 (4.00-5.30); WHITE BLOOD COUNT 6.3 TH/MM3 (4.0-11.0)
[2017-11-09] MEDS ORDERED: PILL SPLITTER OTHER PRN (02:30)
[2017-11-09 02:42] LABS: INTERNATIONAL NORMALIZED RATIO 1.3 RATIO; PROTHROMBIN TIME - PATIENT 13.2 SEC (9.8-11.6)
[2017-11-09 02:51] LABS: BICARBONATE 28.2 MEQ/L (21.0-32.0); CALCIUM 8.9 MG/DL (8.5-10.1); CREATININE 1.09 MG/DL (0.50-1.00)
[2017-11-09] MEDS: clonazePAM 0.5 MG TAB PO PRN ×2 (02:52→21:29)
[2017-11-09] MEDS: ACETAMINOPHEN/HYDROcodone 325 MG/7.5 MG TAB PO PRN ×3 (02:54→22:44)
[2017-11-09 03:23] VITALS: BP 142/68; PULSE 71; RESP 17; TEMP 97.7; O2SAT 95
[2017-11-09 08:12] VITALS: BP 114/58; PULSE 98; RESP 21; TEMP 98.1; O2SAT 94
[2017-11-09] MEDS: FUROSEMIDE 20 MG TAB PO SCH (09:00)
[2017-11-09] MEDS ORDERED: HEPARIN SODIUM - SQ 10,000 UNITS/ML VIAL SQ SCH (09:00)
[2017-11-09] MEDS: MEMANTINE HCL 10 MG TAB PO SCH ×2 (09:33→21:29)
[2017-11-09] MEDS: PANTOPRAZOLE SOD 40 MG DELAYED RELEASE TAB PO SCH (09:33)
[2017-11-09] MEDS: DULoxetine HCl DR 60 MG CAP PO SCH (09:33)
[2017-11-09] MEDS: APIXABAN 5 MG TABLET PO SCH ×2 (09:34→21:29)
[2017-11-09] MEDS: DOCUSATE SODIUM 50 MG/SENNA 8.6 MG TAB PO SCH ×2 (09:34→21:28)
[2017-11-09] MEDS: CARVEDILOL 6.25 MG TAB PO SCH ×2 (09:34→21:29)
[2017-11-09] MEDS: PREGABALIN 25 MG CAP PO SCH ×2 (09:34→21:28)
[2017-11-09] MEDS: CARBIDOPA/LEVODOPA 25 MG/100 MG TAB PO SCH ×4 (09:34→21:28)
[2017-11-09] MEDS: SODIUM CHLORIDE 0.9% FLUSH 10 ML FLUSH IV FLUSH SCH ×2 (09:35→21:30)
--- NOTE | 2017-11-09 09:36 | HHI.PR ---
Subjective Remarks in no acute distress. has some pain to the lower back. worked with PT earlier this morning. at times dizzy. d/w the RN. Objective Vitals Vital Signs Date Time Temp Pulse Resp B/P (MAP) Pulse Ox O2 Delivery O2 Flow Rate FiO2 11/09/17 08:12 98.1 98 21 114/58 (76) 94 11/09/17 03:23 97.7 71 17 142/68 (92) 95 11/09/17 00:00 97.9 77 17 127/63 (84) 95 11/09/17 00:00 15 11/08/17 23:30 17 11/08/17 16:58 72 18 11/08/17 16:55 97 Room Air 11/08/17 16:50 98.2 77 18 165/78 (107) 95 I/O 11/08/17 11/08/17 11/08/17 11/09/17 11/09/17 11/09/17 06:59 14:59 22:59 06:59 14:59 22:59 Intake Total 720 ml Output Total 300 ml Balance -300 ml 720 ml Intake Oral 720 ml Output Urine Total 300 ml # Voids 1 1 Result Diagram: 11/09/17 0145 11/09/17 0145 Imaging Last Impressions Abdomen X-Ray 11/08/17 0000 Signed Impressions: Service Date/Time: Wednesday, November 08, 2017 17:45 - CONCLUSION: Nonspecific abdomen. Katia Rebolledo MD Objective Remarks GENERAL: This is a well-nourished, well-developed patient, in no apparent distress. CARDIOVASCULAR: Regular rate and regular rhythm without murmurs, gallops, or rubs. RESPIRATORY: Clear to auscultation. Breath sounds equal bilaterally. No wheezes , rales, or rhonchi. GASTROINTESTINAL: Abdomen soft, non-tender, nondistended. Normal, active bowel sounds MUSCULOSKELETAL: Extremities without clubbing, cyanosis, or edema. NEURO: Alert & Oriented x4 to person, place, time, situation. Moves all ext x4 Medications and IVs Inpatient Medications Acetaminophen (Tylenol) 650 mg Q6H PRN PO headache/fever/pain1-2; Start at 02:15 Acetaminophen/ Hydrocodone Bitart ([place] 5-325 Mg) 1 tab Q4H PRN PO PAIN SCALE 3 TO 5; Start 11/09/17 at 02:15 Acetaminophen/ Hydrocodone Bitart ([place] 7.5-325 Mg) 1 tab Q4H PRN PO PAIN SCALE 6 TO 10 Last administered on 11/09/17at 02:54; Start 11/09/17 at 02:15 Apixaban (Eliquis) 5 mg BID PO ; Start 11/09/17 at 09:00 Atorvastatin Calcium (Lipitor) 20 mg HS PO ; Start 11/09/17 at 21:00 Bisacodyl (Dulcolax Supp) 10 mg DAILY PRN RECTAL SEVERE CONSITIPATION; Start at 23:00 Budesonide/ Formoterol Fumarate (Symbicort 160-4.5 Mcg Inh) 2 puff BID INH ; Start 11/09/17 at 09:00 Carbidopa/Levodopa (Sinemet 25-100 Mg) 1.5 tab QID PO ; Start 11/09/17 at 09:00 Carvedilol (Coreg) 6.25 mg BID PO ; Start 11/09/17 at 09:00 Clonazepam (KlonoPIN) 0.25 mg Q12H PRN PO anxiety Last administered on at 02:52; Start 11/09/17 at 02:30 Duloxetine HCl (Cymbalta Dr) 60 mg DAILY PO ; Start 11/09/17 at 09:00 Fentanyl Citrate (fentaNYL INJ) 25 mcg ONCE ONCE IM Last administered on at 21:20; Start 11/08/17 at 21:30; Stop 11/08/17 at 21:31; Status DC Furosemide (Lasix) 20 mg DAILY PO ; Start 11/09/17 at 09:00 Lactulose (Lactulose Liq) 30 ml DAILY PRN PO SEVERE CONSITIPATION; Start at 23:00 Lamotrigine (LaMICtal) 200 mg HS PO ; Start 11/09/17 at 21:00 Magnesium Hydroxide (Milk Of Magnesia Liq) 30 ml Q12H PRN PO Mild constipation ; Start 11/08/17 at 23:00 Memantine (Namenda) 10 mg BID PO ; Start 11/09/17 at 09:00 Miscellaneous (Pill Splitter) 1 ea UNSCH PRN OTHER SEE LABEL COMMENTS; Start at 02:30 Morphine Sulfate (Morphine Inj) 2 mg Q3H PRN IV PUSH breakthrough pain Last administered on 11/09/17at 06:10; Start 11/09/17 at 02:15 Naloxone HCl (Narcan Inj) 0.4 mg UNSCH PRN IV PUSH SEE LABEL COMMENTS; Start at 23:00 Ondansetron HCl (Zofran Inj) 4 mg Q6H PRN IVP NAUSEA OR VOMITING; Start at 23:00 Pantoprazole Sodium (Protonix) 40 mg DAILY PO ; Start 11/09/17 at 09:00 Polyethylene Glycol (Miralax) 17 gm ONCE ONCE PO Last administered on at 02:51; Start 11/09/17 at 02:15; Stop 11/09/17 at 02:16; Status DC Pregabalin (Lyrica) 50 mg BID PO ; Start 11/09/17 at 09:00 Senna/Docusate Sodium (Reba-Colace) 1 tab BID PO ; Start 11/09/17 at 09:00 Sennosides (Senokot) 17.2 mg Q12H PRN PO Moderate constipation; Start 11/08/17 at 23:00 Sodium Chloride (NS Flush) 2 ml BID IV FLUSH ; Start 11/09/17 at 09:00 A/P Problem List: (1) Abdominal pain ICD Code: R10.9 - Unspecified abdominal pain (2) Nausea & vomiting ICD Code: R11.2 - Nausea with vomiting, unspecified (3) Constipation ICD Code: K59.00 - Constipation, unspecified (4) Intractable pain ICD Code: R52 - Pain, unspecified Assessment and Plan Intractable low back pain/radiculopathy with Inability to Ambulate: EMR reviewed , lumbar spine CT done on 10/28/17 images reviewed, no acute findings. No recent fall or injury since prior imaging done. -Continue pain control with [place] prn and IV morphine prn breakthrough pain -K thermia -Consulted PT -Case management to assist with discharge planning, SNF vs [facility] Abdominal Pain/Nausea/Vomiting: suspect secondary to opioid induced constipation. UA unremarkable. EMR reviewed, recent abdominal CT 10/29 with no acute findings. -Abdominal xray images reviewed, show nonspecific bowel gas pattern. -Started reba-colace bid and constipation protocol medications -Monitor for BM Parkinson's Disease: chronic -continue patient's home meds including Sinemet Dementia: chronic -continue patient's Namenda Hx of TIA: chronic, anticoagulated on Eliquis -continue patient's Eliquis CAD/CHF/HTN/HLD: chronic, stable, no signs of fluid overload. BP fairly well controlled. -continue patient's home meds including coreg, statin- hold lasix today. -monitor BP, adjust antihypertensives as needed COPD: chronic, does not appear to be in exacerbation, O2 sat stable on room air -continue patient's Symbicort DVT Prophylaxis: on Eliquis Discharge Planning when pain is better controlled. HHC vs SNF. Houston De La Paz MD Nov 09, 2017 09:36
[2017-11-09 11:04] VITALS: BP 107/53; PULSE 69; RESP 20; TEMP 98.2; O2SAT 90
[2017-11-09] MEDS ORDERED: MECLIZINE HCL 25 MG TAB PO PRN (11:15)
[2017-11-09] MEDS: BUDESONIDE-FORMOTEROL 160/4.5 MCG INHALER INH SCH ×2 (13:20→21:37)
[2017-11-09 16:33] VITALS: BP 116/54; PULSE 65; RESP 18; TEMP 98; O2SAT 97
[2017-11-09] MEDS ORDERED: LIDOCAINE HCL 5% PATCH T-DERMAL ONE (17:00)
--- NOTE | 2017-11-09 19:33 | HHI.PR ---
Addendum to Inpatient Note Addendum Reason: Additional Documentation Additional Information I see patient in the office. It looks like she is at max assist for ambulation and transfers at this time due to pain. She lives with her who is also somewhat debilitated and not a good candidate to be able to adequately assist her in her activities. She has family who lives nearby but not with them and I believe they work and may not be able to provide 24 hour care at home. I'm thinking it would not be safe to discharge her to home without at least daytime supervision by someone able to help adequately with transfers and to the bathroom. Otherwise, penitentiary placement until mobile would be needed. Not sure if she would be a candidate for a back brace support to help with pain in the short term (maybe not full TLSO but a smaller brace she could get on more easily). If that isn't effective, possibly pain mgt evaluation so we can avoid opiod meds that may cause further constipation and gait instabilty/confusion. Feel free to call me if needed. I'll speak with her family tomorrow MD Ollie Westfall,Khadijah Garcia MD Nov 09, 2017 19:33
[2017-11-09 20:35] VITALS: BP 109/56; PULSE 65; RESP 18; TEMP 98.1; O2SAT 96
[2017-11-09] MEDS: lamoTRIgine 100 MG TAB PO SCH (21:28)
[2017-11-09] MEDS: ATORVASTATIN 20 MG TAB PO SCH (21:29)
--- NOTE | 2017-11-09 22:31 | RADRPT ---
EXAM DATE/TIME: 11/09/2017 21:43 [facility] COMPARISON: CT LUMBAR SPINE W/O CONTRAST, October 28, 2017, 22:54. INDICATIONS : Pain. MEDICAL HISTORY : Parkinson's. Hypertension. Hypercholesterolemia. SURGICAL HISTORY : Abdominal aortic aneurysm repair. Cholecystectomy. Appendectomy. Loop recorder-medtronic, hysterectom y, left hip replacment. ENCOUNTER: Initial ACUITY: 1 month PAIN SCORE: 8/10 LOCATION: Bilateral lower back region. TECHNIQUE: Multiplanar multisequence MRI of the lumbar spine was performed without contrast. FINDINGS: The most caudal appearing lumbar vertebra is numbered as L5. There is subacute fracture of T12 with a pproximate 20% reduction of height and significant edema of this vertebrae. There is old superior end plate depression of L3 without any marrow edema. T12-L1: There is no evidence for any significant compromise to the thecal sac, or the exiting nerve roots. N o appreciable thecal sac stenosis is seen. The neural foramina and lateral recess appear patent bila terally. L1-L2: There is no evidence for any significant compromise to the thecal sac, or the exiting nerve roots. N o appreciable thecal sac stenosis is seen. The neural foramina and lateral recess appear patent bila terally. L2-L3: There is no evidence for any significant compromise to the thecal sac, or the exiting nerve roots. N o appreciable thecal sac stenosis is seen. The neural foramina and lateral recess appear patent bila terally. L3-L4: Slight bulging disc and hypertrophic changes are seen with indentation on the thecal sac and no signi ficant compromise to the thecal sac or the exiting nerve roots. L4-L5: Slight overall thecal sac stenosis is seen due to central disc bulge and hypertrophic changes. L5-S1: There is no evidence for any significant compromise to the thecal sac, or the exiting nerve roots. N o appreciable thecal sac stenosis is seen. The neural foramina and lateral recess appear patent bila terally. CONCLUSION: 1. Slight thecal sac stenosis L4-5. 2. Subacute compression fracture of T12 without any significant compromise to the thecal sac or the e xiting nerve roots at this level. Ktaia Rebolledo MD on November 09, 2017 at 22:26 Board Certified Radiologist. This report was verified electronically.
[2017-11-10 00:05] VITALS: BP 123/56; PULSE 64; RESP 18; TEMP 97.7; O2SAT 97
[2017-11-10 03:55] VITALS: BP 128/64; PULSE 60; RESP 18; TEMP 97.9; O2SAT 98
[2017-11-10] MEDS: ACETAMINOPHEN/HYDROcodone 325 MG/7.5 MG TAB PO PRN ×5 (04:34→22:56)
--- NOTE | 2017-11-10 09:18 | HHI.PR ---
Subjective Remarks in no acute disress. but still with some pain to the lower back with no significant change. no BM yet. Objective Vitals Vital Signs Date Time Temp Pulse Resp B/P (MAP) Pulse Ox O2 Delivery O2 Flow Rate FiO2 11/10/17 03:55 97.9 60 18 128/64 (85) 98 11/10/17 00:05 97.7 64 18 123/56 (78) 97 11/09/17 20:35 98.1 65 18 109/56 (73) 96 11/09/17 16:33 98.0 65 18 116/54 (74) 97 11/09/17 11:04 98.2 69 20 107/53 (71) 90 I/O 11/09/17 11/09/17 11/09/17 11/10/17 11/10/17 11/10/17 07:00 15:00 23:00 07:00 15:00 23:00 Intake Total 720 ml 500 ml 1000 ml Balance 720 ml 500 ml 1000 ml Intake Oral 720 ml 500 ml 1000 ml # Voids 1 2 Result Diagram: 11/09/17 0145 11/09/17 0145 Imaging Last Impressions Lumbar Spine MRI 11/09/17 0000 Signed Impressions: Service Date/Time: Thursday, November 09, 2017 21:43 - CONCLUSION: 1. Slight thecal sac stenosis L4-5. 2. Subacute compression fracture of T12 without any significant compromise to the thecal sac or the exiting nerve roots at this level. Katia Rebolledo MD Abdomen X-Ray 11/08/17 0000 Signed Impressions: Service Date/Time: Wednesday, November 08, 2017 17:45 - CONCLUSION: Nonspecific abdomen. Kaita Rebolledo MD Objective Remarks GENERAL: This is a well-nourished, well-developed patient, in no apparent distress. CARDIOVASCULAR: Regular rate and regular rhythm without murmurs, gallops, or rubs. RESPIRATORY: Clear to auscultation. Breath sounds equal bilaterally. No wheezes , rales, or rhonchi. GASTROINTESTINAL: Abdomen soft, non-tender, nondistended. Normal, active bowel sounds MUSCULOSKELETAL: Extremities without clubbing, cyanosis, or edema. NEURO: Alert & Oriented x4 to person, place, time, situation. Moves all ext x4 Medications and IVs Inpatient Medications Acetaminophen (Tylenol) 650 mg Q6H PRN PO headache/fever/pain1-2; Start at 02:15 Acetaminophen/ Hydrocodone Bitart ([place] 5-325 Mg) 1 tab Q4H PRN PO PAIN SCALE 3 TO 5 Last administered on 11/09/17 17:59; Start 11/09/17 at 02:15 Acetaminophen/ Hydrocodone Bitart ([place] 7.5-325 Mg) 1 tab Q4H PRN PO PAIN SCALE 6 TO 10 Last administered on 11/10/17 04:34; Start 11/09/17 at 02:15 Apixaban (Eliquis) 5 mg BID PO Last administered on 11/09/17 21:29; Start at 09:00 Atorvastatin Calcium (Lipitor) 20 mg HS PO Last administered on 11/09/17 21:29 ; Start 11/09/17 at 21:00 Bisacodyl (Dulcolax Supp) 10 mg DAILY PRN RECTAL SEVERE CONSITIPATION; Start at 23:00 Budesonide/ Formoterol Fumarate (Symbicort 160-4.5 Mcg Inh) 2 puff BID INH Last administered on 11/09/17 21:37; Start 11/09/17 at 09:00 Carbidopa/Levodopa (Sinemet 25-100 Mg) 1.5 tab QID PO Last administered on 21:28; Start 11/09/17 at 09:00 Carvedilol (Coreg) 6.25 mg BID PO Last administered on 11/09/17 21:29; Start at 09:00 Clonazepam (KlonoPIN) 0.25 mg Q12H PRN PO anxiety Last administered on 21:29; Start 11/09/17 at 02:30 Duloxetine HCl (Cymbalta Dr) 60 mg DAILY PO Last administered on 11/09/17 09:33 ; Start 11/09/17 at 09:00 Fentanyl Citrate (fentaNYL INJ) 25 mcg ONCE ONCE IM Last administered on 21:20; Start 11/08/17 at 21:30; Stop 11/08/17 at 21:31; Status DC Furosemide (Lasix) 20 mg DAILY PO ; Start 11/09/17 at 09:00; Status Future Hold Lactulose (Lactulose Liq) 30 ml DAILY PRN PO SEVERE CONSITIPATION; Start at 23:00 Lamotrigine (LaMICtal) 200 mg HS PO Last administered on 11/09/17at 21:28; Start 11/09/17 at 21:00 Lidocaine HCl (Lidoderm 5% Patch.12 Hr) 1 patch ONCE ONCE T-DERMAL Last administered on 11/09/17at 18:02; Start 11/09/17 at 17:00; Stop 11/09/17 at 17:01; Status DC Magnesium Hydroxide (Milk Of Magnesia Liq) 30 ml Q12H PRN PO Mild constipation ; Start 11/08/17 at 23:00 Meclizine HCl (Antivert) 25 mg Q8HR PRN PO VERTIGO; Start 11/09/17 at 11:15 Memantine (Namenda) 10 mg BID PO Last administered on 11/09/17at 21:29; Start 11/09/17 at 09:00 Miscellaneous (Pill Splitter) 1 ea UNSCH PRN OTHER SEE LABEL COMMENTS; Start at 02:30 Morphine Sulfate (Morphine Inj) 2 mg Q3H PRN IV PUSH breakthrough pain Last administered on 11/09/17at 06:10; Start 11/09/17 at 02:15 Naloxone HCl (Narcan Inj) 0.4 mg UNSCH PRN IV PUSH SEE LABEL COMMENTS; Start at 23:00 Ondansetron HCl (Zofran Inj) 4 mg Q6H PRN IVP NAUSEA OR VOMITING; Start at 23:00 Pantoprazole Sodium (Protonix) 40 mg DAILY PO Last administered on 11/09/17at 09: 33; Start 11/09/17 at 09:00 Polyethylene Glycol (Miralax) 17 gm ONCE ONCE PO Last administered on at 02:51; Start 11/09/17 at 02:15; Stop 11/09/17 at 02:16; Status DC Pregabalin (Lyrica) 50 mg BID PO Last administered on 11/09/17at 21:28; Start 11/09/17 at 09:00 Senna/Docusate Sodium (Светлана-Colace) 1 tab BID PO Last administered on 11/09/17at 21:28; Start 11/09/17 at 09:00 Sennosides (Senokot) 17.2 mg Q12H PRN PO Moderate constipation; Start 11/08/17 at 23:00 Sodium Chloride (NS Flush) 2 ml BID IV FLUSH Last administered on 11/09/17at 21: 30; Start 11/09/17 at 09:00 A/P Problem List: (1) Abdominal pain ICD Code: R10.9 - Unspecified abdominal pain (2) Nausea & vomiting ICD Code: R11.2 - Nausea with vomiting, unspecified (3) Constipation ICD Code: K59.00 - Constipation, unspecified (4) Intractable pain ICD Code: R52 - Pain, unspecified Assessment and Plan Intractable low back pain/radiculopathy with Inability to Ambulate with subacute T12 fracture. -Continue pain control with [place] prn and IV morphine prn breakthrough pain -will consult ortho. -K thermia -Consulted PT -Case management to assist with discharge planning, SNF vs [facility] -'s input appreciated. Parkinson's Disease: chronic -continue patient's home meds including Sinemet Dementia: chronic -continue patient's Namenda Hx of TIA: chronic, anticoagulated on Eliquis -continue patient's Eliquis CAD/CHF/HTN/HLD: chronic, stable, no signs of fluid overload. BP fairly well controlled. -continue patient's home meds including coreg, statin- hold lasix today. -monitor BP, adjust antihypertensives as needed COPD: chronic, does not appear to be in exacerbation, O2 sat stable on room air -continue patient's Symbicort DVT Prophylaxis: on Eliquis Discharge Planning when pain is better controlled-pending ortho evaluation. [facility] vs SNF. Houston De La Paz MD Nov 10, 2017 09:18
[2017-11-10 09:31] VITALS: BP 136/68; PULSE 63; RESP 20; TEMP 96.3; O2SAT 97
[2017-11-10] MEDS: BUDESONIDE-FORMOTEROL 160/4.5 MCG INHALER INH SCH ×2 (09:41→21:00)
[2017-11-10] MEDS: CARBIDOPA/LEVODOPA 25 MG/100 MG TAB PO SCH ×4 (09:43→20:19)
[2017-11-10] MEDS: SODIUM CHLORIDE 0.9% FLUSH 10 ML FLUSH IV FLUSH SCH ×2 (09:43→21:00)
[2017-11-10] MEDS: PANTOPRAZOLE SOD 40 MG DELAYED RELEASE TAB PO SCH (09:44)
[2017-11-10] MEDS: DULoxetine HCl DR 60 MG CAP PO SCH (09:44)
[2017-11-10] MEDS: APIXABAN 5 MG TABLET PO SCH ×2 (09:44→20:19)
[2017-11-10] MEDS: MEMANTINE HCL 10 MG TAB PO SCH ×2 (09:45→20:22)
[2017-11-10] MEDS: DOCUSATE SODIUM 50 MG/SENNA 8.6 MG TAB PO SCH ×2 (09:45→20:18)
[2017-11-10] MEDS: CARVEDILOL 6.25 MG TAB PO SCH ×2 (09:45→20:20)
[2017-11-10] MEDS: PREGABALIN 25 MG CAP PO SCH ×2 (09:45→20:22)
[2017-11-10] MEDS: ONDANSETRON HCL 4 MG/2 ML VIAL IVP PRN (09:51)
[2017-11-10 13:17] VITALS: BP 128/61; PULSE 66; RESP 12; TEMP 96.2; O2SAT 98
--- NOTE | 2017-11-10 15:05 | PD.CONS ---
[facility] Service Orthopedic Surgeons Consult Requested By Primary Care Physician Khadijah Levin MD Admission Diagnosis intractable pain, weakness Diagnoses: (1) Abdominal pain Diagnosis: Secondary (2) Nausea & vomiting Diagnosis: Secondary (3) Constipation Diagnosis: Secondary (4) Intractable pain Diagnosis: Principal Chief Complaint: Back pain History of Present Illness Patient is a 77-year-old female who presents with approximately 13 days of back pain. Patient had a fall approximately 2 weeks ago and had acute onset of back pain. Patient did present to the ED and was sent home with pain medications. However, patient has had severe pain not controlled by oral medications and significant difficulty with mobilization due to pain and only family assistance at home. Patient reports mid to low back pain. She denies any radicular symptoms. She has significant discomfort whenever she tries to change positions. Pain is mildly improved with lying supine. Patient denies bowel or bladder dysfunction. Denies balance or coordination issues but has significant issues with ambulation due to back pain. Review of Systems Constitutional: DENIES: Fever Endocrine: DENIES: Polyuria Eyes: DENIES: Blurred vision Ears, nose, mouth, throat: DENIES: Throat pain Respiratory: DENIES: Cough Cardiovascular: DENIES: Chest pain Gastrointestinal: DENIES: Abdominal pain Genitourinary: DENIES: Urinary incontinence Musculoskeletal: COMPLAINS OF: Back pain Integumentary: DENIES: Rash Hematologic/lymphatic: DENIES: Bruising Immunologic/allergic: DENIES: Eczema Neurologic: DENIES: Localized weakness Psychiatric: DENIES: Anxiety Past Family Social History Past Medical History Parkinson's disease hypertension hyperlipidemia AAA s/p repair COPD CAD TIAs on Eliquis CHF (last echo EF 55-60% on 02/08/17) vertigo anxiety/depression Past Surgical History Hernia repair AAA repair Appendectomy Cholecystectomy Cardiac removal Hysterectomy Left total hip arthroplasty Tonsillectomy Reported Medications Please see full list Allergies: Coded Allergies: paroxetine (Unverified Allergy, Severe, CAN NOT REMEMBER , 11/08/17) lactose (Unverified Allergy, Unknown, GI UPSET, 11/08/17) Active Ordered Medications Current Medications Medications (Trade) Dose Ordered Sig/Dolores Route Start Time Stop Time Status Last Admin (NS Flush) 2 ml UNSCH PRN IV FLUSH 11/08/17 17:30 (NS Flush) 2 ml UNSCH PRN IV FLUSH 11/08/17 23:00 (NS Flush) 2 ml BID IV FLUSH 11/09/17 09:00 11/10/17 09:43 (Zofran Inj) 4 mg Q6H PRN IVP 11/08/17 23:00 11/10/17 09:51 (Narcan Inj) 0.4 mg UNSCH PRN IV PUSH 11/08/17 23:00 (Светлана-Colace) 1 tab BID PO 11/09/17 09:00 11/10/17 09:45 (Milk Of Magnesia Liq) 30 ml Q12H PRN PO 11/08/17 23:00 (Senokot) 17.2 mg Q12H PRN PO 11/08/17 23:00 (Dulcolax Supp) 10 mg DAILY PRN RECTAL 11/08/17 23:00 (Lactulose Liq) 30 ml DAILY PRN PO 11/08/17 23:00 (Eliquis) 5 mg BID PO 11/09/17 09:00 11/10/17 09:44 (Sinemet 25-100 Mg) 1.5 tab QID PO 11/09/17 09:00 11/10/17 13:00 (Coreg) 6.25 mg BID PO 11/09/17 09:00 11/10/17 09:45 (Cymbalta Dr) 60 mg DAILY PO 11/09/17 09:00 11/10/17 09:44 (Lasix) 20 mg DAILY PO 11/09/17 09:00 Future Hold (LaMICtal) 200 mg HS PO 11/09/17 21:00 11/09/17 21:28 (Namenda) 10 mg BID PO 11/09/17 09:00 11/10/17 09:45 (Protonix) 40 mg DAILY PO 11/09/17 09:00 11/10/17 09:44 (Lyrica) 50 mg BID PO 11/09/17 09:00 11/10/17 09:45 (Lipitor) 20 mg HS PO 11/09/17 21:00 11/09/17 21:29 (Tylenol) 650 mg Q6H PRN PO 11/09/17 02:15 ([place] 5-325 Mg) 1 tab Q4H PRN PO 11/09/17 02:15 11/09/17 17:59 ([place] 7.5-325 Mg) 1 tab Q4H PRN PO 11/09/17 02:15 11/10/17 13:24 (Morphine Inj) 2 mg Q3H PRN IV PUSH 11/09/17 02:15 11/09/17 06:10 (Symbicort 160-4.5 Mcg Inh) 2 puff BID INH 11/09/17 09:00 11/10/17 09:41 (KlonoPIN) 0.25 mg Q12H PRN PO 11/09/17 02:30 11/09/17 21:29 (Pill Splitter) 1 ea UNSCH PRN OTHER 11/09/17 02:30 (Antivert) 25 mg Q8HR PRN PO 11/09/17 11:15 (Vitamin D3) 2,000 units DAILY PO 11/11/17 09:00 Reported Meds & Active Scripts Active Lyrica (Pregabalin) 50 Mg Cap 50 Mg PO BID Carvedilol 6.25 Mg Tab 6.25 Mg PO BID Meclizine 25 (Meclizine HCl) 25 Mg Tab 25 Mg PO Q8HR PRN Hydrocodone-Acetamin 5-325 mg (Hydrocodone/Acetaminophen) 5 Mg-325 Mg Tablet 1 Tab PO Q4H PRN Klonopin (Clonazepam) 0.5 Mg Tab 0.25 Mg PO Q12HR Eliquis (Apixaban) 5 Mg Tab 5 Mg PO BID 30 Days Pantoprazole (Pantoprazole Sodium) 40 Mg Tab 40 Mg PO DAILY 30 Days Symbicort Inh (Budesonide/Formoterol Fumarate) 160-4.5 Mcg/Act Aero 2 Puff INH BID 30 Days Oyster Shell 250 mg + Vit D Tb (Calcium/Vitamin D) 250 Mg Calcium (625 Mg)-125 Unit Tablet 500 Mg PO DAILY 30 Days Namenda (Memantine) 10 Mg Tab 10 Mg PO BID 30 Days Carbidopa-Levodopa 25-100 Mg Tab 1.5 Tab PO QID 30 Days Lamictal (Lamotrigine) 100 Mg Tab 200 Mg PO HS 30 Days Exelon Patch (Rivastigmine) 9.5 mg/24 hr Patch 1 Patch T-DERMAL DAILY [address] (Duloxetine HCl) 60 Mg Capdr 60 Mg PO DAILY Advair Diskus Inh (Fluticasone-Salmeterol Inh) 250-50 Mcg/Blist Aer 1 Puff INH BID Rinse mouth after use. Crestor (Rosuvastatin Calcium) 10 Mg Tab 10 Mg PO HS Amitiza (Lubiprostone) 8 Mcg Cap 8 Mg PO BID 30 Days Reported Carafate (Sucralfate) 1 Gram Tab 1 Gm PO TID 30 MINUTES BEFORE MEALS Folic Acid 1 Mg Tablet 2 Mg PO DAILY Calcium 600+D3 (Calcium Carbonate-Cholecalciferol) 600-200 Mg-Unit Tab 1 Tab PO DAILY Potassium Chloride ER (Potassium Chloride) 20 Meq Tab 20 Meq PO DAILY Lasix (Furosemide) 20 Mg Tab 20 Mg PO DAILY Family History Father and brothers with heart disease Mother with cancer, possibly kidney cancer Social History Denies any tobacco, alcohol, or illicit drug use. Physical Exam Vital Signs Vital Signs Date Time Temp Pulse Resp B/P (MAP) Pulse Ox O2 Delivery O2 Flow Rate FiO2 11/10/17 14:25 20 11/10/17 13:17 96.2 66 12 128/61 (83) 98 11/10/17 10:48 20 11/10/17 09:31 96.3 63 20 136/68 (90) 97 11/10/17 03:55 97.9 60 18 128/64 (85) 98 11/10/17 00:05 97.7 64 18 123/56 (78) 97 11/09/17 20:35 98.1 65 18 109/56 (73) 96 11/09/17 16:33 98.0 65 18 116/54 (74) 97 Physical Exam Awake, alert, no acute distress Normocephalic Pupils equal No JVD Moist mucous membranes Nonlabored respirations Regular rate Soft nontender abdomen Significant back discomfort with movement and palpation. This seems to center around the thoracolumbar junction. Bilateral lower extremities: Appear grossly intact although strength testing is difficult due to pain. The patient demonstrates positive iliopsoas, quads and hamstrings, gastrocs and soleus, tib ant, EHL and FHL. Sensation appears intact throughout. Brisk cap refill. Bilateral upper extremity: No tenderness to palpation and no gross deformities. Appears neurovascularly intact distally. Radial pulses are palpable. No rash Normal affect Laboratory Laboratory Tests Test 11/10/17 11:08 25-Hydroxy Vitamin D Total 21.1 Result Diagram: 11/09/17 0145 11/09/17 0145 Imaging Last 48 hours Impressions Lumbar Spine MRI 11/09/17 0000 Signed Impressions: Service Date/Time: Thursday, November 09, 2017 21:43 - CONCLUSION: 1. Slight thecal sac stenosis L4-5. 2. Subacute compression fracture of T12 without any significant compromise to the thecal sac or the exiting nerve roots at this level. Katia Rebolledo MD Assessment & Plan Assessment and Plan 77-year-old female with intractable back pain with acute T12 compression fracture, with significant difficulty with mobilization at home At this time, I discussed options of management with the patient and her daughter. Her T12 compression deformity does appear relatively acute given the significant amount of bony edema found on MRI. I do believe this is likely the cause of most of her symptoms. I explained to the patient and her daughter that most often we initially try to treat these nonoperatively with bracing, activity modification, and pain medications. Given her fracture is at T12, I do think bracing would be difficult as it would be a bulky TLSO. Patient's daughter states she does not think her mother will wear this. I explained that this is an option to try to help with symptoms but is not necessarily required. I would recommend mobilization as tolerated as the patient should not be bedbound as a result of this. Patient does have some family assistance at home but has significant difficulty with mobilizing over the last 2 weeks since her injury and therefore I do think she would be a good candidate for possible rehabilitation placement. I did discuss the option of kyphoplasty. I do think it is still relatively too early to consider this as she is only 13 days out from injury and without significant loss of vertebral body height. I would like to see if her pain symptoms improve over the next 1-2 weeks. Should her symptoms worsen or not improve, I would offer her kyphoplasty. This was discussed with the patient and her daughter and they do agree to continue with nonoperative management at this time with reevaluation in approximately 1-2 weeks. At that time again, should her symptoms not be improving I would consider kyphoplasty. I did career counselor the patient and her daughter on activities to avoid including excessive bending, twisting, or lifting. Patient can follow-up in my office in 1-2 weeks for reevaluation or should she be at [facility], I would be able to likely see her there. Isa Abdi MD Nov 10, 2017 15:05
[2017-11-10 17:03] VITALS: BP 123/69; PULSE 67; RESP 18; TEMP 95.9; O2SAT 99
[2017-11-10] MEDS: lamoTRIgine 100 MG TAB PO SCH (20:18)
[2017-11-10] MEDS: ATORVASTATIN 20 MG TAB PO SCH (20:19)
[2017-11-10 22:20] VITALS: BP 138/61; PULSE 66; RESP 18; TEMP 97.6; O2SAT 93
[2017-11-11 01:25] VITALS: BP 123/57; PULSE 64; RESP 18; TEMP 97.8; O2SAT 93
[2017-11-11] MEDS: ACETAMINOPHEN/HYDROcodone 325 MG/7.5 MG TAB PO PRN ×4 (02:57→17:47)
[2017-11-11 04:13] VITALS: BP 145/64; PULSE 76; RESP 18; TEMP 97.9; O2SAT 93
[2017-11-11 07:19] VITALS: BP 129/65; PULSE 65; RESP 18; O2SAT 92
[2017-11-11] MEDS: SODIUM CHLORIDE 0.9% FLUSH 10 ML FLUSH IV FLUSH SCH ×2 (09:00→20:41)
[2017-11-11] MEDS: BUDESONIDE-FORMOTEROL 160/4.5 MCG INHALER INH SCH ×2 (09:14→20:41)
[2017-11-11] MEDS: PANTOPRAZOLE SOD 40 MG DELAYED RELEASE TAB PO SCH (09:15)
[2017-11-11] MEDS: DOCUSATE SODIUM 50 MG/SENNA 8.6 MG TAB PO SCH ×2 (09:15→20:40)
[2017-11-11] MEDS: DULoxetine HCl DR 60 MG CAP PO SCH (09:15)
[2017-11-11] MEDS: APIXABAN 5 MG TABLET PO SCH ×2 (09:15→20:40)
[2017-11-11] MEDS: CHOLECALCIFEROL (VIT D3) 1000 UNIT TAB PO SCH (09:15)
[2017-11-11] MEDS: MEMANTINE HCL 10 MG TAB PO SCH ×2 (09:15→20:36)
[2017-11-11] MEDS: CARBIDOPA/LEVODOPA 25 MG/100 MG TAB PO SCH ×4 (09:15→20:34)
[2017-11-11] MEDS: CARVEDILOL 6.25 MG TAB PO SCH ×2 (09:15→20:39)
[2017-11-11] MEDS: PREGABALIN 25 MG CAP PO SCH ×2 (09:15→20:36)
--- NOTE | 2017-11-11 10:48 | HHI.PR ---
Subjective Remarks in no acute distress. still with low back pain ( 05/16). no new complaints. Objective Vitals Vital Signs Date Time Temp Pulse Resp B/P (MAP) Pulse Ox O2 Delivery O2 Flow Rate FiO2 11/11/17 10:33 20 11/11/17 10:33 20 11/11/17 07:19 65 18 129/65 (86) 92 11/11/17 04:13 97.9 76 18 145/64 (91) 93 11/11/17 01:25 97.8 64 18 123/57 (79) 93 11/10/17 22:20 97.6 66 18 138/61 (86) 93 11/10/17 17:03 95.9 67 18 123/69 (87) 99 11/10/17 13:17 96.2 66 12 128/61 (83) 98 I/O 11/10/17 11/10/17 11/10/17 11/11/17 11/11/17 11/11/17 07:00 15:00 23:00 07:00 15:00 23:00 Intake Total 1000 ml Balance 1000 ml Intake Oral 1000 ml # Voids 3 1 Result Diagram: 11/09/17 0145 11/09/17 0145 Imaging Last Impressions Lumbar Spine MRI 11/09/17 0000 Signed Impressions: Service Date/Time: Thursday, November 09, 2017 21:43 - CONCLUSION: 1. Slight thecal sac stenosis L4-5. 2. Subacute compression fracture of T12 without any significant compromise to the thecal sac or the exiting nerve roots at this level. Katia Rebolledo MD Abdomen X-Ray 11/08/17 0000 Signed Impressions: Service Date/Time: Wednesday, November 08, 2017 17:45 - CONCLUSION: Nonspecific abdomen. Katia Rebolledo MD Objective Remarks GENERAL: This is a well-nourished, well-developed patient, in no apparent distress. CARDIOVASCULAR: Regular rate and regular rhythm without murmurs, gallops, or rubs. RESPIRATORY: Clear to auscultation. Breath sounds equal bilaterally. No wheezes , rales, or rhonchi. GASTROINTESTINAL: Abdomen soft, non-tender, nondistended. Normal, active bowel sounds MUSCULOSKELETAL: Extremities without clubbing, cyanosis, or edema. NEURO: Alert & Oriented x4 to person, place, time, situation. Moves all ext x4 Medications and IVs Inpatient Medications Acetaminophen (Tylenol) 650 mg Q6H PRN PO headache/fever/pain1-2; Start at 02:15 Acetaminophen/ Hydrocodone Bitart ([place] 5-325 Mg) 1 tab Q4H PRN PO PAIN SCALE 3 TO 5 Last administered on 11/09/17 17:59; Start 11/09/17 at 02:15 Acetaminophen/ Hydrocodone Bitart ([place] 7.5-325 Mg) 1 tab Q4H PRN PO PAIN SCALE 6 TO 10 Last administered on 11/11/17 09:16; Start 11/09/17 at 02:15 Apixaban (Eliquis) 5 mg BID PO Last administered on 11/11/17 09:15; Start at 09:00 Atorvastatin Calcium (Lipitor) 20 mg HS PO Last administered on 11/10/17 20:19 ; Start 11/09/17 at 21:00 Bisacodyl (Dulcolax Supp) 10 mg DAILY PRN RECTAL SEVERE CONSITIPATION; Start at 23:00 Budesonide/ Formoterol Fumarate (Symbicort 160-4.5 Mcg Inh) 2 puff BID INH Last administered on 11/11/17 09:14; Start 11/09/17 at 09:00 Carbidopa/Levodopa (Sinemet 25-100 Mg) 1.5 tab QID PO Last administered on 09:15; Start 11/09/17 at 09:00 Carvedilol (Coreg) 6.25 mg BID PO Last administered on 11/11/17 09:15; Start at 09:00 Cholecalciferol (Vitamin D3) 2,000 units DAILY PO Last administered on 09:15; Start 11/11/17 at 09:00 Clonazepam (KlonoPIN) 0.25 mg Q12H PRN PO anxiety Last administered on 21:29; Start 11/09/17 at 02:30 Duloxetine HCl (Cymbalta Dr) 60 mg DAILY PO Last administered on 11/11/17 09:15 ; Start 11/09/17 at 09:00 Fentanyl Citrate (fentaNYL INJ) 25 mcg ONCE ONCE IM Last administered on at 21:20; Start 11/08/17 at 21:30; Stop 11/08/17 at 21:31; Status DC Furosemide (Lasix) 20 mg DAILY PO ; Start 11/09/17 at 09:00; Status Future Hold Lactulose (Lactulose Liq) 30 ml DAILY PRN PO SEVERE CONSITIPATION; Start at 23:00 Lamotrigine (LaMICtal) 200 mg HS PO Last administered on 11/10/17at 20:18; Start 11/09/17 at 21:00 Lidocaine HCl (Lidoderm 5% Patch.12 Hr) 1 patch ONCE ONCE T-DERMAL Last administered on 11/09/17at 18:02; Start 11/09/17 at 17:00; Stop 11/09/17 at 17:01; Status DC Magnesium Hydroxide (Milk Of Magnesia Liq) 30 ml Q12H PRN PO Mild constipation ; Start 11/08/17 at 23:00 Meclizine HCl (Antivert) 25 mg Q8HR PRN PO VERTIGO; Start 11/09/17 at 11:15 Memantine (Namenda) 10 mg BID PO Last administered on 11/11/17at 09:15; Start 11/09/17 at 09:00 Miscellaneous (Pill Splitter) 1 ea UNSCH PRN OTHER SEE LABEL COMMENTS; Start at 02:30 Morphine Sulfate (Morphine Inj) 2 mg Q3H PRN IV PUSH breakthrough pain Last administered on 11/09/17at 06:10; Start 11/09/17 at 02:15 Naloxone HCl (Narcan Inj) 0.4 mg UNSCH PRN IV PUSH SEE LABEL COMMENTS; Start at 23:00 Ondansetron HCl (Zofran Inj) 4 mg Q6H PRN IVP NAUSEA OR VOMITING Last administered on 11/10/17at 09:51; Start 11/08/17 at 23:00 Pantoprazole Sodium (Protonix) 40 mg DAILY PO Last administered on 11/11/17at 09: 15; Start 11/09/17 at 09:00 Polyethylene Glycol (Miralax) 17 gm ONCE ONCE PO Last administered on at 02:51; Start 11/09/17 at 02:15; Stop 11/09/17 at 02:16; Status DC Pregabalin (Lyrica) 50 mg BID PO Last administered on 11/11/17at 09:15; Start 11/09/17 at 09:00 Senna/Docusate Sodium (Светлана-Colace) 1 tab BID PO Last administered on 11/11/17at 09:15; Start 11/09/17 at 09:00 Sennosides (Senokot) 17.2 mg Q12H PRN PO Moderate constipation; Start 11/08/17 at 23:00 Sodium Chloride (NS Flush) 2 ml BID IV FLUSH Last administered on 11/11/17at 09: 00; Start 11/09/17 at 09:00 A/P Problem List: (1) Abdominal pain ICD Code: R10.9 - Unspecified abdominal pain (2) Nausea & vomiting ICD Code: R11.2 - Nausea with vomiting, unspecified (3) Constipation ICD Code: K59.00 - Constipation, unspecified (4) Intractable pain ICD Code: R52 - Pain, unspecified Assessment and Plan Intractable low back pain/radiculopathy with Inability to Ambulate with subacute T12 fracture. -Continue pain control with [place] prn and IV morphine prn breakthrough pain -ortho consult appreciated; f/u as outpatient. -K thermia -Consulted PT -Case management to assist with discharge planning, SNF vs C -'s input appreciated. Parkinson's Disease: chronic -continue patient's home meds including Sinemet Dementia: chronic -continue patient's Namenda Hx of TIA: chronic, anticoagulated on Eliquis -continue patient's Eliquis CAD/CHF/HTN/HLD: chronic, stable, no signs of fluid overload. BP fairly well controlled. -continue patient's home meds including coreg, statin- hold lasix today. -monitor BP, adjust antihypertensives as needed COPD: chronic, does not appear to be in exacerbation, O2 sat stable on room air -continue patient's Symbicort DVT Prophylaxis: on Eliquis Discharge Planning when pain is better controlled. [facility] vs SNF. Houston De La Paz MD Nov 11, 2017 10:48
[2017-11-11 11:42] VITALS: BP 131/63; PULSE 64; RESP 20; TEMP 97.8; O2SAT 97
--- NOTE | 2017-11-11 11:54 | HHI.PR ---
Addendum to Inpatient Note Addendum Reason: Additional Documentation Additional Information I spoke with pts daughter again today. She is really concerned about her mom going home due to safety issues. She has now been in bed for 2 days without PT while awaiting the ortho eval. She is concerned she won't be strong enough to transfer to the bathroom, etc as she could barely do that prior to hospitalization. She feels she is becoming more confused being in a room without windows and not knowing the time of day, etc. On looking at her meds, I had her listed as being on lyrica 100mg TID and clonazepam 0.5mg BID scheduled (for her bipolar disorder) and on carvedilol 12.5mg BID at her last visit. I'm not sure if med doses needed changing while in the hospital. Daughter knows her med regimen well and could assist in confirmation. I also had her on crestor 10mg at home but I think that isn't on formulary at the hospital. I would clarify again with her daughter. Also, she is normally on an excelon patch and I don't see that listed unless she still has her current patch in place. I will try to help transition her care at discharge as much as possible. Khadijah Jones MD Nov 11, 2017 11:54
[2017-11-11 17:25] VITALS: BP 130/73; PULSE 68; RESP 12; TEMP 95.7; O2SAT 92
[2017-11-11 18:59] LABS: BACTERIA, URINE RARE /hpf; BILIRUBIN, URINE NEG (NEG); BLOOD, URINE NEG (NEG); GLUCOSE,URINE NEG (NEG); HYALINE CAST, URINE 7 /lpf (RARE); KETONE, URINE NEG (NEG); MUCUS URINE FEW /lpf (OCC); NITRITE,URINE NEG (NEG); SQUAMOUS EPITHELIAL CELL URINE 1 /hpf (0-5); URINE COLOR YELLOW (YELLW/STRAW); URINE LEUKOCYTE ESTERASE MOD (NEG)
--- NOTE | 2017-11-11 18:59 | RADRPT ---
EXAM DATE/TIME: 11/11/2017 18:40 [facility] COMPARISON: No previous studies available for comparison. INDICATIONS : Cough. MEDICAL HISTORY : Parkinson's. Hypertension. Hypercholesterolemia. SURGICAL HISTORY : Abdominal aortic aneurysm repair. Cholecystectomy. Appendectomy. Loop recorder-medtronic, hysterectom y, left hip replacment. ENCOUNTER: Subsequent ACUITY: 1 day PAIN SCORE: 2/10 LOCATION: Bilateral chest FINDINGS: A single view of the chest demonstrates the lungs to be symmetrically aerated without evidence of mas s, infiltrate or effusion. The cardiomediastinal contours are unremarkable except tortuous aorta. O sseous structures are intact. CONCLUSION: 1. No focal lung consolidation. No effusion. Tortuous aorta. No pneumothorax. Gregory Ayala MD on November 11, 2017 at 18:56 Board Certified Radiologist. This report was verified electronically.
[2017-11-11 20:00] VITALS: BP 131/67; PULSE 65; RESP 16; TEMP 97.6; O2SAT 97
[2017-11-11] MEDS: clonazePAM 0.5 MG TAB PO PRN (20:37)
[2017-11-11] MEDS: lamoTRIgine 100 MG TAB PO SCH (20:37)
[2017-11-11] MEDS: ATORVASTATIN 20 MG TAB PO SCH (20:38)
[2017-11-12] VITALS (7 sets, daily range): BP systolic 107–144; BP diastolic 54–81; PULSE 67–79; RESP 12–24; TEMP 96.3–98.1; O2SAT 90–100
[2017-11-12] MEDS: ACETAMINOPHEN/HYDROcodone 325 MG/7.5 MG TAB PO PRN ×3 (00:32→21:58)
[2017-11-12 05:29] LABS: BICARBONATE 30.1 MEQ/L (21.0-32.0); CALCIUM 8.5 MG/DL (8.5-10.1); CREATININE 1.24 MG/DL (0.50-1.00)
[2017-11-12 05:33] LABS: AUTOMATED NEUTROPHIL # 4.1 TH/MM3 (1.8-7.7); BASOPHIL % 0.5 % (0.0-2.0); EOSINOPHIL # 0.1 TH/MM3 (0-0.4); EOSINOPHIL % 2.5 % (0.0-4.0); HEMATOCRIT 27.7 % (35.0-46.0); HEMOGLOBIN 8.8 GM/DL (11.6-15.3); LYMPH % 11.4 % (9.0-44.0); LYMPHOCYTE # 0.6 TH/MM3 (1.0-4.8); MEAN CELL VOLUME 83.3 FL (80.0-100.0); MEAN CORPUSCULAR HEMOGLOBIN 26.5 PG (27.0-34.0); MEAN CORPUSCULAR HGB CONC 31.8 % (32.0-36.0); MONO % 6.3 % (0.0-8.0); MONOCYTE # 0.3 TH/MM3 (0-0.9); NEUT % 79.3 % (16.0-70.0); PLATELET COUNT 88 TH/MM3 (150-450); RED BLOOD COUNT 3.33 MIL/MM3 (4.00-5.30); RED CELL DISTRIBUTION WIDTH 15.6 % (11.6-17.2); WHITE BLOOD COUNT 5.2 TH/MM3 (4.0-11.0)
[2017-11-12] MEDS: CARVEDILOL 6.25 MG TAB PO SCH ×2 (09:00→21:54)
[2017-11-12] MEDS: BUDESONIDE-FORMOTEROL 160/4.5 MCG INHALER INH SCH ×2 (09:08→21:54)
[2017-11-12] MEDS: SODIUM CHLORIDE 0.9% FLUSH 10 ML FLUSH IV FLUSH SCH ×2 (09:10→21:56)
[2017-11-12] MEDS: cefTRIAXone INJ 1,000 MG in SODIUM CHLORIDE 0.9% INJ 100 ML IV SCH (09:10)
[2017-11-12] MEDS: DOCUSATE SODIUM 50 MG/SENNA 8.6 MG TAB PO SCH ×2 (09:11→21:56)
[2017-11-12] MEDS: CARBIDOPA/LEVODOPA 25 MG/100 MG TAB PO SCH ×4 (09:11→21:56)
[2017-11-12] MEDS: MEMANTINE HCL 10 MG TAB PO SCH ×2 (09:12→21:55)
[2017-11-12] MEDS: CHOLECALCIFEROL (VIT D3) 1000 UNIT TAB PO SCH (09:12)
[2017-11-12] MEDS: APIXABAN 5 MG TABLET PO SCH ×2 (09:12→21:56)
[2017-11-12] MEDS: DULoxetine HCl DR 60 MG CAP PO SCH (09:13)
[2017-11-12] MEDS: PANTOPRAZOLE SOD 40 MG DELAYED RELEASE TAB PO SCH (09:13)
[2017-11-12] MEDS: PREGABALIN 25 MG CAP PO SCH ×2 (09:13→21:55)
[2017-11-12 09:22] LABS: IRON (FE) 49 MCG/DL (50-170)
[2017-11-12 09:47] LABS: % SATURATION IRON PROFILE 13.2 % (20-50); FERRITIN 106 NG/ML (8-252); TOTAL IRON BINDING CAPACITY 371 MCG/DL (250-450)
[2017-11-12 09:49] LABS: FOLATE GREATER THAN 20.0 NG/ML (3.1-17.5)
--- NOTE | 2017-11-12 13:20 | HHI.PR ---
Subjective Remarks in no acute distress. pain to the lower back hasn't changed as much. Objective Vitals Vital Signs Date Time Temp Pulse Resp B/P (MAP) Pulse Ox O2 Delivery O2 Flow Rate FiO2 11/12/17 11:28 96.7 71 15 127/58 (81) 99 11/12/17 07:04 96.4 73 12 107/54 (71) 90 11/12/17 04:00 97.0 68 16 119/55 (76) 92 11/12/17 00:00 96.3 67 16 132/67 (88) 92 11/11/17 20:00 97.6 65 16 131/67 (88) 97 11/11/17 17:25 95.7 68 12 130/73 (92) 92 11/11/17 14:13 20 I/O 11/11/17 11/11/17 11/11/17 11/12/17 11/12/17 11/12/17 07:00 15:00 23:00 07:00 15:00 23:00 Intake Total 360 ml Balance 360 ml Intake Oral 360 ml # Voids 1 2 Result Diagram: 11/12/17 0430 11/12/17 0430 Imaging Last Impressions Chest X-Ray 11/11/17 0000 Signed Impressions: Service Date/Time: Saturday, November 11, 2017 18:40 - CONCLUSION: 1. No focal lung consolidation. No effusion. Tortuous aorta. No pneumothorax. Gregory Ayala MD Lumbar Spine MRI 11/09/17 0000 Signed Impressions: Service Date/Time: Thursday, November 09, 2017 21:43 - CONCLUSION: 1. Slight thecal sac stenosis L4-5. 2. Subacute compression fracture of T12 without any significant compromise to the thecal sac or the exiting nerve roots at this level. Katia Rebolledo MD Abdomen X-Ray 11/08/17 0000 Signed Impressions: Service Date/Time: Wednesday, November 08, 2017 17:45 - CONCLUSION: Nonspecific abdomen. Katia Rebolledo MD Objective Remarks GENERAL: This is a well-nourished, well-developed patient, in no apparent distress. CARDIOVASCULAR: Regular rate and regular rhythm without murmurs, gallops, or rubs. RESPIRATORY: Clear to auscultation. Breath sounds equal bilaterally. No wheezes , rales, or rhonchi. GASTROINTESTINAL: Abdomen soft, non-tender, nondistended. Normal, active bowel sounds MUSCULOSKELETAL: Extremities without clubbing, cyanosis, or edema. NEURO: Alert & Oriented x4 to person, place, time, situation. Moves all ext x4 Medications and IVs Inpatient Medications Acetaminophen (Tylenol) 650 mg Q6H PRN PO headache/fever/pain1-2; Start at 02:15 Acetaminophen/ Hydrocodone Bitart (Platina 5-325 Mg) 1 tab Q4H PRN PO PAIN SCALE 3 TO 5 Last administered on 11/09/17 17:59; Start 11/09/17 at 02:15 Acetaminophen/ Hydrocodone Bitart (Platina 7.5-325 Mg) 1 tab Q4H PRN PO PAIN SCALE 6 TO 10 Last administered on 11/12/17 13:09; Start 11/09/17 at 02:15 Apixaban (Eliquis) 5 mg BID PO Last administered on 11/12/17 09:12; Start at 09:00 Atorvastatin Calcium (Lipitor) 20 mg HS PO Last administered on 11/11/17 20:38 ; Start 11/09/17 at 21:00 Bisacodyl (Dulcolax Supp) 10 mg DAILY PRN RECTAL SEVERE CONSITIPATION; Start at 23:00 Budesonide/ Formoterol Fumarate (Symbicort 160-4.5 Mcg Inh) 2 puff BID INH Last administered on 11/12/17 09:08; Start 11/09/17 at 09:00 Carbidopa/Levodopa (Sinemet 25-100 Mg) 1.5 tab QID PO Last administered on 13:07; Start 11/09/17 at 09:00 Carvedilol (Coreg) 6.25 mg BID PO Last administered on 11/11/17 20:39; Start at 09:00 Ceftriaxone Sodium 1000 mg/ Sodium Chloride 100 ml @ 200 mls/hr Q24H IV Last administered on 11/12/17 09:10; Start 11/12/17 at 09:00 Cholecalciferol (Vitamin D3) 2,000 units DAILY PO Last administered on 09:12; Start 11/11/17 at 09:00 Clonazepam (KlonoPIN) 0.25 mg Q12H PRN PO anxiety Last administered on 20:37; Start 11/09/17 at 02:30 Duloxetine HCl (Cymbalta Dr) 60 mg DAILY PO Last administered on 11/12/17at 09:13 ; Start 11/09/17 at 09:00 Fentanyl Citrate (fentaNYL INJ) 25 mcg ONCE ONCE IM Last administered on at 21:20; Start 11/08/17 at 21:30; Stop 11/08/17 at 21:31; Status DC Furosemide (Lasix) 20 mg DAILY PO ; Start 11/09/17 at 09:00; Status Future Hold Lactulose (Lactulose Liq) 30 ml DAILY PRN PO SEVERE CONSITIPATION; Start at 23:00 Lamotrigine (LaMICtal) 200 mg HS PO Last administered on 11/11/17at 20:37; Start 11/09/17 at 21:00 Lidocaine HCl (Lidoderm 5% Patch.12 Hr) 1 patch ONCE ONCE T-DERMAL Last administered on 11/09/17at 18:02; Start 11/09/17 at 17:00; Stop 11/09/17 at 17:01; Status DC Magnesium Hydroxide (Milk Of Magnesia Liq) 30 ml Q12H PRN PO Mild constipation ; Start 11/08/17 at 23:00 Meclizine HCl (Antivert) 25 mg Q8HR PRN PO VERTIGO; Start 11/09/17 at 11:15 Memantine (Namenda) 10 mg BID PO Last administered on 11/12/17at 09:12; Start 11/09/17 at 09:00 Miscellaneous (Pill Splitter) 1 ea UNSCH PRN OTHER SEE LABEL COMMENTS; Start at 02:30 Morphine Sulfate (Morphine Inj) 2 mg Q3H PRN IV PUSH breakthrough pain Last administered on 11/09/17at 06:10; Start 11/09/17 at 02:15 Naloxone HCl (Narcan Inj) 0.4 mg UNSCH PRN IV PUSH SEE LABEL COMMENTS; Start at 23:00 Ondansetron HCl (Zofran Inj) 4 mg Q6H PRN IVP NAUSEA OR VOMITING Last administered on 11/10/17 09:51; Start 11/08/17 at 23:00 Pantoprazole Sodium (Protonix) 40 mg DAILY PO Last administered on 11/12/17 09: 13; Start 11/09/17 at 09:00 Polyethylene Glycol (Miralax) 17 gm ONCE ONCE PO Last administered on 02:51; Start 11/09/17 at 02:15; Stop 11/09/17 at 02:16; Status DC Pregabalin (Lyrica) 50 mg BID PO Last administered on 11/12/17 09:13; Start 11/09/17 at 09:00 Senna/Docusate Sodium (Светлана-Colace) 1 tab BID PO Last administered on 11/12/17 09:11; Start 11/09/17 at 09:00 Sennosides (Senokot) 17.2 mg Q12H PRN PO Moderate constipation; Start 11/08/17 at 23:00 Sodium Chloride (NS Flush) 2 ml BID IV FLUSH Last administered on 11/12/17at 09: 10; Start 11/09/17 at 09:00 A/P Problem List: (1) Abdominal pain ICD Code: R10.9 - Unspecified abdominal pain (2) Nausea & vomiting ICD Code: R11.2 - Nausea with vomiting, unspecified (3) Constipation ICD Code: K59.00 - Constipation, unspecified (4) Intractable pain ICD Code: R52 - Pain, unspecified Assessment and Plan Intractable low back pain/radiculopathy with Inability to Ambulate with subacute T12 fracture. -Continue pain control with Platina prn and IV morphine prn breakthrough pain -ortho consult appreciated; f/u as outpatient. -K thermia -Consulted PT -Case management to assist with discharge planning, SNF vs [facility] -'s input appreciated. Parkinson's Disease: chronic -continue patient's home meds including Sinemet Dementia: chronic -continue patient's Namenda Hx of TIA: chronic, anticoagulated on Eliquis -continue patient's Eliquis CAD/CHF/HTN/HLD: chronic, stable, no signs of fluid overload. BP fairly well controlled. -continue patient's home meds including coreg, statin- hold lasix today. -monitor BP, adjust antihypertensives as needed COPD: chronic, does not appear to be in exacerbation, O2 sat stable on room air -continue patient's Symbicort thrombocytopenia; chronic- will monitor for now. DVT Prophylaxis: on Eliquis Discharge Planning dc planning to SNF. Houston De La Paz MD Nov 12, 2017 13:20
[2017-11-12] MEDS: SODIUM CHLOR 0.9% 1000 ML INJ 1,000 ML IV SCH ×2 (18:15→23:03)
--- NOTE | 2017-11-12 18:52 | RADRPT ---
EXAM DATE/TIME: 11/12/2017 18:32 [facility] COMPARISON: CT BRAIN W/O CONTRAST, October 29, 2017, 3:52. INDICATIONS : Altered mental status. RADIATION DOSE: 35.84 CTDIvol (mGy) MEDICAL HISTORY : Aneurysm, abdominal. Cardiovascular disease Hypertension. SURGICAL HISTORY : Tonsillectomy. ENCOUNTER: Initial ACUITY: 1 day PAIN SCALE: 0/10 LOCATION: cranial TECHNIQUE: Multiple contiguous axial images were obtained of the head. Using automated exposure control and adj ustment of the mA and/or kV according to patient size, radiation dose was kept as low as reasonably a chievable to obtain optimal diagnostic quality images. DICOM format image data is available electro nically for review and comparison. FINDINGS: CEREBRUM: Atrophic changes with enlargement of the CSF spaces are noted. No evidence of midline shift, mass le paula, hemorrhage or acute infarction. No extra-axial fluid collections are seen. POSTERIOR FOSSA: The cerebellum and brainstem are intact. The 4th ventricle is midline. The cerebellopontine angle i s unremarkable. EXTRACRANIAL: The visualized portion of the orbits is intact. SKULL: The calvaria is intact. No evidence of skull fracture. CONCLUSION: 1. Atrophic changes. 2. No evidence of acute infarct, hemorrhage, mass or edema. 3. No significant changes prior study Declan Garcia MD on November 12, 2017 at 18:48 Board Certified Radiologist. This report was verified electronically.
[2017-11-12] MEDS: lamoTRIgine 100 MG TAB PO SCH (21:55)
[2017-11-12] MEDS: ATORVASTATIN 20 MG TAB PO SCH (21:56)
[2017-11-13 04:00] VITALS: BP 120/59; PULSE 72; RESP 17; TEMP 98.2; O2SAT 98
[2017-11-13 08:06] VITALS: BP 118/57; PULSE 77; RESP 22; TEMP 97.8; O2SAT 100
[2017-11-13 08:41] LABS: BASOPHIL % 0.5 % (0.0-2.0); EOSINOPHIL # 0.1 TH/MM3 (0-0.4); EOSINOPHIL % 1.3 % (0.0-4.0); HEMATOCRIT 28.7 % (35.0-46.0); HEMOGLOBIN 9.5 GM/DL (11.6-15.3); LYMPH % 6.4 % (9.0-44.0); LYMPHOCYTE # 0.4 TH/MM3 (1.0-4.8); MEAN CORPUSCULAR HEMOGLOBIN 27.2 PG (27.0-34.0); MEAN CORPUSCULAR HGB CONC 33.1 % (32.0-36.0); MEAN PLATELET VOLUME 11.8 FL (7.0-11.0); MONO % 7.5 % (0.0-8.0); MONOCYTE # 0.4 TH/MM3 (0-0.9); NEUT % 84.3 % (16.0-70.0); PLATELET COUNT 76 TH/MM3 (150-450); RED CELL DISTRIBUTION WIDTH 15.6 % (11.6-17.2); WHITE BLOOD COUNT 5.9 TH/MM3 (4.0-11.0)
[2017-11-13 08:52] LABS: BICARBONATE 26.5 MEQ/L (21.0-32.0); CALCIUM 8.1 MG/DL (8.5-10.1); CREATININE 0.9 MG/DL (0.50-1.00)
[2017-11-13] MEDS: SODIUM CHLORIDE 0.9% FLUSH 10 ML FLUSH IV FLUSH SCH ×2 (09:00→21:00)
[2017-11-13] MEDS: cefTRIAXone INJ 1,000 MG in SODIUM CHLORIDE 0.9% INJ 100 ML IV SCH (09:29)
[2017-11-13] MEDS: CARVEDILOL 6.25 MG TAB PO SCH ×2 (09:36→22:12)
[2017-11-13] MEDS: BUDESONIDE-FORMOTEROL 160/4.5 MCG INHALER INH SCH ×2 (09:36→21:00)
[2017-11-13] MEDS: APIXABAN 5 MG TABLET PO SCH ×2 (09:36→22:11)
[2017-11-13] MEDS: DULoxetine HCl DR 60 MG CAP PO SCH (09:36)
[2017-11-13] MEDS: MEMANTINE HCL 10 MG TAB PO SCH ×2 (09:37→21:00)
[2017-11-13] MEDS: PANTOPRAZOLE SOD 40 MG DELAYED RELEASE TAB PO SCH (09:37)
[2017-11-13] MEDS: DOCUSATE SODIUM 50 MG/SENNA 8.6 MG TAB PO SCH ×2 (09:37→21:00)
[2017-11-13] MEDS: PREGABALIN 25 MG CAP PO SCH ×2 (09:37→22:11)
[2017-11-13] MEDS: CHOLECALCIFEROL (VIT D3) 1000 UNIT TAB PO SCH (09:38)
[2017-11-13] MEDS: CARBIDOPA/LEVODOPA 25 MG/100 MG TAB PO SCH ×4 (09:38→22:12)
[2017-11-13 09:58] LABS: OVALOCYTES 1+ (NORMAL)
[2017-11-13] MEDS: RIVASTIGMINE 9.5 MG/24 HOUR PATCH T-DERMAL SCH (11:28)
[2017-11-13 12:06] VITALS: BP 129/60; PULSE 77; RESP 20; TEMP 98.9; O2SAT 98
--- NOTE | 2017-11-13 13:07 | HHI.PR ---
Subjective Remarks Patient reports she is feeling better today. Still complaining of significant back pain. No increased in shortness of breath. Objective Vitals Vital Signs Date Time Temp Pulse Resp B/P (MAP) Pulse Ox O2 Delivery O2 Flow Rate FiO2 11/13/17 11:28 20 11/13/17 08:06 97.8 77 22 118/57 (77) 100 11/13/17 04:00 98.2 72 17 120/59 (79) 98 11/12/17 22:39 98.1 75 20 144/81 (102) 100 11/12/17 21:17 97.7 79 18 135/71 (92) 98 11/12/17 17:51 96.8 75 24 132/60 (84) 100 I/O 11/12/17 11/12/17 11/12/17 11/13/17 11/13/17 11/13/17 07:00 15:00 23:00 07:00 15:00 23:00 Intake Total 360 ml 1075 ml Balance 360 ml 1075 ml Intake Oral 360 ml 0 ml IV Total 1075 ml # Voids 2 2 # Bowel Movements 0 Result Diagram: 11/13/17 0807 11/13/17 0807 Objective Remarks GENERAL: Obese female, in no apparent distress. CARDIOVASCULAR: Normal rate and regular rhythm without murmurs, gallops, or rubs. RESPIRATORY: Good respiratory efforts. Breath sounds equal and clear to auscultation bilaterally. GASTROINTESTINAL: Abdomen soft, non-tender, non-distended. Normal active bowel sounds MUSCULOSKELETAL: Extremities without cyanosis, or edema. NEURO: Alert & Oriented to place, time, and situation. Moves all ext x4. Reports diffuse tenderness to palpation over the back. PSYCH: Appropriate mood and affect. A/P Problem List: (1) Abdominal pain ICD Code: R10.9 - Unspecified abdominal pain (2) Nausea & vomiting ICD Code: R11.2 - Nausea with vomiting, unspecified (3) Constipation ICD Code: K59.00 - Constipation, unspecified (4) Intractable pain ICD Code: R52 - Pain, unspecified Assessment and Plan 77-year-old female with: Intractable low back pain/radiculopathy with Inability to Ambulate with subacute T12 fracture. -Continue pain control with [place] prn and IV morphine prn breakthrough pain -ortho consult appreciated; f/u as outpatient. -K thermia -PT following. Did better with PT yesterday. Took a few steps. -'s input appreciated. - Consult case management for Edd rae. Parkinson's Disease: chronic -continue patient's home meds including Sinemet Dementia: chronic -continue patient's Namenda Hx of TIA: chronic, anticoagulated on Eliquis -continue patient's Eliquis Abnormal urinalysis: - Urine culture grew mixed sanju, contaminants. - Discontinue Rocephin CAD/CHF/HTN/HLD: chronic, stable, no signs of fluid overload. - Blood pressure well controlled, at times borderline low. Decrease Coreg to 3.125 mg twice a day. -continue to hold Lasix. Continue statin -monitor BP Anxiety: Given above comorbidities, will try to limit benzodiazepine use. Keep Klonopin PRN only. DW RN to redirect and avoid using medication if possible. COPD: chronic, does not appear to be in exacerbation, O2 sat stable on room air -continue patient's Symbicort thrombocytopenia; chronic- will monitor for now. DVT Prophylaxis: on Harjit Farmer MD Nov 13, 2017 13:07
[2017-11-13 16:06] VITALS: BP 115/53; PULSE 78; RESP 19; TEMP 98.8; O2SAT 96
[2017-11-13] MEDS: SODIUM CHLOR 0.9% 1000 ML INJ 1,000 ML IV SCH (18:17)
[2017-11-13 20:14] VITALS: BP 130/66; PULSE 76; RESP 19; TEMP 98.4; O2SAT 99
[2017-11-13] MEDS: lamoTRIgine 100 MG TAB PO SCH (22:11)
[2017-11-13] MEDS: ATORVASTATIN 20 MG TAB PO SCH (22:12)
[2017-11-13] MEDS: ACETAMINOPHEN/HYDROcodone 325 MG/7.5 MG TAB PO PRN (22:12)
[2017-11-13] MEDS: ONDANSETRON HCL 4 MG/2 ML VIAL IVP PRN (22:24)
[2017-11-14] VITALS: BP 127/59; PULSE 78; RESP 16; TEMP 98.2; O2SAT 97
[2017-11-14] MEDS: clonazePAM 0.5 MG TAB PO PRN (01:04)
[2017-11-14 04:00] VITALS: BP 130/70; PULSE 78; RESP 16; TEMP 97.8; O2SAT 100
[2017-11-14 07:57] LABS: BICARBONATE 25.5 MEQ/L (21.0-32.0); CREATININE 0.9 MG/DL (0.50-1.00)
[2017-11-14 08:00] VITALS: BP 156/71; PULSE 79; RESP 20; TEMP 98.8; O2SAT 97
[2017-11-14] MEDS: BUDESONIDE-FORMOTEROL 160/4.5 MCG INHALER INH SCH ×2 (09:44→21:42)
[2017-11-14] MEDS: PANTOPRAZOLE SOD 40 MG DELAYED RELEASE TAB PO SCH (09:45)
[2017-11-14] MEDS: CARVEDILOL 6.25 MG TAB PO SCH ×2 (09:45→21:44)
[2017-11-14] MEDS: CHOLECALCIFEROL (VIT D3) 1000 UNIT TAB PO SCH (09:45)
[2017-11-14] MEDS: DULoxetine HCl DR 60 MG CAP PO SCH (09:45)
[2017-11-14] MEDS: FUROSEMIDE 20 MG TAB PO SCH (09:45)
[2017-11-14] MEDS: PREGABALIN 25 MG CAP PO SCH ×2 (09:45→21:44)
[2017-11-14] MEDS: RIVASTIGMINE 9.5 MG/24 HOUR PATCH T-DERMAL SCH (09:46)
[2017-11-14] MEDS: CARBIDOPA/LEVODOPA 25 MG/100 MG TAB PO SCH ×4 (09:46→21:44)
[2017-11-14] MEDS: APIXABAN 5 MG TABLET PO SCH ×2 (09:46→21:45)
[2017-11-14] MEDS: DOCUSATE SODIUM 50 MG/SENNA 8.6 MG TAB PO SCH ×2 (09:46→21:00)
[2017-11-14] MEDS: SODIUM CHLORIDE 0.9% FLUSH 10 ML FLUSH IV FLUSH SCH ×2 (09:48→21:43)
[2017-11-14] MEDS: MEMANTINE HCL 10 MG TAB PO SCH ×2 (09:48→21:47)
[2017-11-14] MEDS: ONDANSETRON HCL 4 MG/2 ML VIAL IVP PRN ×2 (09:49→19:12)
[2017-11-14] MEDS: ACETAMINOPHEN/HYDROcodone 325 MG/7.5 MG TAB PO PRN ×3 (10:01→19:13)
[2017-11-14 12:00] VITALS: BP 140/65; PULSE 67; RESP 20; TEMP 97.6; O2SAT 98
[2017-11-14] MEDS ORDERED: CLON.5 PO (12:09)
[2017-11-14] MEDS ORDERED: HYDR-3580 PO (12:09)
--- NOTE | 2017-11-14 14:18 | RADRPT ---
EXAM DATE/TIME: 11/14/2017 13:41 [facility] COMPARISON: CHEST SINGLE AP, November 11, 2017, 18:40. INDICATIONS : Patient states cough. MEDICAL HISTORY : Hypercholesterolemia. Hypertension Parkinson's. SURGICAL HISTORY : Abdominal aortic aneurysm repair. Cholecystectomy. Appendectomy. hysterectomy, left hip replacment ENCOUNTER: Initial ACUITY: 1 day PAIN SCORE: 0/10 LOCATION: Bilateral chest FINDINGS: A single view of the chest demonstrates the lungs to be symmetrically aerated without evidence of mas s, infiltrate or effusion. The cardiomediastinal contours are unremarkable. Osseous structures are intact. CONCLUSION: No acute disease. Clayton Wilcox MD FACR on November 14, 2017 at 14:15 Board Certified Radiologist. This report was verified electronically.
--- NOTE | 2017-11-14 14:30 | HHI.PR ---
Subjective Remarks Patient reports she is feeling okay. Discussed with the patient's daughter. She reports the patient has been intermittently confused. She is concerned about chest congestion as well. Reports of coughing. Daughter states she will visit the SNFs today. Objective Vitals Vital Signs Date Time Temp Pulse Resp B/P (MAP) Pulse Ox O2 Delivery O2 Flow Rate FiO2 11/14/17 08:00 98.8 79 20 156/71 (99) 97 11/14/17 04:00 97.8 78 16 130/70 (90) 100 11/14/17 00:00 98.2 78 16 127/59 (81) 97 11/13/17 23:11 16 11/13/17 23:11 16 11/13/17 20:14 98.4 76 19 130/66 (87) 99 11/13/17 16:06 98.8 78 19 115/53 (73) 96 I/O 11/13/17 11/13/17 11/13/17 11/14/17 11/14/17 11/14/17 07:00 15:00 23:00 07:00 15:00 23:00 Intake Total 1075 ml 100 ml 1280 ml Balance 1075 ml 100 ml 1280 ml Intake Oral 0 ml 280 ml IV Total 1075 ml 100 ml 1000 ml # Voids 2 4 2 # Bowel Movements 0 2 3 Result Diagram: 11/13/17 0807 11/14/17 0715 Objective Remarks GENERAL: Obese female, in no apparent distress. CARDIOVASCULAR: Normal rate and regular rhythm without murmurs, gallops, or rubs. RESPIRATORY: Good respiratory efforts. Some airway transmission sound, otherwise clear to auscultation bilaterally. GASTROINTESTINAL: Abdomen soft, non-tender, non-distended. Normal active bowel sounds MUSCULOSKELETAL: Extremities without cyanosis, or edema. NEURO: Alert & Oriented to place, time, and situation. Moves all ext x4. Reports diffuse tenderness to palpation over the back. PSYCH: Appropriate mood and affect. A/P Problem List: (1) Abdominal pain ICD Code: R10.9 - Unspecified abdominal pain (2) Nausea & vomiting ICD Code: R11.2 - Nausea with vomiting, unspecified (3) Constipation ICD Code: K59.00 - Constipation, unspecified (4) Intractable pain ICD Code: R52 - Pain, unspecified Assessment and Plan 77-year-old female with: Intractable low back pain/radiculopathy with Inability to Ambulate with subacute T12 fracture. -Continue pain control with [place] prn and IV morphine prn breakthrough pain -ortho consult appreciated; f/u as outpatient. -Sinan newton -PT following. Did better with PT yesterday. Took a few steps. -'s input appreciated. - Patient does not qualify for [facility]. Plan for discharge to SNF. Daughter will visit SNF today for choice. Possible Delirium: On my evaluation the patient was oriented but her daughter reports some periods of confusion - No focal deficit on exam. - Continue to monitor today. Chest congestion/cough: - Patient is at risk for atelectasis and pneumonia. Discussed with daughter to encourage patient to use incentive spirometer. - Obtain chest x-ray to rule out pneumonia Parkinson's Disease: chronic -continue patient's home meds including Sinemet Dementia: chronic -continue patient's Namenda Hx of TIA: chronic, anticoagulated on Eliquis -continue patient's Eliquis Abnormal urinalysis: - Urine culture grew mixed sanju, contaminants. - Discontinue Rocephin CAD/CHF/HTN/HLD: chronic, stable, no signs of fluid overload. - Blood pressure well controlled, at times borderline low. Decrease Coreg to 3.125 mg twice a day. -continue to hold Lasix. Continue statin -monitor BP Anxiety: Given above comorbidities, will try to limit benzodiazepine use. Keep Klonopin PRN only. LENY RN to redirect and avoid using medication if possible. COPD: chronic, does not appear to be in exacerbation, O2 sat stable on room air -continue patient's Symbicort - Chest x-ray ordered as above. thrombocytopenia; chronic- will monitor for now. DVT Prophylaxis: on Eliquis Discharge Planning Plan to DC to SNF tomorrow if stable. Daughter to chose SNF. DW patient's daughter, son in law, and case management at length. Harjit Whitaker MD Nov 14, 2017 14:30
[2017-11-14 16:00] VITALS: BP 120/58; PULSE 64; RESP 20; TEMP 98.6; O2SAT 98
[2017-11-14 20:00] VITALS: BP 130/60; PULSE 69; RESP 18; TEMP 98.3; O2SAT 98
[2017-11-14] MEDS: ATORVASTATIN 20 MG TAB PO SCH (21:44)
[2017-11-14] MEDS: lamoTRIgine 100 MG TAB PO SCH (21:44)
[2017-11-15] VITALS: BP 129/65; PULSE 70; RESP 18; TEMP 98; O2SAT 96
[2017-11-15] MEDS: clonazePAM 0.5 MG TAB PO PRN (03:08)
[2017-11-15] MEDS ORDERED: RESP: ALBUTEROL 2.5 MG/IPRATROPIUM 0.5 MG NEB (PRN) NEB (03:30)
[2017-11-15 04:00] VITALS: BP 113/59; PULSE 62; RESP 18; TEMP 98.7; O2SAT 95
[2017-11-15 05:20] VITALS: O2SAT 95
[2017-11-15] MEDS: ACETAMINOPHEN/HYDROcodone 325 MG/7.5 MG TAB PO PRN ×3 (05:30→13:48)
[2017-11-15 08:05] VITALS: BP 134/68; PULSE 82; RESP 19; TEMP 98.8; O2SAT 94
[2017-11-15] MEDS: DOCUSATE SODIUM 50 MG/SENNA 8.6 MG TAB PO SCH (09:00)
[2017-11-15] MEDS: RIVASTIGMINE 9.5 MG/24 HOUR PATCH T-DERMAL SCH (09:00)
[2017-11-15] MEDS: BUDESONIDE-FORMOTEROL 160/4.5 MCG INHALER INH SCH (09:34)
[2017-11-15] MEDS: SODIUM CHLORIDE 0.9% FLUSH 10 ML FLUSH IV FLUSH SCH (09:34)
[2017-11-15] MEDS: CARVEDILOL 6.25 MG TAB PO SCH (09:34)
[2017-11-15] MEDS: PREGABALIN 25 MG CAP PO SCH (09:35)
[2017-11-15] MEDS: DULoxetine HCl DR 60 MG CAP PO SCH (09:35)
[2017-11-15] MEDS: APIXABAN 5 MG TABLET PO SCH (09:35)
[2017-11-15] MEDS: FUROSEMIDE 20 MG TAB PO SCH (09:35)
[2017-11-15] MEDS: MEMANTINE HCL 10 MG TAB PO SCH (09:35)
[2017-11-15] MEDS: PANTOPRAZOLE SOD 40 MG DELAYED RELEASE TAB PO SCH (09:36)
[2017-11-15] MEDS: CARBIDOPA/LEVODOPA 25 MG/100 MG TAB PO SCH ×2 (09:36→13:47)
[2017-11-15] MEDS: CHOLECALCIFEROL (VIT D3) 1000 UNIT TAB PO SCH (09:36)
[2017-11-15] MEDS: ONDANSETRON HCL 4 MG/2 ML VIAL IVP PRN (09:48)
--- NOTE | 2017-11-15 11:10 | HHI.DS ---
Discharge Summary Admission Date Nov 11, 2017 at 12:29 Discharge Date: Nov 15, 2017 Admitting Diagnosis intractable pain, weakness (1) Abdominal pain ICD Code: R10.9 - Unspecified abdominal pain Diagnosis: Secondary (2) Nausea & vomiting ICD Code: R11.2 - Nausea with vomiting, unspecified Diagnosis: Secondary (3) Constipation ICD Code: K59.00 - Constipation, unspecified Diagnosis: Secondary (4) Intractable pain ICD Code: R52 - Pain, unspecified Diagnosis: Principal Procedures None Brief History - From Admission History of present illness from the admitting physician 77-year-old female with history of Parkinson's disease, hypertension, hyperlipidemia, AAA s/p repair, COPD, CAD, TIAs on Eliquis, CHF (last echo EF 55 -60% on 02/08/17), vertigo, anxiety/depression, presents with complaints of back pain, abdominal pain, and vomiting. The patient is recently admitted to [facility] 10/28-11/01 for intractable dizziness, weakness, inability to ambulate. She was seen by neurology during that admission, suspected symptoms secondary to vertigo. PT recommended rehabilitation placement however this was unable to be arranged due to patient's observation status and insurance. She was also denied to [facility]. She was discharged home with home health care nursing and physical therapy. She states initially for a few days she was doing better however recently she has had worsening low back pain over the past three days. She locates the pain to the mid lumbar region with radiation to bilateral lower back and slightly into the buttocks, described as a constant severe 10/10 pain. Denies any distal lower extremity paresthesias but she feels weak secondary to the pain. She has been taking a half tablet of Rebuck with minimal relief. She states yesterday and today she was hardly able to get up to use the restroom. She also reports diffuse periumbilical crampy abdominal pain that started yesterday with associated nausea and 3 episodes of vomiting last night. She has not had a BM in 3-4 days. She reports subjective chills but no fevers. Denies dysuria or increased urinary frequency/urgency. She states she was seen by her [facility] nurse and PT who urged her to come to the hospital. She otherwise denies any other medical complaints including no chest pain, palpitations, shortness of breath, or urinary complaints. CBC/BMP: 11/13/17 0807 11/14/17 0715 Significant Findings Laboratory Tests Test 11/13/17 08:07 11/13/17 13:09 11/14/17 07:15 Red Blood Count 3.50 MIL/MM3 (4.00-5.30) Hemoglobin 9.5 GM/DL (11.6-15.3) Hematocrit 28.7 % (35.0-46.0) Platelet Count 76 TH/MM3 (150-450) Mean Platelet Volume 11.8 FL (7.0-11.0) Neutrophils (%) (Auto) 84.3 % (16.0-70.0) Lymphocytes (%) (Auto) 6.4 % (9.0-44.0) Lymphocytes # (Auto) 0.4 TH/MM3 (1.0-4.8) Platelet Estimate LOW (NORMAL) Platelet Morphology Comment ENLARGED (NORMAL) Ovalocytes 1+ (NORMAL) Calcium Level 8.1 MG/DL (8.5-10.1) 8.0 MG/DL (8.5-10.1) Sodium Level 135 MEQ/L (136-145) Potassium Level 6.1 MEQ/L (3.5-5.1) Estimat Glomerular Filtration Rate 61 ML/MIN (>89) 61 ML/MIN (>89) Imaging Last Impressions Chest X-Ray 11/14/17 0000 Signed Impressions: Service Date/Time: Tuesday, November 14, 2017 13:41 - CONCLUSION: No acute disease. Clayton Wilcox MD FACR Head CT 11/12/17 0000 Signed Impressions: Service Date/Time: Sunday, November 12, 2017 18:32 - CONCLUSION: 1. Atrophic changes. 2. No evidence of acute infarct, hemorrhage, mass or edema. 3. No significant changes prior study Declan Garcia MD Lumbar Spine MRI 11/09/17 0000 Signed Impressions: Service Date/Time: Thursday, November 09, 2017 21:43 - CONCLUSION: 1. Slight thecal sac stenosis L4-5. 2. Subacute compression fracture of T12 without any significant compromise to the thecal sac or the exiting nerve roots at this level. Katia Rebolledo MD Abdomen X-Ray 11/08/17 0000 Signed Impressions: Service Date/Time: Wednesday, November 08, 2017 17:45 - CONCLUSION: Nonspecific abdomen. Katia Rebolledo MD PE at Discharge GENERAL: Obese female, in no apparent distress. CARDIOVASCULAR: Normal rate and regular rhythm without murmurs, gallops, or rubs. RESPIRATORY: Good respiratory efforts. Some airway transmission sound, otherwise clear to auscultation bilaterally. GASTROINTESTINAL: Abdomen soft, non-tender, non-distended. Normal active bowel sounds MUSCULOSKELETAL: Extremities without cyanosis, or edema. NEURO: Alert & Oriented to place, time, and situation. Moves all ext x4. Reports diffuse tenderness to palpation over the back. PSYCH: Appropriate mood and affect. Pt update on day of discharge Patient reports she is feeling okay. Still having back pain but controlled with pain medication. Appetite is poor. She states she does not like the food. Hospital Course 77-year-old female admitted and treated for the following: Intractable low back pain/radiculopathy with Inability to Ambulate with subacute T12 fracture. -Continue pain control with Rebuck prn and IV morphine prn breakthrough pain -ortho consult appreciated; recommend f/u as outpatient. -Sinan newton -PT followed the patient, recommends continuing rehabilitation at SNF. - 's input appreciated. - Patient did not qualify for [facility] inpatient rehab. Patient is discharged to [facility] facility to continue rehabilitation. To follow- up outpatient with orthopedics. Possible Delirium: On my evaluation the patient was oriented but her daughter reports some periods of confusion - No focal deficit on exam. Parkinson's Disease: chronic -continue patient's home meds including Sinemet Dementia: chronic -continue patient's Namenda Hx of TIA: chronic, anticoagulated on Eliquis -continue patient's Eliquis Abnormal urinalysis: - Urine culture grew mixed sanju, contaminants. - Discontinue Rocephin CAD/CHF/HTN/HLD: chronic, stable, no signs of fluid overload. - Blood pressure well controlled, at times borderline low. Decrease Coreg to 3.125 mg twice a day. -continue to hold Lasix. Continue statin -monitor BP - Outpatient follow up advised. Anxiety: Given above comorbidities, will try to limit benzodiazepine use. Keep Klonopin PRN only. DW PATIENT'S FAMILY COPD: chronic, does not appear to be in exacerbation, O2 sat stable on room air -continue patient's Symbicort - Chest x-ray unremarkable thrombocytopenia; chronic- Pt Condition on Discharge: Good Discharge Disposition: Discharge to SNF Discharge Time: > 30 minutes Discharge Instructions DIET: Follow Instructions for: Heart Healthy Diet Activities you can perform: Regular-No Restrictions, See Additionl Instruction Other Activity Instructions: Per PT instruction Follow up Referrals: Orthopedics - 1 Week with Isa Abdi MD PCP Follow-up - 2 Weeks Changed Medications: Clonazepam (Klonopin) 0.5 Mg Tab 0.25 MG PO Q12HR PRN for ANXIETY AND/OR AGITATION, #60 TAB 1 Refill (Medication details modified) Hydrocodone/Acetaminophen (Hydrocodone-Acetamin 7.5-325) 7.5 Mg-325 Mg Tablet 1 TAB PO Q4HR PRN for PAIN SCALE 4 TO 10, #30 (Changed from: Hydrocodone/ Acetaminophen (Hydrocodone-Acetamin 5-325 mg) 5 Mg-325 Mg Tablet 1 Tab PO Q4H PRN PAIN GREATER THAN 5 #20 ) Continued Medications: Apixaban (Eliquis) 5 Mg Tab 5 MG PO BID for Blood Clot Prevention for 30 Days, #60 TAB 1 Refill Budesonide-Formoterol Inh (Symbicort Inh) 160-4.5 Mcg/Act Aero 2 PUFF INH BID for Asthma Management for 30 Days, INHALER Calcium Carbonate-Cholecalciferol (Calcium 600+D3) 600-200 Mg-Unit Tab 1 TAB PO DAILY for Nutritional Supplement, TAB Calcium/Vitamin D (Oyster Shell 250 mg + Vit D Tb) 250 Mg Calcium (625 Mg)-125 Unit Tablet 500 MG PO DAILY for Nutritional Supplement for 30 Days Carbidopa-Levodopa (Carbidopa-Levodopa) 25-100 Mg Tab 1.5 TAB PO QID for Parkinsons for 30 Days, TAB 1 Refill Carvedilol (Carvedilol) 6.25 Mg Tab 6.25 MG PO BID, #60 TAB [address] (Cymbalta DR) 60 Mg Capdr 60 MG PO DAILY, #30 CAP 1 Refill Fluticasone-Salmeterol Inh (Advair Diskus Inh) 250-50 Mcg/Blist Aer 1 PUFF INH BID for Broncospasm, #1 INHALER 0 Refills Rinse mouth after use. Folic Acid (Folic Acid) 1 Mg Tablet 2 MG PO DAILY Furosemide (Lasix) 20 Mg Tab 20 MG PO DAILY, #30 TAB 0 Refills Lamotrigine (Lamictal) 100 Mg Tab 200 MG PO HS for 30 Days, TAB 1 Refill Lubiprostone (Amitiza) 8 Mcg Cap 8 MG PO BID for Constipation for 30 Days, CAP 0 Refills Meclizine HCl (Meclizine 25) 25 Mg Tab 25 MG PO Q8HR PRN for dizziness, #21 TAB 1 Refill Memantine (Namenda) 10 Mg Tab 10 MG PO BID for 30 Days, TAB 1 Refill Pantoprazole (Pantoprazole) 40 Mg Tab 40 MG PO DAILY for Heartburn Management for 30 Days, TAB 1 Refill Potassium Chloride ER (Potassium Chloride ER) 20 Meq Tab 20 MEQ PO DAILY for Electrolyte Replacement, #30 TAB 0 Refills Pregabalin (Lyrica) 50 Mg Cap 50 MG PO BID for Pain Management, #60 CAP 0 Refills Rivastigmine Patch (Exelon Patch) 9.5 mg/24 hr Patch 1 PATCH T-DERMAL DAILY for 30 Days, 1 Refill Rosuvastatin (Crestor) 10 Mg Tab 10 MG PO HS for Cholesterol Management, #30 TAB 1 Refill Sucralfate (Carafate) 1 Gram Tab 1 GM PO TID for Ulcer Prevention, #90 TAB 0 Refills 30 MINUTES BEFORE MEALS Harjit Whitaker MD Nov 15, 2017 11:10
[2017-11-15 12:05] VITALS: BP 138/63; PULSE 65; RESP 19; TEMP 97.9; O2SAT 93
[2017-11-15 17:32] VITALS: O2SAT 93
== END 2017-11-15 16:32 | DRG 552 ==
LOC: NEPD 16:39 → NEDA 22:38 → NEPGCP 23:32 → OBSVTOIN 11-11 12:29 → N04B 11-12 22:22
PROVIDERS: ADMIT Hospitalist; ATTEND Hospitalist
DX: S22.080A Wedge compression fracture of T11-T12 vertebra, initial encounter for closed fracture (principal); I50.9 Heart failure, unspecified; I11.0 Hypertensive heart disease with heart failure; F03.90 Unspecified dementia, unspecified severity, without behavioral disturbance, psychotic disturbance, mood disturbance, and anxiety; D69.6 Thrombocytopenia, unspecified; G20 Parkinson's disease; M54.5 Low back pain; K59.03 Drug induced constipation; T40.2X5A Adverse effect of other opioids, initial encounter; E78.5 Hyperlipidemia, unspecified; J44.9 Chronic obstructive pulmonary disease, unspecified; I25.10 Atherosclerotic heart disease of native coronary artery without angina pectoris; F41.9 Anxiety disorder, unspecified; F31.9 Bipolar disorder, unspecified; R10.9 Unspecified abdominal pain; R11.2 Nausea with vomiting, unspecified; Z96.642 Presence of left artificial hip joint; K21.9 Gastro-esophageal reflux disease without esophagitis; M19.90 Unspecified osteoarthritis, unspecified site; R82.90 Unspecified abnormal findings in urine; M54.16 Radiculopathy, lumbar region; Z91.81 History of falling; Z79.01 Long term (current) use of anticoagulants; Z86.73 Personal history of transient ischemic attack (TIA), and cerebral infarction without residual deficits
CPT/HCPCS: 70450; 71045; 72148; 74019; 80048; 80053; 81001; 82306; 82607; 82728; 82746; 83540; 83550; 83605; 83690; 84132; 85025; 85610; 87086; 94150; 94664; 96361; 96372; 96374; 96375; 96376; G0378; G8987-GP; G8988-GP; J0696; J2270; J2405; J3010; J7030; J7040

== ENCOUNTER 2018-10-30 17:49 | Inpatient (IN) ==
[2018-10-30] MEDS ORDERED: Pantoprazole Inj 40 MG Vial IV.PUSH ONE ×2 (18:14→18:20)
[2018-10-30] MEDS ORDERED: Sod Chloride 0.9% Inj 1,000 ML IV.SIG ONE (18:45)
--- NOTE | 2018-10-30 18:53 | ED ---
HPI General Chief complaint: GI Bleed Stated complaint: rectal bleeding Time Seen by Provider: 10/30/18 18:14 History of Present Illness HPI Narrative: This patient is brought in by her daughter. Patient has a bit of dementia and chronic A. fib on Eliquis. She has had a couple days of black stool. No bright red rectal bleeding noted. Patient has no prior history of GI bleed. Patient denies abdominal pain or syncope. She is not having any acute symptomatology. Severity of symptoms is mild to moderate. No alleviating factors. Symptoms likely exacerbated by her blood thinner. Related Data Home Medications Medication Instructions Recorded Confirmed apixaban [Eliquis] 5 mg PO BID 10/30/18 10/30/18 budesonide-formoterol [Symbicort] 2 puff INHALATION BID 10/30/18 10/30/18 calcium carbonate-vitamin D3 600 mg PO DAILY 10/30/18 10/30/18 [Calcium 600 + D(3)] carbidopa-levodopa 1.5 tab PO TID 10/30/18 10/30/18 carvedilol 6.25 mg PO BID 10/30/18 10/30/18 clonazepam 0.25 mg PO BID 10/30/18 10/30/18 cyclosporine [Restasis] 1 drp OPHTHALMIC (EYE) Q12H 10/30/18 10/30/18 duloxetine [Cymbalta] 30 mg PO DAILY 10/30/18 10/30/18 fluticasone-salmeterol [Advair 1 puff INHALATION Q12H 10/30/18 10/30/18 Diskus] folic acid 4 mg PO DAILY 10/30/18 10/30/18 furosemide 20 mg PO DAILY 10/30/18 10/30/18 lamotrigine 200 mg PO HS 10/30/18 10/30/18 lubiprostone [Amitiza] 8 mcg PO BID 10/30/18 10/30/18 memantine [Namenda] 10 mg PO BID 10/30/18 10/30/18 pantoprazole 40 mg PO DAILY 10/30/18 10/30/18 potassium chloride 20 meq PO DAILY 10/30/18 10/30/18 pregabalin [Lyrica] 50 mg PO DAILY 10/30/18 10/30/18 pregabalin [Lyrica] 100 mg PO HS 10/30/18 10/30/18 rivastigmine [Exelon] 1 patch TRANSDERMAL DAILY 10/30/18 10/30/18 rosuvastatin [Crestor] 10 mg PO DAILY 10/30/18 10/30/18 sucralfate 1 g PO Q6H 10/30/18 10/30/18 Allergies Allergy/AdvReac Type Severity Reaction Status Date / Time paroxetine Allergy Severe CAN NOT Verified 10/30/18 18:20 REMEMBER lactose Allergy Unknown GI UPSET Verified 10/30/18 18:20 Review of Systems ROS: all other systems reviewed are negative [facility] Social History Social History Substance History: No History of Abuse Smoking Status: Never smoker How Often Do You Have a Drink Containing Alcohol: Never Recent Travel in [facility] within the Last 8 Weeks: No Recent Out of Country Travel within the Last 8 Weeks: No Immunization History Tetanus Immunization: <5 Years Exam Narrative Exam Narrative: GENERAL: Pleasant elderly well-developed patient in no apparent distress. SKIN: Focused skin assessment reveals no rash and nodules. Skin is Warm and dry. HEAD: Atraumatic. Normocephalic. EYES: Pupils equal and round. No scleral icterus. No injection or drainage. ENT: No nasal bleeding or discharge. Mucous membranes pink and moist. NECK: Trachea midline. No JVD. CARDIOVASCULAR: Irregularly irregular rhythm. No murmur appreciated. RESPIRATORY: No accessory muscle use. Clear to auscultation. Breath sounds equal bilaterally. GASTROINTESTINAL: Abdomen soft, non-tender, nondistended. Hepatic and splenic margins not palpable. MUSCULOSKELETAL: No obvious deformities. No clubbing. No cyanosis. No edema. NEUROLOGICAL: Awake and alert. No obvious cranial nerve deficits. Motor grossly within normal limits. Normal speech. PSYCHIATRIC: Appropriate mood and affect; insight and judgment normal. Rectal: No mass. Dark tarry stool is Hemoccult positive Course Initial Documented Vital Signs Temperature 98.1 F 10/30/18 18:20 Pulse Rate 79 10/30/18 18:20 Respiratory Rate 18 10/30/18 18:20 Blood Pressure 99/62 L 10/30/18 18:20 Pulse Oximetry 98 10/30/18 18:20 Last Documented Vital Signs Temperature 98.1 F 10/30/18 18:20 Pulse Rate 79 10/30/18 18:20 Respiratory Rate 18 10/30/18 18:20 Blood Pressure 99/62 L 10/30/18 18:20 Pulse Oximetry 98 10/30/18 18:20 Critical Care Time Critical Care Time: Yes Total Critical Care Time: 30 Attestation: Aggregate critical care time was 30 minutes. Time to perform other separately billable procedures was not included in the critical care time. My time did not include minutes spent treating any other patients simultaneously or on activities that did not directly contribute to the patient's treatment. The services I provided to this patient were to treat and/or prevent clinically significant deterioration that could result in: Hemorrhagic shock, I provided critical care services requiring my management, as noted below: Chart data review, documentation time, medication orders and management, vital sign assessments/reviewing monitor data, ordering and reviewing lab tests, ordering and interpreting/reviewing x-rays and diagnostic studies, care of the patient and discussion of the patient with the admitting physicians. Sign Out Sign Out Data: Patient Sign Out occurred on 10/30/18 at 19:04. Patient's care was discussed, and care was transferred from Jersey Giraldo MD to Celi Hoff MD. Sign Out Comment: Labs are pending. Case will be checked out to Dr. Hoff. She will be admitted for GI bleed Last updated by Jersey Giraldo MD at 10/30/18 18:54 Post-Handoff Eval: Accepted in transfer of care Medical Decision Making MDM Narrative Medical decision making narrative: 78-year-old female with GI bleed on blood thinner with known anemia. 2 peripheral IVs placed I gave her IV Protonix and a liter of normal saline IV Type and screen sent along with general lab studies Patient initial blood pressure 100 systolic. Will recheck after a liter of saline. She is not tachycardic. Accepted and transfer of care from Dr. Bolivar Rousseau for patient with GI bleed with history of atrial fibrillation and CVA currently prescribed Eliquis. According to the patient she is having crampy lower abdominal pain. According to daughter she has had one episode of vomiting without blood or coffee grounds. According to daughter patient was just hospitalized at [facility] under the care of her primary Dr. Levin for hemoglobin of 8 and received a unit of transfused blood. Within the past month she has been seen by Dr. BRAR her data miner who did upper and lower endoscopy and found evidence of prior superficial erosions possible prior ulcer but no active bleeding on upper endoscopy or colonoscopy according to daughter. Unknown renal insufficiency. First hemoglobin is 7.3 conjunctivae very pale. Patient mildly hypotensive resting supine. Call placed to Consumer Loan Officer for admission. 1 u PRBC's ordered for transfusion, protonix bolus and infusion ordered. Discussed with Dr Marcial --graciously accepted patient for admission to critical care service to [facility] Medical Screen Exam Complete: Yes Emergency Medical Condition: Yes Lab Data Lab results reviewed: Yes I reviewed the patient's lab results. Result diagrams: 10/30/18 18:45 10/30/18 18:45 Lab Results 10/30/18 10/30/18 10/30/18 Range/Units 18:45 18:45 19:30 CBC w Diff Slide review pending WBC 7.6 (4.0-11.0) th/mm3 RBC 2.59 L (4.00-5.30) mil/mm3 Hgb 7.3 L (11.6-15.3) gm/dL Hct 22.7 L (35.0-46.0) % MCV 87.7 (80.0-100.0) fL MCH 28.1 (27.0-34.0) pg MCHC 32.0 (32.0-36.0) % RDW 22.7 H (11.6-17.2) % Plt Count 62 L (150-450) th/mm3 MPV 10.6 (7.0-11.0) fL Neut % (Auto) 88.5 H (16.0-70.0) % Lymph % (Auto) 10.2 (9.0-44.0) % [place] % (Auto) 0.6 (0.0-8.0) % Eos % (Auto) 0.3 (0.0-4.0) % Baso % (Auto) 0.4 (0.0-2.0) % Neut # (Auto) 6.8 (1.8-7.7) th/mm3 Lymph # (Auto) 0.8 L (1.0-4.8) th/mm3 [place] # (Auto) 0.0 (0.0-0.9) th/mm3 Eos # (Auto) 0.0 (0.0-0.4) th/mm3 Baso # (Auto) 0.0 (0.0-0.2) th/mm3 Differential Comment . Sodium 142 (136-145) meq/L Potassium 4.4 (3.5-5.1) meq/L Chloride 107 (98-107) meq/L Carbon Dioxide 25.9 (21.0-32.0) meq/L Anion Gap 9 (5-15) meq/L BUN 65 H (7-18) mg/dL Creatinine 1.70 H (0.50-1.00) mg/dL Estimated GFR 29 L (>89) mL/min Random Glucose 97 (74-106) mg/dL Calcium 8.4 L (8.5-10.1) mg/dL MTS Gel Crossmatch See Detail Discharge Plan Discharge Disposition Patient Disposition: ED Admit(ED Internal Use Only) Discharge Condition Condition: Stable Discharge Order Discharge Orders: ED Use Only Admit Order (Routine); Ordered 10/30/18 Ordered By: Celi Hoff Discharge Details Diagnosis: GI bleed, Melena, Renal insufficiency Physicians Team ED Provider: Celi Hoff Rxs /Orders / Referrals /Forms Prescriptions: No Action carvedilol 6.25 mg Tablet 6.25 mg PO BID RF: 0 lamotrigine 200 mg Tablet 200 mg PO HS RF: 0 sucralfate 1 gram Tablet 1 g PO Q6H RF: 0 pantoprazole 40 mg Tablet,Delayed Release (Dr/Ec) 40 mg PO DAILY RF: 0 fluticasone-salmeterol [Advair Diskus] 100-50 mcg/dose Blister With Device 1 puff INHALATION Q12H RF: 0 carbidopa-levodopa 25-100 mg Tablet 1.5 tab PO TID RF: 0 cyclosporine [Restasis] 0.05 % Dropperette 1 drp OPHTHALMIC (EYE) Q12H RF: 0 clonazepam 0.25 mg Tablet,Disintegrating 0.25 mg PO BID RF: 0 rosuvastatin [Crestor] 10 mg Tablet 10 mg PO DAILY RF: 0 memantine [Namenda] 10 mg Tablet 10 mg PO BID RF: 0 duloxetine [Cymbalta] 30 mg Capsule,Delayed Release(Dr/Ec) 30 mg PO DAILY RF: 0 calcium carbonate-vitamin D3 [Calcium 600 + D(3)] 600 mg calcium- 200 unit Capsule 600 mg PO DAILY RF: 0 pregabalin [Lyrica] 50 mg Capsule 50 mg PO DAILY RF: 0 pregabalin [Lyrica] 100 mg Capsule 100 mg PO HS RF: 0 budesonide-formoterol [Symbicort] 80-4.5 mcg/actuation Hfa Aerosol Inhaler 2 puff INHALATION BID RF: 0 lubiprostone [Amitiza] 8 mcg Capsule 8 mcg PO BID RF: 0 rivastigmine [Exelon] 13.3 mg/24 hour Patch 24 Hour 1 patch TRANSDERMAL DAILY RF: 0 apixaban [Eliquis] 5 mg Tablet 5 mg PO BID RF: 0 potassium chloride 20 mEq Tablet Extended Release 20 meq PO DAILY RF: 0 folic acid 1 mg Tablet 4 mg PO DAILY RF: 0 furosemide 20 mg Tablet 20 mg PO DAILY RF: 0 Status ED Status: With Doctor
[2018-10-30 19:09] LABS: Potassium 4.4 meq/L (3.5-5.1)
[2018-10-30 19:11] LABS: Carbon Dioxide 25.9 meq/L (21.0-32.0)
[2018-10-30 19:14] LABS: Calcium 8.4 mg/dL (8.5-10.1)
[2018-10-30 19:15] LABS: Baso % (Auto) 0.4 % (0.0-2.0); Eos % (Auto) 0.3 % (0.0-4.0); Hematocrit 22.7 % (35.0-46.0); Hemoglobin 7.3 gm/dL (11.6-15.3); Lymph # (Auto) 0.8 th/mm3 (1.0-4.8); Lymph % (Auto) 10.2 % (9.0-44.0); Mean Corpuscular Hemoglobin 28.1 pg (27.0-34.0); Mean Corpuscular Volume 87.7 fL (80.0-100.0); Mean Platelet Volume 10.6 fL (7.0-11.0); Mono % (Auto) 0.6 % (0.0-8.0); Neut # (Auto) 6.8 th/mm3 (1.8-7.7); Neut % (Auto) 88.5 % (16.0-70.0); Platelet Count 62 th/mm3 (150-450); Red Blood Count 2.59 mil/mm3 (4.00-5.30); Red Cell Distribution Width 22.7 % (11.6-17.2); White Blood Count 7.6 th/mm3 (4.0-11.0)
[2018-10-30 19:39] LABS: Lymphocytes 7 % (9-44); Monocytes 2 % (0-8); Tallied Nucleated RBC 2 (0-0)
[2018-10-30 19:40] LABS: Ovalocytes 1+
[2018-10-30] MEDS ORDERED: Pantoprazole Inj 80 MG in Sodium Chlor 0.9% Inj 100 ML IV.CONT SCH (20:00)
[2018-10-30] MEDS ORDERED: Acetaminophen 500 MG Tablet PO ONE (20:29)
--- NOTE | 2018-10-31 00:10 | P.HPCC ---
History of Present Illness Service: Critical care medicine Primary Care Physician: Khadijah Levin MD Chief Complaint: Melena, generalized weakness History of Present Illness: 78 yo female with PMH of multiple TIA on chronic anticoagulation with Eliquis (after continued TIAs despite Plavix), Parkinson's, dementia, GERD, anxiety, bipolar disorder, asthma, compression fracture with hx kyphoplasty. She has a loop recorder in place and, to her daughter's knowledge, does not have history of A fib. She has been feeling weak for several days. Today she has had multiple melena stools, passing a few pellets and mostly black "water" x 5-6 episodes. She had one episode of nonbloody/non coffee ground emesis. She had a few second of syncope while trying to get up onto the [facility] stretcher. She arrived at [facility] emergency department where she was evaluated and found to have gabriella melena on rectal exam. Her hemoglobin is 7.3. Type and cross has been ordered and she has been ordered to transfuse 1 unit packed red cells. Her blood pressure was in the 90s over 60s with pulse in the 70s. She is on Coreg. She has been on Eliquis for over a year. No prior issues with overt GI bleeding. She did have EGD and colonoscopy done approximately 2 months ago due to anemia. This was performed by Dr. Carney and per her daughter's report demonstrated mild gastritis with resolving ulcers and no evidence of acute hemorrhage. She was continued on Eliquis. She was scheduled to have CT abd/pelvis but patient repeatedly cancelled the test. She is not on NSAIDs. She took a steroid taper about 3-4 weeks ago which was prescribed by orthopaedics for a hamstring strain. Records Management Manager is Dr. Vogel GI - Dr. Rommel Hughes has continued to follow her post-rehab Ortho - Dr. Abdi - Diagnosis (1) GI bleed (2) Melena (3) Hypovolemic shock (4) Acute blood loss anemia (5) Parkinson disease (6) Bipolar disorder (7) CKD (chronic kidney disease) stage 3, GFR 30-59 ml/min (8) Seizure disorder (9) Anticoagulated by anticoagulation treatment Inpatient Certification: I certify that the inpatient services were ordered in accordance with Medicare regulations governing the order. This includes certification that hospital inpatient services are reasonable and necessary and in the case of services not specified as inpatient-only under 42 CFR 419.22(n), that they are appropriately provided as inpatient services in accordance to with the 2-midnight benchmark under 43 CFR 412.3(e) Review of Systems All other systems reviewed negative except as stated in HPI Neurologic: Reports weakness Psychiatric: Reports anxiety PMFSH - History History Provided By: Patient, Family Member - Medical History Medical History: Medical History (Last Updated 10/31/18 @ 00:50 by Kellie Marcial MD) Anxiety Asthma Bipolar disorder Dementia GERD (gastroesophageal reflux disease) Gastritis HTN (hypertension) Parkinson disease Seizures TIA (transient ischemic attack) - Surgical History Surgical History: Surgical History (Last Updated 10/31/18 @ 00:52 by Kellie Marcial MD) H/O hernia repair H/O kyphoplasty History of AAA (abdominal aortic aneurysm) repair History of hip replacement History of partial hysterectomy Hx of cholecystectomy Status post ORIF of fracture of ankle - Family History Family History: Family History (Last Updated 10/31/18 @ 00:52 by Kellie Marcial MD) Mother No significant medical problems Father Myocardial infarct - Tobacco History Second Hand Smoke Exposure: No Smoking Status: Never smoker - Alcohol History How Often Do You Have a Drink Containing Alcohol: Never - Substance Use History Substance History: No History of Abuse - Travel History Recent Travel in the [place] Within the Last 8 Weeks: No Recent Travel Out of the Country Within the Last 8 Weeks: No - Immunization History Tetanus Immunization: Unsure Hx Influenza Vaccine This Season: Yes Medications and Allergies Active Medications: Active Medications Pantoprazole Sodium 80 mg/ (Sodium Chloride) 100 mls @ 10 mls/hr IV.CONT CONT MARIE Last Admin: 10/30/18 20:14 Dose: 10 mls/hr Allergies Allergy/AdvReac Type Severity Reaction Status Date / Time paroxetine Allergy Severe CAN NOT Verified 10/30/18 18:20 REMEMBER lactose Allergy Unknown GI UPSET Verified 10/30/18 18:20 Home Medications Medication Instructions Recorded Confirmed Type apixaban [Eliquis] 5 mg PO BID 10/30/18 10/30/18 History budesonide-formoterol [Symbicort] 2 puff INHALATION BID 10/30/18 10/30/18 History calcium carbonate-vitamin D3 600 mg PO DAILY 10/30/18 10/30/18 History [Calcium 600 + D(3)] carbidopa-levodopa 1.5 tab PO TID 10/30/18 10/30/18 History carvedilol 6.25 mg PO BID 10/30/18 10/30/18 History clonazepam 0.25 mg PO BID 10/30/18 10/30/18 History cyclosporine [Restasis] 1 drp OPHTHALMIC (EYE) Q12H 10/30/18 10/30/18 History duloxetine [Cymbalta] 30 mg PO DAILY 10/30/18 10/30/18 History fluticasone-salmeterol [Advair 1 puff INHALATION Q12H 10/30/18 10/30/18 History Diskus] folic acid 4 mg PO DAILY 10/30/18 10/30/18 History furosemide 20 mg PO DAILY 10/30/18 10/30/18 History lamotrigine 200 mg PO HS 10/30/18 10/30/18 History lubiprostone [Amitiza] 8 mcg PO BID 10/30/18 10/30/18 History memantine [Namenda] 10 mg PO BID 10/30/18 10/30/18 History pantoprazole 40 mg PO DAILY 10/30/18 10/30/18 History potassium chloride 20 meq PO DAILY 10/30/18 10/30/18 History pregabalin [Lyrica] 50 mg PO DAILY 10/30/18 10/30/18 History pregabalin [Lyrica] 100 mg PO HS 10/30/18 10/30/18 History rivastigmine [Exelon] 1 patch TRANSDERMAL DAILY 10/30/18 10/30/18 History rosuvastatin [Crestor] 10 mg PO DAILY 10/30/18 10/30/18 History sucralfate 1 g PO Q6H 10/30/18 10/30/18 History Results - Labs CBC & Chem 7: 10/31/18 05:40 10/31/18 05:40 Labs: Short CBC 10/30/18 Range/Units 18:45 WBC 7.6 (4.0-11.0) th/mm3 Hgb 7.3 L (11.6-15.3) gm/dL Hct 22.7 L (35.0-46.0) % Plt Count 62 L (150-450) th/mm3 BMP 10/30/18 18:45 Sodium 142 Potassium 4.4 Chloride 107 Carbon Dioxide 25.9 BUN 65 H Creatinine 1.70 H Calcium 8.4 L Exam Vital signs: Vital Signs 10/30/18 18:20 10/30/18 19:30 10/30/18 20:30 Temperature 98.1 F 97.9 F Pulse Rate 79 98 H 101 H Respiratory Rate 18 18 18 Blood Pressure 99/62 L 103/50 L 94/42 L Pulse Oximetry 98 10/30/18 21:00 10/30/18 22:15 10/30/18 22:16 Temperature 97.5 F L 98.3 F Pulse Rate 101 H 80 83 Respiratory Rate 18 20 Blood Pressure 95/45 L 97/44 L Pulse Oximetry 99 10/30/18 22:30 10/30/18 22:33 Temperature 97.9 F Pulse Rate 85 Respiratory Rate 18 22 Blood Pressure 97/50 L Pulse Oximetry 100 Intake & Output 10/30/18 10/30/18 10/31/18 06:59 18:59 06:59 Intake Total 1000 / 1000 Balance 1000 / 1000 Weight 68.946 kg 74.9 kg Intake: IV 1000 / 1000 NS Inj 1,000 ML @ Wide Open IV. 1000 / 1000 SIG BOLUS ONE Rx#:[id number] Intake (Blood Product) Amt 0 / 0 Rbc As-3 Leukoreduced Unit 0 / 0 [id number] Other: Weight On Admission 68.946 kg Narrative: GENERAL: Pale appearing female who is laying in bed. Anxious appearing SKIN: Warm and dry. HEAD: Atraumatic. Normocephalic. EYES: Pupils equal and round. No scleral icterus. No injection or drainage. ENT: No nasal bleeding or discharge. Mucous membranes pink and moist. NECK: Trachea midline. No JVD. CARDIOVASCULAR: Regular rate and rhythm, sinus rhythm on the monitor. No murmurs rubs or gallops. RESPIRATORY: No accessory muscle use. Clear to auscultation. Breath sounds equal bilaterally. On room air GASTROINTESTINAL: Abdomen soft, in lower mid abdomen. Mild tenderness left upper quadrant. Bowel sounds present. Midline vertical disease incision is well-healed. MUSCULOSKELETAL: Extremities without clubbing, cyanosis, or edema. NEUROLOGICAL: Awake and alert. No obvious cranial nerve deficits. Moves all extremities spontaneously without apparent focal deficit. Caprini VTE Risk Assessment Caprini VTE Risk Assessment: Moderate/High Risk (score >= 2) VTE Pharmacological Exception Reason: Hemorrhage Caprini Risk Assessment Model: Point Value = 1 Point Value = 2 Point Value = 3 Point Value = 5 Age 41-60 Minor surgery BMI > 25 kg/m2 Swollen legs Varicose veins or History of unexplained or recurrent spontaneous Oral contraceptives or hormone replacement Sepsis (< 1 month) Serious lung disease, including pneumonia (< 1 month) Abnormal pulmonary function Acute myocardial infarction Congestive heart failure (< 1 month) History of inflammatory bowel disease Medical patient at bed rest Age 61-74 Arthroscopic surgery Major open surgery (> 45 min) Laparoscopic surgery (> 45 min) Malignancy Confined to bed (> 72 hours) Immobilizing plaster cast Central venous access Age >= 75 History of VTE Family history of VTE Factor V Leiden Prothrombin [id number] Lupus anticoagulant Anticardiolipin antibodies Elevated serum homocysteine Heparin-induced thrombocytopenia Other congenital or acquired thrombophilia Stroke (< 1 month) Elective arthroplasty Hip, pelvis, or leg fracture Acute spinal cord injury (< 1 month) Prophylaxis Regimen: Total Risk Factor Score Risk Level Prophylaxis Regimen 0-1 Low Early ambulation 2 Moderate Order ONE of the following: *Sequential Compression Device (SCD) *Heparin 5000 units SQ BID 3-4 Higher Order ONE of the following medications: *Heparin 5000 units SQ TID *Enoxaparin/Lovenox 40 mg SQ daily (WT < 150 kg, CrCl > 30 mL/min) *Enoxaparin/Lovenox 30 mg SQ daily (WT < 150 kg, CrCl > 10-29 mL/min) *Enoxaparin/Lovenox 30 mg SQ BID (WT < 150 kg, CrCl > 30 mL/min) AND/OR *Sequential Compression Device (SCD) 5 or more Highest Order ONE of the following medications: *Heparin 5000 units SQ TID (Preferred with Epidurals) *Enoxaparin/Lovenox 40 mg SQ daily (WT < 150 kg, CrCl > 30 mL/min) *Enoxaparin/Lovenox 30 mg SQ daily (WT < 150 kg, CrCl > 10-29 mL/min) *Enoxaparin/Lovenox 30 mg SQ BID (WT < 150 kg, CrCl > 30 mL/min) AND *Sequential Compression Device (SCD) Assessment and Plan - Problem List (1) GI bleed Code(s): K92.2 - Gastrointestinal hemorrhage, unspecified Status: Acute (2) Melena Code(s): K92.1 - Melena Status: Acute (3) Hypovolemic shock Code(s): R57.1 - Hypovolemic shock Status: Acute (4) Acute blood loss anemia Code(s): D62 - Acute posthemorrhagic anemia Status: Acute (5) Parkinson disease Code(s): G20 - Parkinson's disease Status: Chronic (6) Bipolar disorder Code(s): F31.9 - Bipolar disorder, unspecified Status: Acute (7) CKD (chronic kidney disease) stage 3, GFR 30-59 ml/min Code(s): N18.3 - Chronic kidney disease, stage 3 (moderate) Status: Chronic (8) Seizure disorder Code(s): G40.909 - Epilepsy, unspecified, not intractable, without status epilepticus Status: Chronic (9) Anticoagulated by anticoagulation treatment Code(s): Z79.01 - USP (current) use of anticoagulants Status: Chronic - Assessment and Plan Plan: NEURO: Parkinson's Dementia Anxiety Bipolar disorder Seizure disorder Continue carbidopa levodopa 25/100 mg 1.5 tabs at 9 AM, 1 PM, 5 PM, 9 pm. Continue Exelon patch Continue Cymbalta 30 mg p.o. daily. Reportedly there is been some discussion from Dr. Hughes and patient's psychiatrist about increasing it to 60 mg daily Continue Lyrica 50 mg every morning, 50 mg 5 PM, 100 mg nightly Continue Klonopin M0 0.2 mg p.o. twice daily Continue lamotrigine 200 mg nightly RESP: Asthma Continue Advair Continue Symbicort CV: Essential Hypertension Hold carvedilol 6.25 mg p.o. twice daily for now due to hypotension Hypovolemic shock Hypotension responding to volume/transfusion. 1 L NS bolus in the ED. 1 L LR given. Transfusions as per below. Hyperlipidemia Atorvastatin 20 mg p.o. daily. On Crestor 10 mg p.o. daily as outpatient GI: GI bleeding History of gastritis GI bleeding associated with Eliquis. Eliquis was placed on hold. She also has a history of gastritis and this may have been exacerbated by the need for recent prednisone. On Protonix drip. Gastroenterology consulted Eventual CT abd/pelvis when stabilized. FEN/RENAL: CKD stage III Monitor BMP. ID: Monitor for signs and symptoms of infection. HEME: Acute blood loss anemia Chronic thrombocytopenia Transfused 3 units packed red cells. Transfuse 1 unit platelets. Followup CBC. Serial Hgb q6. ENDO: Euglycemic PROPH: SCDs for for DVT prophylaxis. Pharmacologic DVT prophylaxis is contraindicated due to acute life-threatening hemorrhage. Protonix drip as per above. ACCESS: Multiple PIVs are currently providing adequate access. FULL CODE Patient is critically ill with severe acute blood loss anemia resulting in hypovolemic shock. She has responded to IV fluids and transfusion. She remains at high risk for ongoing bleeding and should remain in [facility] for monitoring. I have updated her daughter at bedside. Discussed with bedside RN on multiple occasions Critical care time 60 minutes exclusive of separately billable procedures. H&P: Quality - VTE Deep Vein Thrombosis/Pulmonary Embolism Present on Admission: No (1) GI bleed Qualifiers: GI bleed type/associated pathology: unspecified gastrointestinal hemorrhage type Qualified Code(s): K92.2 - Gastrointestinal hemorrhage, unspecified
[2018-10-31] MEDS ORDERED: Non-Formulary Drug (Fluticasone-Salmeterol [Advair Diskus] 1 PUFF) INHALATION SCH (00:15)
[2018-10-31] MEDS ORDERED: Acetaminophen 325 MG Tablet PO PRN (00:28)
[2018-10-31] MEDS ORDERED: Sodium Chlor 0.9% Inj 250 ML IV.SIG SCH ×3 (01:00→02:00)
[2018-10-31 02:48] LABS: Activated Partial Thrombo Time 31.4 sec (23.4-31.7); INR 1.4 Ratio; Prothrombin Time 14.1 sec (9.8-11.6)
[2018-10-31] MEDS: clonazePAM 0.5 MG Tablet PO SCH ×3 (03:25→20:38)
[2018-10-31] MEDS: lamoTRIgine 100 MG Tablet PO SCH ×2 (03:50→20:39)
[2018-10-31] MEDS: CYCLOSPORINE EACH EYE SCH ×2 (04:00→15:49)
[2018-10-31] MEDS ORDERED: Chlorhexidine Gluconate 2% 1 Pack (2 Cloths) TOPICAL PRN (04:00)
[2018-10-31] MEDS: Chlorhexidine Gluconate 2% 1 Pack (2 Cloths) TOPICAL SCH (04:55)
[2018-10-31 05:55] LABS: Hematocrit 30.7 % (35.0-46.0); Hemoglobin 10.7 gm/dL (11.6-15.3); Mean Corpuscular HGB Conc 34.9 % (32.0-36.0); Mean Corpuscular Hemoglobin 30.8 pg (27.0-34.0); Mean Corpuscular Volume 88.3 fL (80.0-100.0); Mean Platelet Volume 8.6 fL (7.0-11.0); Platelet Count 85 th/mm3 (150-450); Red Blood Count 3.48 mil/mm3 (4.00-5.30); Red Cell Distribution Width 16.2 % (11.6-17.2); White Blood Count 13.1 th/mm3 (4.0-11.0)
[2018-10-31] MEDS: Pantoprazole Inj 80 MG in Sodium Chlor 0.9% Inj 100 ML IV.CONT SCH ×2 (06:07→15:22)
[2018-10-31 06:12] LABS: Albumin 2.4 g/dL (3.4-5.0); Calcium 7.2 mg/dL (8.5-10.1); Carbon Dioxide 25.2 meq/L (21.0-32.0); Potassium 4.3 meq/L (3.5-5.1); Total Protein 5.1 g/dL (6.4-8.2)
--- NOTE | 2018-10-31 08:40 | P.CONGI ---
History of Present Illness Consult date: 10/31/18 Chief complaint: GI Bleed w/ Melena and Anemia; Renal Insufficiency History of Present Illness: This is 78 yo female with PMH of multiple TIA on chronic anticoagulation with Eliquis, Parkinson's, dementia, GERD who presented with weakness, and passing multiple melena stools became very bad the day prior to admission. She had few episodes of vomiting but denies coffee ground emesis or hematemesis. On arrival, she was evaluated and found to have gabriella melena on rectal exam. Her hemoglobin is 7.3. Today hgb is is 10.7 s/p 3 units of blood and one plt. By report, she had EGD and colonoscopy done approximately 2 months ago due to anemia by Dr. Carney which demonstrated mild gastritis with resolving ulcers and no evidence of acute hemorrhage. Review of Systems All other systems reviewed negative except as stated in HPI [facility] - History History Provided By: Patient, Family Member - Medical History Medical History: Medical History (Last Updated 10/31/18 @ 00:50 by Kellie Marcial MD) Anxiety Asthma Bipolar disorder Dementia GERD (gastroesophageal reflux disease) Gastritis HTN (hypertension) Parkinson disease Seizures TIA (transient ischemic attack) - Surgical History Surgical History: Surgical History (Last Updated 10/31/18 @ 00:52 by Kellie Marcial MD) H/O hernia repair H/O kyphoplasty History of AAA (abdominal aortic aneurysm) repair History of hip replacement History of partial hysterectomy Hx of cholecystectomy Status post ORIF of fracture of ankle - Family History Family History: Family History (Last Updated 10/31/18 @ 00:52 by Kellie Marcial MD) Mother No significant medical problems Father Myocardial infarct - Tobacco History Second Hand Smoke Exposure: No Smoking Status: Never smoker - Alcohol History How Often Do You Have a Drink Containing Alcohol: Never - Substance Use History Substance History: No History of Abuse - Travel History Recent Travel in the [place] Within the Last 8 Weeks: No Recent Travel Out of the Country Within the Last 8 Weeks: No - Immunization History Tetanus Immunization: Unsure Hx Influenza Vaccine This Season: Yes Medications and Allergies Active Medications: Active Medications Acetaminophen (Tylenol) 650 mg PO Q6H PRN PRN Reason: PAIN 1-10 AND/OR FEVER >101F Atorvastatin Calcium (Lipitor) 20 mg PO DAILY MARIE Budesonide/Formoterol Fumarate (Symbicort 80/4.5 Mcg Inh) 2 puff INH BID MARIE Carbidopa/Levodopa (Sinemet 25/100 Mg) 1.5 tab PO Q24H MARIE Carbidopa/Levodopa (Sinemet 25/100 Mg) 1.5 tab PO DAILY MARIE Carbidopa/Levodopa (Sinemet 25/100 Mg) 1.5 tab PO Q24H MARIE Carbidopa/Levodopa (Sinemet 25/100 Mg) 1.5 tab PO HS [facility] Chlorhexidine Gluconate (Chlorhexidine 2% Cloth) 3 pack TOPICAL DAILY@0400 MARIE Stop: 11/05/18 03:59 Last Admin: 10/31/18 04:55 Dose: 3 pack Chlorhexidine Gluconate (Chlorhexidine 2% Cloth) 3 pack TOPICAL DAILY@0400 PRN PRN Reason: Extra cloth needed Stop: 11/05/18 03:59 Clonazepam (Klonopin) 0.25 mg PO BID [facility] Last Admin: 10/31/18 03:25 Dose: 0.25 mg Duloxetine HCl (Cymbalta) 30 mg PO DAILY [facility] Folic Acid (Folic Acid) 4 mg PO DAILY [facility] Furosemide (Lasix) 20 mg PO DAILY [facility] Sodium Chloride (Ns Inj) 250 mls @ 15 mls/hr IV.SIG ONCE MARIE Stop: 10/31/18 17:39 Last Admin: 10/31/18 01:30 Dose: 15 mls/hr Pantoprazole Sodium 80 mg/ (Sodium Chloride) 100 mls @ 10 mls/hr IV.CONT Q10H MARIE Last Admin: 10/31/18 06:07 Dose: 10 mls/hr Sodium Chloride (Ns Inj) 250 mls @ 15 mls/hr IV.SIG ONCE MARIE Stop: 10/31/18 18:39 Last Admin: 10/31/18 02:30 Dose: 15 mls/hr Sodium Chloride (Ns Inj) 250 mls @ 15 mls/hr IV.SIG ONCE MARIE Stop: 10/31/18 18:39 Last Admin: 10/31/18 05:05 Dose: 15 mls/hr Lamotrigine (Lamictal) 200 mg PO HS [facility] Last Admin: 10/31/18 03:50 Dose: 200 mg Memantine (Namenda) 10 mg PO BID [facility] Last Admin: 10/31/18 03:50 Dose: 10 mg Morphine Sulfate (Morphine Inj) 2 mg IV.PUSH Q2H PRN PRN Reason: PAIN SCALE 6 TO 10 Ondansetron HCl (Zofran Inj) 4 mg IV.PUSH Q6H PRN PRN Reason: NAUSEA OR VOMITING (Cyclosporine [ (Restasis] 1 Drp)) 1 each EACH EYE Q12H [facility] Last Admin: 10/31/18 04:00 Dose: Not Given Lubiprostone [ (Amitiza] 8 Mcg) 0 each PO BID [facility] Rivastigmine [Exelon ] 13.3 Mg/24h 1 Patch 0 each TOPICAL DAILY [facility] Potassium Chloride (K-Dur) 20 meq PO DAILY [facility] Pregabalin (Lyrica) 50 mg PO DAILY [facility] Pregabalin (Lyrica) 50 mg PO Q24H MARIE Pregabalin (Lyrica) 100 mg PO Q24H MARIE Sodium Chloride (Ns Flush) 2 ml IV.FLUSH BID [facility] Sodium Chloride (Ns Flush) 2 ml IV.FLUSH PRN PRN PRN Reason: FLUSH AFTER USING IV ACCESS Allergies Allergy/AdvReac Type Severity Reaction Status Date / Time paroxetine Allergy Severe CAN NOT Verified 10/30/18 18:20 REMEMBER lactose Allergy Unknown GI UPSET Verified 10/30/18 18:20 Home Medications Medication Instructions Recorded Confirmed Type apixaban [Eliquis] 5 mg PO BID 10/30/18 10/30/18 History budesonide-formoterol [Symbicort] 2 puff INHALATION BID 10/30/18 10/30/18 History calcium carbonate-vitamin D3 600 mg PO DAILY 10/30/18 10/30/18 History [Calcium 600 + D(3)] carbidopa-levodopa 1.5 tab PO TID 10/30/18 10/30/18 History carvedilol 6.25 mg PO BID 10/30/18 10/30/18 History clonazepam 0.25 mg PO BID 10/30/18 10/30/18 History cyclosporine [Restasis] 1 drp OPHTHALMIC (EYE) Q12H 10/30/18 10/30/18 History duloxetine [Cymbalta] 30 mg PO DAILY 10/30/18 10/30/18 History fluticasone-salmeterol [Advair 1 puff INHALATION Q12H 10/30/18 10/30/18 History Diskus] folic acid 4 mg PO DAILY 10/30/18 10/30/18 History furosemide 20 mg PO DAILY 10/30/18 10/30/18 History lamotrigine 200 mg PO HS 10/30/18 10/30/18 History lubiprostone [Amitiza] 8 mcg PO BID 10/30/18 10/30/18 History memantine [Namenda] 10 mg PO BID 10/30/18 10/30/18 History pantoprazole 40 mg PO DAILY 10/30/18 10/30/18 History potassium chloride 20 meq PO DAILY 10/30/18 10/30/18 History pregabalin [Lyrica] 50 mg PO DAILY 10/30/18 10/30/18 History pregabalin [Lyrica] 100 mg PO HS 10/30/18 10/30/18 History rivastigmine [Exelon] 1 patch TRANSDERMAL DAILY 10/30/18 10/30/18 History rosuvastatin [Crestor] 10 mg PO DAILY 10/30/18 10/30/18 History sucralfate 1 g PO Q6H 10/30/18 10/30/18 History Exam Vital signs: Vital Signs 10/30/18 18:20 10/30/18 19:30 10/30/18 20:30 Temperature 98.1 F 97.9 F Pulse Rate 79 98 H 101 H Respiratory Rate 18 18 18 Blood Pressure 99/62 L 103/50 L 94/42 L Pulse Oximetry 98 10/30/18 21:00 10/30/18 22:15 10/30/18 22:16 Temperature 97.5 F L 98.3 F Pulse Rate 101 H 80 83 Respiratory Rate 18 20 Blood Pressure 95/45 L 97/44 L Pulse Oximetry 99 10/30/18 22:30 10/30/18 22:33 10/30/18 22:45 Temperature 97.9 F 97.9 F Pulse Rate 81 85 80 Respiratory Rate 16 22 20 Blood Pressure 97/50 L 97/50 L 99/53 L Pulse Oximetry 100 100 100 10/30/18 23:00 10/30/18 23:15 10/30/18 23:30 Temperature Pulse Rate 80 78 83 Respiratory Rate 16 16 18 Blood Pressure 99/53 L 96/52 L 114/56 L Pulse Oximetry 100 100 99 10/31/18 00:00 10/31/18 00:01 10/31/18 00:30 Temperature 98.1 F Pulse Rate 81 77 77 Respiratory Rate 19 16 Blood Pressure 105/52 L 97/53 L Pulse Oximetry 100 99 10/31/18 01:00 10/31/18 01:02 10/31/18 01:04 Temperature Pulse Rate 72 74 77 Respiratory Rate 14 20 35 H Blood Pressure 84/47 L 84/48 L 83/50 L Pulse Oximetry 100 100 100 10/31/18 01:15 10/31/18 01:20 10/31/18 01:24 Temperature 97.6 F Pulse Rate 74 75 72 Respiratory Rate 22 31 H 16 Blood Pressure 78/53 L 91/53 L 91/53 L Pulse Oximetry 100 91 L 100 10/31/18 01:30 10/31/18 01:40 10/31/18 01:46 Temperature 97.9 F Pulse Rate 73 70 69 Respiratory Rate 18 16 13 Blood Pressure 89/47 L 89/47 L 71/44 L Pulse Oximetry 100 100 100 10/31/18 01:50 10/31/18 01:52 10/31/18 02:00 Temperature Pulse Rate 71 72 70 Respiratory Rate 17 15 13 Blood Pressure 70/45 L 72/49 L Pulse Oximetry 100 100 99 10/31/18 02:01 10/31/18 02:16 10/31/18 02:31 Temperature Pulse Rate 70 73 78 Respiratory Rate 17 20 15 Blood Pressure 89/51 L 91/51 L 107/58 L Pulse Oximetry 100 100 100 10/31/18 02:38 10/31/18 02:46 10/31/18 02:49 Temperature 98.0 F 98 F Pulse Rate 77 77 78 Respiratory Rate 16 18 20 Blood Pressure 107/58 L 110/57 L 110/57 L Pulse Oximetry 100 100 10/31/18 03:00 10/31/18 03:01 10/31/18 03:16 Temperature Pulse Rate 82 81 79 Respiratory Rate 20 19 19 Blood Pressure 126/60 113/56 L Pulse Oximetry 100 100 100 10/31/18 03:30 10/31/18 03:46 10/31/18 04:00 Temperature 98 F Pulse Rate 78 77 77 Respiratory Rate 17 18 22 Blood Pressure 110/58 L 113/58 L Pulse Oximetry 100 100 100 10/31/18 04:01 10/31/18 04:16 10/31/18 04:36 Temperature Pulse Rate 76 76 Respiratory Rate 16 20 Blood Pressure 111/56 L 115/56 L Pulse Oximetry 100 100 100 10/31/18 05:00 10/31/18 05:30 10/31/18 06:00 Temperature Pulse Rate 71 71 69 Respiratory Rate 30 H 20 15 Blood Pressure 93/55 L 93/51 L 91/53 L Pulse Oximetry 100 100 99 10/31/18 06:30 10/31/18 07:00 10/31/18 07:30 Temperature Pulse Rate 70 69 74 Respiratory Rate 18 17 17 Blood Pressure 95/50 L 92/50 L 99/53 L Pulse Oximetry 100 99 99 10/31/18 07:52 Temperature Pulse Rate Respiratory Rate Blood Pressure Pulse Oximetry 99 Intake & Output 10/30/18 10/31/18 10/31/18 18:59 06:59 18:59 Intake Total 2800 / 2800 Balance 2800 / 2800 Weight 68.946 kg 76.2 kg Intake: IV 2000 / 2000 LR 1000 mL Inj 1,000 ML @ Wide 1000 / 1000 Open IV.SIG BOLUS ONE Rx#: [id number] NS Inj 1,000 ML @ Wide Open IV. 1000 / 1000 SIG BOLUS ONE Rx#:[id number] Oral 0 / 0 Intake (Blood Product) Amt 800 / 800 Plt Pheresis B Leukored/ Irr 0 / 0 Unit [id number] Rbc As-3 Leukoreduced Unit 400 / 400 [id number] Rbc As-3 Leukoreduced Unit 0 / 0 [id number] Rbc As-3 Leukoreduced Unit 400 / 400 [id number] Other: # Voids 1 Weight On Admission 68.946 kg - Constitutional no acute distress - Routine HEENT Exam Head: Present: normocephalic - Routine Respiratory Exam Present: CTA bilaterally - Routine Cardiovascular Exam Present: RRR - Routine Abdominal Exam Present: soft, normoactive bowel sounds. Absent: tenderness, distended - Routine Skin Exam Present: intact, dry. Absent: jaundice - Routine Neurological Exam Present: alert, oriented X3 Results - Labs CBC & Chem 7: 10/31/18 05:40 10/31/18 05:40 Labs: Laboratory Results - last 24 hr 10/30/18 10/30/18 10/30/18 18:45 18:45 18:45 CBC w Diff Slide review pending WBC 7.6 RBC 2.59 L Hgb 7.3 L Hct 22.7 L MCV 87.7 MCH 28.1 MCHC 32.0 RDW 22.7 H Plt Count 62 L MPV 10.6 Neut % (Auto) 88.5 H Lymph % (Auto) 10.2 [place] % (Auto) 0.6 Eos % (Auto) 0.3 Baso % (Auto) 0.4 Neut # (Auto) 6.8 Lymph # (Auto) 0.8 L [place] # (Auto) 0.0 Eos # (Auto) 0.0 Baso # (Auto) 0.0 WBC Differential Manual diff final Seg Neuts % (Manual) 82 H Band Neuts % (Manual) 9 H Lymphocytes % (Manual) 7 L Monocytes % (Manual) 2 Abs Neuts (Manual) 6.9 Nucleated RBCs/100 WBC 2 H Differential Comment . Platelet Estimate Low L Platelet Morphology Enlarged H Basophilic Stippling Faint H Ovalocytes 1+ H PT INR APTT Sodium 142 Potassium 4.4 Chloride 107 Carbon Dioxide 25.9 Anion Gap 9 BUN 65 H Creatinine 1.70 H Estimated GFR 29 L Random Glucose 97 Calcium 8.4 L Calcium Adj for Albumin Total Bilirubin AST ALT Alkaline Phosphatase Total Protein Albumin Nasal Screen MRSA (PCR) Blood Type O Positive Antibody Screen Negative MTS Gel Crossmatch Bld Prod Order Comment 10/30/18 10/30/18 10/31/18 19:30 22:22 00:27 CBC w Diff WBC RBC Hgb Hct MCV MCH MCHC RDW Plt Count MPV Neut % (Auto) Lymph % (Auto) [place] % (Auto) Eos % (Auto) Baso % (Auto) Neut # (Auto) Lymph # (Auto) [place] # (Auto) Eos # (Auto) Baso # (Auto) WBC Differential Seg Neuts % (Manual) Band Neuts % (Manual) Lymphocytes % (Manual) Monocytes % (Manual) Abs Neuts (Manual) Nucleated RBCs/100 WBC Differential Comment Platelet Estimate Platelet Morphology Basophilic Stippling Ovalocytes PT INR APTT Sodium Potassium Chloride Carbon Dioxide Anion Gap BUN Creatinine Estimated GFR Random Glucose Calcium Calcium Adj for Albumin Total Bilirubin AST ALT Alkaline Phosphatase Total Protein Albumin Nasal Screen MRSA (PCR) Mrsa detected Blood Type Antibody Screen MTS Gel Crossmatch See Detail See Detail Bld Prod Order Comment 10/31/18 10/31/18 10/31/18 01:58 01:59 02:24 CBC w Diff WBC RBC Hgb Hct MCV MCH MCHC RDW Plt Count MPV Neut % (Auto) Lymph % (Auto) [place] % (Auto) Eos % (Auto) Baso % (Auto) Neut # (Auto) Lymph # (Auto) [place] # (Auto) Eos # (Auto) Baso # (Auto) WBC Differential Seg Neuts % (Manual) Band Neuts % (Manual) Lymphocytes % (Manual) Monocytes % (Manual) Abs Neuts (Manual) Nucleated RBCs/100 WBC Differential Comment Platelet Estimate Platelet Morphology Basophilic Stippling Ovalocytes PT 14.1 H INR 1.4 APTT 31.4 Sodium Potassium Chloride Carbon Dioxide Anion Gap BUN Creatinine Estimated GFR Random Glucose Calcium Calcium Adj for Albumin Total Bilirubin AST ALT Alkaline Phosphatase Total Protein Albumin Nasal Screen MRSA (PCR) Blood Type Antibody Screen MTS Gel Crossmatch See Detail Bld Prod Order Comment 10/31/18 10/31/18 05:40 05:40 CBC w Diff WBC 13.1 H D RBC 3.48 L Hgb 10.7 L D Hct 30.7 L MCV 88.3 MCH 30.8 MCHC 34.9 RDW 16.2 D Plt Count 85 L D MPV 8.6 Neut % (Auto) Lymph % (Auto) [place] % (Auto) Eos % (Auto) Baso % (Auto) Neut # (Auto) Lymph # (Auto) [place] # (Auto) Eos # (Auto) Baso # (Auto) WBC Differential Seg Neuts % (Manual) Band Neuts % (Manual) Lymphocytes % (Manual) Monocytes % (Manual) Abs Neuts (Manual) Nucleated RBCs/100 WBC Differential Comment Platelet Estimate Platelet Morphology Basophilic Stippling Ovalocytes PT INR APTT Sodium 145 Potassium 4.3 Chloride 113 H Carbon Dioxide 25.2 Anion Gap 7 BUN 55 H Creatinine 1.37 H Estimated GFR 37 L Random Glucose 106 Calcium 7.2 L* D Calcium Adj for Albumin 8.5 Total Bilirubin 0.8 AST 24 ALT 7 L Alkaline Phosphatase 50 Total Protein 5.1 L Albumin 2.4 L Nasal Screen MRSA (PCR) Blood Type Antibody Screen MTS Gel Crossmatch Bld Prod Order Comment Assessment and Plan - Plan - Anemia/melena- presented with weakness, and passing multiple melena stools became very bad the day prior to admission. She had few episodes of vomiting but denies coffee ground emesis or hematemesis. On arrival, she was evaluated and found to have gabriella melena on rectal exam. Her hemoglobin is 7.3. Today hgb is is 10.7 s/p 3 units of blood and one plt. By report, she had EGD and colonoscopy done approximately 2 months ago due to anemia by Dr. Carney which demonstrated mild gastritis with resolving ulcers and no evidence of acute hemorrhage. - PMH of multiple TIA on chronic anticoagulation with Eliquis (on hold now), Parkinson's, dementia, Plan: - NPO - EGD today - Cont. PPI - Monitor hh - Transfuse as needed - Cont. to hold Eliquis - Pt seen and examined by Dr. Nunes and myself and this note is written on his behalf.
[2018-10-31] MEDS ORDERED: Pregabalin 25 MG Capsule PO SCH (09:00)
--- NOTE | 2018-10-31 11:34 | GIPROC ---
[facility] [address] [facility]. [facility], [address] EGD PROCEDURE REPORT EXAM DATE: 10/31/2018 PATIENT NAME: Deana Sims MR #: [id number] BIRTHDATE: 1940 ATTENDING: Gualberto Nunes MD ORDER #: [id number] CUSTOMS EXAMINER: Alexi Og and Chen Clarke STATUS: inpatient INDICATIONS: The patient is a 78 yr old female here for an EGD due to melena PROCEDURE PERFORMED: EGD w/ control of bleeding MEDICATIONS: Per Anesthesia and None. TOPICAL ANESTHETIC: none CONSENT: The patient understands the risks and benefits of the procedure and understands that these risks include, but are not limited to: sedation, allergic reaction, infection, perforation and/or bleeding. Alternative means of evaluation and treatment include, among others: physical exam, x-rays, and/or surgical intervention. The patient elects to proceed with this endoscopic procedure. medical equipment was checked for proper function. Hand hygiene and appropriate measures for infection prevention was taken. After the risks, benefits and alternatives of the procedure were thoroughly explained, Informed consent was verified, confirmed and timeout was successfully executed by the treatment team. The patient was anesthetized with topical anesthesia and the Pentax [id number] endoscope was introduced through the mouth and advanced to the second portion of the duodenum. Retroflexion was performed and was normal The gastroscope was then slowly withdrawn and removed. ESOPHAGUS: A 2 cm hiatal hernia was noted. STOMACH: A small non-bleeding, round and clean-based ulcer was found at the pylorus. A medium sized angiodysplastic lesion was found in the gastric antrum. Argon plasma coagulation was applied to the site(s). With complete hemostasis achieved. DUODENUM: The duodenal mucosa appeared normal. ADVERSE EVENTS: There were no complications. IMPRESSIONS: 1. 2 cm hiatal hernia 2. Small ulcer was found at the pylorus , biopsies not taking while on Eliquis 3. Angiodysplastic lesion in the gastric antrum; Argon plasma coagulation was applied to the site(s); with complete hemostasis achieved 4. Normal duodenal mucosa 5. Retroflexion was performed and was normal RECOMMENDATIONS: 1. Continue PPI 2. Serial Hgh/Hematocrit 3. Clear liquid diet and advance as tolerated. PATIENT CONDITION: stable DISPOSITION: Observation REPEAT EXAM: Return 8 weeks EGD Gualberto Nunes MD eSigned: Gualberto Nunes MD 10/31/2018 11:34 AM cc: PATIENT NAME: Deana Sims MR#: [id number]
[2018-10-31] MEDS ORDERED: fentaNYL Citrate Inj 100 MCG/2 ML Ampul ONE (11:47)
[2018-10-31] MEDS: Budesonide-Formoterol 80/4.5 MCG 6.9 GM Inhaler INH SCH ×2 (15:20→21:23)
[2018-10-31] MEDS: Furosemide 20 MG Tablet PO SCH (15:41)
[2018-10-31] MEDS: Folic Acid 1 MG Tablet PO SCH (15:41)
[2018-10-31] MEDS: Pregabalin 25 MG Capsule PO SCH ×2 (15:43→17:02)
[2018-10-31] MEDS: Lubiprostone [Amitiza] 8 MCG PO SCH ×2 (15:48→20:40)
[2018-10-31] MEDS: RIVASTIGMINE TOPICAL SCH (15:49)
[2018-10-31 20:03] LABS: Bacteria,Urine Rare /hpf; Bilirubin,Urine Negative (Negative); Clarity,Urine Clear (Clear); Color,Urine Yellow (Yellw/Straw); Glucose,Urine (UA) Negative (Negative); Hyaline Casts,Urine 1 /lpf (0-3); Leukocyte Esterase,Urine Negative (Negative); Nitrite,Urine Negative (Negative); Specific Gravity,Urine 1.018 (1.002-1.035)
[2018-11-01] MEDS: Pantoprazole Inj 80 MG in Sodium Chlor 0.9% Inj 100 ML IV.CONT SCH ×3 (00:48→12:14)
[2018-11-01] MEDS: CYCLOSPORINE EACH EYE SCH ×2 (01:00→12:18)
[2018-11-01] MEDS: Chlorhexidine Gluconate 2% 1 Pack (2 Cloths) TOPICAL SCH (04:55)
[2018-11-01] MEDS: Pregabalin 25 MG Capsule PO SCH ×2 (09:53→17:53)
[2018-11-01] MEDS: Folic Acid 1 MG Tablet PO SCH (09:54)
[2018-11-01] MEDS: Furosemide 20 MG Tablet PO SCH (09:54)
[2018-11-01] MEDS: clonazePAM 0.5 MG Tablet PO SCH ×2 (09:55→21:52)
[2018-11-01] MEDS: Budesonide-Formoterol 80/4.5 MCG 6.9 GM Inhaler INH SCH ×2 (09:57→21:54)
[2018-11-01] MEDS: Lubiprostone [Amitiza] 8 MCG PO SCH (09:58)
[2018-11-01] MEDS: RIVASTIGMINE TOPICAL SCH (09:58)
--- NOTE | 2018-11-01 11:06 | P.PNCC ---
Subjective Subjective Remarks/Hospital Course: 78 yo female with PMH of multiple TIA on chronic anticoagulation with Eliquis (after continued TIAs despite Plavix), Parkinson's, dementia, GERD, anxiety, bipolar disorder, asthma, compression fracture with hx kyphoplasty. She has a loop recorder in place and, to her daughter's knowledge, does not have history of A fib. She has been feeling weak for several days. Today she has had multiple melena stools, passing a few pellets and mostly black "water" x 5-6 episodes. She had one episode of nonbloody/non coffee ground emesis. She had a few second of syncope while trying to get up onto the [facility] stretcher. She arrived at [facility] emergency department where she was evaluated and found to have gabriella melena on rectal exam. Her hemoglobin is 7.3. Type and cross has been ordered and she has been ordered to transfuse 1 unit packed red cells. Her blood pressure was in the 90s over 60s with pulse in the 70s. She is on Coreg. She has been on Eliquis for over a year. No prior issues with overt GI bleeding. She did have EGD and colonoscopy done approximately 2 months ago due to anemia. This was performed by Dr. Carney and per her daughter's report demonstrated mild gastritis with resolving ulcers and no evidence of acute hemorrhage. She was continued on Eliquis. She was scheduled to have CT abd/pelvis but patient repeatedly cancelled the test. She is not on NSAIDs. She took a steroid taper about 3-4 weeks ago which was prescribed by orthopaedics for a hamstring strain. 11/01: Hemoglobin been stable for 18 hours. Advancing diet. Physical therapy and occupational therapy to evaluate patient today and recommend treatment. There is concern by family that patient has developed atrophy from limited mobility recently. She may need a transition to a rehab facility for a period of time. Arrived with dehydration and elevated creatinine which is now improving. Will recheck renal function tests in a.m. Buttonhole Marker is Dr. Jasrpeet HUTCHINSON - Dr. Rommel Hughes has continued to follow her post-rehab Ortho - Dr. Abdi - Diagnosis (1) GI bleed (2) Melena (3) Hypovolemic shock (4) Acute blood loss anemia (5) Parkinson disease (6) Bipolar disorder (7) CKD (chronic kidney disease) stage 3, GFR 30-59 ml/min (8) Seizure disorder (9) Anticoagulated by anticoagulation treatment Objective Vital Signs / I&O: Vital Signs 10/31/18 11:39 10/31/18 11:45 10/31/18 12:00 Temperature 98.3 F Pulse Rate 77 77 78 Respiratory Rate 14 14 14 Blood Pressure 88/54 L 93/52 L 91/55 L Pulse Oximetry 96 100 100 10/31/18 12:15 10/31/18 12:23 10/31/18 12:30 Temperature 98.1 F Pulse Rate 76 82 78 Respiratory Rate 14 23 15 Blood Pressure 91/54 L 91/51 L 89/54 L Pulse Oximetry 100 96 100 10/31/18 12:31 10/31/18 12:33 10/31/18 12:39 Temperature Pulse Rate 78 78 76 Respiratory Rate 16 17 15 Blood Pressure 81/44 L 87/48 L 86/48 L Pulse Oximetry 100 100 100 10/31/18 12:45 10/31/18 13:00 10/31/18 13:15 Temperature Pulse Rate 76 77 77 Respiratory Rate 16 18 22 Blood Pressure 93/50 L 103/51 L 101/49 L Pulse Oximetry 99 97 100 10/31/18 13:30 10/31/18 13:32 10/31/18 13:37 Temperature Pulse Rate 73 72 76 Respiratory Rate 14 15 16 Blood Pressure 85/47 L 86/49 L Pulse Oximetry 100 100 100 10/31/18 13:39 10/31/18 13:45 10/31/18 14:00 Temperature Pulse Rate 72 70 Respiratory Rate 15 14 Blood Pressure 87/53 L 84/47 L 86/50 L Pulse Oximetry 100 100 10/31/18 14:03 10/31/18 14:15 10/31/18 14:30 Temperature Pulse Rate 75 76 72 Respiratory Rate 20 14 17 Blood Pressure 105/53 L 106/56 L 96/51 L Pulse Oximetry 98 99 98 10/31/18 14:45 10/31/18 14:52 10/31/18 14:55 Temperature Pulse Rate 69 68 68 Respiratory Rate 14 14 13 Blood Pressure 87/49 L 85/47 L 89/51 L Pulse Oximetry 98 99 99 10/31/18 15:00 10/31/18 15:35 10/31/18 16:00 Temperature Pulse Rate 69 66 75 Respiratory Rate 14 13 16 Blood Pressure 89/52 L 84/49 L Pulse Oximetry 97 98 99 10/31/18 16:05 10/31/18 16:35 10/31/18 17:00 Temperature 98.8 F Pulse Rate 77 74 74 Respiratory Rate 18 16 17 Blood Pressure 97/50 L 99/55 L Pulse Oximetry 98 99 97 10/31/18 17:05 10/31/18 19:00 10/31/18 19:05 Temperature Pulse Rate 73 72 74 Respiratory Rate 16 18 23 Blood Pressure 100/54 L 107/54 L Pulse Oximetry 97 96 96 10/31/18 19:35 10/31/18 20:00 10/31/18 20:05 Temperature 98 F Pulse Rate 72 72 72 Respiratory Rate 15 16 19 Blood Pressure 90/51 L 96/54 L Pulse Oximetry 98 98 98 10/31/18 20:35 10/31/18 21:00 10/31/18 21:05 Temperature Pulse Rate 73 75 79 Respiratory Rate 16 17 17 Blood Pressure 96/52 L Pulse Oximetry 97 99 98 10/31/18 22:00 10/31/18 22:01 10/31/18 22:07 Temperature Pulse Rate 71 71 70 Respiratory Rate 21 16 Blood Pressure 99/47 L Pulse Oximetry 99 99 10/31/18 23:00 10/31/18 23:01 11/01/18 00:00 Temperature 98.2 F Pulse Rate 72 72 73 Respiratory Rate 16 17 17 Blood Pressure 97/52 L Pulse Oximetry 98 98 97 11/01/18 00:01 11/01/18 01:00 11/01/18 01:01 Temperature Pulse Rate 72 74 74 Respiratory Rate 17 22 17 Blood Pressure 106/55 L 92/50 L Pulse Oximetry 97 97 97 11/01/18 02:00 11/01/18 02:01 11/01/18 03:00 Temperature Pulse Rate 71 70 69 Respiratory Rate 15 15 14 Blood Pressure 94/52 L Pulse Oximetry 97 97 98 11/01/18 03:01 11/01/18 03:18 11/01/18 04:00 Temperature 98 F Pulse Rate 69 69 67 Respiratory Rate 14 15 18 Blood Pressure 86/52 L 87/52 L Pulse Oximetry 98 99 99 11/01/18 04:01 11/01/18 05:00 11/01/18 05:01 Temperature Pulse Rate 68 67 68 Respiratory Rate 14 22 22 Blood Pressure 93/52 L 96/52 L Pulse Oximetry 99 99 99 11/01/18 06:00 11/01/18 06:01 11/01/18 08:15 Temperature Pulse Rate 74 74 Respiratory Rate 17 17 Blood Pressure 101/51 L Pulse Oximetry 99 99 98 Intake & Output 10/31/18 11/01/18 11/01/18 18:59 06:59 18:59 Intake Total 380 / 380 1370 / 1370 Output Total 500 / 500 Balance 380 / 380 870 / 870 Intake: IV 100 / 100 650 / 650 Protonix Inj 80 MG In NS Inj 100 / 100 100 / 100 100 ML @ 10 mls/hr IV.CONT Q10H MARIE Rx#:[id number] NS Inj 250 ML @ 15 mls/hr IV. 550 / 550 SIG ONCE MARIE Rx#:[id number] Oral 180 / 180 720 / 720 Anesthesia Amount 100 / 100 Output: Urine 500 / 500 Other: # Voids 3 # Incontinent Voids 3 Date of Last Bowel Movement 10/30/18 10/30/18 Result Diagrams: 11/01/18 05:19 10/31/18 05:40 Objective Remarks: Narrative: GENERAL: Anxious elderly female SKIN: Warm and dry. HEAD: Atraumatic. Normocephalic. EYES: Pupils equal and round. No scleral icterus. No injection or drainage. ENT: No nasal bleeding or discharge. Mucous membranes pink and moist. NECK: Trachea midline. Airway widely patent, no obstruction to breathing. CARDIOVASCULAR: Regular rate and rhythm, sinus rhythm on the monitor. No murmurs rubs or gallops. No JVD. RESPIRATORY: No accessory muscle use. Clear to auscultation. Breath sounds equal bilaterally. No adventitious sounds. GASTROINTESTINAL: Abdomen soft, nontender, nondistended, bowel sounds present. MUSCULOSKELETAL: Extremities without clubbing, cyanosis, or edema. Warm and well-perfused digits. NEUROLOGICAL: Awake and alert. No obvious cranial nerve deficits. Moves all extremities spontaneously without apparent focal deficit. Conversant. Speech is clear. Assessment and Plan - Problem List (1) GI bleed Code(s): K92.2 - Gastrointestinal hemorrhage, unspecified Status: Acute (2) Melena Code(s): K92.1 - Melena Status: Acute (3) Hypovolemic shock Code(s): R57.1 - Hypovolemic shock Status: Acute (4) Acute blood loss anemia Code(s): D62 - Acute posthemorrhagic anemia Status: Acute (5) Parkinson disease Code(s): G20 - Parkinson's disease Status: Chronic (6) Bipolar disorder Code(s): F31.9 - Bipolar disorder, unspecified Status: Acute (7) CKD (chronic kidney disease) stage 3, GFR 30-59 ml/min Code(s): N18.3 - Chronic kidney disease, stage 3 (moderate) Status: Chronic (8) Seizure disorder Code(s): G40.909 - Epilepsy, unspecified, not intractable, without status epilepticus Status: Chronic (9) Anticoagulated by anticoagulation treatment Code(s): Z79.01 - senior living (current) use of anticoagulants Status: Chronic - Assessment and Plan Plan: NEURO: Parkinson's Dementia Anxiety Bipolar disorder Seizure disorder Continue carbidopa levodopa 25/100 mg 1.5 tabs at 9 AM, 1 PM, 5 PM, 9 pm. Continue Exelon patch Continue Cymbalta 30 mg p.o. daily. Reportedly there is been some discussion from Dr. Hughes and patient's psychiatrist about increasing it to 60 mg daily Continue Lyrica 50 mg every morning, 50 mg 5 PM, 100 mg nightly Continue Klonopin M0 0.2 mg p.o. twice daily Continue lamotrigine 200 mg nightly RESP: Asthma Continue Advair Continue Symbicort And DuoNeb while in hospital CV: Essential Hypertension Restart carvedilol 6.25 mg p.o. twice daily for now due to hypotension Hypovolemic shock Hypotension responding to volume/transfusion. 1 L NS bolus in the ED. 1 L LR given. Transfusions 3 units rbc, 1 unit platelets Hyperlipidemia Atorvastatin 20 mg p.o. daily. On Crestor 10 mg p.o. daily as outpatient GI: GI bleeding History of gastritis GI bleeding associated with Eliquis. Eliquis was placed on hold. She also has a history of gastritis and this may have been exacerbated by the need for recent prednisone. On Protonix drip. Gastroenterology consulted Eventual CT abd/pelvis when stabilized. FEN/RENAL: CKD stage III Monitor BMP. Creatinine declining ID: Monitor for signs and symptoms of infection. HEME: Acute blood loss anemia Chronic thrombocytopenia Transfused 3 units packed red cells. Transfused 1 unit platelets. Followup CBC. Serial Hgb q6. ENDO: Euglycemic PROPH: SCDs for for DVT prophylaxis. Pharmacologic DVT prophylaxis is contraindicated due to acute life-threatening hemorrhage. Protonix drip as per above. ACCESS: Multiple PIVs are currently providing adequate access. FULL CODE Overall impression: Stable hemodynamics following bleed from gastric ulcer, now cauterized. Some general debilitation, may need rehab. (1) GI bleed Qualifiers: GI bleed type/associated pathology: unspecified gastrointestinal hemorrhage type Qualified Code(s): K92.2 - Gastrointestinal hemorrhage, unspecified
--- NOTE | 2018-11-01 15:54 | P.PNGI ---
Subjective Interval history: Patient sitting up in bed Semi-recumbent Family members at bedside States tolerating clear liquid Denies any noted bleeding or dark stools Post EGD <Nely Oliver - Last Filed: 11/01/18 15:48> Physical Exam Vital signs: Vital Signs 10/31/18 16:00 10/31/18 16:05 10/31/18 16:35 Temperature 98.8 F Pulse Rate 75 77 74 Respiratory Rate 16 18 16 Blood Pressure 97/50 L 99/55 L Pulse Oximetry 99 98 99 10/31/18 17:00 10/31/18 17:05 10/31/18 19:00 Temperature Pulse Rate 74 73 72 Respiratory Rate 17 16 18 Blood Pressure 100/54 L Pulse Oximetry 97 97 96 10/31/18 19:05 10/31/18 19:35 10/31/18 20:00 Temperature Pulse Rate 74 72 72 Respiratory Rate 23 15 16 Blood Pressure 107/54 L 90/51 L Pulse Oximetry 96 98 98 10/31/18 20:05 10/31/18 20:35 10/31/18 21:00 Temperature 98 F Pulse Rate 72 73 75 Respiratory Rate 19 16 17 Blood Pressure 96/54 L Pulse Oximetry 98 97 99 10/31/18 21:05 10/31/18 22:00 10/31/18 22:01 Temperature Pulse Rate 79 71 71 Respiratory Rate 17 21 16 Blood Pressure 96/52 L 99/47 L Pulse Oximetry 98 99 99 10/31/18 22:07 10/31/18 23:00 10/31/18 23:01 Temperature Pulse Rate 70 72 72 Respiratory Rate 16 17 Blood Pressure 97/52 L Pulse Oximetry 98 98 11/01/18 00:00 11/01/18 00:01 11/01/18 01:00 Temperature 98.2 F Pulse Rate 73 72 74 Respiratory Rate 17 17 22 Blood Pressure 106/55 L Pulse Oximetry 97 97 97 11/01/18 01:01 11/01/18 02:00 11/01/18 02:01 Temperature Pulse Rate 74 71 70 Respiratory Rate 17 15 15 Blood Pressure 92/50 L 94/52 L Pulse Oximetry 97 97 97 11/01/18 03:00 11/01/18 03:01 11/01/18 03:18 Temperature Pulse Rate 69 69 69 Respiratory Rate 14 14 15 Blood Pressure 86/52 L 87/52 L Pulse Oximetry 98 98 99 11/01/18 04:00 11/01/18 04:01 11/01/18 05:00 Temperature 98 F Pulse Rate 67 68 67 Respiratory Rate 18 14 22 Blood Pressure 93/52 L Pulse Oximetry 99 99 99 11/01/18 05:01 11/01/18 06:00 11/01/18 06:01 Temperature Pulse Rate 68 74 74 Respiratory Rate 22 17 17 Blood Pressure 96/52 L 101/51 L Pulse Oximetry 99 99 99 11/01/18 07:00 11/01/18 07:01 11/01/18 08:00 Temperature 98.6 F Pulse Rate 74 74 71 Respiratory Rate 15 15 15 Blood Pressure 99/50 L Pulse Oximetry 99 99 98 11/01/18 08:01 11/01/18 08:15 11/01/18 09:00 Temperature Pulse Rate 73 65 Respiratory Rate 15 14 Blood Pressure 99/52 L Pulse Oximetry 98 98 99 11/01/18 09:01 11/01/18 09:05 11/01/18 09:23 Temperature Pulse Rate 66 71 83 Respiratory Rate 13 19 38 H Blood Pressure 85/49 L 88/51 L 116/56 L Pulse Oximetry 99 99 96 11/01/18 09:25 11/01/18 09:26 11/01/18 10:00 Temperature Pulse Rate 77 83 72 Respiratory Rate 20 25 H 17 Blood Pressure 104/57 L 121/59 L Pulse Oximetry 95 91 L 98 11/01/18 10:01 11/01/18 11:00 11/01/18 11:01 Temperature Pulse Rate 71 72 72 Respiratory Rate 20 16 15 Blood Pressure 111/59 L 115/54 L Pulse Oximetry 97 98 99 11/01/18 12:00 11/01/18 12:17 11/01/18 13:00 Temperature 98.1 F Pulse Rate 69 72 69 Respiratory Rate 16 28 H 16 Blood Pressure 103/56 L Pulse Oximetry 100 99 99 11/01/18 13:01 Temperature Pulse Rate 68 Respiratory Rate 17 Blood Pressure 106/57 L Pulse Oximetry 99 Intake & Output 10/31/18 11/01/18 11/01/18 18:59 06:59 18:59 Intake Total 380 / 380 1370 / 1370 1200 / 1200 Output Total 500 / 500 700 / 700 Balance 380 / 380 870 / 870 500 / 500 Intake: IV 100 / 100 650 / 650 100 / 100 Protonix Inj 80 MG In NS Inj 100 / 100 100 / 100 100 / 100 100 ML @ 10 mls/hr IV.CONT Q10H MARIE Rx#:[id number] NS Inj 250 ML @ 15 mls/hr IV. 550 / 550 SIG ONCE MARIE Rx#:[id number] Oral 180 / 180 720 / 720 1100 / 1100 Anesthesia Amount 100 / 100 Output: Urine 500 / 500 700 / 700 Other: # Voids 3 # Incontinent Voids 3 Date of Last Bowel Movement 10/30/18 10/30/18 - Constitutional no acute distress - Routine HEENT Exam Head: Present: normocephalic - Routine Respiratory Exam Present: CTA bilaterally - Routine Cardiovascular Exam Present: RRR - Routine Abdominal Exam Present: soft, normoactive bowel sounds. Absent: tenderness, distended, guarding, firm - Routine Skin Exam Present: dry, warm <Oliver,Nely - Last Filed: 11/01/18 15:48> Vital signs: Vital Signs 10/31/18 17:00 10/31/18 17:05 10/31/18 19:00 Temperature Pulse Rate 74 73 72 Respiratory Rate 17 16 18 Blood Pressure 100/54 L Pulse Oximetry 97 97 96 10/31/18 19:05 10/31/18 19:35 10/31/18 20:00 Temperature Pulse Rate 74 72 72 Respiratory Rate 23 15 16 Blood Pressure 107/54 L 90/51 L Pulse Oximetry 96 98 98 10/31/18 20:05 10/31/18 20:35 10/31/18 21:00 Temperature 98 F Pulse Rate 72 73 75 Respiratory Rate 19 16 17 Blood Pressure 96/54 L Pulse Oximetry 98 97 99 10/31/18 21:05 10/31/18 22:00 10/31/18 22:01 Temperature Pulse Rate 79 71 71 Respiratory Rate 17 21 16 Blood Pressure 96/52 L 99/47 L Pulse Oximetry 98 99 99 10/31/18 22:07 10/31/18 23:00 10/31/18 23:01 Temperature Pulse Rate 70 72 72 Respiratory Rate 16 17 Blood Pressure 97/52 L Pulse Oximetry 98 98 11/01/18 00:00 11/01/18 00:01 11/01/18 01:00 Temperature 98.2 F Pulse Rate 73 72 74 Respiratory Rate 17 17 22 Blood Pressure 106/55 L Pulse Oximetry 97 97 97 11/01/18 01:01 11/01/18 02:00 11/01/18 02:01 Temperature Pulse Rate 74 71 70 Respiratory Rate 17 15 15 Blood Pressure 92/50 L 94/52 L Pulse Oximetry 97 97 97 11/01/18 03:00 11/01/18 03:01 11/01/18 03:18 Temperature Pulse Rate 69 69 69 Respiratory Rate 14 14 15 Blood Pressure 86/52 L 87/52 L Pulse Oximetry 98 98 99 11/01/18 04:00 11/01/18 04:01 11/01/18 05:00 Temperature 98 F Pulse Rate 67 68 67 Respiratory Rate 18 14 22 Blood Pressure 93/52 L Pulse Oximetry 99 99 99 11/01/18 05:01 11/01/18 06:00 11/01/18 06:01 Temperature Pulse Rate 68 74 74 Respiratory Rate 22 17 17 Blood Pressure 96/52 L 101/51 L Pulse Oximetry 99 99 99 11/01/18 07:00 11/01/18 07:01 11/01/18 08:00 Temperature 98.6 F Pulse Rate 74 74 71 Respiratory Rate 15 15 15 Blood Pressure 99/50 L Pulse Oximetry 99 99 98 11/01/18 08:01 11/01/18 08:15 11/01/18 09:00 Temperature Pulse Rate 73 65 Respiratory Rate 15 14 Blood Pressure 99/52 L Pulse Oximetry 98 98 99 11/01/18 09:01 11/01/18 09:05 11/01/18 09:23 Temperature Pulse Rate 66 71 83 Respiratory Rate 13 19 38 H Blood Pressure 85/49 L 88/51 L 116/56 L Pulse Oximetry 99 99 96 11/01/18 09:25 11/01/18 09:26 11/01/18 10:00 Temperature Pulse Rate 77 83 72 Respiratory Rate 20 25 H 17 Blood Pressure 104/57 L 121/59 L Pulse Oximetry 95 91 L 98 11/01/18 10:01 11/01/18 11:00 11/01/18 11:01 Temperature Pulse Rate 71 72 72 Respiratory Rate 20 16 15 Blood Pressure 111/59 L 115/54 L Pulse Oximetry 97 98 99 11/01/18 12:00 11/01/18 12:17 11/01/18 13:00 Temperature 98.1 F Pulse Rate 69 72 69 Respiratory Rate 16 28 H 16 Blood Pressure 103/56 L Pulse Oximetry 100 99 99 11/01/18 13:01 11/01/18 15:53 Temperature Pulse Rate 68 72 Respiratory Rate 17 16 Blood Pressure 106/57 L Pulse Oximetry 99 Intake & Output 10/31/18 11/01/18 11/01/18 18:59 06:59 18:59 Intake Total 380 / 380 1370 / 1370 1200 / 1200 Output Total 500 / 500 700 / 700 Balance 380 / 380 870 / 870 500 / 500 Intake: IV 100 / 100 650 / 650 100 / 100 Protonix Inj 80 MG In NS Inj 100 / 100 100 / 100 100 / 100 100 ML @ 10 mls/hr IV.CONT Q10H MARIE Rx#:[id number] NS Inj 250 ML @ 15 mls/hr IV. 550 / 550 SIG ONCE MARIE Rx#:[id number] Oral 180 / 180 720 / 720 1100 / 1100 Anesthesia Amount 100 / 100 Output: Urine 500 / 500 700 / 700 Other: # Voids 3 # Incontinent Voids 3 Date of Last Bowel Movement 10/30/18 10/30/18 <Gualberto Nunes A - Last Filed: 11/01/18 16:52> Results - Labs CBC & Chem 7: 11/01/18 11:26 10/31/18 05:40 Laboratory Results - last 24 hr 10/31/18 10/31/18 10/31/18 18:20 19:15 23:47 Hgb 9.8 L 9.4 L Urine Color Yellow Urine Clarity Clear Urine pH 5.0 Ur Specific [place] 1.018 Urine Protein Negative Urine Glucose (UA) Negative Urine Ketones Negative Urine Occult Blood Negative Urine Nitrate Negative Urine Bilirubin Negative Urine Urobilinogen Less than 2 Ur Leukocyte Esterase Negative Urine RBC Less than 1 Urine WBC 1 Urine Bacteria Rare H Hyaline Casts 1 Micro UA Comment Cath-culture ind Ur Microscopic Review Not Reportable Urine Culture Comments Cath-cult indicated 11/01/18 11/01/18 05:19 11:26 Hgb 9.5 L 9.7 L Urine Color Urine Clarity Urine pH Ur Specific [place] Urine Protein Urine Glucose (UA) Urine Ketones Urine Occult Blood Urine Nitrate Urine Bilirubin Urine Urobilinogen Ur Leukocyte Esterase Urine RBC Urine WBC Urine Bacteria Hyaline Casts Micro UA Comment Ur Microscopic Review Urine Culture Comments Microbiology 10/31/18 19:15 Catheterized Urine Urine Culture - Preliminary gram negative rods <Nely Oliver - Last Filed: 11/01/18 15:48> - Labs CBC & Chem 7: 11/01/18 11:26 10/31/18 05:40 Laboratory Results - last 24 hr 10/31/18 10/31/18 10/31/18 18:20 19:15 23:47 Hgb 9.8 L 9.4 L Urine Color Yellow Urine Clarity Clear Urine pH 5.0 Ur Specific [place] 1.018 Urine Protein Negative Urine Glucose (UA) Negative Urine Ketones Negative Urine Occult Blood Negative Urine Nitrate Negative Urine Bilirubin Negative Urine Urobilinogen Less than 2 Ur Leukocyte Esterase Negative Urine RBC Less than 1 Urine WBC 1 Urine Bacteria Rare H Hyaline Casts 1 Micro UA Comment Cath-culture ind Ur Microscopic Review Not Reportable Urine Culture Comments Cath-cult indicated 11/01/18 11/01/18 05:19 11:26 Hgb 9.5 L 9.7 L Urine Color Urine Clarity Urine pH Ur Specific [place] Urine Protein Urine Glucose (UA) Urine Ketones Urine Occult Blood Urine Nitrate Urine Bilirubin Urine Urobilinogen Ur Leukocyte Esterase Urine RBC Urine WBC Urine Bacteria Hyaline Casts Micro UA Comment Ur Microscopic Review Urine Culture Comments Microbiology 10/31/18 19:15 Catheterized Urine Urine Culture - Preliminary gram negative rods <Gualberto Nunes - Last Filed: 11/01/18 16:52> Assessment and Plan - Plan - Anemia/melena- presented with weakness, and passing multiple melena stools became very bad the day prior to admission. She had few episodes of vomiting but denies coffee ground emesis or hematemesis. On arrival, she was evaluated and found to have gabriella melena on rectal exam. Her hemoglobin is 7.3. Today hgb is is 10.7 s/p 3 units of blood and one plt. By report, she had EGD and colonoscopy done approximately 2 months ago due to anemia by Dr. Carney which demonstrated mild gastritis with resolving ulcers and no evidence of acute hemorrhage. - PMH of multiple TIA on chronic anticoagulation with Eliquis (on hold now), Parkinson's, dementia, 11/01/2018 Anemia/melena 10/31/2018 EGD revealed the following findings-- 2 cm hiatal hernia Small ulcer was found at the pylorus , biopsies not taking while on Eliquis Angiodysplastic lesion in the gastric antrum; Argon plasma coagulation was applied to the site(s); with complete hemostasis achieved Normal duodenal mucosa Retroflexion was performed and was normal -Hemoglobin 9.7 Plan -We will advance to full liquid diet -Continue PPI -Acid reflux precautions discussed -Monitor hemoglobin and hematocrit -Transfuse if needed -Recommended repeat EGD in 8 weeks -Supportive care Pt seen and examined by Dr. Nunes and myself and this note is written on his behalf. - Attending Attestation Dr. Nunes <Nely Oliver - Last Filed: 11/01/18 15:48> - Attending Attestation Agree with above assessment and plan. <Gualberto Nunes - Last Filed: 11/01/18 16:52>
[2018-11-01] MEDS: Pantoprazole Inj 40 MG Vial IV.PUSH SCH (17:53)
[2018-11-01] MEDS: Mupirocin 2% Nasal Oint Topical Syringe EACH NARE SCH (21:52)
[2018-11-01] MEDS: lamoTRIgine 100 MG Tablet PO SCH (22:10)
[2018-11-02] MEDS: Lubiprostone [Amitiza] 8 MCG PO SCH ×3 (02:33→20:54)
[2018-11-02] MEDS: CYCLOSPORINE EACH EYE SCH ×2 (02:33→13:27)
[2018-11-02] MEDS ORDERED: Chlorhexidine Gluconate 2% 1 Pack (2 Cloths) TOPICAL SCH (04:00)
[2018-11-02] MEDS ORDERED: Chlorhexidine Gluconate 2% 1 Pack (2 Cloths) TOPICAL PRN (04:00)
[2018-11-02] MEDS: Chlorhexidine Gluconate 2% 1 Pack (2 Cloths) TOPICAL SCH (04:22)
[2018-11-02] MEDS: Pantoprazole Inj 40 MG Vial IV.PUSH SCH ×2 (04:23→16:55)
[2018-11-02 04:59] LABS: Baso % (Auto) 0.4 % (0.0-2.0); Eos # (Auto) 0.2 th/mm3 (0.0-0.4); Eos % (Auto) 2.8 % (0.0-4.0); Hematocrit 27.8 % (35.0-46.0); Hemoglobin 9.5 gm/dL (11.6-15.3); Lymph # (Auto) 1.5 th/mm3 (1.0-4.8); Lymph % (Auto) 18.6 % (9.0-44.0); Mean Corpuscular Hemoglobin 31.1 pg (27.0-34.0); Mean Corpuscular Volume 91.5 fL (80.0-100.0); Mono # (Auto) 0.8 th/mm3 (0.0-0.9); Mono % (Auto) 9.6 % (0.0-8.0); Neut # (Auto) 5.5 th/mm3 (1.8-7.7); Neut % (Auto) 68.6 % (16.0-70.0); Platelet Count 72 th/mm3 (150-450); Red Blood Count 3.04 mil/mm3 (4.00-5.30); White Blood Count 8.1 th/mm3 (4.0-11.0)
[2018-11-02 05:12] LABS: Calcium 7.6 mg/dL (8.5-10.1); Potassium 4.3 meq/L (3.5-5.1)
[2018-11-02] MEDS: Morphine Inj 4 MG/ML Vial IV.PUSH PRN ×3 (05:50→23:52)
[2018-11-02 07:07] LABS: Eosinophils 4 % (0-4); Lymphocytes 18 % (9-44); Monocytes 6 % (0-8); Myelocytes 1 % (0-0)
[2018-11-02 07:08] LABS: Dimorphic RBC Present; Ovalocytes 1+
[2018-11-02] MEDS: Folic Acid 1 MG Tablet PO SCH (08:01)
[2018-11-02] MEDS: clonazePAM 0.5 MG Tablet PO SCH ×2 (08:02→20:49)
[2018-11-02] MEDS: Pregabalin 25 MG Capsule PO SCH ×2 (08:03→16:55)
[2018-11-02] MEDS: Mupirocin 2% Nasal Oint Topical Syringe EACH NARE SCH (08:03)
[2018-11-02] MEDS: Furosemide 20 MG Tablet PO SCH (08:03)
[2018-11-02] MEDS: Budesonide-Formoterol 80/4.5 MCG 6.9 GM Inhaler INH SCH ×2 (08:04→20:56)
[2018-11-02] MEDS: RIVASTIGMINE TOPICAL SCH (08:05)
--- NOTE | 2018-11-02 11:18 | P.PN ---
Subjective Interval history: Follow-up visit for GI bleed. Patient is seen and examined sitting up in bed and appears to be in no acute distress. She reports she is feeling better today. Some nausea but no vomiting, no further bleeding reported. Patient denies any fevers, chills, cough, shortness of breath or chest pain. She does endorse some dysuria and states that she has had a "funny feeling" and thought she might have a urinary tract infection. Physical Exam Vital signs: Vital Signs 11/01/18 12:00 11/01/18 12:17 11/01/18 13:00 Temperature 98.1 F Pulse Rate 69 72 69 Respiratory Rate 16 28 H 16 Blood Pressure 103/56 L Pulse Oximetry 100 99 99 11/01/18 13:01 11/01/18 14:00 11/01/18 14:01 Temperature Pulse Rate 68 75 75 Respiratory Rate 17 16 18 Blood Pressure 106/57 L 102/55 L Pulse Oximetry 99 95 95 11/01/18 15:00 11/01/18 15:01 11/01/18 15:53 Temperature Pulse Rate 71 71 72 Respiratory Rate 19 25 H 16 Blood Pressure 104/57 L Pulse Oximetry 96 96 11/01/18 16:00 11/01/18 16:01 11/01/18 17:00 Temperature 98.1 F Pulse Rate 68 70 72 Respiratory Rate 16 18 22 Blood Pressure 115/56 L Pulse Oximetry 100 99 100 11/01/18 17:01 11/01/18 18:00 11/01/18 18:01 Temperature Pulse Rate 72 81 78 Respiratory Rate 19 20 22 Blood Pressure 107/55 L 111/56 L Pulse Oximetry 100 100 100 11/01/18 19:30 11/01/18 21:35 11/01/18 23:50 Temperature 97.3 F L 97.1 F L Pulse Rate 74 74 73 Respiratory Rate 18 18 18 Blood Pressure 109/53 L 112/54 L Pulse Oximetry 99 99 97 11/02/18 04:05 11/02/18 08:00 11/02/18 09:32 Temperature 97.2 F L 97.2 F L Pulse Rate 69 62 92 H Respiratory Rate 17 20 18 Blood Pressure 99/52 L 99/54 L Pulse Oximetry 96 100 94 L Intake & Output 12/26/18 12/27/18 12/27/18 18:59 06:59 18:59 Intake Total 1240 / 1240 480 / 480 Output Total 700 / 700 150 / 150 Balance 540 / 540 330 / 330 Weight 76.2 kg Intake: IV 140 / 140 Protonix Inj 80 MG In NS Inj 140 / 140 100 ML @ 10 mls/hr IV.CONT Q10H [facility] Rx#:[id number] Oral 1100 / 1100 480 / 480 Output: Urine 700 / 700 Urine Amount (Catheter) 150 / 150 Female External 150 / 150 Other: Date of Last Bowel Movement 10/30/18 10/30/18 10/30/18 # Bowel Movements 0 Narrative: GENERAL: Well-nourished, well-developed female resting in bed in no acute distress. SKIN: Warm, dry, pale. HEAD: Atraumatic. Normocephalic. EYES: Pupils equal/round. No scleral icterus. No injection or drainage. ENT: No nasal bleeding or discharge. Mucous membranes pink and moist. NECK: Trachea midline. CARDIOVASCULAR: Regular rate and rhythm, sinus rhythm on the monitor. No murmurs rubs or gallops. RESPIRATORY: No accessory muscle use. Clear to auscultation. Breath sounds equal bilaterally. GASTROINTESTINAL: Abdomen soft. Mild tenderness in epigastric area. Bowel sounds present. MUSCULOSKELETAL: Extremities without clubbing, cyanosis, or edema. NEUROLOGICAL: Awake and alert. No obvious cranial nerve deficits. Moves all extremities spontaneously without apparent focal deficit. - Urinary Catheter Management Female External Cath placed during this visit: no Results - Labs CBC & Chem 7: 11/02/18 04:25 11/02/18 04:25 Laboratory Results - last 24 hr 10/31/18 11/01/18 11/01/18 19:15 11:26 18:05 WBC RBC Hgb 9.7 L 9.3 L Hct MCV MCH MCHC RDW Plt Count MPV Prelim Diff (Auto) Neut % (Auto) Lymph % (Auto) [place] % (Auto) Eos % (Auto) Baso % (Auto) Neut # (Auto) Lymph # (Auto) [place] # (Auto) Eos # (Auto) Baso # (Auto) WBC Differential Seg Neuts % (Manual) Lymphocytes % (Manual) Monocytes % (Manual) Eosinophils % (Manual) Myelocytes % (Man) Abs Neuts (Manual) Differential Comment Platelet Estimate Platelet Morphology Dimorphic RBCs Ovalocytes Sodium Potassium Chloride Carbon Dioxide Anion Gap BUN Creatinine Estimated GFR Random Glucose Calcium Urine Color Yellow Urine Clarity Clear Urine pH 5.0 Ur Specific [place] 1.018 Urine Protein Negative Urine Glucose (UA) Negative Urine Ketones Negative Urine Occult Blood Negative Urine Nitrate Negative Urine Bilirubin Negative Urine Urobilinogen Less than 2 Ur Leukocyte Esterase Negative Urine RBC Less than 1 Urine WBC 1 Urine Bacteria Rare H Hyaline Casts 1 Micro UA Comment Cath-culture ind Urine Culture Comments Cath-cult indicated 11/02/18 11/02/18 04:25 04:25 WBC 8.1 RBC 3.04 L Hgb 9.5 L Hct 27.8 L MCV 91.5 MCH 31.1 MCHC 34.0 RDW 17.0 Plt Count 72 L MPV 10.0 Prelim Diff (Auto) Slide review pending Neut % (Auto) 68.6 Lymph % (Auto) 18.6 [place] % (Auto) 9.6 H Eos % (Auto) 2.8 Baso % (Auto) 0.4 Neut # (Auto) 5.5 Lymph # (Auto) 1.5 [place] # (Auto) 0.8 Eos # (Auto) 0.2 Baso # (Auto) 0.0 WBC Differential Manual diff final Seg Neuts % (Manual) 71 H Lymphocytes % (Manual) 18 Monocytes % (Manual) 6 Eosinophils % (Manual) 4 Myelocytes % (Man) 1 H Abs Neuts (Manual) 5.8 Differential Comment . Platelet Estimate Low L Platelet Morphology Enlarged H Dimorphic RBCs Present H Ovalocytes 1+ H Sodium 146 H Potassium 4.3 Chloride 113 H Carbon Dioxide 27.0 Anion Gap 6 BUN 24 H Creatinine 0.98 Estimated GFR 55 L Random Glucose 82 Calcium 7.6 L Urine Color Urine Clarity Urine pH Ur Specific [place] Urine Protein Urine Glucose (UA) Urine Ketones Urine Occult Blood Urine Nitrate Urine Bilirubin Urine Urobilinogen Ur Leukocyte Esterase Urine RBC Urine WBC Urine Bacteria Hyaline Casts Micro UA Comment Urine Culture Comments Microbiology 10/31/18 19:15 Catheterized Urine Urine Culture - Final Proteus mirabilis Assessment and Plan - Plan 78-year-old female with past medical history significant for multiple TIAs anticoagulated on Eliquis (failed Plavix), Parkinson's, dementia, GERD, anxiety , bipolar disorder, and asthma who presented to the emergency department due to multiple episodes of melena stool and emesis. Initially admitted under critical care services due to acute anemia, hypovolemic shock. GI bleed, resolved Hypovolemic shock, resolved On admission H&H 7.3/22.7 - s/p 3 units of PRBCs H&H stable, this a.m. 9.5/27.8 -GI services consulted, appreciate assistance. -s/p EGD 10/31 revealing 2 cm hiatal hernia, small ulcer at the pylorus, angiodysplastic lesions in the gastric atrium, argon plasma coagulation applied with hemostasis, retroflexion views normal. -Transition IV Protonix to p.o. twice daily -Diet advanced today by GI to regular soft -PRN Zofran for nausea, will need EGD in 12 weeks, will also need PPI on discharge. Parkinson's Dementia Anxiety Bipolar disorder Seizure disorder -Continue carbidopa levodopa 25/100 mg 1.5 tabs at 9 AM, 1 PM, 5 PM, 9 pm. -Continue Exelon patch -Continue Cymbalta 30 mg p.o. daily. -Continue Lyrica 50 mg every morning, 50 mg 5 PM, 100 mg nightly -Continue Klonopin M0 0.2 mg p.o. twice daily -Continue lamotrigine 200 mg nightly Essential Hypertension Hyperlipidemia -Continue to hold carvedilol 6.25 mg p.o. twice daily, BP still on the low side. -Continue statin Right hip/leg pain -Patient being followed by Dr. Arora, per daughter recent x-rays negative. -Ongoing pain, difficult mobility and transfer due to pain. -MRI of lumbar spine, follow results -Continue Lyrica, PRN [place] for pain. Urinary tract infection UA positive for Proteus mirabilis -Start p.o. Cipro times 5 days Hx TIA -Failed Plavix, placed on Eliquis -Continue to hold secondary to recent acute GI bleed. DVT prophylaxis-SCDs, chemical anticoagulation contraindicated secondary to GI bleed. Discussed Condition With: Patient, nurse, daughter, son-in-law Discharge Planning: Case management looking into possible discharge to [place] versus home with home health tomorrow.
--- NOTE | 2018-11-02 13:06 | P.PNGI ---
Subjective Interval history: Patient sitting up in bed Family member visiting [facility] tolerated full liquid diet with mild nausea no vomiting No reported bleeding Physical Exam Vital signs: Vital Signs 11/01/18 14:00 11/01/18 14:01 11/01/18 15:00 Temperature Pulse Rate 75 75 71 Respiratory Rate 16 18 19 Blood Pressure 102/55 L Pulse Oximetry 95 95 96 11/01/18 15:01 11/01/18 15:53 11/01/18 16:00 Temperature 98.1 F Pulse Rate 71 72 68 Respiratory Rate 25 H 16 16 Blood Pressure 104/57 L Pulse Oximetry 96 100 11/01/18 16:01 11/01/18 17:00 11/01/18 17:01 Temperature Pulse Rate 70 72 72 Respiratory Rate 18 22 19 Blood Pressure 115/56 L 107/55 L Pulse Oximetry 99 100 100 11/01/18 18:00 11/01/18 18:01 11/01/18 19:30 Temperature 97.3 F L Pulse Rate 81 78 74 Respiratory Rate 20 22 18 Blood Pressure 111/56 L 109/53 L Pulse Oximetry 100 100 99 11/01/18 21:35 11/01/18 23:50 11/02/18 04:05 Temperature 97.1 F L 97.2 F L Pulse Rate 74 73 69 Respiratory Rate 18 18 17 Blood Pressure 112/54 L 99/52 L Pulse Oximetry 99 97 96 11/02/18 08:00 11/02/18 09:32 11/02/18 12:00 Temperature 97.2 F L 97.8 F Pulse Rate 62 92 H 74 Respiratory Rate 20 18 20 Blood Pressure 99/54 L 107/59 L Pulse Oximetry 100 94 L 97 Intake & Output 11/01/18 11/02/18 11/02/18 18:59 06:59 18:59 Intake Total 1240 / 1240 480 / 480 Output Total 700 / 700 150 / 150 Balance 540 / 540 330 / 330 Weight 76.2 kg Intake: IV 140 / 140 Protonix Inj 80 MG In NS Inj 140 / 140 100 ML @ 10 mls/hr IV.CONT Q10H [facility] Rx#:[id number] Oral 1100 / 1100 480 / 480 Output: Urine 700 / 700 Urine Amount (Catheter) 150 / 150 Female External 150 / 150 Other: Date of Last Bowel Movement 10/30/18 10/30/18 10/30/18 # Bowel Movements 0 - Constitutional no acute distress - Routine HEENT Exam Head: Present: normocephalic - Routine Respiratory Exam Present: CTA bilaterally. Absent: accessory muscle use - Routine Abdominal Exam Present: soft, normoactive bowel sounds. Absent: tenderness, distended, guarding, firm - Routine Skin Exam Present: dry, warm. Absent: pallor - Routine Neurological Exam Present: alert - Urinary Catheter Management Female External Cath placed during this visit: no Results - Labs CBC & Chem 7: 11/02/18 04:25 11/02/18 04:25 Laboratory Results - last 24 hr 11/01/18 11/02/18 11/02/18 18:05 04:25 04:25 WBC 8.1 RBC 3.04 L Hgb 9.3 L 9.5 L Hct 27.8 L MCV 91.5 MCH 31.1 MCHC 34.0 RDW 17.0 Plt Count 72 L MPV 10.0 Prelim Diff (Auto) Slide review pending Neut % (Auto) 68.6 Lymph % (Auto) 18.6 [place] % (Auto) 9.6 H Eos % (Auto) 2.8 Baso % (Auto) 0.4 Neut # (Auto) 5.5 Lymph # (Auto) 1.5 [place] # (Auto) 0.8 Eos # (Auto) 0.2 Baso # (Auto) 0.0 WBC Differential Manual diff final Seg Neuts % (Manual) 71 H Lymphocytes % (Manual) 18 Monocytes % (Manual) 6 Eosinophils % (Manual) 4 Myelocytes % (Man) 1 H Abs Neuts (Manual) 5.8 Differential Comment . Platelet Estimate Low L Platelet Morphology Enlarged H Dimorphic RBCs Present H Ovalocytes 1+ H Sodium 146 H Potassium 4.3 Chloride 113 H Carbon Dioxide 27.0 Anion Gap 6 BUN 24 H Creatinine 0.98 Estimated GFR 55 L Random Glucose 82 Calcium 7.6 L Microbiology 10/31/18 19:15 Catheterized Urine Urine Culture - Final Proteus mirabilis Assessment and Plan - Plan - Anemia/melena- presented with weakness, and passing multiple melena stools became very bad the day prior to admission. She had few episodes of vomiting but denies coffee ground emesis or hematemesis. On arrival, she was evaluated and found to have gabriella melena on rectal exam. Her hemoglobin is 7.3. Today hgb is is 10.7 s/p 3 units of blood and one plt. By report, she had EGD and colonoscopy done approximately 2 months ago due to anemia by Dr. Carney which demonstrated mild gastritis with resolving ulcers and no evidence of acute hemorrhage. - PMH of multiple TIA on chronic anticoagulation with Eliquis (on hold now), Parkinson's, dementia, 11/01/2018 Anemia/melena 10/31/2018 EGD revealed the following findings-- 2 cm hiatal hernia Small ulcer was found at the pylorus , biopsies not taking while on Eliquis Angiodysplastic lesion in the gastric antrum; Argon plasma coagulation was applied to the site(s); with complete hemostasis achieved Normal duodenal mucosa Retroflexion was performed and was normal -Hemoglobin 9.7 11/02/2018 Anemia/melena No reported bleeding States tolerated full liquid diet well with mild nausea No BM today WBC 8.1 hemoglobin 9.5 hematocrit 27.8 platelet count 72-stable Plan -We will advance to regular soft diet -Continue PPI -Acid reflux precautions discussed -Monitor hemoglobin and hematocrit -Transfuse if needed -Recommended repeat EGD in 12 weeks -Supportive care -GI will sign off at this time, please notify for any further assistance Pt seen and examined by Dr. Granado and myself and this note is written on his behalf. - Attending Attestation Dr. Granado
[2018-11-02] MEDS: lamoTRIgine 100 MG Tablet PO SCH (20:50)
[2018-11-02] MEDS: Ciprofloxacin 500 MG Tablet PO SCH (20:51)
--- NOTE | 2018-11-02 22:05 | MR ---
EXAM DATE: 11/02/2018 8:24 PM EST AGE/SEX: 78 years / Female INDICATIONS: Pain. Lower back pain post fall one week ago. CLINICAL DATA: This is the patient's initial encounter. Patient reports that signs and symptoms have been present for 3 days and indicates a pain score of 7/10. MEDICAL/SURGICAL HISTORY: None. . 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 [place] [facility] [place]. . TECHNIQUE: Multiplanar, multisequence MRI of the lumbar spine was performed without contrast. Patie nt was scanned in a sitting position; neutral, flexion, and extension scans were performed in the sa gittal plane. FINDINGS: Vertebra: Interval cement augmentation of T12 compression fracture. Remaining vertebral body heights are stable and there is no evidence for bone marrow edema. Sagital alignment is maintained. Homogene ous signal. Discs: Diffuse disc desiccation. Conus: Normal level and configuration. Paraspinal Soft Tissues: No significantfocal renal abnormalities in the visualized kidneys. Visualize d aorta is non-aneurysmal. No Retroperitoneal adenopathy. T12-L1: Posterior disc osteophytes eccentric to the right with mild effacement of the right anterior lateral recess. Mild bilateral facet hypertrophy. Resultant mild to moderate central canal stenosis. Moderate right neural foraminal narrowing. L1-L2: Mild diffuse disc bulge. No significant central canal or neural foraminal stenosis. L2-L3: Diffuse disc bulge with mild bilateral facet hypertrophy. Mild central canal narrowing. Mild c audal bilateral neural foraminal narrowing. L3-L4: Diffuse disc bulge and posterior osteophytes with mild effacement anterior thecal sac. Bila teral facet hypertrophy, more prominent on the left. Mild to moderate central canal narrowing. Mild c audal bilateral neural foraminal narrowing. L4-L5: Diffuse disc bulge with bilateral facet hypertrophy. Mild to moderate central canal narrowin g. Mild to moderate caudal right neural foraminal narrowing. L5-S1: Minimal diffuse disc bulge. No significant central canal or neural foraminal narrowing. CONCLUSION: 1. Interval cement augmentation of T12 compression fracture. 2. No evidence for acute lumbar compression fracture. 3. Multilevel degenerative spondylosis of the lumbar spine with multilevel mild to moderate spinal c anal stenosis most notably in the lower lumbar spine. 4. Please see above for detailed description of each level. Electronically signed by: Cam Ahmadi MD Board Certified Radiologist 11/02/2018 8:31 PM [facility] T
[2018-11-03] MEDS: CYCLOSPORINE EACH EYE SCH ×2 (00:37→12:03)
[2018-11-03] MEDS: Morphine Inj 4 MG/ML Vial IV.PUSH PRN (07:58)
[2018-11-03] MEDS: Furosemide 20 MG Tablet PO SCH (07:59)
[2018-11-03] MEDS: Ciprofloxacin 500 MG Tablet PO SCH ×2 (07:59→20:57)
[2018-11-03] MEDS: Pregabalin 25 MG Capsule PO SCH (07:59)
[2018-11-03] MEDS: Folic Acid 1 MG Tablet PO SCH (08:01)
[2018-11-03] MEDS: clonazePAM 0.5 MG Tablet PO SCH ×2 (08:01→20:58)
[2018-11-03] MEDS: Budesonide-Formoterol 80/4.5 MCG 6.9 GM Inhaler INH SCH ×2 (08:01→21:06)
[2018-11-03] MEDS: Lubiprostone [Amitiza] 8 MCG PO SCH ×2 (08:01→21:05)
[2018-11-03] MEDS: RIVASTIGMINE TOPICAL SCH (08:01)
[2018-11-03] MEDS ORDERED: Bisacodyl 10 MG Supp RECTAL PRN (11:23)
--- NOTE | 2018-11-03 11:31 | P.PN ---
Subjective Interval history: Follow-up visit for GI bleed, right hip/leg pain. Patient seen and examined sitting up in bed eating breakfast this morning. Reports not much appetite but denies any vomiting or bleeding. Some nausea this morning. Continues to complain of right hip pain radiating down the back of right leg. Denies any numbness, tingling, urinary or fecal incontinence. Rates her pain 7/10 as aching. Nurse reports no BM since the . Physical Exam Vital signs: Vital Signs 11/02/18 12:00 11/02/18 13:35 11/02/18 16:00 Temperature 97.8 F 97.8 F Pulse Rate 74 74 75 Respiratory Rate 20 18 21 Blood Pressure 107/59 L 96/51 L Pulse Oximetry 97 94 L 11/02/18 19:25 11/02/18 21:26 11/02/18 23:40 Temperature 98.1 F 97.2 F L Pulse Rate 75 75 75 Respiratory Rate 18 20 17 Blood Pressure 115/56 L 119/57 L Pulse Oximetry 98 94 L 95 11/03/18 00:00 11/03/18 03:56 11/03/18 04:00 Temperature 98.2 F Pulse Rate 72 Respiratory Rate 16 16 16 Blood Pressure 100/51 L Pulse Oximetry 93 L 11/03/18 07:36 11/03/18 09:00 Temperature 98.3 F Pulse Rate 73 82 Respiratory Rate 16 18 Blood Pressure 100/56 L Pulse Oximetry 93 L 95 Intake & Output 11/02/18 11/03/18 11/03/18 18:59 06:59 18:59 Intake Total 780 / 780 620 / 620 Output Total 0 / 0 Balance 780 / 780 620 / 620 Intake: Oral 780 / 780 620 / 620 Output: Stool 0 / 0 Other: # Voids 1 # Incontinent Voids 2 # Urine Diapers 2 Date of Last Bowel Movement 10/30/18 10/30/18 # Bowel Movements 0 0 Narrative: GENERAL: Well-nourished, well-developed female resting in bed in no acute distress. SKIN: Warm, dry, pale. HEAD: Atraumatic. Normocephalic. EYES: Pupils equal/round. No scleral icterus. No injection or drainage. ENT: No nasal bleeding or discharge. Mucous membranes pink and moist. NECK: Trachea midline. CARDIOVASCULAR: Regular rate and rhythm, sinus rhythm on the monitor. No murmurs rubs or gallops. RESPIRATORY: No accessory muscle use. Clear to auscultation. Breath sounds equal bilaterally. GASTROINTESTINAL: Abdomen soft, non-tender. Hypoactive bowel sounds. MUSCULOSKELETAL: Extremities without clubbing, cyanosis, or edema. NEUROLOGICAL: Awake and alert. No obvious cranial nerve deficits. Moves all extremities spontaneously without apparent focal deficit. - Urinary Catheter Management Female External Cath placed during this visit: no Results - Labs CBC & Chem 7: 11/02/18 04:25 11/02/18 04:25 Laboratory Results - last 24 hr 10/31/18 10/31/18 00:27 01:58 MTS Gel Crossmatch See Detail See Detail Microbiology 10/31/18 19:15 Catheterized Urine Urine Culture - Final Proteus mirabilis - Imaging Impressions Lumbar Spine MRI 11/02/18 00:00 CONCLUSION: 1. Interval cement augmentation of T12 compression fracture. 2. No evidence for acute lumbar compression fracture. 3. Multilevel degenerative spondylosis of the lumbar spine with multilevel mild to moderate spinal canal stenosis most notably in the lower lumbar spine. 4. Please see above for detailed description of each level. Assessment and Plan - Plan 78-year-old female with past medical history significant for multiple TIAs anticoagulated on Eliquis (failed Plavix), Parkinson's, dementia, GERD, anxiety , bipolar disorder, and asthma who presented to the emergency department due to multiple episodes of melena stool and emesis. Initially admitted under critical care services due to acute anemia, hypovolemic shock. GI bleed, resolved Hypovolemic shock, resolved On admission H&H 7.3/22.7 - s/p 3 units of PRBCs H&H stable 9.5/27.8 -GI services consulted, appreciate assistance. -s/p EGD 10/31 revealing 2 cm hiatal hernia, small ulcer at the pylorus, angiodysplastic lesions in the gastric atrium, argon plasma coagulation applied with hemostasis, retroflexion views normal. -Protonix to p.o. twice daily -Regular soft diet -PRN Zofran for nausea, will need EGD in 12 weeks, will also need PPI on discharge. -Recheck H&H today Parkinson's Dementia Anxiety Bipolar disorder Seizure disorder -Continue carbidopa levodopa 25/100 mg 1.5 tabs at 9 AM, 1 PM, 5 PM, 9 pm. -Continue Exelon patch -Continue Cymbalta 30 mg p.o. daily. -Continue Lyrica 50 mg every morning, 50 mg 5 PM, 100 mg nightly -Continue Klonopin M0 0.2 mg p.o. twice daily -Continue lamotrigine 200 mg nightly Essential Hypertension Hyperlipidemia -Continue to hold carvedilol 6.25 mg p.o. twice daily, BP still on the low side. -Continue statin Degenerative spondylosis with multilevel mild to moderate spinal canal stenosis Possible right-sided radiculopathy Right hip/leg pain -Patient being followed by Dr. Arroa. -Ongoing pain, difficult mobility and transfer due to pain. -MRI of lumbar spine, with interval cement augmentation of T12 compression fracture, no acute lumbar compression fracture, multilevel degenerative spondylosis of the lumbar spine with multilevel mid to moderate spinal canal stenosis most notably in the lower spine. -Significant pain interfering with participation with PT -Check right hip 2 view x-ray -Continue Lyrica, PRN [place] for pain. Urinary tract infection UA positive for Proteus mirabilis -Cipro 500 mg twice daily for 5 days Hx TIA -Failed Plavix, placed on Eliquis -Continue to hold secondary to recent acute GI bleed. Thrombocytopenia, chronic dating back to 2011 -Patient with platelets in the 70s-130s -Patient is on Lyrica and this could be a contributing factor to her low PLT, however Lyrica is needed due to her pain. DVT prophylaxis-SCDs, chemical anticoagulation contraindicated secondary to GI bleed. Discussed Condition With: Patient, daughter, son-in-law, nurse, Dr.R. Hayes Discharge Planning: Will DC to [facility] tomorrow or Tuesday
--- NOTE | 2018-11-03 11:36 | XR ---
EXAM DATE: 11/03/2018 10:46 AM EST AGE/SEX: 78 years / Female INDICATIONS: Right hip pain. CLINICAL DATA: This is the patient's subsequent encounter. Patient reports that signs and symptoms h ave been present for 2 days and indicates a pain score of 6/10. MEDICAL/SURGICAL HISTORY: . Hypercholesterolemia. Hypertension. Parkinson's. . Abdominal aort ic aneurysm repair. Cholecystectomy. Appendectomy. Hysterectomy. Left hip replacement. COMPARISON: [facility] – [place], PELVIS AP ONLY, 11/02/2012. . FINDINGS: Bony structures are intact and in normal alignment. Joints are intact without dislocation or signifi cant arthropathy. Osseous density is normal. Soft tissues are unremarkable. No radiopaque foreign bodies seen. There are some chronic changes at the pubic symphysis. There are is evidence of injectio n granulomas in the soft tissues of the right buttocks. CONCLUSION: No acute fracture or joint dislocation. Electronically signed by: Nikhil Rojas MD Board Certified Radiologist 11/03/2018 10:57 AM EST
[2018-11-03] MEDS ORDERED: Pregabalin 25 MG Capsule PO SCH (17:00)
[2018-11-03 19:29] LABS: Hematocrit 30.1 % (35.0-46.0); Hemoglobin 10.6 gm/dL (11.6-15.3); Mean Corpuscular HGB Conc 35.4 % (32.0-36.0); Mean Corpuscular Volume 90.4 fL (80.0-100.0); Mean Platelet Volume 10.1 fL (7.0-11.0); Platelet Count 93 th/mm3 (150-450); Red Blood Count 3.33 mil/mm3 (4.00-5.30); Red Cell Distribution Width 17.5 % (11.6-17.2); White Blood Count 8.9 th/mm3 (4.0-11.0)
[2018-11-03] MEDS: Senna/Docusate Sodium 8.6/50 MG Tablet PO SCH (20:57)
[2018-11-03] MEDS: lamoTRIgine 100 MG Tablet PO SCH (21:04)
[2018-11-04] MEDS: CYCLOSPORINE EACH EYE SCH ×2 (05:06→13:12)
[2018-11-04] MEDS: Folic Acid 1 MG Tablet PO SCH (08:52)
[2018-11-04] MEDS: clonazePAM 0.5 MG Tablet PO SCH (08:52)
[2018-11-04] MEDS: Furosemide 20 MG Tablet PO SCH (08:53)
[2018-11-04] MEDS: Ciprofloxacin 500 MG Tablet PO SCH (08:53)
[2018-11-04] MEDS: Senna/Docusate Sodium 8.6/50 MG Tablet PO SCH (08:53)
[2018-11-04] MEDS: Pregabalin 25 MG Capsule PO SCH (08:55)
[2018-11-04] MEDS: Budesonide-Formoterol 80/4.5 MCG 6.9 GM Inhaler INH SCH (09:12)
[2018-11-04 09:13] VITALS: PULSE 85; RESP 18
[2018-11-04] MEDS: RIVASTIGMINE TOPICAL SCH (09:14)
[2018-11-04] MEDS: Lubiprostone [Amitiza] 8 MCG PO SCH (09:14)
--- NOTE | 2018-11-04 09:30 | P.PNIM ---
Subjective Interval history: F/U GIB bleeding. Reports of pulled muscle discomfort right posterior thigh Physical Exam Vital signs: Last Vital Signs Temp 98.2 F 11/04/18 07:59 Pulse 85 11/04/18 07:59 Resp 18 11/04/18 07:59 BP 116/58 L 11/04/18 07:59 Pulse Ox 98 11/04/18 07:59 Intake & Output 11/02/18 11/03/18 11/04/18 11/05/18 06:59 06:59 06:59 06:59 Intake Total 1720 / 1720 1400 / 1400 0 / 0 Output Total 850 / 850 0 / 0 Balance 870 / 870 1400 / 1400 0 / 0 Weight 76.2 kg 74.2 kg Narrative: GENERAL: Well-nourished, well-developed female resting in bed in no acute distress. SKIN: Warm, dry, pale. CARDIOVASCULAR: Regular rate and rhythm, sinus rhythm on the monitor. No murmurs rubs or gallops. RESPIRATORY: No accessory muscle use. Clear to auscultation. Breath sounds equal bilaterally. GASTROINTESTINAL: Abdomen soft, non-tender. Normal active bowel sounds. MUSCULOSKELETAL: Extremities without clubbing, cyanosis, or edema. No tenderness over posterior thigh, swelling or redness NEUROLOGICAL: Awake and alert. No obvious cranial nerve deficits. Moves all extremities spontaneously without apparent focal deficit. Urinary Catheter Management Female External: Cath placed during this visit: no Results Labs CBC & Chem 7: 11/03/18 19:15 11/02/18 04:25 Imaging Imaging: ITS Impressions Lumbar Spine MRI 11/02/18 00:00 CONCLUSION: 1. Interval cement augmentation of T12 compression fracture. 2. No evidence for acute lumbar compression fracture. 3. Multilevel degenerative spondylosis of the lumbar spine with multilevel mild to moderate spinal canal stenosis most notably in the lower lumbar spine. 4. Please see above for detailed description of each level. Hip X-Ray 11/03/18 00:00 CONCLUSION: No acute fracture or joint dislocation. Procedures Procedures: EGD Assessment and Plan Plan 78-year-old female with past medical history significant for multiple TIAs anticoagulated on Eliquis (failed Plavix), Parkinson's, dementia, GERD, anxiety , bipolar disorder, and asthma who presented to the emergency department due to multiple episodes of melena stool and emesis. Initially admitted under critical care services due to acute anemia, hypovolemic shock. GI bleed, resolved Hypovolemic shock, resolved On admission H&H 7.3/22.7 - s/p 3 units of PRBCs H&H stable 9.5/27.8 -GI services consulted, appreciate assistance. -s/p EGD 10/31 revealing 2 cm hiatal hernia, small ulcer at the pylorus, angiodysplastic lesions in the gastric atrium, argon plasma coagulation applied with hemostasis, retroflexion views normal. No bx 2/2 anticoagulation -Protonix to p.o. twice daily -Regular soft diet -PRN Zofran for nausea, will need EGD in 12 weeks, will also need PPI on discharge. -Discussed with GI on-call, may restart anticoagulation Eliquis Parkinson's Dementia Anxiety Bipolar disorder Seizure disorder -Continue carbidopa levodopa 25/100 mg 1.5 tabs at 9 AM, 1 PM, 5 PM, 9 pm. -Continue Exelon patch -Continue Cymbalta 30 mg p.o. daily. -Continue Lyrica 50 mg every morning, 50 mg 5 PM, 100 mg nightly -Continue Klonopin M0 0.2 mg p.o. twice daily -Continue lamotrigine 200 mg nightly Essential Hypertension Hyperlipidemia -Continue to hold carvedilol 6.25 mg p.o. twice daily, BP still on the low side. -Continue statin Degenerative spondylosis with multilevel mild to moderate spinal canal stenosis Possible right-sided radiculopathy Right hip/leg pain -Patient being followed by Dr. Arora. -Ongoing pain, difficult mobility and transfer due to pain. -MRI of lumbar spine, with interval cement augmentation of T12 compression fracture, no acute lumbar compression fracture, multilevel degenerative spondylosis of the lumbar spine with multilevel mid to moderate spinal canal stenosis most notably in the lower spine. -Significant pain interfering with participation with PT -Neg right hip 2 view x-ray -Continue Lyrica, PRN Radisson for pain. Heat pads Urinary tract infection UA positive for Proteus mirabilis -Cipro 500 mg twice daily for 7 days Hx TIA -Failed Plavix, placed on Eliquis Thrombocytopenia, chronic dating back to 2011 -Patient with platelets in the 70s-130s -Patient is on Lyrica and this could be a contributing factor to her low PLT, however Lyrica is needed due to her pain. DVT prophylaxis-SCDs, chemical anticoagulation contraindicated secondary to GI bleed. Will DC to [facility] Progress Note: Quality VTE Deep Vein Thrombosis/Pulmonary Embolism Present on Admission: No
--- NOTE | 2018-11-04 11:26 | P.DS ---
DS: Providers Date of admission: 10/30/18 19:39 Primary care physician: Khadijah Levin MD Consults: 10/31/18 00:28 Consult to Gastroenterology Routine Consulting Provider: Gualberto Nunes Patient known to:: Star Carney Reason for Consultation: GI bleeding Notified:: Service Spoke with:: gisell Date Notified:: 10/31/18 Time Notified:: 00:48 Ordering Provider: HERNESTO 11/01/18 10:42 Consult to Hospitalist Routine Consulting Provider: Darrick Garcia Reason for Consultation: Medical management s/p gastric ulcer bleed. Notified:: Service Spoke with:: santhosh Date Notified:: 11/01/18 Time Notified:: 10:47 Comments:: waiting research and evaluation analyst back/ra Ordering Provider: ZI Brief History from admission: 78 yo female with PMH of multiple TIA on chronic anticoagulation with Eliquis (after continued TIAs despite Plavix), Parkinson's, dementia, GERD, anxiety, bipolar disorder, asthma, compression fracture with hx kyphoplasty. She has a loop recorder in place and, to her daughter's knowledge, does not have history of A fib. She has been feeling weak for several days. Today she has had multiple melena stools, passing a few pellets and mostly black "water" x 5-6 episodes. She had one episode of nonbloody/non coffee ground emesis. She had a few second of syncope while trying to get up onto the EVAC stretcher. She arrived at [facility] emergency department where she was evaluated and found to have gabriella melena on rectal exam. Her hemoglobin is 7.3. Type and cross has been ordered and she has been ordered to transfuse 1 unit packed red cells. Her blood pressure was in the 90s over 60s with pulse in the 70s. She is on Coreg. She has been on Eliquis for over a year. No prior issues with overt GI bleeding. She did have EGD and colonoscopy done approximately 2 months ago due to anemia. This was performed by Dr. Carney and per her daughter's report demonstrated mild gastritis with resolving ulcers and no evidence of acute hemorrhage. She was continued on Eliquis. She was scheduled to have CT abd/pelvis but patient repeatedly cancelled the test. She is not on NSAIDs. She took a steroid taper about 3-4 weeks ago which was prescribed by orthopaedics for a hamstring strain. Rn Admission is Dr. Vogel GI - Dr. Rommel Hughes has continued to follow her post-rehab Ortho - Dr. Abdi DS: Summary 78-year-old female with past medical history significant for multiple TIAs anticoagulated on Eliquis (failed Plavix), Parkinson's, dementia, GERD, anxiety , bipolar disorder, and asthma who presented to the emergency department due to multiple episodes of melena stool and emesis. Initially admitted under critical care services due to acute anemia, hypovolemic shock. GI bleed, resolved Hypovolemic shock, resolved On admission H&H 7.3/22.7 - s/p 3 units of PRBCs H&H stable 9.5/27.8 -GI services consulted, appreciate assistance. -s/p EGD 10/31 revealing 2 cm hiatal hernia, small ulcer at the pylorus, angiodysplastic lesions in the gastric atrium, argon plasma coagulation applied with hemostasis, retroflexion views normal. No bx 2/2 anticoagulation -Protonix to p.o. twice daily -Regular soft diet -PRN Zofran for nausea, will need EGD in 12 weeks, will also need PPI on discharge. -Discussed with GI on-call, may restart anticoagulation Eliquis Parkinson's Dementia Anxiety Bipolar disorder Seizure disorder -Continue carbidopa levodopa 25/100 mg 1.5 tabs at 9 AM, 1 PM, 5 PM, 9 pm. -Continue Exelon patch -Continue Cymbalta 30 mg p.o. daily. -Continue Lyrica 50 mg every morning, 50 mg 5 PM, 100 mg nightly -Continue Klonopin M0 0.2 mg p.o. twice daily -Continue lamotrigine 200 mg nightly Essential Hypertension Hyperlipidemia -Continue to hold carvedilol 6.25 mg p.o. twice daily, BP still on the low side. -Continue statin Degenerative spondylosis with multilevel mild to moderate spinal canal stenosis Possible right-sided radiculopathy Right hip/leg pain -Patient being followed by Dr. Arora. -Ongoing pain, difficult mobility and transfer due to pain. -MRI of lumbar spine, with interval cement augmentation of T12 compression fracture, no acute lumbar compression fracture, multilevel degenerative spondylosis of the lumbar spine with multilevel mid to moderate spinal canal stenosis most notably in the lower spine. -Significant pain interfering with participation with PT -Neg right hip 2 view x-ray -Continue Lyrica, PRN Kathleen for pain. Heat pads Urinary tract infection UA positive for Proteus mirabilis -Cipro 500 mg twice daily for 7 days Hx TIA -Failed Plavix, placed on Eliquis Thrombocytopenia, chronic dating back to 2011 -Patient with platelets in the 70s-130s -Patient is on Lyrica and this could be a contributing factor to her low PLT, however Lyrica is needed due to her pain. DVT prophylaxis-SCDs, chemical anticoagulation contraindicated secondary to GI bleed. Will DC to [facility] Time Spent with Patient Total time spent providing and/or coordinating discharge services: Greater than 30 minutes Quality: VTE Deep Vein Thrombosis/Pulmonary Embolism Present on Admission: No Exam Narrative Exam Narrative: GENERAL: Well-developed, well-nourished in no distress SKIN: Warm and dry. CARDIOVASCULAR: Regular rate and rhythm. RESPIRATORY: No accessory muscle use. Clear to auscultation. Breath sounds equal bilaterally. GASTROINTESTINAL: Abdomen soft, non-tender, nondistended. MUSCULOSKELETAL: Extremities without clubbing, cyanosis, or edema. No obvious deformities. NEUROLOGICAL: Awake and alert. No obvious cranial nerve deficits. Motor grossly within normal limits. Five out of 5 muscle strength in the arms and legs. Normal speech. PSYCHIATRIC: Appropriate mood and affect; insight and judgment normal. Results Procedures completed during hospitalization: EGD Labs on day of discharge: Labs from last 24 hours 11/03/18 19:15 WBC 8.9 RBC 3.33 L Hgb 10.6 L Hct 30.1 L MCV 90.4 MCH 32.0 MCHC 35.4 RDW 17.5 H Plt Count 93 L MPV 10.1 Impressions ITS Impressions Lumbar Spine MRI 11/02/18 00:00 CONCLUSION: 1. Interval cement augmentation of T12 compression fracture. 2. No evidence for acute lumbar compression fracture. 3. Multilevel degenerative spondylosis of the lumbar spine with multilevel mild to moderate spinal canal stenosis most notably in the lower lumbar spine. 4. Please see above for detailed description of each level. Hip X-Ray 11/03/18 00:00 CONCLUSION: No acute fracture or joint dislocation. Discharge Plan Discharge Disposition Patient Disposition: 62 Rehab Inpatient Discharge Condition Condition: Stable Discharge Order Discharge Orders: Discharge Order (Routine); Ordered 11/04/18 Ordered By: Leo Roa Discharge Details Discharge Comment: dc after I see pt Physicians Team ED Provider: Celi Hoff Primary Care Provider: Khadijah Levin Attending Provider: Leo Roa Other Providers: Gualberto Nunes Rxs /Orders / Referrals /Forms Prescriptions: New ciprofloxacin HCl 500 mg Tablet 500 mg PO Q12HR Qty: 10 RF: 0 carbidopa-levodopa 25-100 mg Tablet 1.5 tab PO HS Qty: 30 RF: 0 ipratropium-albuterol 0.5 mg-3 mg(2.5 mg base)/3 mL Solution For Nebulization 3 ml NEB Q6HR WHILE AWAKE NEB Qty: 180 RF: 0 Continue lamotrigine 200 mg Tablet 200 mg PO HS RF: 0 sucralfate 1 gram Tablet 1 g PO Q6H RF: 0 fluticasone-salmeterol [Advair Diskus] 100-50 mcg/dose Blister With Device 1 puff INHALATION Q12H RF: 0 carbidopa-levodopa 25-100 mg Tablet 1.5 tab PO TID RF: 0 cyclosporine [Restasis] 0.05 % Dropperette 1 drp OPHTHALMIC (EYE) Q12H RF: 0 clonazepam 0.25 mg Tablet,Disintegrating 0.25 mg PO BID RF: 0 rosuvastatin [Crestor] 10 mg Tablet 10 mg PO DAILY RF: 0 memantine [Namenda] 10 mg Tablet 10 mg PO BID RF: 0 duloxetine [Cymbalta] 30 mg Capsule,Delayed Release(Dr/Ec) 30 mg PO DAILY RF: 0 calcium carbonate-vitamin D3 [Calcium 600 + D(3)] 600 mg calcium- 200 unit Capsule 600 mg PO DAILY RF: 0 pregabalin [Lyrica] 50 mg Capsule 50 mg PO DAILY RF: 0 pregabalin [Lyrica] 100 mg Capsule 100 mg PO HS RF: 0 budesonide-formoterol [Symbicort] 80-4.5 mcg/actuation Hfa Aerosol Inhaler 2 puff INHALATION BID RF: 0 lubiprostone [Amitiza] 8 mcg Capsule 8 mcg PO BID RF: 0 rivastigmine [Exelon] 13.3 mg/24 hour Patch 24 Hour 1 patch TRANSDERMAL DAILY RF: 0 apixaban [Eliquis] 5 mg Tablet 5 mg PO BID RF: 0 potassium chloride 20 mEq Tablet Extended Release 20 meq PO DAILY RF: 0 folic acid 1 mg Tablet 4 mg PO DAILY RF: 0 furosemide 20 mg Tablet 20 mg PO DAILY RF: 0 Discontinued carvedilol 6.25 mg Tablet 6.25 mg PO BID RF: 0 Referrals: Star Carney M.D. [GASTROENTEROLOGY] - See Instructions (1 wk f/u) Khadijah Levin MD [Primary Care Provider] - See Instructions (1 wk f/u) Discharge Instructions Patient Printed Instructions: Diet for Stomach Ulcers and Gastritis (GEN) Post Discharge Care Plan Care Plan Goals: Your Health Problems: Goals to Promote Your Health: * To prevent worsening of your condition * To maintain your health at the optimal level Directions to Meet Your Goals: * Take your medications as prescribed * Follow your dietary instruction * Follow activity as directed * Keep your appointments as scheduled * Take your immunizations and boosters as scheduled * If your symptoms worsen call your PCP * If no PCP go to Urgent Care or Emergency Room Smoking is dangerous to your health. Avoid second hand smoke. You may reach the 24-hour crisis hotline for domestic abuse at . Status ED Status: Left Department
[2018-11-04 13:03] VITALS: BP 110/53; TEMP 98; O2SAT 97
== END 2018-11-04 13:52 | DRG 377 ==
LOC: PHED 17:49 → PHEDA 19:39 → N03 21:00 → N06 11-01 19:18
PROVIDERS: ADMIT Internal Medicine; ATTEND Internal Medicine
PROC: PANENDO (2018-10-31 10:58)
CPT/HCPCS: 36430; 43270; 72148; 73502; 80048; 80053; 81001; 85018; 85025; 85027; 85610; 85730; 86850; 86900; 86901; 86923; 87077; 87086; 87186; 87641; 90761; 90774; 94640; 94664; 94665; 96361; 96374; 97110; 97116; 97162; 97166; 97535; 99291; C8952; C9113; J2060; J2270; J2405; J3010; J7030; J7050; J7120; P9016; P9037